=== PATIENT | male | born 1955 | race Caucasian/White ===

== ENCOUNTER → 2022-08-19 15:21 | Outpatient (BNVA) | payer MEDICARE, SELFPAY | PROVIDERS: PCP Physician Assistant Medical; Visit Provider Student in an Organized Health Care Education/Training Program | DX: M06.9 Rheumatoid arthritis, unspecified (principal); M14.671 Charcot's joint, right ankle and foot; J84.10 Pulmonary fibrosis, unspecified | CPT/HCPCS: 99202 ==

== ENCOUNTER 2023-03-16 15:15 | Outpatient (AMB) | payer MEDICARE, SELFPAY ==
[2023-03-16 15:19] VITALS: BP 116/66; PULSE 79; TEMP 37.1; O2SAT 94; BMI 30.3
--- NOTE | 2023-03-16 15:19 | A.OFFVIS_ITS ---
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 Patient states that he has been doing about the same overall. He gets intermittent flares of hand swelling. He takes prednisone 5 mg daily as a standing dose but occasionally increases the dose to 10 mg daily. Continues on Humira every other week. Initial history: This is a 66-year-old male with complex past medical history who presents for evaluation of RA. 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 Patient was diagnosed with gout in his 20s, he would have attacks of significant big toe pain and swelling. This was never crystal proven He received allopurinol for a short time in 2011. He was treated for Lyme on the basis of a positive screen in 2012 but Western blot testing was negative. He started having migratory polyarthritis in 2012 he was initially evaluated by Dr. Dickinson. He then used to follow-up with Dr. Calix, He was started on medications including hydroxychloroquine and leflunomide. Leflunomide was apparently discontinued due to neuropathy. He has been maintained on prednisone 5 mg daily for years now. He was evaluated by Dr. Landin in 2021 and started on Humira sometime in summer of 2021 with significant improvement of his overall joint pain swelling and stiffness. Also of note patient was recently found to have interstitial lung disease on CT chest and he will make an appointment with his manager acquisition for evaluation. Patient has a flare up of his rheumatoid arthritis in last month and he was started on prednisone 20 mg for 1 week then 10 mg for 1 week. He is currently on 10 mg and he will be back to 5 mg next week. He was diagnosed with Charcot it joint affecting his right foot and right foot reconstructive surgery was recommended however patient postpone the surgery as his has COPD and he has to maintain the household by himself, he cannot be unable to walk for four-months which is postop recovery time. History of chronic shoulder pains.? MRI 2009 showed a glenoid labral tear on the right PFSH Medical History Chronic sciatica COPD (chronic obstructive pulmonary disease) Disorder of rotator cuff Encounter for testing for latent tuberculosis infection Essential hypertension Fibrosis of lung Fractures, compound Gout Hyperlipidemia Multiple lung nodules Opioid dependence Rheumatoid arthritis Screening for viral disease Tobacco abuse Surgical History History of surgery on right wrist Family History Father Diabetes Mother Heart disease Social History Household Members: Spouse Alcohol intake: current Alcohol intake frequency: holidays/special occasions only Patient Tobacco Use Status: Current everyday Tobacco user Cigarette Packs Per Day: 1 Current occupational status: employed and retired 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 Review of Systems [facility] [place] Reports arthralgias, Reports joint swelling and Reports stiffness Physical Exam Vital Signs: Last Vital Signs Temp 98.8 F 03/16/23 15:19 Pulse 79 03/16/23 15:19 BP 116/66 03/16/23 15:19 Pulse Ox 94 03/16/23 15:19 Oxygen Delivery Method Room Air 03/16/23 15:19 BMI result Body Mass Index 30.3 Const General: cooperative, healthy appearing, comfortable and no acute distress Nutritional Appearance: overweight Orientation/consciousness: patient oriented x3 Limitations: no limitations HEENT Head: Yes normocephalic and Yes atraumatic Resp Effort & Inspection: normal respiratory effort and able to speak in complete sentences Neuro General: patient oriented x3 Extrem Other: Bilateral 2nd 3rd and 4th MCP swelling without significant tenderness. Bilateral positive MCP squeeze test Right wrist swelling without tenderness Normal nailfold capillaroscopy Significant right foot deformity (Charcot's foot) Results Reviewed Results Reviewed: Labs 03/02? CCP>250 RF 124? SLE EVELYN 1-80 homogeneous Lab 01/2022? CMP unremarkable? Sed rate 23 CRP normal MRI right foot 2021 1. Bone marrow edema involving multiple tarsal and metatarsal bones.? No acute fracture line is identified 2. Probably sequela from remote trauma at the level of the 2nd metatarsal base, possibly with un united fracture fragment.? 3. Small erosive changes in multiple bones, presumably better seen on the radiograph.?? 4. Multiloculated cystic structure between the 2nd and 3rd metatarsals could represent Grissom's neuroma or complicated ganglion cyst.?? 5. Probable small ganglion cysts on the dorsal aspect of the talonavicular joint Assessment & Plan Assessment & Plan (1) Rheumatoid arthritis: Comment: ++RF, +++CCP diagnosed around 2017 Hydroxychloroquine ineffective, leflunomide partially effective discontinued due to neuropathy Humira started summer 2021, effective Prednisone 5 mg all through Code(s): M06.9 - Rheumatoid arthritis, unspecified Plan: This is a 67-year-old male with seropositive RA (ILD) who presents for follow- up. Doing about the same overall with intermittent flares of synovitis. Patient has multiple swollen and tender joints upon evaluation today. Currently on prednisone 5 mg daily increased to 10 mg daily as needed for flares and Humira 40 mg every other week Discussed with patient. Advance Humira to 40 mg every other week. If not approved by insurance will switch to Enbrel once weekly. Patient does not remember the name of his specialty pharmacy. He will contact the office. Check labs today. Follow-up in 3 months (2) Charcot's joint of foot, non-diabetic: Code(s): M14.679 - Charcot's joint, unspecified ankle and foot Qualifiers: Laterality: right Qualified Code(s): M14.671 - Charcot's joint, right ankle and foot Plan: Evaluated by surgeon and surgical reconstruction was suggested but patient currently cannot afford the postoperative course as he has to take care of the household and his who has severe COPD. (3) Fibrosis of lung: Code(s): J84.10 - Pulmonary fibrosis, unspecified Plan: RA-Ild is a possibility given sero positivity, male sex and long history of smoking. Also recent low-dose CT scan showed stable lung nodules and stable extensive ILD. Will await evaluation by his manager acquisition Plan I spent 26 minutes reviewing patient's chart, evaluating patient, ordering diagnostic workup, counseling patient and documenting in the chart Orders: Orders Comprehensive Met. Panel Today M06.9 - Rheumatoid arthritis, unspecified C Reactive Protein Today M06.9 - Rheumatoid arthritis, unspecified Complete Blood Count Auto Diff Today M06.9 - Rheumatoid arthritis, unspecified Erythrocyte Sedimentation Rate Today M06.9 - Rheumatoid arthritis, unspecified Hepatitis A,B,C Profile Today Z11.59 - Encounter for screening for other viral diseases T Spot TB Today Z11.7 - Encounter for testing for latent tuberculosis infection Medications: Refilled prednisone 5 mg PO DAILY 30 tabs 2RF Coding Level of Care Code Est Pt Level 4 (56463) Diagnoses Rheumatoid arthritis M06.9 Charcot's joint of foot, non-diabetic M14.671 Laterality: right Fibrosis of lung J84.10
== END 2023-03-16 16:05 | disposition home or self-care (01) ==
PROVIDERS: PCP Physician Assistant Medical; Visit Provider Student in an Organized Health Care Education/Training Program
DX: M06.9 Rheumatoid arthritis, unspecified (principal); M14.671 Charcot's joint, right ankle and foot; J84.10 Pulmonary fibrosis, unspecified
CPT/HCPCS: 99214

== ENCOUNTER → 2023-03-16 15:15 | Outpatient (BNVA) | payer MEDICARE, SELFPAY | PROVIDERS: PCP Physician Assistant Medical; Visit Provider Student in an Organized Health Care Education/Training Program | DX: M06.9 Rheumatoid arthritis, unspecified (principal); M14.671 Charcot's joint, right ankle and foot; J84.10 Pulmonary fibrosis, unspecified | CPT/HCPCS: 99212 ==

== ENCOUNTER 2023-06-21 09:46 | Outpatient (AMB) | payer MEDICARE, SELFPAY ==
--- NOTE | 2023-06-21 09:55 | MHC.OFFVIS ---
Intake Vital Signs 06/21/23 09:56 Height 5 ft 10.5 in Weight 218 lb 4.122 oz BMI 30.9 BP 102/60 Blood Pressure Location Rt brachial Position Sitting Pulse 68 Pulse Source Pulse Oximeter Temp 97.8 F Temp Source Skin Pulse Oximetry (%) 91 L Intake Visit Reasons: RA Intake Note: Pt last seen 03/16/23, presents today for follow up and test results. 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 Last visit Humira was advanced to once weekly. States that he feels much better overall. Still continues to take prednisone 5 mg daily and rarely would increase it to 10 mg daily when he knows he will have a long day ahead of him. Otherwise he feels the same. Initial history: This is a 66-year-old male with complex past medical history who presents for evaluation of RA. 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 Patient was diagnosed with gout in his 20s, he would have attacks of significant big toe pain and swelling. This was never crystal proven He received allopurinol for a short time in 2011. He was treated for Lyme on the basis of a positive screen in 2012 but Western blot testing was negative. He started having migratory polyarthritis in 2012 he was initially evaluated by Dr. Dickinson. He then used to follow-up with Dr. Calix, He was started on medications including hydroxychloroquine and leflunomide. Leflunomide was apparently discontinued due to neuropathy. He has been maintained on prednisone 5 mg daily for years now. He was evaluated by Dr. Landin in 2021 and started on Humira sometime in summer of 2021 with significant improvement of his overall joint pain swelling and stiffness. Also of note patient was recently found to have interstitial lung disease on CT chest and he will make an appointment with his hydrodynamics professor for evaluation. Patient has a flare up of his rheumatoid arthritis in last month and he was started on prednisone 20 mg for 1 week then 10 mg for 1 week. He is currently on 10 mg and he will be back to 5 mg next week. He was diagnosed with Charcot it joint affecting his right foot and right foot reconstructive surgery was recommended however patient postpone the surgery as his has COPD and he has to maintain the household by himself, he cannot be unable to walk for four-months which is postop recovery time. History of chronic shoulder pains.? MRI 2009 showed a glenoid labral tear on the right [facility] Medical History (Updated 06/21/23 @ 10:38 by Noemy Lewsi MD) Fractures, compound Opioid dependence Disorder of rotator cuff Gout Chronic sciatica Tobacco abuse Multiple lung nodules Hyperlipidemia COPD (chronic obstructive pulmonary disease) Fibrosis of lung Rheumatoid arthritis Essential hypertension Surgical History History of surgery on right wrist Family History Father Diabetes Mother Heart disease Social History Household Members: Spouse Alcohol intake: current Alcohol intake frequency: holidays/special occasions only Patient Tobacco Use Status: Current everyday Tobacco user Cigarette Packs Per Day: 1 Current occupational status: retired Review of Systems [facility] Reports myalgias and Reports arthralgias Physical Exam Vital Signs: Last Vital Signs Temp 97.8 F 06/21/23 09:56 Pulse 68 06/21/23 09:56 BP 102/60 06/21/23 09:56 Pulse Ox 91 L 06/21/23 09:56 BMI result Body Mass Index 30.9 Const General: cooperative, healthy appearing, comfortable and no acute distress Nutritional Appearance: overweight Orientation/consciousness: patient oriented x3 Limitations: no limitations HEENT Head: Yes normocephalic and Yes atraumatic Resp Effort & Inspection: normal respiratory effort and able to speak in complete sentences Auscultation: crackles bilateral Neuro General: patient oriented x3 Extrem Other: No active synovitis today Normal range of motion of shoulder Normal nailfold capillaroscopy Significant right foot deformity (Charcot's foot) Results Reviewed Results Reviewed: Labs 03/02? CCP>250 RF 124? SLE EVELYN 1-80 homogeneous Lab 01/2022? CMP unremarkable? Sed rate 23 CRP normal MRI right foot 2021 1. Bone marrow edema involving multiple tarsal and metatarsal bones.? No acute fracture line is identified 2. Probably sequela from remote trauma at the level of the 2nd metatarsal base, possibly with un united fracture fragment.? 3. Small erosive changes in multiple bones, presumably better seen on the radiograph.?? 4. Multiloculated cystic structure between the 2nd and 3rd metatarsals could represent Grissom's neuroma or complicated ganglion cyst.?? 5. Probable small ganglion cysts on the dorsal aspect of the talonavicular joint Low-dose CT chest 09/2022 Findings: No lung nodules Other findings trachea and mainstem bronchi normal Lungs and pleura: Stable extensive chronic lung disease. No pneumothorax or pleural effusion. Mediastinum and lymph nodes: No large lymph nodes. Normal cardiac size. No pericardial effusion. Coronary artery calcification: Mild Chest wall and soft tissues: Normal Impression: No lung nodules Lung rads category 2 Assessment & Plan Assessment & Plan (1) Rheumatoid arthritis: Comment: ++RF, +++CCP diagnosed around 2017 Hydroxychloroquine ineffective, leflunomide partially effective discontinued due to neuropathy Humira started summer 2021, effective advanced to weekly 03/2023 effective Prednisone 5 mg all through Code(s): M06.9 - Rheumatoid arthritis, unspecified Qualifiers: Rheumatoid arthritis location: multiple sites Rheumatoid factor presence: with rheumatoid factor Qualified Code(s): M05.79 - Rheumatoid arthritis with rheumatoid factor of multiple sites without organ or systems involvement Plan: This is a 67-year-old male with seropositive RA who presents for follow-up. Doing better overall on Humira 40 mg weekly and 5 mg daily. There is no active synovitis today. Rarely increases prednisone to 10 mg. Continue the same. Will plan on reducing prednisone dose in subsequent visits Check labs today. Follow-up in 3 months (2) Charcot's joint of foot, non-diabetic: Code(s): M14.679 - Charcot's joint, unspecified ankle and foot Qualifiers: Laterality: right Qualified Code(s): M14.671 - Charcot's joint, right ankle and foot Plan: Evaluated by surgeon and surgical reconstruction was suggested but patient currently cannot afford the postoperative course as he has to take care of the household and his who has severe COPD. (3) Fibrosis of lung: Code(s): J84.10 - Pulmonary fibrosis, unspecified Plan: RA-Ild is a possibility given sero positivity, male sex and long history of smoking. Also recent low-dose CT scan showed stable lung nodules and stable extensive ILD. Will await evaluation by his hydrodynamics professor (4) Immunization counseling: Code(s): Z71.85 - Encounter for immunization safety counseling Plan: Patient is up-to-date on flu vaccine and COVID booster Plan I spent 26 minutes reviewing patient's chart, evaluating patient, ordering diagnostic workup, counseling patient and documenting in the chart Orders: Orders C Reactive Protein Today M06.9 - Rheumatoid arthritis, unspecified T Spot TB Today Z11.7 - Encounter for testing for latent tuberculosis infection Complete Blood Count Auto Diff Today M06.9 - Rheumatoid arthritis, unspecified Comprehensive Met. Panel Today M06.9 - Rheumatoid arthritis, unspecified Erythrocyte Sedimentation Rate Today M06.9 - Rheumatoid arthritis, unspecified Hepatitis A,B,C Profile Today Z11.59 - Encounter for screening for other viral diseases Coding Level of Care Code Est Pt Level 4 (81071) Diagnoses Rheumatoid arthritis involving multiple sites with positive rheumatoid factor M05.79 Rheumatoid arthritis location: multiple sites Rheumatoid factor presence: with rheumatoid factor Charcot's joint of right foot, non-diabetic M14.671 Laterality: right Fibrosis of lung J84.10 Immunization counseling Z71.85
[2023-06-21 09:56] VITALS: BP 102/60; PULSE 68; TEMP 36.6; O2SAT 91; BMI 30.9
== END 2023-06-21 10:32 | disposition home or self-care (01) ==
PROVIDERS: PCP Physician Assistant Medical; Visit Provider Student in an Organized Health Care Education/Training Program
DX: M05.79 Rheumatoid arthritis with rheumatoid factor of multiple sites without organ or systems involvement (principal); M14.671 Charcot's joint, right ankle and foot; J84.10 Pulmonary fibrosis, unspecified; Z71.85 Encounter for immunization safety counseling
CPT/HCPCS: 99214

== ENCOUNTER → 2023-06-21 09:46 | Outpatient (BNVA) | payer MEDICARE, SELFPAY | PROVIDERS: PCP Physician Assistant Medical; Visit Provider Student in an Organized Health Care Education/Training Program | DX: M05.79 Rheumatoid arthritis with rheumatoid factor of multiple sites without organ or systems involvement (principal); M14.671 Charcot's joint, right ankle and foot; J84.10 Pulmonary fibrosis, unspecified; Z71.85 Encounter for immunization safety counseling; Z11.59 Encounter for screening for other viral diseases; Z72.89 Other problems related to lifestyle | CPT/HCPCS: 36415; 80053; 82784; 84165; 84550; 85025; 85652; 86140; 86334; 86481; 86704; 86706; 86709; 86803; 87340; 99212 ==

== ENCOUNTER 2023-06-21 10:47 | Outpatient (REF) | payer MEDICARE, SELFPAY ==
[2023-06-21 13:28] LABS: MANUAL DIFF FLAG NO
[2023-06-21 13:39] LABS: Basophils Percent Auto 0.4 % (0-2); Eosinophils Absolute Auto 0.2 X10*3/uL (0.0-0.4); Eosinophils Percent Auto 2.7 % (0-4); Hematocrit 44.9 % (42.0-52.0); Hemoglobin 14.8 g/dl (14.0-18.0); Imm Gran Abs Auto 0.03 X10*3/uL (0.00-0.03); Imm Gran Pct Auto 0.4 % (0.0-0.4); Lymphocytes Absolute Auto 1.7 X10*3/uL (1.2-4.9); Lymphocytes Percent Auto 20.8 % (20-40); Mean Corpuscular Hemoglobin 31.4 pg (27.0-33.0); Mean Corpuscular Volume 95.3 fL (80.0-98.0); Mean Platelet Volume 12.2 fL (9.4-12.4); Monocytes Absolute Auto 0.7 X10*3/uL (0.1-1.2); Monocytes Percent Auto 8.5 % (2-11); Neutrophils Absolute Auto 5.5 x10*3/uL (2.0-8.3); Neutrophils Percent Auto 67.2 % (45-73); Platelet Count 245 X10*3/uL (160-400); Red Blood Count 4.71 X10*6/uL (4.60-5.80); Red Cell Distribution Width 12.7 % (11.0-16.0); White Blood Count 8.1 X10*3/uL (4.8-10.8)
[2023-06-21 14:08] LABS: Alanine Aminotransferase 13 U/L (0-40); Albumin Level 3.8 g/dL (3.5-5.0); Alkaline Phosphatase 91 U/L (39-117); Anion Gap 12 (12-20); Aspartate Amino Transferase 21 U/L (5-37); Bilirubin Total 0.4 mg/dL (0.0-1.0); Blood Urea Nitrogen 27 mg/dL (9-16); C Reactive Protein 1.04 mg/dL (< or = 0.50); Calcium 9.3 mg/dL (8.4-10.2); Carbon Dioxide 26 mmol/L (22-29); Chloride 106 mmol/L (96-108); Estimated Glomerular Filt Rate > 60; Glucose Random 100 mg/dL (60-115); Potassium 3.9 mmol/L (3.3-5.1); Sodium 140 mmol/L (135-145); Total Protein 7.5 g/dL (6.5-8.0); Uric Acid 6.1 mg/dL (3.4-7.0)
[2023-06-21 14:21] LABS: Erythrocyte Sedimentation Rate 62 MM/HR (0-15)
[2023-06-22 04:55] LABS: HBS Num1 56.03 mIU/mL (0-7.99); HBc Num1 0.11 S/CO (0.00-0.79); HBsAGNum1 0.36 S/CO (0.00-0.99); Hepatitis A Antibody IgM 0.63 Index (0-0.79); Hepatitis B Core Antibody Nonreactive (Nonreactive); Hepatitis B Surface Antigen Negative (Negative); ~HepC Num1 0.07 S/CO (0.00-0.79); ~Hepatitis A Antibody IgM Nonreactive (Nonreactive); ~Hepatitis B Surface Antibody REACTIVE (Nonreactive); ~Hepatitis C Antibody Nonreactive (Nonreactive)
[2023-06-22 21:54] LABS: Prot Elec - Albumin 3.9 g/dL (3.8-4.8); Prot Elec - Alpha1 0.4 g/dL (0.2-0.3); Prot Elec - Alpha2 0.9 g/dL (0.5-0.9); Prot Elec - Beta 1 0.4 g/dL (0.4-0.6); Prot Elec - Beta 2 0.4 g/dL (0.2-0.5); Prot Elec - Gamma 1.3 g/dL (0.8-1.7); Prot Elec - Total Protein 7.2 g/dL (6.1-8.1)
[2023-06-23 18:48] LABS: TS Negative Control Passed; TS Panel A 0; TS Panel B 0; TS Positive Control Passed; TSpotTB Negative (Negative)
[2023-06-27 11:09] LABS: IgA 317 mg/dL (70-320); IgG 1195 mg/dL (600-1540); IgM 322 mg/dL (50-300)
== END 2023-06-21 10:48 | disposition home or self-care (01) ==
LOC: HO.10HDL 10:47
PROVIDERS: Visit Provider Student in an Organized Health Care Education/Training Program
DX: Z13.89 Encounter for screening for other disorder (principal)
CPT/HCPCS: 36415; 80053; 82784; 84165; 84550; 85025; 85652; 86140; 86334; 86481; 86704; 86706; 86709; 86803; 87340

== ENCOUNTER 2023-10-05 11:36 | Outpatient (AMB) | payer MEDICARE, SELFPAY ==
--- NOTE | 2023-10-05 11:42 | A.OFFVIS_ITS ---
Intake Vital Signs 10/05/23 11:43 Height 5 ft 10.5 in Weight 213 lb 13.574 oz BMI 30.2 BP 120/72 Blood Pressure Location Rt brachial Position Sitting Pulse 72 Pulse Source Pulse Oximeter Temp 98.1 F Temp Source Skin Pulse Oximetry (%) 91 L Oxygen Delivery Method Room Air Intake Visit Reasons: RA Intake Note: Patient last seen 06/21/23 presents today for follow up and test results. Patient has not completed labs ordered. Pharmacy Assistant Required: No Accompanied by: Self / Same As Patient Allergies No Known Allergies Allergy (Verified 10/05/23 11:48) Medication List - Last Reconciled 10/05/23 by Noemy Lewis MD Humira(CF) Pen (adalimumab) 40 mg (0.4 mL) subcut QWEEK NS hydrochlorothiazide 25 mg PO DAILY multivitamin 1 tab PO DAILY oxycodone ER 20 mg PO DAILY oxycodone-acetaminophen 10-325 mg 1 tab PO .5 times a day prednisone Take 2 tabs daily alternating with 1 tab daily sildenafil 100 mg PO DAILY PRN HPI HPI Comments History of Present Illness Details 67-year-old male with seropositive RA re turns for follow-up. On Humira weekly. He states that he stops taking the prednisone for a few days, his thumbs start acting up and he takes the 5 mg daily for a few days with resolution of joint pain. He is doing about the same overall. Recently evaluated by inspector precision assembly and a CT chest was completed Initial history: This is a 66-year-old male with complex past medical history who presents for evaluation of RA. 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 Patient was diagnosed with gout in his 20s, he would have attacks of significant big toe pain and swelling. This was never crystal proven He received allopurinol for a short time in 2011. He was treated for Lyme on the basis of a positive screen in 2012 but Western blot testing was negative. He started having migratory polyarthritis in 2012 he was initially evaluated by Dr. Dickinson. He then used to follow-up with Dr. Calix, He was started on medications including hydroxychloroquine and leflunomide. Leflunomide was apparently discontinued due to neuropathy. He has been maintained on prednisone 5 mg daily for years now. He was evaluated by Dr. Landin in 2021 and started on Humira sometime in summer of 2021 with significant improvement of his overall joint pain swelling and stiffness. Also of note patient was recently found to have interstitial lung disease on CT chest and he will make an appointment with his inspector precision assembly for evaluation. Patient has a flare up of his rheumatoid arthritis in last month and he was started on prednisone 20 mg for 1 week then 10 mg for 1 week. He is currently on 10 mg and he will be back to 5 mg next week. He was diagnosed with Charcot it joint affecting his right foot and right foot reconstructive surgery was recommended however patient postpone the surgery as his has COPD and he has to maintain the household by himself, he cannot be unable to walk for four-months which is postop recovery time. History of chronic shoulder pains.? MRI 2009 showed a glenoid labral [facility] Medical History Fractures, compound Opioid dependence Disorder of rotator cuff Gout Chronic sciatica Tobacco abuse Multiple lung nodules Hyperlipidemia COPD (chronic obstructive pulmonary disease) Fibrosis of lung Rheumatoid arthritis Essential hypertension Surgical History History of surgery on right wrist Family History Father Diabetes Mother Heart disease Social History Household Members: Spouse Alcohol intake: current Alcohol intake frequency: holidays/special occasions only Patient Tobacco Use Status: Current everyday Tobacco user Cigarette Packs Per Day: 1 Current occupational status: retired Review of Systems [facility] [place] Reports myalgias and Reports arthralgias Physical Exam Vital Signs: Last Vital Signs Temp 98.1 F 10/05/23 11:43 Pulse 72 10/05/23 11:43 BP 120/72 10/05/23 11:43 Pulse Ox 91 L 10/05/23 11:43 Oxygen Delivery Method Room Air 10/05/23 11:43 BMI result Body Mass Index 30.2 Const General: cooperative, healthy appearing, comfortable and no acute distress Nutritional Appearance: overweight Orientation/consciousness: patient oriented x3 Limitations: no limitations HEENT Head: Yes normocephalic and Yes atraumatic Resp Effort & Inspection: normal respiratory effort and able to speak in complete sentences Auscultation: crackles bilateral Neuro General: patient oriented x3 Extrem Other: No active synovitis today Normal range of motion of shoulders Positive empty can test bilaterally Positive Speed's test on the left Normal nailfold capillaroscopy Significant right foot deformity (Charcot's foot) Results Reviewed Results Reviewed: Labs 03/02? CCP>250 RF 124? SLE EVELYN 1-80 homogeneous Lab 01/2022? CMP unremarkable? Sed rate 23 CRP normal MRI right foot 2021 1. Bone marrow edema involving multiple tarsal and metatarsal bones.? No acute fracture line is identified 2. Probably sequela from remote trauma at the level of the 2nd metatarsal base, possibly with un united fracture fragment.? 3. Small erosive changes in multiple bones, presumably better seen on the radiograph.?? 4. Multiloculated cystic structure between the 2nd and 3rd metatarsals could represent Grissom's neuroma or complicated ganglion cyst.?? 5. Probable small ganglion cysts on the dorsal aspect of the talonavicular joint Low-dose CT chest 09/2022 Findings: No lung nodules Other findings trachea and mainstem bronchi normal Lungs and pleura: Stable extensive chronic lung disease. No pneumothorax or pleural effusion. Mediastinum and lymph nodes: No large lymph nodes. Normal cardiac size. No pericardial effusion. Coronary artery calcification: Mild Chest wall and soft tissues: Normal Impression: No lung nodules Lung rads category 2 Assessment & Plan Assessment & Plan (1) Rheumatoid arthritis: Comment: ++RF, +++CCP diagnosed around 2017 Hydroxychloroquine ineffective, leflunomide partially effective discontinued due to neuropathy Humira started summer 2021, effective advanced to weekly 03/2023 effective Prednisone 5 mg all through Code(s): M06.9 - Rheumatoid arthritis, unspecified Qualifiers: Rheumatoid arthritis location: multiple sites Rheumatoid factor presence: with rheumatoid factor Qualified Code(s): M05.79 - Rheumatoid arthritis with rheumatoid factor of multiple sites without organ or systems involvement Plan: This is a 67-year-old male with seropositive RA who presents for follow-up. Doing well on Humira 40 mg weekly. Advised patient to reduce prednisone to 5 mg daily alternating with 2.5 mg daily Labs before next visit in 3 months (2) Charcot's joint of foot, non-diabetic: Code(s): M14.679 - Charcot's joint, unspecified ankle and foot Qualifiers: Laterality: right Qualified Code(s): M14.671 - Charcot's joint, right ankle and foot Plan: Evaluated by surgeon and surgical reconstruction was suggested but patient currently cannot afford the postoperative course as he has to take care of the household and his who has severe COPD. (3) Fibrosis of lung: Code(s): J84.10 - Pulmonary fibrosis, unspecified Plan: RA-Ild is a possibility given sero positivity, male sex and long history of smoking. Also recent low-dose CT scan showed stable lung nodules and stable extensive ILD. Will await evaluation by his inspector precision assembly. Patient does not know the his inspector precision assembly's name. Advised patient to call our office once he gets back home. Plan I spent 26 minutes reviewing patient's chart, evaluating patient, ordering diagnostic workup, counseling patient and documenting in the chart Orders: Orders Comprehensive Met. Panel 3 Months M06.9 - Rheumatoid arthritis, unspecified C Reactive Protein 3 Months M06.9 - Rheumatoid arthritis, unspecified Erythrocyte Sedimentation Rate 3 Months M06.9 - Rheumatoid arthritis, unspecified Complete Blood Count Auto Diff 3 Months M06.9 - Rheumatoid arthritis, unspecified Medications: New prednisone Take 2 tabs daily alternating with 1 tab daily 135 tabs 0RF Discontinued prednisone Discontinued Reason: Doctor's Order 5 mg PO DAILY 30 tabs 2RF Coding Level of Care Code Est Pt Level 4 (36995) Diagnoses Rheumatoid arthritis involving multiple sites with positive rheumatoid factor M05.79 Rheumatoid arthritis location: multiple sites Rheumatoid factor presence: with rheumatoid factor Charcot's joint of right foot, non-diabetic M14.671 Laterality: right Fibrosis of lung J84.10
[2023-10-05 11:43] VITALS: BP 120/72; PULSE 72; TEMP 36.7; O2SAT 91; BMI 30.2
== END 2023-10-05 12:05 | disposition home or self-care (01) ==
PROVIDERS: PCP Physician Assistant Medical; Visit Provider Student in an Organized Health Care Education/Training Program
DX: M05.79 Rheumatoid arthritis with rheumatoid factor of multiple sites without organ or systems involvement (principal); M14.671 Charcot's joint, right ankle and foot; J84.10 Pulmonary fibrosis, unspecified
CPT/HCPCS: 99214

== ENCOUNTER → 2023-10-05 11:36 | Outpatient (BNVA) | payer MEDICARE, SELFPAY | PROVIDERS: PCP Physician Assistant Medical; Visit Provider Student in an Organized Health Care Education/Training Program | DX: M05.79 Rheumatoid arthritis with rheumatoid factor of multiple sites without organ or systems involvement (principal); M14.671 Charcot's joint, right ankle and foot; J84.10 Pulmonary fibrosis, unspecified | CPT/HCPCS: 99212 ==

== ENCOUNTER 2024-01-03 11:27 | Outpatient (AMB) | payer MEDICARE, SELFPAY ==
--- NOTE | 2024-01-03 11:29 | A.OFFVIS_ITS ---
Vital Signs 01/03/24 11:32 Height 5 ft 10.5 in Weight 200 lb 9.93 oz BMI 28.4 BP 112/80 Pulse 83 Pulse Oximetry (%) 93 Intake Visit Reasons: RA Intake Note: Patient last seen 10/05/23 presents today for follow up and test results. Patient reports recent flare that started last week. Allergies No Known Allergies Allergy (Verified 01/03/24 11:36) Medication List - Last Reconciled 01/03/24 by Noemy Lewis MD hydrochlorothiazide 25 mg PO DAILY multivitamin 1 tab PO DAILY oxycodone ER 20 mg PO DAILY oxycodone-acetaminophen 10-325 mg 1 tab PO .5 times a day prednisone 2.5 mg PO DAILY sildenafil 100 mg PO DAILY PRN HPI Comments Details: 68-year-old male with seropositive RA returns for follow-up. On Humira weekly and prednisone 2.5 mg daily. States that he was having a flare-up over the last 2-3 weeks involving his hands, wrists, ankles. Associated with swelling, warmth and stiffness. He increased his prednisone to 7.5 mg daily for a few days which helped his ankles. Today he is doing reasonably well. He denies any history of infections recently. Initial history: This is a 66-year-old male with complex past medical history who presents for evaluation of RA. 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 Patient was diagnosed with gout in his 20s, he would have attacks of significant big toe pain and swelling. This was never crystal proven He received allopurinol for a short time in 2011. He was treated for Lyme on the basis of a positive screen in 2012 but Western blot testing was negative. He started having migratory polyarthritis in 2012 he was initially evaluated by Dr. Dickinson. He then used to follow-up with Dr. Calix, He was started on medications including hydroxychloroquine and leflunomide. Leflunomide was apparently discontinued due to neuropathy. He has been maintained on prednisone 5 mg daily for years now. He was evaluated by Dr. Ladnin in 2021 and started on Humira sometime in summer of 2021 with significant improvement of his overall joint pain swelling and stiffness. Also of note patient was recently found to have interstitial lung disease on CT chest and he will make an appointment with his card checker for evaluation. Patient has a flare up of his rheumatoid arthritis in last month and he was started on prednisone 20 mg for 1 week then 10 mg for 1 week. He is currently on 10 mg and he will be back to 5 mg next week. He was diagnosed with Charcot it joint affecting his right foot and right foot reconstructive surgery was recommended however patient postpone the surgery as his has COPD and he has to maintain the household by himself, he cannot be unable to walk for four-months which is postop recovery time. History of chronic shoulder pains.? MRI 2009 showed a glenoid labral tear on the right PFSH Medical History Fractures, compound Opioid dependence Disorder of rotator cuff Gout Chronic sciatica Tobacco abuse Multiple lung nodules Hyperlipidemia COPD (chronic obstructive pulmonary disease) Fibrosis of lung Rheumatoid arthritis Essential hypertension Surgical History History of surgery on right wrist Family History Father Diabetes Mother Heart disease Social History Household Members: Spouse Alcohol intake: current Alcohol intake frequency: holidays/special occasions only Patient Tobacco Use Status: Current everyday Tobacco user Cigarettes Per Day: 18 Current occupational status: retired Review of Systems [facility] [place] arthralgias, Reports joint swelling and Reports stiffness Physical Exam Vital Signs: Last Vital Signs Pulse 83 01/03/24 11:32 BP 112/80 01/03/24 11:32 Pulse Ox 93 01/03/24 11:32 BMI result Body Mass Index 28.4 Const General: cooperative, healthy appearing, comfortable and no acute distress Nutritional Appearance: overweight Orientation/consciousness: patient oriented x3 Limitations: no limitations HEENT Head: Yes normocephalic and Yes atraumatic Resp Effort & Inspection: normal respiratory effort and able to speak in complete sentences Auscultation: crackles bilateral Neuro General: patient oriented x3 Extrem Other: Right 2nd 3rd and 4th MCP tenderness 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 CCP>250 RF 124? SLE EVELYN 1-80 homogeneous Lab 01/2022? CMP unremarkable? Sed rate 23 CRP normal MRI right foot 2021 1. Bone marrow edema involving multiple tarsal and metatarsal bones.? No acute fracture line is identified 2. Probably sequela from remote trauma at the level of the 2nd metatarsal base, possibly with un united fracture fragment.? 3. Small erosive changes in multiple bones, presumably better seen on the radiograph.?? 4. Multiloculated cystic structure between the 2nd and 3rd metatarsals could represent Grissom's neuroma or complicated ganglion cyst.?? 5. Probable small ganglion cysts on the dorsal aspect of the talonavicular joint Low-dose CT chest 09/2022 Findings: No lung nodules Other findings trachea and mainstem bronchi normal Lungs and pleura: Stable extensive chronic lung disease. No pneumothorax or pleural effusion. Mediastinum and lymph nodes: No large lymph nodes. Normal cardiac size. No pericardial effusion. Coronary artery calcification: Mild Chest wall and soft tissues: Normal Impression: No lung nodules Lung rads category 2 Assessment & Plan Assessment & Plan (1) Rheumatoid arthritis: Comment: ++RF, +++CCP diagnosed around 2017 Hydroxychloroquine ineffective, leflunomide partially effective discontinued due to neuropathy Humira started summer 2021, effective advanced to weekly 03/2023 effective Prednisone all through Code(s): M06.9 - Rheumatoid arthritis, unspecified Category: Medical Qualifiers: Rheumatoid arthritis location: multiple sites Rheumatoid factor presence: with rheumatoid factor Qualified Code(s): M05.79 - Rheumatoid arthritis with rheumatoid factor of multiple sites without organ or systems involvement Plan: This is a 68-year-old male with seropositive RA who presents for follow-up. On Humira 40 mg weekly and prednisone 2.5 mg daily. Since last visit patient has been having multiple flare-ups requiring increasing his prednisone dosage. On exam he has multiple tender joints. Labs show significantly elevated inflammatory markers. Will need to change DMARDs. Discussed risks and benefits of Actemra. Patient agreed to proceed. Will start prior authorization for Actemra. DC Enbrel Continue with prednisone 2.5 mg daily Labs before next visit in 3 months (2) Charcot's joint of foot, non-diabetic: Code(s): M14.679 - Charcot's joint, unspecified ankle and foot Category: Medical Qualifiers: Laterality: right Qualified Code(s): M14.671 - Charcot's joint, right ankle and foot Plan: Evaluated by surgeon and surgical reconstruction was suggested but patient currently cannot afford the postoperative course as he has to take care of the household and his who has severe COPD. (3) Fibrosis of lung: Code(s): J84.10 - Pulmonary fibrosis, unspecified Category: Medical Plan: Smoking related versus RA ILD. RA-Ild is a possibility given sero positivity, male sex and long history of smoking. Recently evaluated by card checker Dr. Tipton. Plan I spent 26 minutes reviewing patient's chart, evaluating patient, ordering diagnostic workup, counseling patient and documenting in the chart Orders: Orders C Reactive Protein 3 Months M05.79 - Rheumatoid arthritis with rheumatoid factor of multiple sites without organ or systems involvement Erythrocyte Sedimentation Rate 3 Months M05.79 - Rheumatoid arthritis with rheumatoid factor of multiple sites without organ or systems involvement Complete Blood Count Auto Diff 3 Months M05. - Rheumatoid arthritis with rheumatoid factor of multiple sites without organ or systems involvement Comprehensive Met. Panel 3 Months M05.79 - Rheumatoid arthritis with rheumatoid factor of multiple sites without organ or systems involvement Medications: Changed From prednisone Take 2 tabs daily alternating with 1 tab daily 135 tabs 0RF To prednisone 2.5 mg PO DAILY Coding Level of Care Code Est Pt Level 4 (19309) Diagnoses Rheumatoid arthritis involving multiple sites with positive rheumatoid factor M05.79 Rheumatoid arthritis location: multiple sites Rheumatoid factor presence: with rheumatoid factor Charcot's joint of right foot, non-diabetic M14.671 Laterality: right Fibrosis of lung J84.10
[2024-01-03 11:32] VITALS: BP 112/80; PULSE 83; O2SAT 93; BMI 28.4
== END 2024-01-03 11:46 | disposition home or self-care (01) ==
PROVIDERS: PCP Physician Assistant Medical; Visit Provider Student in an Organized Health Care Education/Training Program
DX: M05.79 Rheumatoid arthritis with rheumatoid factor of multiple sites without organ or systems involvement (principal); M14.671 Charcot's joint, right ankle and foot; J84.10 Pulmonary fibrosis, unspecified
CPT/HCPCS: 99214

== ENCOUNTER → 2024-01-03 11:27 | Outpatient (BNVA) | payer MEDICARE, SELFPAY | PROVIDERS: PCP Physician Assistant Medical; Visit Provider Student in an Organized Health Care Education/Training Program | DX: M05.79 Rheumatoid arthritis with rheumatoid factor of multiple sites without organ or systems involvement (principal); M14.671 Charcot's joint, right ankle and foot; J84.10 Pulmonary fibrosis, unspecified; Z79.52 Long term (current) use of systemic steroids; Z79.620 Long term (current) use of immunosuppressive biologic | CPT/HCPCS: 99212 ==

== ENCOUNTER 2024-03-21 10:24 | Outpatient (AMB) | payer MEDICARE, SELFPAY ==
--- NOTE | 2024-03-21 10:37 | MHC.OFFVIS ---
Vital Signs 03/21/24 10:41 Height 5 ft 10.5 in Weight 197 lb 1.492 oz BMI 27.9 BP 115/62 Blood Pressure Location Lt brachial Position Sitting Pulse 70 Pulse Source Pulse Oximeter Pulse Oximetry (%) 93 Oxygen Delivery Method Room Air Intake Visit Reasons: RA Intake Note: Patient presents for RA. Allergies No Known Allergies Allergy (Verified 03/21/24 10:39) Medication List - Last Reconciled 03/21/24 by Noemy Lewis MD Actemra ACTPen (tocilizumab) 162 mg (0.9 mL) subcut Q2W NS hydrochlorothiazide 25 mg PO DAILY multivitamin 1 tab PO DAILY oxycodone ER 20 mg PO DAILY oxycodone-acetaminophen 10-325 mg 1 tab PO .5 times a day prednisone 2.5 mg PO DAILY sildenafil 100 mg PO DAILY PRN HPI Comments Details: 68-year-old male with seropositive RA returns for follow-up. Last visit we switched his weekly Humira to Actemra. And states that the Actemra working fairly okay, works relatively well for 10-11 days then he starts having more stiffness and joint pain. Overall Actemra was similar to Humira. Patient was started on Ofev by his automated teller manager, a few days later he had a severe generalized flare-up affecting numerous joints including his neck, his elbows, wrists, knees, ankles. Knees were swollen and warm. He could not move, could not get out of bed. He had to take plenty of prednisone from his 's prescription which did provide some relief. He stopped taking the Ofev. He did not have any GI symptoms with it. He starting to have some nodules on different joints including the extensor surface of his right elbow, his right little finger and right index. Initial history: This is a 66-year-old male with complex past medical history who presents for evaluation of RA. 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 Patient was diagnosed with gout in his 20s, he would have attacks of significant big toe pain and swelling. This was never crystal proven He received allopurinol for a short time in 2011. He was treated for Lyme on the basis of a positive screen in 2012 but Western blot testing was negative. He started having migratory polyarthritis in 2012 he was initially evaluated by Dr. Dickinson. He then used to follow-up with Dr. Calix, He was started on medications including hydroxychloroquine and leflunomide. Leflunomide was apparently discontinued due to neuropathy. He has been maintained on prednisone 5 mg daily for years now. He was evaluated by Dr. Landin in 2021 and started on Humira sometime in summer of 2021 with significant improvement of his overall joint pain swelling and stiffness. Also of note patient was recently found to have interstitial lung disease on CT chest and he will make an appointment with his automated teller manager for evaluation. Patient has a flare up of his rheumatoid arthritis in last month and he was started on prednisone 20 mg for 1 week then 10 mg for 1 week. He is currently on 10 mg and he will be back to 5 mg next week. He was diagnosed with Charcot it joint affecting his right foot and right foot reconstructive surgery was recommended however patient postpone the surgery as his has COPD and he has to maintain the household by himself, he cannot be unable to walk for four-months which is postop recovery time. History of chronic shoulder pains.? MRI 2009 showed a glenoid labral tear on the right PFSH Medical History Fractures, compound Opioid dependence Disorder of rotator cuff Gout Chronic sciatica Tobacco abuse Multiple lung nodules Hyperlipidemia COPD (chronic obstructive pulmonary disease) Fibrosis of lung Rheumatoid arthritis Essential hypertension Surgical History History of surgery on right wrist Family History Father Diabetes Mother Heart disease Social History Household Members: Spouse Alcohol intake: current Alcohol intake frequency: holidays/special occasions only Patient Tobacco Use Status: Current everyday Tobacco user Cigarettes Per Day: 18 Current occupational status: retired Review of Systems [facility] Reports arthralgias, Reports joint swelling and Reports stiffness Physical Exam Vital Signs: Last Vital Signs Pulse 70 03/21/24 10:41 BP 115/62 03/21/24 10:41 Pulse Ox 93 03/21/24 10:41 Oxygen Delivery Method Room Air 03/21/24 10:41 BMI result Body Mass Index 27.9 Const General: cooperative, healthy appearing, comfortable and no acute distress Nutritional Appearance: overweight Orientation/consciousness: patient oriented x3 Limitations: no limitations HEENT Head: Yes normocephalic and Yes atraumatic Resp Effort & Inspection: normal respiratory effort and able to speak in complete sentences Auscultation: crackles bilateral and wheezes Skin General skin exam: no rashes or lesions noted Neuro General: patient oriented x3 Extrem Other: Bilateral wrist pain with full flexion and extension Mildly tender MCPs bilaterally 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 CCP>250 RF 124? SLE/ EVELYN 1-80 homogeneous Lab 01/2022? CMP unremarkable? Sed rate 23 CRP normal MRI right foot 2021 1. Bone marrow edema involving multiple tarsal and metatarsal bones.? No acute fracture line is identified 2. Probably sequela from remote trauma at the level of the 2nd metatarsal base, possibly with un united fracture fragment.? 3. Small erosive changes in multiple bones, presumably better seen on the radiograph.?? 4. Multiloculated cystic structure between the 2nd and 3rd metatarsals could represent Grissom's neuroma or complicated ganglion cyst.?? 5. Probable small ganglion cysts on the dorsal aspect of the talonavicular joint Low-dose CT chest 09/2022 Findings: No lung nodules Other findings trachea and mainstem bronchi normal Lungs and pleura: Stable extensive chronic lung disease. No pneumothorax or pleural effusion. Mediastinum and lymph nodes: No large lymph nodes. Normal cardiac size. No pericardial effusion. Coronary artery calcification: Mild Chest wall and soft tissues: Normal Impression: No lung nodules Lung rads category 2 Assessment & Plan Assessment & Plan (1) Rheumatoid arthritis: Comment: ++RF, +++CCP diagnosed around 2017 Hydroxychloroquine ineffective, leflunomide partially effective discontinued due to neuropathy Humira started summer 2021, effective advanced to weekly 03/2023 DC 12/2023 due to losing effectiveness Actemra 12/2023 Prednisone all through Code(s): M06.9 - Rheumatoid arthritis, unspecified Category: Medical Qualifiers: Rheumatoid arthritis location: multiple sites Rheumatoid factor presence: with rheumatoid factor Qualified Code(s): M05.79 - Rheumatoid arthritis with rheumatoid factor of multiple sites without organ or systems involvement Plan: This is a 68-year-old male with seropositive RA who presents for follow-up. On Actemra 162 mg every other week. Per patient Actemra was overall about as effective as Humira, injection works reasonably well for 10-12 days then he starts having joint pain and stiffness. He started having a severe flare-up affecting numerous joints a week after he started Ofev which may be a reaction to Ofev or a significant flare-up of his rheumatoid arthritis on exam today he has multiple new rheumatoid nodules. Patient contact in his automated teller manager and Ofev was discontinued. I think patient should continue with Actemra for 3 more months and we will re-evaluate. If there is no improvement in his RA with ongoing flare-ups, worsening of rheumatoid nodules, we will have to make a change. Prednisone as needed for flare-ups Rituximab or Orencia can be considered to treat his seropositive RA and his interstitial lung disease. Labs today and before next visit in 3 months (2) Charcot's joint of foot, non-diabetic: Code(s): M14.679 - Charcot's joint, unspecified ankle and foot Category: Medical Qualifiers: Laterality: right Qualified Code(s): M14.671 - Charcot's joint, right ankle and foot Plan: Evaluated by surgeon and surgical reconstruction was suggested but patient currently cannot afford the postoperative course as he has to take care of the household and his who has severe COPD. (3) Fibrosis of lung: Code(s): J84.10 - Pulmonary fibrosis, unspecified Category: Medical Plan: Smoking related versus RA ILD. RA-Ild is a possibility given sero positivity, male sex and long history of smoking. Follows up with Dr. Tipton. As mentioned above Ofev was discontinued Plan I spent 26 minutes reviewing patient's chart, evaluating patient, ordering diagnostic workup, counseling patient and documenting in the chart Orders: Orders C Reactive Protein 3 Months M05.79 - Rheumatoid arthritis with rheumatoid factor of multiple sites without organ or systems involvement Complete Blood Count Auto Diff 3 Months M05.79 - Rheumatoid arthritis with rheumatoid factor of multiple sites without organ or systems involvement Comprehensive Met. Panel 3 Months M05.79 - Rheumatoid arthritis with rheumatoid factor of multiple sites without organ or systems involvement Erythrocyte Sedimentation Rate 3 Months M05.79 - Rheumatoid arthritis with rheumatoid factor of multiple sites without organ or systems involvement Complete Blood Count Auto Diff Today M05.79 - Rheumatoid arthritis with rheumatoid factor of multiple sites without organ or systems involvement Comprehensive Met. Panel Today M05.79 - Rheumatoid arthritis with rheumatoid factor of multiple sites without organ or systems involvement C Reactive Protein Today M05.79 - Rheumatoid arthritis with rheumatoid factor of multiple sites without organ or systems involvement Erythrocyte Sedimentation Rate Today M05.79 - Rheumatoid arthritis with rheumatoid factor of multiple sites without organ or systems involvement Medications: New prednisone Take 1 tab daily for 1 week then 1/2 tab daily for 1 week Keep additional tablets to use as needed for flare-ups 30 tabs 1RF Coding Level of Care Code Est Pt Level 4 (35151) Diagnoses Rheumatoid arthritis involving multiple sites with positive rheumatoid factor M05.79 Rheumatoid arthritis location: multiple sites Rheumatoid factor presence: with rheumatoid factor Charcot's joint of right foot, non-diabetic M14.671 Laterality: right Fibrosis of lung J84.10
[2024-03-21 10:41] VITALS: BP 115/62; PULSE 70; O2SAT 93; BMI 27.9
== END 2024-03-21 11:17 | disposition home or self-care (01) ==
PROVIDERS: PCP Physician Assistant Medical; Visit Provider Student in an Organized Health Care Education/Training Program
DX: M05.79 Rheumatoid arthritis with rheumatoid factor of multiple sites without organ or systems involvement (principal); M14.671 Charcot's joint, right ankle and foot; J84.10 Pulmonary fibrosis, unspecified
CPT/HCPCS: 99214

== ENCOUNTER → 2024-03-21 10:24 | Outpatient (BNVA) | payer MEDICARE, SELFPAY | PROVIDERS: PCP Physician Assistant Medical; Visit Provider Student in an Organized Health Care Education/Training Program | DX: M05.79 Rheumatoid arthritis with rheumatoid factor of multiple sites without organ or systems involvement (principal); M14.671 Charcot's joint, right ankle and foot; J84.10 Pulmonary fibrosis, unspecified | CPT/HCPCS: 36415; 80053; 85025; 85652; 86140; 99212 ==

== ENCOUNTER 2024-03-21 11:25 | Outpatient (REF) | payer MEDICARE, SELFPAY ==
[2024-03-21 13:09] LABS: MANUAL DIFF FLAG NO
[2024-03-21 13:25] LABS: Basophils Percent Auto 0.3 % (0-2); Eosinophils Absolute Auto 0.2 X10*3/uL (0.0-0.4); Eosinophils Percent Auto 1.5 % (0-4); Hematocrit 45.6 % (42.0-52.0); Hemoglobin 15.1 g/dl (14.0-18.0); Imm Gran Abs Auto 0.06 X10*3/uL (0.00-0.03); Imm Gran Pct Auto 0.6 % (0.0-0.4); Lymphocytes Absolute Auto 0.9 X10*3/uL (1.2-4.9); Lymphocytes Percent Auto 8.8 % (20-40); Mean Corpuscular HGB Conc 33.1 g/dl (31.0-36.0); Mean Corpuscular Hemoglobin 30.6 pg (27.0-33.0); Mean Corpuscular Volume 92.3 fL (80.0-98.0); Mean Platelet Volume 11.8 fL (9.4-12.4); Monocytes Absolute Auto 0.6 X10*3/uL (0.1-1.2); Monocytes Percent Auto 5.2 % (2-11); Neutrophils Absolute Auto 8.9 x10*3/uL (2.0-8.3); Neutrophils Percent Auto 83.6 % (45-73); Platelet Count 287 X10*3/uL (160-400); Red Blood Count 4.94 X10*6/uL (4.60-5.80); Red Cell Distribution Width 13.2 % (11.0-16.0); White Blood Count 10.6 X10*3/uL (4.8-10.8)
[2024-03-21 13:40] LABS: Alanine Aminotransferase 16 U/L (0-40); Albumin Level 4.1 g/dL (3.5-5.0); Alkaline Phosphatase 92 U/L (39-117); Anion Gap 12 (12-20); Aspartate Amino Transferase 23 U/L (5-37); Bilirubin Total 0.4 mg/dL (0.0-1.0); Blood Urea Nitrogen 23 mg/dL (9-16); C Reactive Protein 2.31 mg/dL (< or = 0.50); Calcium 10.1 mg/dL (8.4-10.2); Carbon Dioxide 27 mmol/L (22-29); Chloride 104 mmol/L (96-108); Estimated Glomerular Filt Rate > 60; Glucose Random 109 mg/dL (60-115); Potassium 4.1 mmol/L (3.3-5.1); Sodium 139 mmol/L (135-145); Total Protein 8.3 g/dL (6.5-8.0)
[2024-03-21 14:19] LABS: Erythrocyte Sedimentation Rate 54 MM/HR (0-15)
== END 2024-03-21 11:26 | disposition home or self-care (01) ==
LOC: HO.10HDL 11:25
PROVIDERS: Visit Provider Student in an Organized Health Care Education/Training Program
DX: Z13.89 Encounter for screening for other disorder (principal)
CPT/HCPCS: 36415; 80053; 85025; 85652; 86140

== ENCOUNTER 2024-06-19 08:06 | Outpatient (AMB) | payer MEDICARE, SELFPAY ==
--- NOTE | 2024-06-19 08:21 | A.OFFVIS_ITS ---
Vital Signs 06/19/24 08:25 Height 5 ft 10.5 in Weight 198 lb 10.184 oz BMI 28.1 BP 112/70 Blood Pressure Location Lt brachial Position Sitting Pulse 79 Pulse Source Pulse Oximeter Pulse Oximetry (%) 98 Oxygen Delivery Method Room Air Intake Visit Reasons: RA/LM Intake Note: Patient presents for RA. Allergies No Known Allergies Allergy (Verified 06/19/24 08:24) Medication List - Last Reconciled 06/19/24 by Noemy Lewis MD Actemra ACTPen (tocilizumab) 162 mg (0.9 mL) subcut Q2W NS hydrochlorothiazide 25 mg PO DAILY multivitamin 1 tab PO DAILY oxycodone ER 20 mg PO DAILY oxycodone-acetaminophen 10-325 mg 1 tab PO .5 times a day prednisone 10 mg PO DAILY PRN sildenafil 100 mg PO DAILY PRN HPI Comments Details: 68-year-old male with seropositive RA returns for follow-up. He remains on Actemra injection every other week and prednisone 10 mg daily. He states that he needs prednisone 20 mg daily about 2 days a week. He does not feel that the Actemra is nearly as effective as Humira was. Not doing well. Continues to have generalized joint pain, stiffness. He recently had a bronchoscopy. States that nothing remarkable was found Initial history: This is a 66-year-old male with complex past medical history who presents for evaluation of RA. 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 Patient was diagnosed with gout in his 20s, he would have attacks of significant big toe pain and swelling. This was never crystal proven He received allopurinol for a short time in 2011. He was treated for Lyme on the basis of a positive screen in 2012 but Western blot testing was negative. He started having migratory polyarthritis in 2012 he was initially evaluated by Dr. Dickinson. He then used to follow-up with Dr. Calix, He was started on medications including hydroxychloroquine and leflunomide. Leflunomide was apparently discontinued due to neuropathy. He has been maintained on prednisone 5 mg daily for years now. He was evaluated by Dr. Landin in 2021 and started on Humira sometime in summer of 2021 with significant improvement of his overall joint pain swelling and stiffness. Also of note patient was recently found to have interstitial lung disease on CT chest and he will make an appointment with his forex trader for evaluation. Patient has a flare up of his rheumatoid arthritis in last month and he was started on prednisone 20 mg for 1 week then 10 mg for 1 week. He is currently on 10 mg and he will be back to 5 mg next week. He was diagnosed with Charcot it joint affecting his right foot and right foot reconstructive surgery was recommended however patient postpone the surgery as his has COPD and he has to maintain the household by himself, he cannot be unable to walk for four-months which is postop recovery time. History of chronic shoulder pains.? MRI 2009 showed a glenoid labral tear on the right [facility] Medical History Fractures, compound Opioid dependence Disorder of rotator cuff Gout Chronic sciatica Tobacco abuse Multiple lung nodules Hyperlipidemia COPD (chronic obstructive pulmonary disease) Fibrosis of lung Rheumatoid arthritis Essential hypertension Surgical History History of surgery on right wrist Family History Father Diabetes Mother Heart disease Social History Household Members: Spouse Alcohol intake: current Alcohol intake frequency: holidays/special occasions only Patient Tobacco Use Status: Current everyday Tobacco user Cigarettes Per Day: 18 Current occupational status: retired Review of Systems [facility] [place] Reports arthralgias, Reports joint swelling and Reports stiffness Physical Exam Vital Signs: Last Vital Signs Pulse 79 06/19/24 08:25 BP 112/70 06/19/24 08:25 Pulse Ox 98 06/19/24 08:25 Oxygen Delivery Method Room Air 06/19/24 08:25 BMI result Body Mass Index 28.1 Const General: cooperative, healthy appearing, comfortable and no acute distress Nutritional Appearance: overweight Orientation/consciousness: patient oriented x3 Limitations: no limitations HEENT Head: Yes normocephalic and Yes atraumatic Resp Effort & Inspection: normal respiratory effort and able to speak in complete sentences Auscultation: crackles bilateral and wheezes Skin General skin exam: no rashes or lesions noted Neuro General: patient oriented x3 Extrem Other: Bilateral wrist pain with full flexion and extension Mildly tender MCPs bilaterally 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 Normal range of motion of shoulders Normal nailfold capillaroscopy Significant right foot deformity (Charcot's foot) Assessment & Plan Assessment & Plan (1) Rheumatoid arthritis: Comment: ++RF, +++CCP diagnosed around 2017 Hydroxychloroquine ineffective, leflunomide partially effective discontinued due to neuropathy Humira started summer 2021, effective advanced to weekly 03/2023 DC 12/2023 due to losing effectiveness Actemra 12/2023 Prednisone all through Code(s): M06.9 - Rheumatoid arthritis, unspecified Category: Medical Qualifiers: Rheumatoid arthritis location: multiple sites Rheumatoid factor presence: with rheumatoid factor Qualified Code(s): M05.79 - Rheumatoid arthritis with rheumatoid factor of multiple sites without organ or systems involvement Plan: This is a 68-year-old male with seropositive RA who presents for follow-up. On Actemra 162 mg every other week And prednisone 10 mg daily, increases it to 20 mg daily about 2 days a week. Not doing well with multiple tender joints. Ongoing joint pains and intermittent flare-ups. Actemra has not been effective for him. We will need to change DMARDs. Discussed alternatives. Discussed risks and benefits of rituximab as well as Orencia subcu injections and infusions. Patient opted for Orencia subcu injections. DC Actemra. We will start prior authorization for Orencia. Patient can stay on prednisone 10 mg daily as needed for flare-ups Labs before next visit in 3 months (2) Charcot's joint of foot, non-diabetic: Code(s): M14.679 - Charcot's joint, unspecified ankle and foot Category: Medical Qualifiers: Laterality: right Qualified Code(s): M14.671 - Charcot's joint, right ankle and foot Plan: Evaluated by surgeon and surgical reconstruction was suggested but patient currently cannot afford the postoperative course as he has to take care of the household and his who has severe COPD. (3) Fibrosis of lung: Code(s): J84.10 - Pulmonary fibrosis, unspecified Category: Medical Plan: Smoking related versus RA ILD. RA-Ild is a possibility given sero positivity, male sex and long history of smoking. Follows up with Dr. Tipton. OFEV was tried, patient could not tolerate it. He had a reaction to it (4) High risk medication use: Code(s): Z79.899 - Other jail (current) drug therapy Category: Medical Plan: Side effects of Orencia were discussed with the patient in detail including increased risk of infection, demyelinating disease, reactivation of latent TB, possible increased risk of solid and skin tumors. Patient fully aware. Advised patient to seek medical care [facility] if patient has an infection and advised patient to stop the medication until the infection is resolved. Plan I spent 26 minutes reviewing patient's chart, evaluating patient, ordering diagnostic workup, counseling patient and documenting in the chart Orders: Orders T Spot TB 3 Months Z11.7 - Encounter for testing for latent tuberculosis infection Complete Blood Count Auto Diff 3 Months M05.79 - Rheumatoid arthritis with rheumatoid factor of multiple sites without organ or systems involvement Comprehensive Met. Panel 3 Months M05.79 - Rheumatoid arthritis with rheumatoid factor of multiple sites without organ or systems involvement C Reactive Protein 3 Months M05.79 - Rheumatoid arthritis with rheumatoid factor of multiple sites without organ or systems involvement Erythrocyte Sedimentation Rate 3 Months M05.79 - Rheumatoid arthritis with rheumatoid factor of multiple sites without organ or systems involvement Hepatitis A,B,C Profile 3 Months Z11.59 - Encounter for screening for other viral diseases Medications: Changed From prednisone Take 1 tab daily for 1 week then 1/2 tab daily for 1 week Keep additional tablets to use as needed for flare-ups 30 tabs 1RF To prednisone 10 mg PO DAILY PRN 30 tabs 2RF joint pain Coding Level of Care Code Est Pt Level 4 (02264) Complex EM visit Add On G2211 Diagnoses Rheumatoid arthritis involving multiple sites with positive rheumatoid factor M05.79 Rheumatoid arthritis location: multiple sites Rheumatoid factor presence: with rheumatoid factor Charcot's joint of right foot, non-diabetic M14.671 Laterality: right Fibrosis of lung J84.10 High risk medication use Z79.899
[2024-06-19 08:25] VITALS: BP 112/70; PULSE 79; O2SAT 98; BMI 28.1
== END 2024-06-19 08:53 | disposition home or self-care (01) ==
LOC: HO.RHE 08:07
PROVIDERS: PCP Physician Assistant Medical; Visit Provider Student in an Organized Health Care Education/Training Program
DX: M05.79 Rheumatoid arthritis with rheumatoid factor of multiple sites without organ or systems involvement (principal); M14.671 Charcot's joint, right ankle and foot; J84.10 Pulmonary fibrosis, unspecified; Z79.899 Other long term (current) drug therapy
CPT/HCPCS: 99214; G2211

== ENCOUNTER → 2024-06-19 08:06 | Outpatient (BNVA) | payer MEDICARE, SELFPAY | PROVIDERS: PCP Physician Assistant Medical; Visit Provider Student in an Organized Health Care Education/Training Program | DX: M05.79 Rheumatoid arthritis with rheumatoid factor of multiple sites without organ or systems involvement (principal); M14.671 Charcot's joint, right ankle and foot; J84.10 Pulmonary fibrosis, unspecified; Z79.899 Other long term (current) drug therapy | CPT/HCPCS: 99212 ==

== ENCOUNTER 2024-07-22 09:13 | Outpatient (AMB) | payer MEDICARE, SELFPAY ==
[2024-07-22 09:17] VITALS: BP 112/74; PULSE 75; O2SAT 94; BMI 29.5
--- NOTE | 2024-07-22 09:17 | A.OFFVIS_ITS ---
Vital Signs 07/22/24 09:17 Height 5 ft 10.5 in Weight 208 lb 5.389 oz BMI 29.5 BP 112/74 Blood Pressure Location Lt brachial Position Sitting Pulse 75 Pulse Source Pulse Oximeter Pulse Oximetry (%) 94 Oxygen Delivery Method Room Air Intake Visit Reasons: RA/lm Intake Note: Patient last seen by doctor Noemy Lewis on 06/19/24. Presents today for RA follow up and test results. Allergies No Known Allergies Allergy (Verified 07/22/24 09:18) HPI Comments Details: 68-year-old male with seropositive RA returns for follow-up. Enbrel was approved and he used 2 doses so far. He feels much better. He feels that they new medicine is doing its job. Significantly improved joint pain swelling and stiffness. Now uses prednisone 10 mg only as needed. He has been more active. Recently has been having multiple episodes of waking up at night with abrupt severe right foot stiffness and cramping, he has to stand up to loosen it up. Initial history: This is a 66-year-old male with complex past medical history who presents for evaluation of RA. 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 Patient was diagnosed with gout in his 20s, he would have attacks of significant big toe pain and swelling. This was never crystal proven He received allopurinol for a short time in 2011. He was treated for Lyme on the basis of a positive screen in 2012 but Western blot testing was negative. He started having migratory polyarthritis in 2012 he was initially evaluated by Dr. Dickinson. He then used to follow-up with Dr. Calix, He was started on medications including hydroxychloroquine and leflunomide. Leflunomide was apparently discontinued due to neuropathy. He has been maintained on prednisone 5 mg daily for years now. He was evaluated by Dr. Landin in 2021 and started on Humira sometime in summer of 2021 with significant improvement of his overall joint pain swelling and stiffness. Also of note patient was recently found to have interstitial lung disease on CT chest and he will make an appointment with his upstairs maid for evaluation. Patient has a flare up of his rheumatoid arthritis in last month and he was started on prednisone 20 mg for 1 week then 10 mg for 1 week. He is currently on 10 mg and he will be back to 5 mg next week. He was diagnosed with Charcot it joint affecting his right foot and right foot reconstructive surgery was recommended however patient postpone the surgery as his has COPD and he has to maintain the household by himself, he cannot be unable to walk for four-months which is postop recovery time. History of chronic shoulder pains.? MRI 2009 showed a glenoid labral tear on the right [facility] Medical History Fractures, compound Opioid dependence Disorder of rotator cuff Gout Chronic sciatica Tobacco abuse Multiple lung nodules Hyperlipidemia COPD (chronic obstructive pulmonary disease) Fibrosis of lung Rheumatoid arthritis Essential hypertension Surgical History History of surgery on right wrist Family History Father Diabetes Mother Heart disease Social History Household Members: Spouse Alcohol intake: current Alcohol intake frequency: holidays/special occasions only Patient Tobacco Use Status: Current everyday Tobacco user Cigarettes Per Day: 18 Current occupational status: retired Review of Systems [facility] Denies arthralgias, Reports muscle cramps and Denies stiffness Physical Exam Vital Signs: Last Vital Signs Pulse 75 07/22/24 09:17 BP 112/74 07/22/24 09:17 Pulse Ox 94 07/22/24 09:17 Oxygen Delivery Method Room Air 07/22/24 09:17 BMI result Body Mass Index 29.5 Const General: cooperative, healthy appearing, comfortable and no acute distress Nutritional Appearance: overweight Orientation/consciousness: patient oriented x3 Limitations: no limitations HEENT Head: Yes normocephalic and Yes atraumatic Resp Effort & Inspection: normal respiratory effort and able to speak in complete sentences Auscultation: crackles bilateral and wheezes Skin General skin exam: no rashes or lesions noted Neuro General: patient oriented x3 Extrem Other: No active synovitis today 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 Normal range of motion of shoulders Normal nailfold capillaroscopy Significant right foot deformity (Charcot's foot) Assessment & Plan Assessment & Plan (1) Rheumatoid arthritis: Comment: ++RF, +++CCP diagnosed around 2017 Hydroxychloroquine ineffective, leflunomide partially effective discontinued due to neuropathy Humira started summer 2021, effective advanced to weekly 03/2023 DC 12/2023 due to losing effectiveness Actemra 12/2023 DC 06/2024 ineffective Enbrel started 06/2024 effective Prednisone all through Code(s): M06.9 - Rheumatoid arthritis, unspecified Category: Medical Qualifiers: Rheumatoid arthritis location: multiple sites Rheumatoid factor presence: with rheumatoid factor Qualified Code(s): M05.79 - Rheumatoid arthritis with rheumatoid factor of multiple sites without organ or systems involvement Plan: This is a 68-year-old male with seropositive RA who presents for follow-up. Just started Enbrel 50 mg subcutaneously weekly 2 weeks ago. Feels much improved overall. There is no active synovitis on exam today. Continue with Enbrel 50 mg subcutaneously weekly Advised patient to cut down on prednisone use, only use half a tablet of 10 mg as needed for flare-ups Labs before next visit in 4 months (2) Charcot's joint of foot, non-diabetic: Code(s): M14.679 - Charcot's joint, unspecified ankle and foot Category: Medical Qualifiers: Laterality: right Qualified Code(s): M14.671 - Charcot's joint, right ankle and foot Plan: Evaluated by surgeon and surgical reconstruction was suggested but patient currently cannot afford the postoperative course as he has to take care of the household and his who has severe COPD. (3) Fibrosis of lung: Code(s): J84.10 - Pulmonary fibrosis, unspecified Category: Medical Plan: Smoking related versus RA ILD. RA-Ild is a possibility given sero positivity, male sex and long history of smoking. Follows up with Dr. Tipton. OFEV was tried, patient could not tolerate it. He had a reaction to it (4) High risk medication use: Code(s): Z79.899 - Other [place] [facility] (current[facility] drug therapy Category: Medical Plan: Side effects of Enbrel were discussed with the patient in detail including increased risk of infection, demyelinating disease, reactivation of latent TB, possible increased risk of solid and skin tumors. Patient fully aware. Advised patient to seek medical care RAFAEL if patient has an infection and advised patient to stop the medication until the infection is resolved. (5) Muscle spasm of right leg: Code(s): M62.838 - Other muscle spasm Category: Medical Plan: Possible muscle cramp in the context of increased activity recently. Perhaps some electrolyte imbalance. I will check electrolytes including magnesium, start Flexeril trial Plan I spent 26 minutes reviewing patient's chart, evaluating patient, ordering diagnostic workup, counseling patient and documenting in the chart Orders: Orders Comprehensive Met. Panel 3 Months M05.79 - Rheumatoid arthritis with rheumatoid factor of multiple sites without organ or systems involvement, Z79.899 - Other [place] [facility] (current[facility] drug therapy Erythrocyte Sedimentation Rate Today M05.79 - Rheumatoid arthritis with rheumatoid factor of multiple sites without organ or systems involvement T Spot TB Today Z11.7 - Encounter for testing for latent tuberculosis infection Hepatitis A,B,C Profile Today Z11.59 - Encounter for screening for other viral diseases Complete Blood Count Auto Diff 3 Months M05.79 - Rheumatoid arthritis with rheumatoid factor of multiple sites without organ or systems involvement, Z79.899 - Other [place] [facility] (current[facility] drug therapy C Reactive Protein 3 Months M05.79 - Rheumatoid arthritis with rheumatoid fa ctor of multiple sites without organ or systems involvement, Z79.899 - Other [place] [facility] (current) drug therapy Erythrocyte Sedimentation Rate 3 Months M05.79 - Rheumatoid arthritis with rheumatoid factor of multiple sites without organ or systems involvement, Z79.899 - Other [place] [facility] (current) drug therapy Complete Blood Count Auto Diff Today M05.79 - Rheumatoid arthritis with rheumatoid factor of multiple sites without organ or systems involvement Comprehensive Met. Panel Today M05.79 - Rheumatoid arthritis with rheumatoid factor of multiple sites without organ or systems involvement C Reactive Protein Today M05.79 - Rheumatoid arthritis with rheumatoid factor of multiple sites without organ or systems involvement Magnesium Today M05.79 - Rheumatoid arthritis with rheumatoid factor of multiple sites without organ or systems involvement Medications: New cyclobenzaprine Can cause dizziness/lightheadedness/grogginess. Do not drive or operate heavy machinery if feeling as such 5 - 10 mg (1 - 2 x 5 mg) PO BEDTIME PRN 30 tabs 0RF muscle spasm Coding Level of Care Code Est Pt Level 4 (18497) Complex EM visit Add On G2211 Diagnoses Rheumatoid arthritis involving multiple sites with positive rheumatoid factor M05.79 Rheumatoid arthritis location: multiple sites Rheumatoid factor presence: with rheumatoid factor Charcot's joint of right foot, non-diabetic M14.671 Laterality: right Fibrosis of lung J84.10 High risk medication use Z79.899 Muscle spasm of right leg M62.838
--- OUTSIDE RECORDS SUMMARY | 2024-07-24 13:49 | XMS_ITS | Continuity of Care Document ---
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 It does not include entries that were removed or entered in error. Problem Status Onset Date Problem Type Date of Resolution Comments Source Ulnar collateral ligament sprain Active 5 Condition Mar 14, 2011 Entered By: CONSUELO CHANEL Comment: Bilateral, shipboard injury [facility] Colonic polyp Active Condition December Entered By: VIRAJ LOPEZ Comment: 5 year f/u done 2014 due 2019 [facility] Gout Active Condition [facility] Hand pain Active Condition [facility] Multiple nodules of lung Active Condition [facility] Smoker Active Condition [facility] Diagnosis: ICD-10-CM Z46.0 Encounter for fit/adjst of spectacles and contact lenses Active Diagnosis [facility] Diagnosis: ICD-10-CM H25.13 Age-related nuclear cataract, bilateral Active Diagnosis [facility] Diagnosis: ICD-10-CM 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 Medication Details Route Status Patient Instructions Prescription Expires Prescription Number Last Dispense Date Ordering Provider Order Date Order Qty Source ADALIMUMAB (HUMIRA 40MG PEN) PA-F INJ,SOLN INJECT SUBCUTAN EOUSLY ONCE A WEEK SUBCUT ANEOUS ACTIVE Mate[facility] MUSE 2022 [facility] HYDROCHLORO THIAZIDE TAB TAKE BY MOUTH ORAL ACTIVE Mateus MUSE 2022 [facility] [place] [facility] MULTIVITAMI N (WITHOUT MINERALS) CAP/TAB TAKE BY MOUTH ORAL ACTIVE Mateus MUSE 2022 [facility] [place] [facility] OXYCODONE 5MG/APAP 325MG TAB TAKE BY MOUTH ORAL ACTIVE Mateus MUSE 2022 [facility] [place] [facility] PREDNISONE 5MG TAB TAKE ONE TABLET BY MOUTH ONCE DAILY ORAL ACTIVE MICHAMateus RAWLS 2022 [facility] [place] [facility] Immunizations Combined list of available immunizations from the Department of Defense and Veterans Affairs facilities. 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 2) Encounters from the Department of Defense facilities going back up to 280 months. Location Location Details Encounter Type Encounter Number Reason For Visit Attending Provider ADM Date DC Date Status Disposition Source [facility] EYE EXAM&TX ESTAB PT 1/>VST [id number] Diagnos is: ICD-10- CM L71.1 Rhinoph yma<br/ > MICHA,MI JORGE 05[place]16 [facility] [place] [facility] [place] [facility] FIT SPECTACLES MULTIFOCAL [id number] Diagnos is: ICD-10- CM Z46.0 Encount er for fit/adj st of spectac les and contact lenses< br/> DAVID HOYT 05/18 [place] [facility] [place] [facility] Outpatient Encounter [id number] 05/18 [facility] [place] [place] [id number] 1. Diagnos is: ICD-10- CM H25.13 Age-rel ated nuclear catarac t, bilater al
BEBA MUSE JORGE 05/28 [facility] FIT SPECTACLES MULTIFOCAL [id number] Diagnos is: ICD-10- CM Z46.0 Encount er for fit/adj st of spectac les and contact lenses< br/> [facility] 05[facility]28 [facility] [place] [facility] Social History Combined list of available smoking, tobacco, and other social history from Department of Defense and Veterans Affairs facilities. 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
--- OUTSIDE RECORDS SUMMARY | 2024-07-24 13:50 | XMS_ITS ---
Author Name [facility] Address [address] [place] [address] Care Team Providers Care Sawdust Drier Name Role Phone VIRAJ LOPEZ Primary Care Provider Unav ailable Insurance Providers: All historical and current Section Date Range: From patient's date of to the date document was created. This section includes the names of all active insurance providers for the patient. Insurance Provider Type of Coverage Plan Name Start of Policy Coverage End of Policy Coverage Group Number Member ID Insurance Provider's Telephone Number Policy Grace's Name Patient's Relationship to Policy Grace [place] SUPPLEMEN CATHY COH RETIR EMENT Feb 10, 2021 [id number] [place] PATIENT BCBS OF [facility] PREFERRED PROVIDER ORGANIZMANISH ION (PPO) [facility] January 07, 2011 [id number] [phone] [place] PATIENT [facility] GAMALIEL HART [facility] Feb 11, 2019 [id number] [phone] [place] PATIENT MEDICARE (WNR) MEDICARE (M) PART A Nov 12, 2020 PART A [id number] [place] PATIENT MEDICARE (WNR) MEDICARE (M) PART B Nov 12, 2020 PART B [id number] [place] PATIENT Selected Encounter This section includes the information on record at [place] for the Encounter. Date/Time Encounter Type Encounter Description Reason Provider Source May 28, 2024 02:14 PM FIT SPECTACLES MULTIFOCAL OPTOMETRY ICD-10-CM Z46.0 Encounter for fit/adjst of spectacles and contact lenses [facility] Encounter Template Text not used by [place] Assessments - Encounter Diagnoses This section includes the primary and secondary diagnoses documented for the Encounter. Date/Time Primary/Secondary Diagnosis Diagnosis Name Provider Source May 28, 2024 02:14 PM PRIMARY Encounter for fit/adjst of spectacles and contact lenses JORDANA SOW [facility] Encounter Notes: All associated encounter notes This section contains the clinical notes associated to the Encounter. Date/Time Encounter Note(s) Provider Source May 28, 2024 02:14 PM OPTOMETRY NOTE: LOCAL TITLE: OPTOMETRY NOTE STANDARD TITLE: OPTOMETRY NOTE DATE OF NOTE: MAY 28, 2024@14:14 ENTRY DATE: MAY 28, 2024@14:14:14 AUTHOR: SERA NEGRETE EXP COSIGNER: URGENCY: STATUS: COMPLETED OPTOMETRY NOTE Has ADDENDA The quote provided below is for informational purposes only. Please verify prior to the creation of a purchase order. BETTE BULL [id number] RX INFORMATION OD +2.75 -1.50 X85 Add:+2.25 Pzm:0.00 Dir: Prz2:0.00 Dir2: OS +2.25 -1.50 X80 Add:+2.25 Pzm:0.00 Dir: Prz2:0.00 Dir2: FITTING INFORMATION FPD: NPD: [place]:R:29 L:30 SEG HT:R:29 L:29 Tint:None Shade:None VA Billable Items FRAME: TYCOON BLACK 56-20-150 Right Lens: POLY [facility] PROGRESSIVE PH[employer]CHROM[employer] [place] 1.586 POLY Left Lens: POLY [facility] PROGRESSIVE PHOTOCHROMIC [place] 1.586 POLY KLEAR ANTI-REFLECTIVE COATING CLIN items [employer] - AR Coating 0004 - Progressive - Glass Plastic Poly 0005 - Transition /ana maría/ SERA NEGRETE INSIDE PHONE SALES Signed: 05/28/2024 14:14 Receipt Acknowledged By: 05/28/2024 14:29 /ana maría/ Jordana Sow LPN Licensed Practical Nurse 05/28/2024 ADDENDUM STATUS: 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 OPT HT entered consult(s) as requested for provider signature. /ana maría/ Jordana Sow LPN Licensed Practical Nurse Signed: 05/28/2024 14:31 [facility]
== END 2024-07-22 10:01 | disposition home or self-care (01) ==
PROVIDERS: PCP Physician Assistant Medical; Visit Provider Student in an Organized Health Care Education/Training Program
DX: M05.79 Rheumatoid arthritis with rheumatoid factor of multiple sites without organ or systems involvement (principal); M14.671 Charcot's joint, right ankle and foot; J84.10 Pulmonary fibrosis, unspecified; Z79.899 Other long term (current) drug therapy; M62.838 Other muscle spasm
CPT/HCPCS: 99214; G2211

== ENCOUNTER → 2024-07-22 09:13 | Outpatient (BNVA) | payer MEDICARE, SELFPAY | PROVIDERS: PCP Physician Assistant Medical; Visit Provider Student in an Organized Health Care Education/Training Program | DX: M05.79 Rheumatoid arthritis with rheumatoid factor of multiple sites without organ or systems involvement (principal); M14.671 Charcot's joint, right ankle and foot; M62.838 Other muscle spasm; J84.10 Pulmonary fibrosis, unspecified; Z79.899 Other long term (current) drug therapy | CPT/HCPCS: 99212 ==

== ENCOUNTER 2024-09-25 10:50 | Outpatient (AMB) | payer MEDICARE, SELFPAY ==
--- NOTE | 2024-09-25 10:54 | MHC.OFFVIS ---
Vital Signs 09/25/24 10:57 Height 5 ft 10.5 in Weight 216 lb 14.958 oz BMI 30.7 BP 115/72 Blood Pressure Location Lt brachial Position Sitting Pulse 87 Pulse Source Pulse Oximeter Pulse Oximetry (%) 82 L Oxygen Delivery Method Room Air Intake Visit Reasons: RA Intake Note: Patient presents for RA. Allergies No Known Allergies Allergy (Verified 09/25/24 10:56) Medication List - Last Reconciled 09/25/24 by Jayne Bills MD cyclobenzaprine 5 - 10 mg (1 - 2 x 5 mg) PO BEDTIME PRN etanercept (Enbrel SureClick) 50 mg subcut QWEEK hydrochlorothiazide 25 mg PO DAILY multivitamin 1 tab PO DAILY oxycodone ER 20 mg PO DAILY oxycodone-acetaminophen 10-325 mg 1 tab PO .5 times a day prednisone 5 mg (1/2 x 10 mg) PO DAILY PRN sildenafil 100 mg PO DAILY PRN HPI Comments Details: Patient is a 68-year-old gentleman hypertension, neuropathy complicated by Charcot's joint of the foot and seropositive rheumatoid arthritis here today for follow up Interval History: Patient last seen 07/22/[address] Lewis. At that time he had just started Enbrel 50 mg weekly and he felt much improved overall and there was no active synovitis on exam He was told to decrease his prednisone to 5 mg as needed for flare-ups Today, Patient reports feeling overall well at home with advanced COPD not doing well she is currently on oxygen 24 hours a day. He is her primary drier take off tender Unable to get Charcot joint of the foot revised due to prolonged postop period Still taking prednisone 10 mg daily Rheumatologic History: Seropositive RA ++RF, +++CCP diagnosed around 2017 Hydroxychloroquine ineffective, leflunomide partially effective discontinued due to neuropathy Humira started summer 2021, effective advanced to weekly 03/2023 DC 12/2023 due to losing effectiveness Actemra 12/2023 DC 06/2024 ineffective Enbrel started 06/2024 effective Prednisone all through Current Rheumatology Medication(s): Enbrel 50mg SC weekly Prednisone 5mg daily (taking 10mg) Flexeril 5-10 mg nightly prn FOR[facility], [facility] Medical History (Updated 09/25/24 @ 11:25 by Jayne Bills MD) shelter systemic steroid user Fractures, compound Opioid dependence Disorder of rotator cuff Gout Chronic sciatica Tobacco abuse Multiple lung nodules Hyperlipidemia COPD (chronic obstructive pulmonary disease) Fibrosis of lung Rheumatoid arthritis Essential hypertension Surgical History History of surgery on right wrist Family History Father Diabetes Mother Heart disease Social History Household Members: Spouse Alcohol intake: current Alcohol intake frequency: holidays/special occasions only Patient Tobacco Use Status: Current everyday Tobacco user Cigarettes Per Day: 18 Current occupational status: retired Review of Systems Const Details: Review of Systems Constitutional: Denies fever, chills, weight loss ENT: Denies vision changes, eye pain or eye redness, dental caries, dry mouth GI: Denies nausea, vomiting, diarrhea, abdominal pain, change in BM Pulm: Denies SOB, SANTANA, hemoptysis, wheezing Cards: Denies chest pain, palpitations Skin: Denies Raynaud's, rash, nail changes, photosensitivity, HISTORICAL INTERPRETER: Denies headaches, weakness, paresthesias, recurrent falls MSK: as per HPI All other systems reviewed and are unremarkable except noted above Physical Exam Vital Signs: Last Vital Signs Pulse 87 09/25/24 10:57 BP 115/72 09/25/24 10:57 Pulse Ox 82 L 09/25/24 10:57 Oxygen Delivery Method Room Air 09/25/24 10:57 BMI result Body Mass Index 30.7 Vital signs reviewed Physical Examination CONSTITUITIONAL Patient alert and cooperative. Well appearing and in no apparent painful distress HEENT Conjunctiva and sclera clear. ?Pupils equal round and reactive to light. ?No lymphadenopathy. ? CHEST/RESPIRATORY SYSTEM Normal respiratory effort and able to speak in complete sentences. ?Clear to auscultation bilaterally. ?No crackles, rales, rhonchi, wheezes heard. CARDIAC SYSTEM Regular rate and rhythm. ?S1 and S2 heard no murmurs. ?Radial pulses intact bilaterally MSK Hands: ?Good manager of selection and assessment strength bilaterally. No deformities noted. ?No synovitis noted to the MCPs, PIPs or DIPs. ?No tenderness to palpation of these joints. Scattered Heberden's nodes noted Wrists: ?Full range of motion at the wrists without pain. ?No tenderness to palpation or synovitis noted to the wrists. Elbows: Full range of motion without pain. No tenderness, weakness, swelling, increased warmth or erythema. Rheumatoid nodule noted to right extensor surface of forearm Shoulders: Full range of motion without pain. No tenderness, weakness, swelling, increased warmth or erythema. Hips: Full range of motion without pain. Hip bursa: No tenderness to palpation Knees: ?Full range of motion. ?No tenderness, swelling, increased warmth or erythema.?No effusion or crepitations Ankles: Full range of motion. ?No tenderness, swelling, increased warmth or erythema.? Feet: ?Negative squeeze test. ?No tenderness to palpation or swelling of the MTPs. Tender points:?No tenderness to palpation of the bilateral trapezius, supraspinatus, greater trochanters, anterior costochondral junctions, bilateral gluteal areas, bilateral suboccipital muscle insertions SKIN Skin intact without rashes. Results Reviewed Results Reviewed: Laboratory Tests 06/21/23 03/21/24 10:54 11:28 WBC 10.6 RBC 4.94 Hgb 15.1 Hct 45.6 Plt Count 287 ESR 54 H Sodium 139 Potassium 4.1 Chloride 104 Carbon Dioxide 27 BUN 23 H Creatinine 1.13 C-Reactive Protein 2.31 H Hepatitis A IgM Ab Nonreactive Hep Bs Antigen Negative Hep Bs Antibody REACTIVE Hep B Core Total Ab Nonreactive Hepatitis C Ab (EIA) Nonreactive TB Test (T-Spot) Com Negative Assessment & Plan Assessment & Plan (1) Rheumatoid arthritis: Comment: ++RF, +++CCP diagnosed around 2017 Hydroxychloroquine ineffective, leflunomide partially effective discontinued due to neuropathy Humira started summer 2021, effective advanced to weekly 03/2023 DC 12/2023 due to losing effectiveness Actemra 12/2023 DC 06/2024 ineffective Enbrel started 06/2024 effective Prednisone all through Code(s): M06.9 - Rheumatoid arthritis, unspecified Category: Medical Qualifiers: Rheumatoid arthritis location: multiple sites Rheumatoid factor presence: with rheumatoid factor Qualified Code(s): M05.79 - Rheumatoid arthritis with rheumatoid factor of multiple sites without organ or systems involvement Plan: #Seropositive RA Patient is a 68-year-old male with seropositive rheumatoid arthritis here today for follow-up. Patient is doing well on Enbrel with no prolonged morning stiffness or swelling. Exam today was unremarkable with no evidence of synovitis. Plan - Enbrel SC 50mg weekly SC - Decrease prednisone to 5mg daily - Flexeril for muscle cramps prn - Labs today: CBC, CMP, ESR, CRP, hepatitis panel, T spot - RTC 4 months - Labs before visit: CBC, CMP, ESR, CRP (2) High risk medication use: Code(s): Z79.899 - Other terminal makeup operator (current) drug therapy Category: Medical Plan: #Long-term Use of TNF Inhibitors: Enbrel Discussed with the patient the benefits and risks of TNF inhibitors for the management of the rheumatic condition Benefits include reduce pain, maintenance of remission and reduction of flares as well as ?progression of the disease Risks include injection sites/infusion reactions, serious infections (such as bacterial infections, opportunistic infections), malignancy, delaminating syndromes, autoimmune phenomena, CHF exacerbations, palmar plantar psoriasis and cytopenias Recommended rotating injection sites, and holding medication during and for up to 1 week after resolution of a febrile illness or open skin wound (3) shelter systemic steroid user: Code(s): Z79.52 - termite treater helper (current) use of systemic steroids Category: Medical Plan: #Long-term Use of Steroids Discussed with patient the risks and benefits of steroid for managing the rheumatic condition Benefits include: - Reduced pain, improved mobility, increased participation in activities, and decreased progression of disease Risks include: - GI upset, potential ultrasound worsening or formation (especially in patients > 65 years old), elevated blood pressure/worsening hypertension, elevated blood sugar/worsening diabetes control, worsening of bone density, elevated lipids/worsening triglycerides, cataract formation, weight gain Recommended using proton pump inhibitors (PPIs) for the duration of steroid use to reduce the risk of gastric ulcers and vitamin-D daily to reduce the risk of osteoporosis Labs checked: ?A1c, T spot, hepatitis-B and C serologies Pneumocystis jiroveci prophylaxis: ?Patient with risk factors including steroids greater than 50 mg for more than 30 days, age greater than 60 years, and lung involvement from underlying rheumatic disease requires prophylaxis and will be given so Plan I spent 20 minutes reviewing the record and labs, taking a history, examining the patient, discussing the treatment plan and documenting in the medical record Orders: Orders Complete Blood Count Auto Diff 4 Months M05.79 - Rheumatoid arthritis with rheumatoid factor of multiple sites without organ or systems involvement, Z79.52 - termite treater helper (current) use of systemic steroids, Z79.899 - Other longterm (current) drug therapy C Reactive Protein 4 Months M05.79 - Rheumatoid arthritis with rheumatoid factor of multiple sites without organ or systems involvement, Z79.52 - termite treater helper (current) use of systemic steroids, Z79.899 - Other longterm (current) drug therapy Erythrocyte Sedimentation Rate 4 Months M05.79 - Rheumatoid arthritis with rheumatoid factor of multiple sites without organ or systems involvement, Z79.52 - termite treater helper (current) use of systemic steroids, Z79.899 - Other longterm (current) drug therapy Complete Blood Count Auto Diff Today M05.79 - Rheumatoid arthritis with rheumatoid factor of multiple sites without organ or systems involvement, Z79.52 - termite treater helper (current) use of systemic steroids, Z79.899 - Other terminal makeup operator (current) drug therapy Erythrocyte Sedimentation Rate Today M05.79 - Rheumatoid arthritis with rheumatoid factor of multiple sites without organ or systems involvement, Z79.52 - termite treater helper (current) use of systemic steroids, Z79.899 - Other longterm (current) drug therapy Comprehensive Met. Panel 4 Months M05.79 - Rheumatoid arthritis with rheumatoid factor of multiple sites without organ or systems involvement, Z79.52 - shelter (current) use of systemic steroids, Z79.899 - Other longterm (current) drug therapy Comprehensive Met. Panel Today M05.79 - Rheumatoid arthritis with rheumatoid factor of multiple sites without organ or systems involvement, Z79.52 - shelter (current) use of systemic steroids, Z79.899 - Other longterm (current) drug therapy C Reactive Protein Today M05.79 - Rheumatoid arthritis with rheumatoid factor of multiple sites without organ or systems involvement, Z79.52 - termite treater helper (current) use of systemic steroids, Z79.899 - Other longterm (current) drug therapy Hepatitis A,B,C Profile Today M05.79 - Rheumatoid arthritis with rheumatoid factor of multiple sites without organ or systems involvement, Z79.52 - termite treater helper (current) use of systemic steroids, Z79.899 - Other longterm (current) drug therapy T Spot TB Today M05.79 - Rheumatoid arthritis with rheumatoid factor of multiple sites without organ or systems involvement, Z79.52 - shelter (current) use of systemic steroids, Z79.899 - Other terminal makeup operator (current) drug therapy Medications: Changed From prednisone 10 mg PO DAILY PRN 30 tabs 2RF joint pain M05.79 - Rheumatoid arthritis with rheumatoid factor of multiple sites without organ or systems involvement, Z79.52 - shelter (current) use of systemic steroids, Z79.899 - Other longterm (current) drug therapy To prednisone 5 mg (1/2 x 10 mg) PO DAILY PRN 30 tabs 2RF joint pain M05.79 - Rheumatoid arthritis with rheumatoid factor of multiple sites without organ or systems involvement, Z79.52 - shelter (current) use of systemic steroids, Z79.899 - Other terminal makeup operator (current) drug therapy Refilled cyclobenzaprine Can cause dizziness/lightheadedness/grogginess. Do not drive or operate heavy machinery if feeling as such 5 - 10 mg (1 - 2 x 5 mg) PO BEDTIME PRN 90 tabs 1RF muscle spasm Coding Level of Care Code Est Pt Level 3 (37068) Complex EM visit Add On G2211 Diagnoses Rheumatoid arthritis involving multiple sites with positive rheumatoid factor M05.79 Rheumatoid arthritis location: multiple sites Rheumatoid factor presence: with rheumatoid factor High risk medication use Z79.899 shelter systemic steroid user Z79.52
[2024-09-25 10:57] VITALS: BP 115/72; PULSE 87; O2SAT 82; BMI 30.7
--- OUTSIDE RECORDS SUMMARY | 2024-09-25 12:38 | XMS_ITS | Data Portability ---
Author Organization [facility], , [facility] Address [address] [place] [address] Care Team Providers Care Silver Miner Name Role Phone DENNISE ESPARZA Primary Care Provider AYLIN CALIX Applications Developer [facility] Applications Developer CORINNE KRISHNAMURTHY Optical Effects Line Up Person Unavailable Assessment No assessment recorded. Plan of Treatment Reminders Order Date Submit Date Provider Last Modified By Organization Details Last Modified Time Details Appointments Follow Up, 2024 01:30P M Dennise Esparza PA-C Not available Not available Not available Lab drug screen, urine - Oxycodone Last dose 10/30/23 4 amOxycodo ne/Rommel Last dose 10/30/23 11:30 am 2023 024 [facility], [address] [place] [address], [id number], 10/31/2023 10:15:27 drug screen, urine - Date and Time of Last Dose:Oxyc ontin20, oxy/acet 10/325 last taken 618 am for both 2023 024 [facility], [address] [place] [address], [id number], 01/31/2024 13:19:57 magnesium , blood 2023 024 [facility], [address] [place] [address], [id number], 06/06/2024 12:12:19 BMP, serum or plasma 2023 024 [facility], [address] [place], [address], 06/06/2024 12:12:17 vitamin B12, serum 2023 024 [facility], [address] [place] [address], [id number], 06/06/2024 14:17:06 drug screen, urine - Date and Time of Last Dose:Oxy/ acet 10325: 08/28/24 10amOxyco ntin 20: 08/28/24 10:30 PM 2024 025 [facility], [address] [place] [address], [id number], 08/29/2024 10:29:50 Referral None recorded. Procedures None recorded. Surgeries None recorded. Imaging None recorded. Medication Orders None recorded. Patient TargetsNo targets recorded. Patient Instructions Encounter Date Encounter Id Patient Instructions Last Modified By Organization Details Last Modified Time 10/30/2023 [id number] [employer] To Do List Specific Analgesia Plan: {{Continue present regimen* Adjust dose of present analgesic Switch analgesics Add/A djust concomitant therapy Disconti nue/taper off opioid therapy}} Specific Goals for next visit {{increase exercise* start stress management impro ve sleeping start Yoga start TaiChi see therapist}}The patient is currently {{at* not at}} their goal of safe, stable use of narcotic pain medication to improve their functioning in life. Since the last visit there has been {{activity of concern no activity of concern*}}:{{# o veruse of meds request for an early refill abuse of staff noncomplia nce with UDS or pill count requests abnorma l UDS}} Patient today is {{at high risk at moderate risk at low risk*}} for {{abuse of meds* misuse of meds}}. Monitoring will include {{pill counts repeat UDS* closer follow-up with shorter scripts}}. Patients current goals of {{better sleep more activity* return to work return to school improved ADL's improved self care improved function in roles}} were discussed with patient, unlikelihood of 100% reduction in pain made clear. Patient has read narcotics contract and understands the properties of narcotic medication. [email or web address] Not available 10/30/2023 12:14:18 01/30/2024 [id number] [facility] To Do List Specific Analgesia Plan: {{Continue present regimen* Adjust dose of present analgesic Switch analgesics Add/A djust concomitant therapy Disconti nue/taper off opioid therapy}} Specific Goals for next visit {{increase exercise* start stress management impro ve sleeping start Yoga start TaiChi see therapist}}The patient is currently {{at* not at}} their goal of safe, stable use of narcotic pain medication to improve their functioning in life. Since the last visit there has been {{activity of concern no activity of concern*}}:{{# o veruse of meds request for an early refill abuse of staff noncomplia nce with UDS or pill count requests abnorma l UDS}} Patient today is {{at high risk at moderate risk at low risk*}} for {{abuse of meds* misuse of meds}}. Monitoring will include {{pill counts repeat UDS* closer follow-up with shorter scripts}}. Patients current goals of {{better sleep more activity* return to work return to school improved ADL's improved self care improved function in roles}} were discussed with patient, unlikelihood of 100% reduction in pain made clear. Patient has read narcotics contract and understands the properties of narcotic medication. [email or web address] Not available 01/29/2024 15:43:48 05/28/2024 [id number] [facility] To Do List Specific Analgesia Plan: {{Continue present regimen* Adjust dose of present analgesic Switch analgesics Add/A djust concomitant therapy Disconti nue/taper off opioid therapy}} Specific Goals for next visit {{increase exercise* start stress management impro ve sleeping start Yoga start TaiChi see therapist}}The patient is currently {{at* not at}} their goal of safe, stable use of narcotic pain medication to improve their functioning in life. Since the last visit there has been {{activity of concern no activity of concern*}}:{{# o veruse of meds request for an early refill abuse of staff noncomplia nce with UDS or pill count requests abnorma l UDS}} Patient today is {{at high risk at moderate risk at low risk*}} for {{abuse of meds* misuse of meds}}. Monitoring will include {{pill counts repeat UDS* closer follow-up with shorter scripts}}. Patients current goals of {{better sleep more activity* return to work return to school improved ADL's improved self care improved function in roles}} were discussed with patient, unlikelihood of 100% reduction in pain made clear. Patient has read narcotics contract and understands the properties of narcotic medication. [email or web address] Not available 05/28/2024 15:20:09 08/28/2024 [id number] [facility] To Do List Specific Analgesia Plan: {{Continue present regimen* Adjust dose of present analgesic Switch analgesics Add/A djust concomitant therapy Disconti nue/taper off opioid therapy}} Specific Goals for next visit {{increase exercise* start stress management impro ve sleeping start Yoga start TaiChi see therapist}}The patient is currently {{at* not at}} their goal of safe, stable use of narcotic pain medication to improve their functioning in life. Since the last visit there has been {{activity of concern no activity of concern*}}:{{# o veruse of meds request for an early refill abuse of staff noncomplia nce with UDS or pill count requests abnorma l UDS}} Patient today is {{at high risk at moderate risk at low risk*}} for {{abuse of meds* misuse of meds}}. Monitoring will include {{pill counts repeat UDS* closer follow-up with shorter scripts}}. Patients current goals of {{better sleep more activity* return to work return to school improved ADL's improved self care improved function in roles}} were discussed with patient, unlikelihood of 100% reduction in pain made clear. Patient has read narcotics contract and understands the properties of narcotic medication. [email or web address] Not available 08/28/2024 11:17:30 Reason for Referral None Reported. Results Created Date Observation Date Name Description Value Unit Range Abnormal Flag Note LastModifiedBy Organization Detail LastModifiedTime 10/18/19 24 10/18/2023 CBC WBC 8.60 K/??L 4.23-9 .07 Not Available [address], [place], [address], 10/18/2023 15:18:23 10/18/19 24 10/18/2023 CBC RBC 4.93 M/??L 4.63-6 .08 Not Available [address], [address], 10/18/2023 15:18:23 10/18/19 24 10/18/2023 CBC HGB 14.9 g/dL 13.7-1 7.5 Not Available [address], [address], 10/18/2023 15:18:23 10/18/19 24 10/18/2023 CBC HCT 46.1 % 40.1-5 1.0 Not Available [address], [address], 10/18/2023 15:18:23 10/18/19 24 10/18/2023 CBC MCV 93.5 fL 79.0-9 2.2 high Not Available [address], [address], 10/18/2023 15:18:23 10/18/19 24 10/18/2023 CBC MCH 30.2 pg 25.7-3 2.2 Not Available [address], [address], 10/18/2023 15:18:23 10/18/19 24 10/18/2023 CBC MCHC 32.3 g/dL 32.3-3 6.5 Not Available [address], [address], 10/18/2023 15:18:23 10/18/19 24 10/18/2023 CBC plt 254 K/??L 163-33 7 Not Available [address], [address], 10/18/2023 15:18:23 10/18/19 24 10/18/2023 CBC MPV 11.8 fL 9.4-12 .4 Not Available [address], [address], 10/18/2023 15:18:23 10/18/19 24 10/18/2023 CBC neut% 75.4 % 34.0-6 7.9 high Not Available [address], [address], 10/18/2023 15:18:23 10/18/19 24 10/18/2023 CBC neut# 6.48 1.78-5 .38 high Not Available [address], [address], 10/18/2023 15:18:23 10/18/19 24 10/18/2023 CBC lymph % 16.3 % 21.8-5 3.1 low Not Available [address], [address], 10/18/2023 15:18:23 10/18/19 24 10/18/2023 CBC lymph # 1.40 K/??L 1.32-3 .57 Not Available [address], [address], 10/18/2023 15:18:23 10/18/19 24 10/18/2023 CBC mono% 5.6 % 5.3-12 .2 Not Available [address], [address], 10/18/2023 15:18:23 10/18/19 24 10/18/2023 CBC mono# 0.48 0.30-0 .82 Not Available [address], [address], 10/18/2023 15:18:23 10/18/19 24 10/18/2023 CBC eo% 2.1 % 0.8-7. 0 Not Available [address], [address], 10/18/2023 15:18:23 10/18/19 24 10/18/2023 CBC eo# 0.18 0.04-0 .54 Not Available [address], [address], 10/18/2023 15:18:23 10/18/19 24 10/18/2023 CBC baso% 0.3 % 0.2-1. 2 Not Available [address], [address], 10/18/2023 15:18:23 10/18/19 24 10/18/2023 CBC baso# 0.03 0.00-0 .08 Not Available [address], [address], 10/18/2023 15:18:23 10/18/19 24 10/18/2023 CBC RDW-CV 13.1 % 11.6-1 4.4 Not Available [address], [address], 10/18/2023 15:18:23 10/18/19 24 10/18/2023 CBC Ig% 0.300 % 0.000- 1.500 Ig % >0.5 Indic ates possi ble Left Shift Not Available [address], [address], 10/18/2023 15:18:23 10/18/19 24 10/18/2023 CBC Ig# 0.030 0.000- 0.093 Not Available [address], [address], 10/18/2023 15:18:23 10/18/19 24 10/18/2023 CBC NRBC% 0.0 % 0.0-0. 2 Not Available [address], [address], 10/18/2023 15:18:23 10/18/19 24 10/18/2023 CBC NRBC# 0.000 0.000- 0.012 Not Available [address], [address], 10/18/2023 15:18:23 10/18/19 24 10/18/2023 COMP. METAB OLIC PANEL glucose 102 mg/dL 70-100 high Not Available [address], [address], 10/18/2023 16:04:03 10/18/19 24 10/18/2023 COMP. METAB OLIC PANEL BUN 25 mg/dL 7-18 high Not Available [address], [address], 10/18/2023 16:04:03 10/18/19 24 10/18/2023 COMP. METAB OLIC PANEL creatinine 1.1 mg/dL 0.8-1. 3 Not Available [address], [address], 10/18/2023 16:04:03 10/18/19 24 10/18/2023 COMP. METAB OLIC PANEL B/C 22.7 ratio Not Available [address], [address], 10/18/2023 16:04:03 10/18/19 24 10/18/2023 COMP. METAB OLIC PANEL GFR >=60ML /MIN mL/mi n normal >=60m L/min - Annmarie l or midly reduc ed <60mL /min- Decre ased kidne y funct ion <15mL /min - Kidne y failu re [facility] calcu lates estim ated Glome rular Filtr ation Rate (eGFR ) using the Chron ic Kidne y Disea se Epide miolo gy Colla borat ion (CKD- EPI) Equat ion (Tamara r et. al 2020) as recom rosalina d by the Natio nal Kidne y Found ation . eGFR is based on age, serum creat inine , and sex. CKD-E PI does not calcu late eGFR by race, does not apply to child shabana (age <18 years ), and shoul d not be used in pregn domingo. Not Available [address], [address], 10/18/2023 16:04:03 10/18/19 24 10/18/2023 COMP. METAB OLIC PANEL sodium 142 mmol/ L 136-14 5 Not Available [address], [address], 10/18/2023 16:04:03 10/18/19 24 10/18/2023 COMP. METAB OLIC PANEL potassium 4.2 mmol/ L 3.5-5. 1 Not Available [address], [address], 10/18/2023 16:04:03 10/18/19 24 10/18/2023 COMP. METAB OLIC PANEL chloride 103 mmol/ L 96-107 Not Available [address], [address], 10/18/2023 16:04:03 10/18/19 24 10/18/2023 COMP. METAB OLIC PANEL anion gap 10.2 5.0-15 .0 Not Available [address], [address], 10/18/2023 16:04:03 10/18/19 24 10/18/2023 COMP. METAB OLIC PANEL CO2 29 mmol/ L 21-32 Not Available [address], [address], 10/18/2023 16:04:03 10/18/19 24 10/18/2023 COMP. METAB OLIC PANEL calcium 9.4 mg/dL 8.5-10 .3 Not Available [address], [address], 10/18/2023 16:04:03 10/18/19 24 10/18/2023 COMP. METAB OLIC PANEL total protein 7.5 g/dL 6.4-8. 2 Not Available [address], [address], 10/18/2023 16:04:03 10/18/19 24 10/18/2023 COMP. METAB OLIC PANEL albumin 3.7 g/dL 3.4-5. 0 Not Available [address], [address], 10/18/2023 16:04:03 10/18/19 24 10/18/2023 COMP. METAB OLIC PANEL globulin 3.8 g/dL Not Available [address], [address], 10/18/2023 16:04:03 10/18/19 24 10/18/2023 COMP. METAB OLIC PANEL A/G 1.0 ratio 0.8-2. 0 Not Available [address], [address], 10/18/2023 16:04:03 10/18/19 24 10/18/2023 COMP. METAB OLIC PANEL total bilirubin 0.40 mg/dL 0.00-1 .00 Not Available [address], [address], 10/18/2023 16:04:03 10/18/19 24 10/18/2023 COMP. METAB OLIC PANEL AST 27 U/L 0-37 Not Available [address], [address], 10/18/2023 16:04:03 10/18/19 24 10/18/2023 COMP. METAB OLIC PANEL ALT 32 U/L 6-63 Not Available [address], [address], 10/18/2023 16:04:03 10/18/19 24 10/18/2023 COMP. METAB OLIC PANEL alk. phos. 94 U/L 50-136 Not Available [address], [address], 10/18/2023 16:04:03 10/18/19 24 10/18/2023 URIC ACID uric acid 5.9 mg/dL 3.5-7. 2 Not Available [address], [address], 10/18/2023 16:04:05 10/18/19 24 10/18/2023 C-LAVINIA CTIVE PROTE IN (RCRP ) C-reactive protein (rcrp) 15.4 mg/dL 0.5-9. 0 high Not Available [address], [address], 10/18/2023 16:04:06 10/18/19 24 10/18/2023 ESR sed rate 68.0 0.0-20 .0 high Not Available [address], [address], 10/18/2023 16:17:42 10/18/19 24 10/20/2023 PROTE IN, TOTAL AND PROTE IN ELECT ROPHO RESIS protein, total 7.6 g/dL 6.1-8. 1 normal Not Available [employer] [facility] [address], [address], 10/20/2023 12:12:30 10/18/19 24 10/20/2023 PROTE IN, TOTAL AND PROTE IN ELECT ROPHO RESIS albumin 4.0 g/dL 3.8-4. 8 normal Not Available [facility] [address], [address], 10/20/2023 12:12:30 10/18/19 24 10/20/2023 PROTE IN, TOTAL AND PROTE IN ELECT ROPHO RESIS alpha 1 globulin 0.4 g/dL 0.2-0. 3 high Not Available [facility] [address], [address], 10/20/2023 12:12:30 10/18/19 24 10/20/2023 PROTE IN, TOTAL AND PROTE IN ELECT ROPHO RESIS alpha 2 globulin 0.9 g/dL 0.5-0. 9 normal Not Available [facility] [address] [place], [address], 10/20/2023 12:12:30 10/18/19 24 10/20/2023 PROTE IN, TOTAL AND PROTE IN ELECT ROPHO RESIS beta 1 globulin 0.4 g/dL 0.4-0. 6 normal Not Available [facility] [place] [facility] [address], [place], [address], 10/20/2023 12:12:30 10/18/19 24 10/20/2023 PROTE IN, TOTAL AND PROTE IN ELECT ROPHO RESIS beta 2 globulin 0.5 g/dL 0.2-0. 5 normal Not Available [facility] [place] [facility] [address], [place], [address], 10/20/2023 12:12:30 10/18/19 24 10/20/2023 PROTE IN, TOTAL AND PROTE IN ELECT ROPHO RESIS gamma globulin 1.4 g/dL 0.8-1. 7 normal Not Available [facility] [place] [facility] [address], [place], [address], 10/20/2023 12:12:30 10/18/19 24 10/20/2023 PROTE IN, TOTAL AND PROTE IN ELECT ROPHO RESIS interpretati on Alpha -1 globu latha incre ase noted . Not Available [facility] [place] [facility] [address], [place], [address], 10/20/2023 12:12:30 10/30/19 24 10/31/2023 DRUG SCREE N-8, URINE , WITH CONFI RMATI ON GC/MS amphetamine NEG. negati ve Not Available [address], [place], [address], 10/31/2023 10:15:27 10/30/19 24 10/31/2023 DRUG SCREE N-8, URINE , WITH CONFI RMATI ON GC/MS barbiturates NEG. negati ve Not Available [address], [address], 10/31/2023 10:15:27 10/30/19 24 10/31/2023 DRUG SCREE N-8, URINE , WITH CONFI RMATI ON GC/MS benzodiazepi ne NEG. negati ve Not Available [address], [address], 10/31/2023 10:15:27 10/30/19 24 10/31/2023 DRUG SCREE N-8, URINE , WITH CONFI RMATI ON GC/MS cocaine NEG. negati ve Not Available [address], [address], 10/31/2023 10:15:27 10/30/19 24 10/31/2023 DRUG SCREE N-8, URINE , WITH CONFI RMATI ON GC/MS opiates POS. negati ve Not Available [address], [address], 10/31/2023 10:15:27 10/30/19 24 10/31/2023 DRUG SCREE N-8, URINE , WITH CONFI RMATI ON GC/MS methadone NEG. negati ve Not Available [address], [address], 10/31/2023 10:15:27 10/30/19 24 10/31/2023 DRUG SCREE N-8, URINE , WITH CONFI RMATI ON GC/MS fentanyl NEG. negati ve Syva EMIT II Limit s of Detec tion (cutt -off value s) [place] Expan d: Amphe tamin es: 1000 ng/ml Opiat es: 300 ng/ml Michelle tuate s: 200 ng/ml Oxyco done 100 ng/ml Benzo diaze pines : 200 ng/ml Metha done 300 ng/ml Cocai ne: 300 ng/ml Fenta nyl 1 ng/ml Not Available [address], [address], 10/31/2023 10:15:27 10/30/19 24 10/31/2023 DRUG SCREE N-8, URINE , WITH CONFI RMATI ON GC/MS oxycodone POS. negati ve GCOP= Urine sampl e sent to [facility] for confi rmati on of opiat es by GC/MS . Not Available [address], [place], [address], 10/31/2023 10:15:27 10/30/19 24 11/03/2023 DRUG TOX MONIT ORING OPIAT ES EXPAN DED QN, U codeine NEGATI VE NG/mL <50 See Note 1 Not Available [facility] [address], [address], 11/03/2023 16:03:01 10/30/19 24 11/03/2023 DRUG TOX MONIT ORING OPIAT ES EXPAN DED QN, U hydrocodone NEGATI VE NG/mL <50 See Note 1 Not Available [facility] [place] [facility] [address], [place], [address], 11/03/2023 16:03:01 10/30/19 24 11/03/2023 DRUG TOX MONIT ORING OPIAT ES EXPAN DED QN, U hydromorphon e 103 NG/mL <50 high See Note 1 Not Available [facility] [address], [place], [address], 11/03/2023 16:03:01 10/30/19 24 11/03/2023 DRUG TOX MONIT ORING OPIAT ES EXPAN DED QN, U morphine NEGATI VE NG/mL <50 See Note 1 Not Available [facility] [address], [place], [address], 11/03/2023 16:03:01 10/30/19 24 11/03/2023 DRUG TOX MONIT ORING OPIAT ES EXPAN DED QN, U norhydrocodo ne 103 NG/mL <50 high See Note 1 Not Available [facility] [place] [facility] [address], [place], [address], 11/03/2023 16:03:01 10/30/19 24 11/03/2023 DRUG TOX MONIT ORING OPIAT ES EXPAN DED QN, U noroxycodone >30390 NG/mL <50 high See Note 1 Not Available [facility] [place] [facility] [address], [place], [address], 11/03/2023 16:03:01 10/30/19 24 11/03/2023 DRUG TOX MONIT ORING OPIAT ES EXPAN DED QN, U oxycodone 5145 NG/mL <50 high See Note 1 Not Available [facility] [place] [facility] [address], [place], [address], 11/03/2023 16:03:01 10/30/19 24 11/03/2023 DRUG TOX MONIT ORING OPIAT ES EXPAN DED QN, U oxymorphone 8049 NG/mL <50 high See Note 1 Not Available [facility] [place] [facility] [address], [place], [address], 11/03/2023 16:03:01 10/30/19 24 11/03/2023 DRUG TOX MONIT ORING OPIAT ES EXPAN DED QN, U Unknown Analyte See Note 2 Note 1 This test was devphilipp oped and its stan tical perfo rmanc e renetta cteri stics have been deter mined by [facility]. It has not been clear ed or appro jesus manuel by the FDA. This assay has been valid ated pursu ant to the CLIA regul ation s and is used for clini oralia purpo ses. Note 2 This drug testi ng is for medic al treat ment only. Stan sis was perfo rmed as non-f orens ic testi ng and these resul ts shoul d be used only by healt hcare provi ders to rende r diagn osis or treat ment, or to monit or progr ess of medic al condi tions . For lew spear with inter preti ng these drug resul ts, pleas e conta ct a [facility] Toxic ology Speci alist : [phone] X [phone] ( [phone] ), M-F, 8am-6 pm EST. Not Available [facility] [place] [facility] [address], [place], [address], 11/03/2023 16:03:01 12/27/19 24 12/27/2023 CBC WBC 8.21 K/??L 4.23-9 .07 Not Available [address], [address], 12/27/2023 16:40:40 12/27/19 24 12/27/2023 CBC RBC 4.58 M/??L 4.63-6 .08 low Not Available [address], [address], 12/27/2023 16:40:40 12/27/19 24 12/27/2023 CBC HGB 14.1 g/dL 13.7-1 7.5 Not Available [address], [address], 12/27/2023 16:40:40 12/27/19 24 12/27/2023 CBC HCT 42.5 % 40.1-5 1.0 Not Available [address], [address], 12/27/2023 16:40:40 12/27/19 24 12/27/2023 CBC MCV 92.8 fL 79.0-9 2.2 high Not Available [address], [address], 12/27/2023 16:40:40 12/27/19 24 12/27/2023 CBC MCH 30.8 pg 25.7-3 2.2 Not Available [address], [address], 12/27/2023 16:40:40 12/27/19 24 12/27/2023 CBC MCHC 33.2 g/dL 32.3-3 6.5 Not Available [address], [address], 12/27/2023 16:40:40 12/27/19 24 12/27/2023 CBC plt 276 K/??L 163-33 7 Not Available [address], [address], 12/27/2023 16:40:40 12/27/19 24 12/27/2023 CBC MPV 11.3 fL 9.4-12 .4 Not Available [address], [address], 12/27/2023 16:40:40 12/27/19 24 12/27/2023 CBC neut% 68.8 % 34.0-6 7.9 high Not Available [address], [address], 12/27/2023 16:40:40 12/27/19 24 12/27/2023 CBC neut# 5.64 1.78-5 .38 high Not Available [address], [address], 12/27/2023 16:40:40 12/27/19 24 12/27/2023 CBC lymph % 20.2 % 21.8-5 3.1 low Not Available [address], [address], 12/27/2023 16:40:40 12/27/19 24 12/27/2023 CBC lymph # 1.66 K/??L 1.32-3 .57 Not Available [address], [address], 12/27/2023 16:40:40 12/27/19 24 12/27/2023 CBC mono% 7.6 % 5.3-12 .2 Not Available [address], [address], 12/27/2023 16:40:40 12/27/19 24 12/27/2023 CBC mono# 0.62 0.30-0 .82 Not Available [address], [address], 12/27/2023 16:40:40 12/27/19 24 12/27/2023 CBC eo% 3.0 % 0.8-7. 0 Not Available [address], [address], 12/27/2023 16:40:40 12/27/19 24 12/27/2023 CBC eo# 0.25 0.04-0 .54 Not Available [address], [address], 12/27/2023 16:40:40 12/27/19 24 12/27/2023 CBC baso% 0.2 % 0.2-1. 2 Not Available [address], [address], 12/27/2023 16:40:40 12/27/19 24 12/27/2023 CBC baso# 0.02 0.00-0 .08 Not Available [address], [address], 12/27/2023 16:40:40 12/27/19 24 12/27/2023 CBC RDW-CV 13.3 % 11.6-1 4.4 Not Available [address], [address], 12/27/2023 16:40:40 12/27/19 24 12/27/2023 CBC Ig% 0.200 % 0.000- 1.500 Ig % >0.5 Indic ates possi ble Left Shift Not Available [address], [address], 12/27/2023 16:40:40 12/27/19 24 12/27/2023 CBC Ig# 0.020 0.000- 0.093 Not Available [address], [address], 12/27/2023 16:40:40 12/27/19 24 12/27/2023 CBC NRBC% 0.0 % 0.0-0. 2 Not Available [address], [address], 12/27/2023 16:40:40 12/27/19 24 12/27/2023 CBC NRBC# 0.000 0.000- 0.012 Not Available [address], [address], 12/27/2023 16:40:40 12/27/19 24 12/28/2023 ESR sed rate 76.0 0.0-20 .0 high Not Available [address], [address], 12/28/2023 12:33:55 12/27/19 24 12/28/2023 COMP. METAB OLIC PANEL glucose 93 mg/dL 70-100 Not Available [address], [address], 12/28/2023 14:04:19 12/27/19 24 12/28/2023 COMP. METAB OLIC PANEL BUN 28 mg/dL 7-18 high Not Available [address], [address], 12/28/2023 14:04:19 12/27/19 24 12/28/2023 COMP. METAB OLIC PANEL creatinine 1.0 mg/dL 0.8-1. 3 Not Available [address], [address], 12/28/2023 14:04:19 12/27/19 24 12/28/2023 COMP. METAB OLIC PANEL B/C 28.0 ratio Not Available [address], [address], 12/28/2023 14:04:19 12/27/19 24 12/28/2023 COMP. METAB OLIC PANEL GFR >=60ML /MIN mL/mi n normal >=60m L/min - Annmarie l or midly reduc ed <60mL /min- Decre ased kidne y funct ion <15mL /min - Kidne y failu re [facility] calcu lates estim ated Glome rular Filtr ation Rate (eGFR ) using the Chron ic Kidne y Disea se Epide miolo gy Colla borat ion (CKD- EPI) Equat ion (Tamara r et. al 2020) as recom rosalina d by the Natio nal Kidne y Found ation . eGFR is based on age, serum creat inine , and sex. CKD-E PI does not calcu late eGFR by race, does not apply to child shabana (age <18 years ), and shoul d not be used in pregn domingo. Not Available [address], [address], 12/28/2023 14:04:19 12/27/19 24 12/28/2023 COMP. METAB OLIC PANEL sodium 141 mmol/ L 136-14 5 Not Available [address], [address], 12/28/2023 14:04:19 12/27/19 24 12/28/2023 COMP. METAB OLIC PANEL potassium 4.1 mmol/ L 3.5-5. 1 Not Available [address], [address], 12/28/2023 14:04:19 12/27/19 24 12/28/2023 COMP. METAB OLIC PANEL chloride 103 mmol/ L 96-107 Not Available [address], [address], 12/28/2023 14:04:19 12/27/19 24 12/28/2023 COMP. METAB OLIC PANEL anion gap 10.4 5.0-15 .0 Not Available [address] [address], [address], 12/28/2023 14:04:19 12/27/19 24 12/28/2023 COMP. METAB OLIC PANEL CO2 28 mmol/ L 21-32 Not Available [address], [address], 12/28/2023 14:04:19 12/27/19 24 12/28/2023 COMP. METAB OLIC PANEL calcium 8.8 mg/dL 8.5-10 .3 Not Available [address], [address], 12/28/2023 14:04:19 12/27/19 24 12/28/2023 COMP. METAB OLIC PANEL total protein 7.1 g/dL 6.4-8. 2 Not Available [address], [address], 12/28/2023 14:04:19 12/27/19 24 12/28/2023 COMP. METAB OLIC PANEL albumin 3.3 g/dL 3.4-5. 0 low Not Available [address], [address], 12/28/2023 14:04:19 12/27/19 24 12/28/2023 COMP. METAB OLIC PANEL globulin 3.8 g/dL Not Available [address], [address], 12/28/2023 14:04:19 12/27/19 24 12/28/2023 COMP. METAB OLIC PANEL A/G 0.9 ratio 0.8-2. 0 Not Available [address], [address], 12/28/2023 14:04:19 12/27/19 24 12/28/2023 COMP. METAB OLIC PANEL total bilirubin 0.40 mg/dL 0.00-1 .00 Not Available [address], [address], 12/28/2023 14:04:19 12/27/19 24 12/28/2023 COMP. METAB OLIC PANEL AST 22 U/L 0-37 Not Available [address], [address], 12/28/2023 14:04:19 12/27/19 24 12/28/2023 COMP. METAB OLIC PANEL ALT 18 U/L 6-63 Not Available [address], [address], 12/28/2023 14:04:19 12/27/19 24 12/28/2023 COMP. METAB OLIC PANEL alk. phos. 103 U/L 50-136 Not Available [address], [address], 12/28/2023 14:04:19 12/27/19 24 12/28/2023 C-LAVINIA CTIVE PROTE IN (RCRP ) C-reactive protein (rcrp) 67.2 mg/dL 0.5-9. 0 high Not Available [address], [address], 12/28/2023 14:04:20 01/30/20 24 01/31/2024 DRUG SCREE N-8, URINE , WITH CONFI RMATI ON GC/MS amphetamine NEG. negati ve Not Available [address], [address], 01/31/2024 13:19:57 01/30/20 24 01/31/2024 DRUG SCREE N-8, URINE , WITH CONFI RMATI ON GC/MS barbiturates NEG. negati ve Not Available [address], [address], 01/31/2024 13:19:57 01/30/20 24 01/31/2024 DRUG SCREE N-8, URINE , WITH CONFI RMATI ON GC/MS benzodiazepi ne NEG. negati ve Not Available [address], [address], 01/31/2024 13:19:57 01/30/20 24 01/31/2024 DRUG SCREE N-8, URINE , WITH CONFI RMATI ON GC/MS cocaine NEG. negati ve Not Available [address], [address], 01/31/2024 13:19:57 01/30/20 24 01/31/2024 DRUG SCREE N-8, URINE , WITH CONFI RMATI ON GC/MS opiates POS. negati ve GCMS= Sampl e sent to [facility] for confi rmati on by GC/MS . Not Available [address], [address], 01/31/2024 13:19:57 01/30/20 24 01/31/2024 DRUG SCREE N-8, URINE , WITH CONFI RMATI ON GC/MS methadone NEG. negati ve Not Available [address], [address], 01/31/2024 13:19:57 01/30/20 24 01/31/2024 DRUG SCREE N-8, URINE , WITH CONFI RMATI ON GC/MS fentanyl NEG. negati ve Syva EMIT II Limit s of Detec tion (cutt -off value s) Radha Expan d: Amphe tamin es: 1000 ng/ml Opiat es: 300 ng/ml Michelle tuate s: 200 ng/ml Oxyco done 100 ng/ml Benzo diaze pines : 200 ng/ml Metha done 300 ng/ml Cocai ne: 300 ng/ml Fenta nyl 1 ng/ml Not Available [address], [address], 01/31/2024 13:19:57 01/30/20 24 01/31/2024 DRUG SCREE N-8, URINE , WITH CONFI RMATI ON GC/MS oxycodone POS. negati ve GCMS= Sampl e sent to [facility] for confi rmati on by GC/MS . Not Available [address], [place], [address], 01/31/2024 13:19:57 01/30/20 24 02/02/2024 DRUG TOX MONIT ORING OPIAT ES EXPAN DED QN, U codeine NEGATI VE NG/mL <50 See Note 1 Not Available [facility] [place] [facility] [address], [place], [address], 02/02/2024 09:34:16 01/30/20 24 02/02/2024 DRUG TOX MONIT ORING OPIAT ES EXPAN DED QN, U hydrocodone NEGATI VE NG/mL <50 See Note 1 Not Available [facility] [place] [facility] [address], [place], [address], 02/02/2024 09:34:16 01/30/20 24 02/02/2024 DRUG TOX MONIT ORING OPIAT ES EXPAN DED QN, U hydromorphon e NEGATI VE NG/mL <50 See Note 1 Not Available [facility] [place] [facility] [address], [place], [address], 02/02/2024 09:34:16 01/30/20 24 02/02/2024 DRUG TOX MONIT ORING OPIAT ES EXPAN DED QN, U morphine NEGATI VE NG/mL <50 See Note 1 Not Available [facility] [place] [facility] [address], [place], [address], 02/02/2024 09:34:16 01/30/20 24 02/02/2024 DRUG TOX MONIT ORING OPIAT ES EXPAN DED QN, U norhydrocodo ne NEGATI VE NG/mL <50 See Note 1 Not Available [facility] [place] [facility] [address], [place], [address], 02/02/2024 09:34:16 01/30/20 24 02/02/2024 DRUG TOX MONIT ORING OPIAT ES EXPAN DED QN, U noroxycodone >33512 NG/mL <50 high See Note 1 Not Available [facility] [place] [facility] [address], [place], [address], 02/02/2024 09:34:16 01/30/20 24 02/02/2024 DRUG TOX MONIT ORING OPIAT ES EXPAN DED QN, U oxycodone 5380 NG/mL <50 high See Note 1 Not Available [facility] [place] [facility] [address], [place], [address], 02/02/2024 09:34:16 01/30/20 24 02/02/2024 DRUG TOX MONIT ORING OPIAT ES EXPAN DED QN, U oxymorphone 2992 NG/mL <50 high See Note 1 Not Available [facility] [place] [facility] [address], [place], [address], 02/02/2024 09:34:16 01/30/20 24 02/02/2024 DRUG TOX MONIT ORING OPIAT ES EXPAN DED QN, U Unknown Analyte See Note 2 Note 1 This test was carol spencer and its stan tical perfo rmanc e renetta cteri stics have been deter mined by [facility]. It has not been clear ed or appro jesus manuel by the FDA. This assay has been valid ated pursu ant to the CLIA regul ation s and is used for clini oralia purpo ses. Note 2 This drug testi ng is for medic al treat ment only. Stan sis was perfo rmed as non-f orens ic testi ng and these resul ts shoul d be used only by healt hcare provi ders to rende r diagn osis or treat ment, or to monit or progr ess of medic al condi tions . For lew tance with inter preti ng these drug resul ts, pleas e conta ct a [facility] Toxic ology Speci alist : [phone] X [phone] ([phone] ), M-F, 8am-6 pm EST. Not Available [facility] [place] [facility] [address] [place] [address] John B, [place], [address], 02/02/2024 09:34:16 02/26/20 24 02/27/2024 HEPAT IC FUNCT ION PANEL total protein 7.3 g/dL 6.4-8. 2 Not Available [address], [address], 02/27/2024 15:08:57 02/26/20 24 02/27/2024 HEPAT IC FUNCT ION PANEL albumin 3.7 g/dL 3.4-5. 0 Not Available [address], [address], 02/27/2024 15:08:57 02/26/20 24 02/27/2024 HEPAT IC FUNCT ION PANEL globulin 3.6 g/dL Not Available [address], [address], 02/27/2024 15:08:57 02/26/20 24 02/27/2024 HEPAT IC FUNCT ION PANEL A/G 1.0 ratio 0.8-2. 0 Not Available [address], [address], 02/27/2024 15:08:57 02/26/20 24 02/27/2024 HEPAT IC FUNCT ION PANEL total bilirubin 0.30 mg/dL 0.00-1 .00 Not Available [address], [address], 02/27/2024 15:08:57 02/26/20 24 02/27/2024 HEPAT IC FUNCT ION PANEL direct bilirubin 0.10 mg/dL 0.00-0 .30 Not Available [address], [address], 02/27/2024 15:08:57 02/26/20 24 02/27/2024 HEPAT IC FUNCT ION PANEL AST 23 U/L 0-37 Not Available [address], [address], 02/27/2024 15:08:57 02/26/20 24 02/27/2024 HEPAT IC FUNCT ION PANEL ALT 22 U/L 6-63 Not Available [address], [address], 02/27/2024 15:08:57 02/26/20 24 02/27/2024 HEPAT IC FUNCT ION PANEL alk. phos. 97 U/L 50-136 Not Available [address], [address], 02/27/2024 15:08:57 02/26/20 24 02/27/2024 LIPID PANEL cholesterol 240 mg/dL <200 mg/dl Salome able 200-2 39 mg/dl Borde rline High >240 mg/dl High Not Available [address], [address], 02/27/2024 16:30:20 02/26/20 24 02/27/2024 LIPID PANEL triglyceride s 191 mg/dL <150 mg/dL Annmarie l 150-1 99 mg/dL Borde rline High 200-4 99 mg/dL High >500 mg/dL Very High Not Available [address], [address], 02/27/2024 16:30:20 02/26/20 24 02/27/2024 LIPID PANEL direct HDL 39 mg/dL <40 mg/dl - Major Risk for CHD >60 mg/dl - Negat flex Risk for CHD Not Available [address], [address], 02/27/2024 16:30:20 02/26/20 24 02/27/2024 DIREC T LDL direct LDL 151 mg/dL RISK CATEG ORY LDL GOAL _ CHD or CHD Risk Equiv alent s <100 mg/dl (10-y ear risk >20%) 2+ Risk Facto rs <130 mg/dl (10-y ear risk <= 20%) 0-1 Risk Facto r??? <160 mg/dl ??? Almos t all peopl e with 0-1 risk facto r have a 10 year risk <10%, thus 10 year risk asses ment in peopl e with 0-1 risk facto r is not benito rodriguez. Not Available [address], [address], 02/27/2024 16:30:21 06/05/2006/06/2024 BASIC METAB OLIC PANEL glucose 105 mg/dL 70-100 high Not Available [address], [address], 06/06/2024 12:12:17 06/05/2006/06/2024 BASIC METAB OLIC PANEL BUN 24 mg/dL 7-18 high Not Available [address], [address], 06/06/2024 12:12:17 06/05/2006/06/2024 BASIC METAB OLIC PANEL creatinine 1.3 mg/dL 0.8-1. 3 Not Available [address], [address], 06/06/2024 12:12:17 06/05/2006/06/2024 BASIC METAB OLIC PANEL B/C 18.5 ratio Not Available [address], [address], 06/06/2024 12:12:17 06/05/2006/06/2024 BASIC METAB OLIC PANEL GFR 59.8 mL/mi n abnormal >=60m L/min - Annmarie l or midly reduc ed <60mL /min- Decre ased kidne y funct ion <15mL /min - Kidne y failu re [facility] calcu lates estim ated Glome rular Filtr ation Rate (eGFR ) using the Chron ic Kidne y Disea se Epide miolo gy Colla borat ion (CKD- EPI) Equat ion (Tamara r et. al 2020) as recom rosalina d by the Natio nal Kidne y Found ation . eGFR is based on age, serum creat inine , and sex. CKD-E PI does not calcu late eGFR by race, does not apply to child shabana (age <18 years ), and shoul d not be used in pregn domingo. Not Available [address], [address], 06/06/2024 12:12:17 06/05/2006/06/2024 BASIC METAB OLIC PANEL sodium 137 mmol/ L 136-14 5 Not Available [address], [address], 06/06/2024 12:12:17 06/05/2006/06/2024 BASIC METAB OLIC PANEL potassium 3.8 mmol/ L 3.5-5. 1 Not Available [address], [address], 06/06/2024 12:12:17 06/05/2006/06/2024 BASIC METAB OLIC PANEL chloride 98 mmol/ L 96-107 Not Available [address], [address], 06/06/2024 12:12:17 06/05/2006/06/2024 BASIC METAB OLIC PANEL anion gap 11.2 5.0-15 .0 Not Available [address], [address], 06/06/2024 12:12:17 06/05/2006/06/2024 BASIC METAB OLIC PANEL CO2 28 mmol/ L 21-32 Not Available [address], [address], 06/06/2024 12:12:17 06/05/2006/06/2024 BASIC METAB OLIC PANEL calcium 9.4 mg/dL 8.5-10 .3 Not Available [address], [address], 06/06/2024 12:12:17 06/05/2006/06/2024 MAGNE SIUM magnesium 2.1 mg/dL 1.8-2. 4 Not Available [address], [address], 06/06/2024 12:12:19 06/05/2006/06/2024 URIC ACID uric acid 5.7 mg/dL 3.5-7. 2 Not Available [address], [address], 06/06/2024 12:27:10 06/05/2006/06/2024 HEPAT IC FUNCT ION PANEL total protein 7.8 g/dL 6.4-8. 2 Not Available [address], [address], 06/06/2024 14:10:54 06/05/2006/06/2024 HEPAT IC FUNCT ION PANEL albumin 3.3 g/dL 3.4-5. 0 low Not Available [address], [address], 06/06/2024 14:10:54 06/05/2006/06/2024 HEPAT IC FUNCT ION PANEL globulin 4.5 g/dL Not Available [address], [address], 06/06/2024 14:10:54 06/05/2006/06/2024 HEPAT IC FUNCT ION PANEL A/G 0.7 ratio 0.8-2. 0 low Not Available [address], [address], 06/06/2024 14:10:54 06/05/2006/06/2024 HEPAT IC FUNCT ION PANEL total bilirubin 0.30 mg/dL 0.00-1 .00 Not Available [address], [address], 06/06/2024 14:10:54 06/05/2006/06/2024 HEPAT IC FUNCT ION PANEL direct bilirubin 0.10 mg/dL 0.00-0 .30 Not Available [address], [address], 06/06/2024 14:10:54 06/05/2006/06/2024 HEPAT IC FUNCT ION PANEL AST 21 U/L 0-37 Not Available [address], [address], 06/06/2024 14:10:54 06/05/2006/06/2024 HEPAT IC FUNCT ION PANEL ALT 19 U/L 6-63 Not Available [address], [address], 06/06/2024 14:10:54 06/05/2006/06/2024 HEPAT IC FUNCT ION PANEL alk. phos. 91 U/L 50-136 Not Available [address], [address], 06/06/2024 14:10:54 06/05/2006/06/2024 VITAM IN B12 vitamin B12 1125 pg/mL 230-10 50 high Not Available [address], [address], 06/06/2024 14:17:06 08/28/1908/29/2024 DRUG SCREE N-8, URINE , WITH CONFI RMATI ON GC/MS amphetamine NEG. negati ve Not Available [address], [address], 08/29/2024 10:29:50 08/28/1908/29/2024 DRUG SCREE N-8, URINE , WITH CONFI RMATI ON GC/MS barbiturates NEG. negati ve Not Available [address], [address], 08/29/2024 10:29:50 08/28/19 25 08/29/2024 DRUG SCREE N-8, URINE , WITH CONFI RMATI ON GC/MS benzodiazepi ne NEG. negati ve Not Available [address], [address], 08/29/2024 10:29:50 08/28/19 25 08/29/2024 DRUG SCREE N-8, URINE , WITH CONFI RMATI ON GC/MS cocaine NEG. negati ve Not Available [address], [address], 08/29/2024 10:29:50 08/28/19 25 08/29/2024 DRUG SCREE N-8, URINE , WITH CONFI RMATI ON GC/MS opiates POS. negati ve GCMS= Sampl e [facility] to [facility] for confi rmati on by GC/MS . Not Available [address], [address], 08/29/2024 10:29:50 08/28/19 25 08/29/2024 DRUG SCREE N-8, URINE , WITH CONFI RMATI ON GC/MS methadone NEG. negati ve Not Available [address], [address], 08/29/2024 10:29:50 08/28/19 25 08/29/2024 DRUG SCREE N-8, URINE , WITH CONFI RMATI ON GC/MS fentanyl NEG. negati ve Syva EMIT II Limit s of Detec tion (cutt -off value s) [place] Expan d: Amphe tamin es: 1000 ng/ml Opiat es: 300 ng/ml Michelle tuate s: 200 ng/ml Oxyco done 100 ng/ml Benzo diaze pines : 200 ng/ml Metha done 300 ng/ml Cocai ne: 300 ng/ml Fenta nyl 1 ng/ml Not Available [address], [address], 08/29/2024 10:29:50 08/28/19 25 08/29/2024 DRUG SCREE N-8, URINE , WITH CONFI RMATI ON GC/MS oxycodone POS. negati ve GCMS= Sampl e sent to [facility] for confi rmati on by GC/MS . Not Available [address], [place], [address], 08/29/2024 10:29:50 08/28/19 25 09/01/2024 DRUG TOX MONIT ORING OPIAT ES EXPAN DED QN, U codeine NEGATI VE NG/mL <50 See Note 1 Not Available [facility] [address], [place], [address], 09/01/2024 12:03:24 08/28/19 25 09/01/2024 DRUG TOX MONIT ORING OPIAT ES EXPAN DED QN, U hydrocodone NEGATI VE NG/mL <50 See Note 1 Not Available [facility] [place] [facility] [address], [place], [address], 09/01/2024 12:03:24 08/28/19 25 09/01/2024 DRUG TOX MONIT ORING OPIAT ES EXPAN DED QN, U hydromorphon e NEGATI VE NG/mL <50 See Note 1 Not Available [facility] [address], [place], [address], 09/01/2024 12:03:24 08/28/19 25 09/01/2024 DRUG TOX MONIT ORING OPIAT ES EXPAN DED QN, U morphine NEGATI VE NG/mL <50 See Note 1 Not Available [facility] [address], [place], [address], 09/01/2024 12:03:24 08/28/19 25 09/01/2024 DRUG TOX MONIT ORING OPIAT ES EXPAN DED QN, U norhydrocodo ne NEGATI VE NG/mL <50 See Note 1 Not Available [facility] [place] [facility] [address], [place], [address], 09/01/2024 12:03:24 08/28/19 25 09/01/2024 DRUG TOX MONIT ORING OPIAT ES EXPAN DED QN, U noroxycodone 9276 NG/mL <50 high See Note 1 Not Available [facility] [place] [facility] [address], [place], [address], 09/01/2024 12:03:24 08/28/19 25 09/01/2024 DRUG TOX MONIT ORING OPIAT ES EXPAN DED QN, U oxycodone 3745 NG/mL <50 high See Note 1 Not Available [facility] [place] [facility] [address], [place], [address], 09/01/2024 12:03:24 08/28/19 25 09/01/2024 DRUG TOX MONIT ORING OPIAT ES EXPAN DED QN, U oxymorphone 4534 NG/mL <50 high See Note 1 Not Available [facility] [place] [facility] [address], [place], [address], 09/01/2024 12:03:24 08/28/19 25 09/01/2024 DRUG TOX MONIT ORING OPIAT ES EXPAN DED QN, U Unknown Analyte See Note 2 Note 1 This test was devphilipp oped and its stan tical perfo rmanc e renetta cteri stics have been deter mined by [facility]. It has not been clear ed or appro jesus manuel by the FDA. This assay has been valid ated pursu ant to the CLIA regul ation s and is used for clini oralia purpo ses. Note 2 This drug testi ng is for medic al treat ment only. Stan sis was perfo rmed as non-f orens ic testi ng and these resul ts shoul d be used only by healt hcare provi ders to rende r diagn osis or treat ment, or to monit or progr ess of medic al condi tions . For lew spear with inter preti ng these drug resul ts, pleas e conta ct a [facility] Toxic ology Speci alist : [phone] X [phone] ( [phone] ), M-F, 8am-6 pm EST. Not Available [facility] [place] [facility] [address] John B, [place], [address], 09/01/2024 12:03:24 10/06/19 24 10/06/2023 LDCT, chest , for lung cance r scree valente No observ ation record ed. [facility] [address] [place], [address], 10/09/2023 11:49:59 10/16/19 24 10/06/2023 CT, chest No observ ation record ed. [address], [address], 10/17/2023 14:36:56 12/25/19 24 12/25/2023 pulmo nary funct ion test* No observ ation record ed. [address] [place], [address], 12/25/2023 15:52:26 02/09/20 24 02/09/2024 CT, chest , w/o contr ast No observ ation record ed. [address], [address], 02/11/2024 17:29:21 Result Notes None recorded. Problems Name Problem SNOMED Code Status Onset Date Resolution Date Notes Provider Name and Address Organization Details Recorded Time Gout 24844410 Active ASHLEY Cody [address] [place] [address] [place], [address], [facility] 14:49:37 Multiple joint pain 14351093 Completed 07/03/2013 ASHLEY Cody [address] [place], [place] [address], [address], [facility] 6 14:49:37 Tobacco user 581483727 Active ASHLEY Cody [address] [place], [place] [address], [address], [facility] 6 17:57:22 Verruca plantari s 50967006 Completed 10/30/2017 Dennise Esparza PA-C [address] [place], [place] [address], [address], [facility] 8 14:08:57 Malaise and fatigue 302253434 Completed 07/03/2013 ASHLEY Cody [address] [place], [place] [address], [address], [facility] 6 14:49:37 Dizzines s 027502388 Completed 07/03/2013 ASHLEY Cody [address] [place], [place] [address], [address], [facility] 6 14:49:37 Chronic pain 49470664 Completed 04/30/2018 Dennise Esparza PA-C [address] [place], [place] [address], [address], [facility] 8 13:30:51 Disorder of rotator cuff 426320563 Active ASHLEY Cody [address] [place], [place] [address], [address], [facility] 6 17:57:22 Neck pain 47312248 Completed 10/30/2017 Dennise Esparza PA-C [address] [place], [place] [address], [address], [facility] 8 14:08:54 Fracture of lower leg 196459743 Active ASHLEY Cody [address] [place] [address] [place], [address], [facility] 6 17:57:22 Pain in right lower limb 947292773 Active ASHLEY Cody [address] [place] [address] [place], [address], [facility] 6 14:49:37 Impotenc e of organic origin Active Jose Gunderson [address] [place], [address], [facility] 6 14:49:37 Elevated blood-pr essure reading without diagnosi s of hyperten dereck 625260247 Completed 04/27/2017 Chen Alex [address] [place], [address], [facility] 7 14:23:38 Chronic sciatica 511347036 Active 2015 Jose Gunderson [address] [place], [address], [facility] 6 14:56:22 Lung mass 965048443 Completed 201604/30/2018 1.2cm mass right upper anterior lobe. followed by [facility] . 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 44609853 Active 2017 Dennise Esparza PA-C [address] [place], [place] [address], [address], [facility] 8 13:33:56 Multiple nodules of lung 361371333 Active 2017 followed by [facility] Dennise Esparza PA-C [address] [place] [address] [place], [address], [facility] 8 13:30:05 Obesity 019291883 Active 2017 Dennise Esparza PA-C [address] [place] [address] [place], [address], [facility] 8 13:32:52 Hyperlip idemia 76309091 Active 2017 Dennise Esparza PA-C [address] [place] [address] [place], [address], [facility] 2 10:09:51 Hand pain 21424960 Completed 201708/17/2020 Recommen d seeing rheumato logy Dennise Esparza PA-C [address] [place] [address] [place], [address], [facility] 1 11:31:24 Primary erectile dysfunct ion 726773947 Active 2018 Dennise Esparza PA-C [address] [place], [place] [address], [address], [facility] 9 11:02:32 Chronic obstruct flex pulmonar y disease 73461806 Active 2018 Dennise Esparza PA-C [address] [place], [place] [address], 1, [facility] 9 11:19:39 Fibrosis of lung 70535081 Active 2018 undergoi ng eval for UIP Dennise Esparza PA-C [address] [place] [address] [place] Nair [place], 1, [facility] 9 11:22:34 Undiffer entiated inflamma tory polyarth ritis 142799836 Completed 201902/12/2020 Dennise Esparza PA-C [address] [place], [place] [address], 1, [facility] 0 15:44:03 Osteoart hritis of joint of left shoulder region 24142336561 9108 Active 2019 Dennise Esparza PA-C [address] [place], [place] [address], [address], [facility] 0 15:41:09 Rheumato id arthriti s 39092535 Active 2019 Dennise Esparza PA-C [address] [place] [address] [place], [address], [facility] 0 15:43:55 Essentia l hyperten dereck 49870112 Active 2020 Dennise Esparza PA-C [address] [place] [address] [place], [address], [facility] 1 11:32:04 Subclini oralia hyperthy roidism 276986138 Completed 202010/25/2021 Dennise Esparza PA-C [address] [place] [address] [place], [address], [facility] 2 10:10:05 Charcot' s joint of foot 065140986 Active 2022 Non-diab etic Dennise Esparza PA-C [address] [place] [address] [place], [address], [facility] 3 07:48:39 Osteopen ia 962533999 Active 2023 Dennise Esparza PA-C [address] [place] [address] [place], [address], [facility] 4 15:10:56 Cataract 249615961 Active 2023 Dennise Esparza PA-C [address] [place] [address] [place], [address], [facility] 4 15:28:24 Problem Notes None recorded. Procedures Surgical History Date Name Laterality Status Provider Name and Address Organization Details Recorded Time 08/28/19 25 Smoking cessation counseling completed Amber Shay Jenny [facility] 08/28/2024 11:29:00 05/28/20 24 Smoking cessation counseling completed THEO Yu [facility] 05/28/2024 15:22:14 05/07/20 24 Smoking cessation counseling completed Lisa Joseph [facility] 05/07/2024 11:40:02 08/28/19 [id number]: Therapeutic Exercise cancelled Mayra Goldsmith, PT [address] [place], [phone], [facility] 08/28/2019 09:23:22 08/28/19 20 [id number]: Manual Therapy cancelled Mayra Goldsmith, PT [address] [place], [phone], [facility] 08/28/2019 09:23:22 08/23/19 20 [id number]: Therapeutic Exercise completed Mayra Goldsmith, PT [address] [place], [phone], [facility] 08/23/2019 14:31:29 08/23/19 20 [id number]: Manual Therapy completed Mayra Goldsmith, PT [address] [place], [phone], [facility] 08/23/2019 14:31:52 08/23/19 20 Treatment and Advice completed Mayra Goldsmith, PT [address] [place], [phone], [facility] 08/23/2019 17:19:16 08/21/19 20 [id number]: Therapeutic Exercise cancelled Mayra Goldsmith, PT [address] [place], [phone], [facility] 08/21/2019 11:45:58 08/21/19 20 [id number]: Manual Therapy cancelled Mayra Goldsmith, PT [address] [place], [address], [facility] 08/21/2019 11:46:00 08/21/19 20 Treatment and Advice cancelled Mayra Goldsmith, PT [address] [place], [phone], [facility] 08/21/2019 11:45:32 08/19/19 20 Smoking cessation counseling completed Dennise Esparza PA-C [address] [place] [address], [phone], [facility] 08/19/2019 16:40:33 08/16/19 20 Physical Activity Counselling completed Mayra Goldsmith, PT [address] [place] [address], [phone], [facility] 08/16/2019 08:31:35 08/16/19 20 11351: PT Eval Low Complexity completed Mayra Goldsmith, PT [address] [place], [phone], [facility] 08/16/2019 16:55:10 08/16/19 20 Treatment and Advice completed Mayra Goldsmith, PT [address] [place], [address], [facility] 08/16/2019 16:56:56 07/15/20 19 Smoking cessation counseling completed Aylin Calix MD [address] [place] [address], [phone], [facility] 07/15/2019 12:13:51 06/03/20 19 Smoking cessation counseling completed Aylin Calix MD [address] [place] [address], [phone], [facility] 06/06/2019 07:52:42 05/24/20 19 Smoking cessation counseling completed Dennise Esparza PA-C [address] [place], [phone], [facility] 05/27/2019 08:45:58 02/12/20 19 Smoking cessation counseling completed Stephenie Sharif [facility] 02/11/2019 14:11:12 02/12/20 19 Carbon Monoxide Testing completed Stephenie Sharif [facility] 02/11/2019 14:11:12 11/10/19 19 Smoking cessation counseling completed Stephenie Sharif [facility] 11/09/2018 13:53:24 08/29/19 19 Smoking cessation counseling completed Pamela Vidal MA [facility] 08/29/2018 08:07:41 08/13/20 18 Smoking cessation counseling completed Stephenie Sharif [facility] 08/13/2018 13:36:51 08/13/20 18 Carbon Monoxide Testing completed Stephenie Sharif [facility] 08/13/2018 13:36:51 05/21/20 18 Smoking cessation counseling completed Tiffanie Torres NP [address] [place], [address], [facility] 05/21/2018 18:21:03 05/21/20 18 Carbon Monoxide Testing completed Tiffanie Torres NP [address] [place], [phone], [facility] 05/21/2018 18:21:03 04/30/20 18 Smoking cessation counseling completed Stephenie Sharif [facility] 04/30/2018 13:23:27 01/30/20 18 Smoking cessation counseling completed Tory Lockhart [facility] 01/29/2018 13:15:45 01/30/20 18 Carbon Monoxide Testing completed Tory Lockhart [facility] 01/29/2018 13:15:46 10/31/19 18 Smoking cessation counseling completed Beverly Cervantes [facility] 10/30/2017 13:56:50 08/01/20 17 Smoking cessation counseling completed Amber Graf RN [facility] 08/01/2017 14:18:03 04/27/20 17 Smoking cessation counseling completed Lisa Joseph [facility] 04/27/2017 13:51:54 01/26/20 17 Smoking cessation counseling completed [facility] 01/25/2017 13:55:26 01/26/20 17 Carbon Monoxide Testing completed [facility] 01/25/2017 13:55:26 10/27/19 17 Smoking cessation counseling completed [facility] 10/26/2016 14:17:07 10/27/19 17 Carbon Monoxide Testing completed [facility] 10/26/2016 14:24:27 07/27/20 16 Smoking cessation counseling completed Lisa Joseph [facility] 07/27/2016 13:34:26 04/27/20 16 Smoking cessation counseling completed [facility] 04/27/2016 14:20:27 01/27/20 16 Smoking cessation counseling completed [facility] 01/27/2016 14:25:26 10/21/19 16 Smoking cessation counseling completed Ashley Elder [facility] 10/21/2015 14:39:36 10/21/19 16 Carbon Monoxide Testing completed Ashley Elder MA [facility] 10/21/2015 14:47:03 07/22/20 15 Smoking cessation counseling completed Ashley Elder MA [facility] 07/22/2015 11:56:00 04/15/20 15 Smoking cessation counseling completed Ashley Elder [facility] 04/15/2015 10:27:57 01/30/20 15 Smoking cessation counseling completed Ashley Elder, [facility] 01/29/2015 11:32:56 10/30/19 15 Smoking cessation counseling completed Isha Krause, [facility] 10/29/2014 11:26:26 09/17/19 15 Smoking cessation counseling completed Jose Gunderson, [facility], [address], [facility] 09/17/2014 12:42:07 11/09/19 12 Smoking cessation counseling completed Antionette Patel [facility] 11/09/2011 15:30:52 10/04/19 12 Smoking cessation counseling completed Tasneem Beckett ACADEMIC PHYSICIAN [facility] 10/04/2011 08:15:13 08/09/20 11 Smoking cessation counseling completed Antionette Patel [facility] 08/09/2011 10:01:23 Imaging Results Imaging Date Name Status LastModified by Organiz ation Details LastModified Time 10/06/2023 LDCT, chest, for lung cancer screening completed [facility] [address] [place] [address], [address], 10/09/2023 11:49:59 10/06/2023 CT, chest completed [address], [address], 10/17/2023 14:36:56 12/25/2023 pulmonary function test* completed [email or web address], [address], 12/25/2023 15:52:26 02/09/2024 CT, chest, w/o contrast completed [address], [address], 02/11/2024 17:29:21 Procedure Notes None recorded. Medical Equipment None Reported. Allergies Allergen ID Allergen Name Allergen Category Reaction Reaction Severity Criticality Documentation Date Start Date Code Code System Note Provider Name and Address Organization Details Recorded Time 290785 atorvasta tin medicatio n myalgias (muscle pain) Not available low 05/03/2023 25440 RxNorm Dennise Esparza PA-C [address] [facility], [place], [address] , [facility] 3 11:43:17 Medications Name Sig Start Date Stop Date Status Note LastModified by Organization Details LastModified Time viagra 100 mg tabs active Not Available Not Available Not Available oxycodone hcl 5 mg tabs active Not Available Not Available Not Available bupropion hcl sr 150 mg tb12 active Not Available Not Available Not Available ibuprofen 400 mg tabs active Not Available Not Available Not Available indometha manan 50 mg caps active Not Available Not Available Not Available amoxicill in 500 mg capsule TAKE ONE CAPSULE BY MOUTH THREE TIMES A DAY UNTIL GONE 08/28 completed Not Available Not Available Not Available Nicotrol NS 10 mg/mL nasal spray 1-2 doses per hour or 8-40 doses per day use 15 minutes prior to usual time patient smokes (1dose is 2 sprays in each nostril) 01/29 completed Not Available Not Available Not Available bupropion HCl SR 150 mg tablet,12 hr sustained -release TAKE ONE TABLET BY MOUTH TWICE A DAY active Not Available Not Available No t Available fluticaso ne 250 mcg-salme terol 50 mcg/dose blistr powdr for inhalatio n INHALE ONE PUFF BY MOUTH TWICE A DAY active Not Available Not Available No t Available prednison e 10 mg tablet TAKE 1 TABLET BY MOUTH DAILY NEEDED FOR JOINT PAIN. active Not Available Not Available No t Available atorvasta tin 10 mg tablet TAKE ONE TABLET BY MOUTH EVERY DAY 05/03 completed Not Available Not Available Not Available cephalexi n 250 mg capsule active Not Available Not Available Not Available lisinopri l 20 mg tablet TAKE ONE TABLET BY MOUTH EVERY DAY 10/25 completed Pt taking 40 mg/d Not Available Not Available Not Available prednison e 5 mg tablet TAKE 1 TABLET BY MOUTH DAILY. 01/29 completed Not Available Not Available Not Available Generlac 10 gram/15 mL oral solution active Not Available Not Available Not Available leflunomi de 20 mg tablet TAKE ONE TABLET BY MOUTH EVERY OTHER DAY FOR 1 WEEK THEN 1 TABLET DAILY 10/25 completed Not Available Not Available Not Available Nicotrol 10 mg inhalatio n cartridge INHALE 1 CARTRIDG E EVERY 1 OR 2 HOURS. 6 TO 16 PER DAY BEST IF CONTINUE S PUFFING FOR 20 MINUTES. USE 15 MINUTES PRIOR TO WHEN YOU WOULD USUA 05/07 completed Not Available Not Available Not Available sildenafi l 100 mg tablet TAKE ONE TABLET BY MOUTH EVERY DAY DIRECTED active Not Available Not Available No t Available oxycodone -acetamin ophen 10 mg-325 mg tablet TAKE 1 TABLET BY MOUTH 5 TIMES DAILY active Not Available Not Available No t Available nicotine (polacril ex) 4 mg gum Chew 1 piece of gum every 2 hours by oral route for 30 days. 01/29 completed Not Available Not Available Not Available prednison e 1 mg tablet TAKE 4 TABLETS BY MOUTH EVERY DAY FOR 1 MONTH, THEN TAKE 3 TABLETS EVERY DAY. 11/01 completed 09/17/21 5mg/d Not Available Not Available Not Available prednison e 2.5 mg tablet TAKE 2 TABLETS BY MOUTH DAILY ALTERNAT ING WITH 1 TABLET BY MOUTH DAILY. 01/29 completed Not Available Not Available Not Available cephalexi n 500 mg capsule active Not Available Not Available Not Available lisinopri l 10 mg tablet TAKE ONE TABLET BY MOUTH EVERY DAY active Not Available Not Available No t Available ibuprofen 400 mg tablet TAKE ONE TABLET BY MOUTH FOUR TIMES A DAY 04/30 completed Not taking Not Available Not Available Not Available indometha manan 50 mg capsule TAKE ONE CAPSULE( S) THREE TIMES A DAY BY MOUTH until symptoms resolve 06/03 completed Not Available Not Available Not Available nicotine 21 mg/24 hr daily transderm al patch APPLY 1 PATCH TO THE SKIN EVERY DAY 2021 active Not Available Not Available Not Avai lable hydrochlo rothiazid e 12.5 mg capsule TAKE ONE CAPSULE BY MOUTH EVERY MORNING 12/04 completed Not taking, states caused SOB, relieved when stopped Not Available Not Available Not Available ibuprofen 200 mg tablet TAKE ONE TABLET BY MOUTH EVERY 6 HOURS 10/25 completed Not Available Not Available Not Available allopurin ol 300 mg tablet TAKE ONE TABLET BY MOUTH ONE TIME DAILY-NO SUBSTITU TION BRAND NAME MEDICALL Y NECESSAR Y 2012 active Not Available Not Available Not Avai lable hydrochlo rothiazid e 25 mg tablet TAKE ONE TABLET BY MOUTH EVERY DAY active Not Available Not Available No t Available hydroxych loroquine 200 mg tablet TAKE ONE TABLET BY MOUTH TWICE A DAY 11/15 completed on hold 11/01/21t ng not taking because of humira Not Available Not Available Not Available ibuprofen 600 mg tablet TAKE ONE TABLET BY MOUTH THREE TIMES A DAY NEEDED WITH FOOD active Not Available Not Available No t Available albuterol sulfate HFA 90 mcg/actua tion aerosol inhaler INHALE TWO PUFFS BY MOUTH EVERY 6 HOURS NEEDED FOR WHEEZING active Not Available Not Available No t Available lisinopri l 40 mg tablet Take 1 tablet every day by oral route for 90 days. 11/01 completed no longer taking 11/01/21t ng Not Available Not Available Not Available doxycycli ne hyclate 100 mg tablet Take 1 tablet twice a day by oral route for 21 days. 07/25 completed Not Available Not Available Not Available oxycodone 5 mg tablet TAKE 7 TABLETS BY MOUTH DAILY NEEDED, IN DIVIDED DOSES 07/27 completed Not Available Not Available Not Available nicotine (polacril ex) 4 mg buccal lozenge DISSOLVE 1 LOZENGE IN MOUTH EVERY 2 HOURS NEEDED 08/01 completed Not Available Not Available Not Available cyclobenz aprine 5 mg tablet TAKE 1 TO 2 TABLETS BY MOUTH AT BEDTIME NEEDED FOR MUSCLE SPASM. CAN CAUSE DIZZINES S/LIGHTH EADEDNES S/DROWSI NESS. DO NOT OPERATE HEAVY MAC active Not Available Not Available No t Available Crestor 10 mg tablet active Not Available Not Available Not Available Motrin 10/25 completed Not Available Not Available Not Available Multivita mins active Not Available Not Available Not Available varenicli ne tartrate 0.5 mg tablet TAKE 1 TABLET BY MOUTH DAILY FOR 3 DAYS THEN 1 TABLET BY MOUTH TWICE DAILY FOR 4 DAYS THEN 2 TABLETS BY MOUTH TWICE DAILY 01/28 completed Chantix, Pt not taking at this time 01/28/22 as Not Available Not Available Not Available varenicli ne tartrate 0.5 mg (11)-1 mg (42) tablets in a dose pack TAKE PER DOSE PACKAGE LABELING . 01/29 completed pt can not take, makes ill 01/30/24 Not Available Not Available Not Available Chantix 1 mg tablet Take 1 tablet twice a day by oral route. 01/04 /2021 completed Not currentl y taking Not Available Not Available Not Available Enbrel SureClick 50 mg/mL (1 mL) subcutane ous pen injector active Not Available Not Available Not Available Suprep Bowel Prep Kit 17.5 gram-3.13 gram-1.6 gram oral solution active Not Available Not Available Not Available Actemra 162 mg/0.9 mL subcutane ous syringe 08/28 completed under care of rheumato logy Not Available Not Available Not Available Flucelvax 7699-9396 (PF) 45 mcg (15 mcg x 3)/0.5 mL IM syringe active Not Available Not Available Not Available Ofev 150 mg capsule 05/28 completed Not Available Not Available Not Available nintedani b 05/28 completed Per 02/23/24 pulmonol ogy OV [id number] g BIDStart with once daily for x 2 weeks, then increase to BID for GI toleranc e Not Available Not Available Not Available OxyContin 20 mg tablet,cr ush resistant ,extended release TAKE ONE TABLET BY MOUTH EVERY DAY active Not Available Not Available No t Available Narcan 4 mg/actuat ion nasal spray Take by nasal route for suspecte d opioid overdose . [place] 1 mL in each nostril. Repeat after 3 minutes if no or minimal response 2022 active Not Available Not Available Not Avai lable Afluria 2813-2587 (PF) 45 mcg(15 mcg x 3)/0.5 mL intramusc ular syringe 07/27 completed Not Available Not Available Not Available Humira(CF ) Pen 40 mg/0.4 mL subcutane ous kit INJECT 40MG UNDER THE SKIN ONCE A WEEK 01/29 completed no longer taking 01/30/24 Not Available Not Available Not Available Actemra ACTPen 162 mg/0.9 mL subcutane ous pen injector active Not Available Not Available Not Available Flucelvax Quad (PF) 60 mcg (15 mcg x 4)/0.5 mL IM syringe VACCINAT ION ADMINIST ERED BY PHARMACI ST 06/01 completed Not Available Not Available Not Available Vitals Date Recorded Body height Body mass index (BMI) Body weight Heart rate Systolic blood pressure Diastolic blood pressure Provider Name and Address Organization Details Last Updated DateTime 4 177.17 cm 29.9 kg/m2 58556.6 2 g 68 /min 118 mm[Hg] 80 mm[Hg] Joanne Witt [facility] 4 13:41:42 Date Recorded Body height Body mass index (BMI) Body weight Heart rate Systolic blood pressure Diastolic blood pressure Provider Name and Address Organization Details Last Updated DateTime 4 177.17 cm 28.7 kg/m2 09236.0 9 g 72 /min 110 mm[Hg] 74 mm[Hg] Amber shay [facility] 4 14:58:54 Date Recorded Body height Body mass index (BMI) Body weight Heart rate Systolic blood pressure Diastolic blood pressure Provider Name and Address Organization Details Last Updated DateTime 4 177.17 cm 29.6 kg/m2 29089.4 4 g 72 /min 128 mm[Hg] 82 mm[Hg] Lisa Joseph [facility] 4 11:45:22 Date Recorded Body height Body mass index (BMI) Body weight Heart rate Systolic blood pressure Diastolic blood pressure Provider Name and Address Organization Details Last Updated DateTime 4 177.17 cm 29.6 kg/m2 87611.4 4 g 84 /min 116 mm[Hg] 60 mm[Hg] Amber shay [facility] 4 15:24:31 Date Recorded Body height Body mass index (BMI) Body weight Heart rate Systolic blood pressure Diastolic blood pressure Provider Name and Address Organization Details Last Updated DateTime 5 177.17 cm 31.2 kg/m2 74523.3 5 g 100 /min 96 mm[Hg] 62 mm[Hg] Amber shay [facility] 5 11:28:48 Date Recorded Systolic blood pressure Diastolic blood pressure Provider Name and Address Organization Details Last Updated DateTime 07/22/2024 112 mm[Hg] 74 mm[Hg] Skyla Dick LPN [facility] 07/22/2024 15:47:07 Social History Question Answer Notes LastModified by Organizat ion Details LastModified Time Tobacco Smoking Status Current Every Day Smoker CARLA Lewis, [facility] 08/09/2011 10:00:33 What Is Your Level Of Alcohol Consumption? Occasional 5 Per Month [email or web address] Information not available 06/03/2019 Do You Wear A Helmet When Biking? Yes [email or web address] Information not available 09/17/2014 What Is Your Level Of Caffeine Consumption? Moderate 2 Cups Of Coffee Per Day [email or web address] Information not available 09/17/2014 How Much Tobacco Do You Chew? None [email or web address] Information not available 09/17/2014 What Type Of Diet Are You Following? REGULAR [email or web address] Information not available 09/17/2014 Which Illicit Or Recreational Drugs Have You Used? None Information not available 07/22/2015 Do You Or Have You Ever Used E-cigarettes Or Vape? Never Used Electronic Cigarettes Information not available 11/08/2019 Education 11 [email or web address] Information n ot available 09/17/2014 What Is Your Occupation? [employer] Retired [email or web address] Information not available 09/17/2014 Are There Any Guns Present In Your Home? Yes [email or web address] Information not available 09/17/2014 Live Alone Or With Others? With Others [email or web address] Information not available 09/17/2014 CSRP - Narcotics Yes OXYCODONE/AC E 10-325 MG OXYCODONE ER 20 MG DX- M54.31 Sciatica Information not available 10/01/2014 CSRP Contract Signed And Discussed Yes 04/26/2022 ( Jonathan ESPARZA ) [email or web address] Information not available 10/06/2011 Patient Has Health Care Proxy Signed And In Chart Yes Information not available 03/01/2021 MOLST Form Signed And In Chart 10/25/2021 Information not available 10/27/2021 CCM Consent Discussion 02/25/2021 Information not available 03/01/2021 Marital Status [email or web address] Informati on not available 09/17/2014 Mosquito Repellent Used Routinely Yes [email or web address] Information not available 09/17/2014 What Was The Date Of Your Most Recent Tobacco Screening? 05/28/2024 [email or web address] Information not available 05/28/2024 How Many Children Do You Have? 2 [email or web address] Information not available 09/17/2014 What Is Your Current Pack Years? [email or web address] ars Information not available 10/21/2015 Seat Belts Used Routinely Yes [email or web address] Information not available 09/17/2014 Are You Sexually Active? Yes [email or web address] Information not available 01/29/2015 Smoke Alarm In Home Yes [email or web address] Information not available 09/17/2014 Do You Have Smoke And Carbon Monoxide Detectors In Your Home? Yes [email or web address] Information not available 01/31/2023 At What Age Did You Start Smoking Tobacco? 12 [email or web address] Information not available 09/17/2014 Do You Or Have You Ever Used Smokeless Tobacco? Never Used Smokeless Tobacco [email or web address] Information not available 11/08/2019 How Much Tobacco Do You Smoke? 1 PPD 3/4 Of A Pack A Day 12/18/20 Ds [email or web address] Information not available 12/18/2020 What Types Of Sporting Activities Do You Participate In? Elizalde Information not available 07/22/2015 General Stress Level Medium Information not available 07/22/2015 Do You Use Sunscreen Routinely? Yes [email or web address] Information not available 09/17/2014 How Many Years Have You Smoked Tobacco? 50 Information not available 11/08/2019 Do You Or Have You Ever Used Any Other Forms Of Tobacco Or Nicotine? No [email or web address] Information not available 01/28/2022 Sex: Unknown Functional Status None recorded. Mental Status None recorded. Family History Relationship Description Onset Age of this Age Resolved Age Notes LastModified by Organization Details LastModified Time Father Diabetes mellitus 72 previo usly record ed as Diabet es [email or web address] Not available 07/22/2015 12:10:47 Mother Heart valve disorder [email or web address] Not available 2014 12:10:47 Medical History Condition Response MUSCULOSKELETAL Y Colon Polyps Y Lyme Disease Y Chronic Neck Pain Y Interstitial Lung Disease Y Rheumatoid Arthritis Y Hypertension Y COPD Y Chronic Back Pain Y Immunizations Vaccine Type Date Status Note Provider Nam e and Address Organization Details Recorded Time influenza, seasonal, intradermal, preservative free 2 completed Not Available [facility] 08/31/2019 02:18:54 Tdap 5 completed Not Available [facility] 08/31/2019 02:19:23 Influenza, split virus, quadrivalent, PF 5 completed Not Available [facility] 08/31/2019 02:28:18 zoster live 6 completed Not Available [facility] 08/31/2019 02:20:37 Influenza, split virus, quadrivalent, PF 7 completed Not Available [facility] 08/31/2019 02:34:16 Influenza, split virus, quadrivalent, PF 8 completed Not Available [facility] 08/31/2019 02:22:58 influenza, unspecified formulation 6 completed Lisa Joseph CMA [facility] 07/27/2016 13:40:50 Influenza, split virus, quadrivalent, PF 9 completed Not Available [facility] 08/31/2019 02:24:32 pneumococcal polysaccharide PPV23 1 [facility] 14:14:01 Influenza, split virus, quadrivalent, preservative 0 completed Stephenie Sharif MA [facility] 05/18/2020 16:52:44 Pneumococcal conjugate PCV 13 2 completed Tawny Edmonds LPN [facility] 09/17/2021 10:09:29 Influenza, high-dose, quadrivalent, PF 2 completed Dennise Esparza PA-C [address] [place] [address], [phone], [facility] 04/27/2022 10:20:13 COVID-19, mRNA, LNP-S, PF, 100 mcg/0.5mL dose or 50 mcg/0.25mL dose 1 completed Stephenie Sharif MA [facility] 10/29/2020 09:05:03 COVID-19, mRNA, LNP-S, PF, 100 mcg/0.5mL dose or 50 mcg/0.25mL dose 1 [facility] 10/29/2020 09:05:13 COVID-19, mRNA, LNP-S, bivalent, PF, 50 mcg/0.5 mL or 25mcg/0.25 mL dose 2 completed Skyla Dick LPN [facility] 05/26/2022 14:47:57 Influenza, high-dose, quadrivalent, PF 3 completed Dennise Esparza PA-C [address] [place] [address], [phone], [facility] 05/03/2023 11:41:58 COVID-19, mRNA, LNP-S, PF, 30 mcg/0.3 mL dose 1 [facility] 05/18/2021 16:14:49 Influenza, split virus, quadrivalent, preservative 1 completed RASHARD Huff, [facility] 05/18/2021 16:15:18 zoster recombinant 1 completed [facility] 07/20/2022 16:03:55 influenza, unspecified formulation 1 completed [facility] 08/28/2024 11:19:20 Td(adult) unspecified formulation 4 completed [facility] 08/28/[facility]24 11:19:20 Past Encounters Encounter ID Performer Location Encounter Start Date Encounter Closed Date Diagnosis/Indication Diagnosis SNOMED-CT Code Diagnosis ICD10 Code Diagnosis Note [id number] DIANE GONCALVES, OFFICE [address] [place] [phone] 08/09/2011 09:42:13 08/09/2011 11:11:11 [id number] IVANNA [facility], OFFICE [address] [place] [phone] 09/08/2011 07:51:17 09/08/2011 08:42:52 [id number] IVANNA [facility], OFFICE [address] [place] [phone] 10/04/2011 07:52:35 10/04/2011 08:43:23 [id number] IVANNA Jayne, OFFICE [address] [place] [id number] 11/09/2011 15:13:40 11/09/2011 17:34:42 [id number] RASHARD Sellers, [facility], OFFICE [address] [place] [address] 07/04/2012 11:42:04 07/04/2012 12:11:21 [id number] Isha Krause CMA , [facility], OFFICE [address] [place] [phone] 07/18/2012 11:23:29 07/18/2012 12:13:11 [id number] ASHLEY Cody , [facility], OFFICE [address] [place] [phone] 09/17/2014 11:41:10 09/17/2014 15:07:39 Disorder of rotator cuff [id number] call [facility]: [address] [place] [address], to make an appointmen t. Neck pain [id number] Recom [facility] chiropract ic or physical therapy Fracture of lower leg [id number] Pain in ri ght lower limb [id number] Chronic pain [id number] Impotence of organic origin [id number] Tobacco user [id number] A fter discussion of the risks of smoking to health, including risk or cardiovasc ular disease and multiple cancers, the patient is ready to commit to quitting. We discussed physical and psychologi oralia attributes of tobacco addiction and startegies to address both including setting a quit date, informing others of quit attempt, and positive and negative reinforcem ent strategies . We discussed mechanism and mode of action of pharmacolg ic therapies to aide in smoking ceasation. We addressed possible behavioral side effects of medication s including depression , suicidalit y, psychosis (Chantix); local skin reaction, vivid dreams (nicotine patch); tremulousn ess and withrawl phenomenon (buproprio n). I recommende d discontinu aton of medication s and immediate notificati on if intolerabl e side effects occur. May use medication s for up to 6 months as needed. Follow up as needed for support. [id number] Sara Duong , [facility], OFFICE [address] [place] [address] 10/01/2014 11:27:46 10/01/2014 12:57:08 Screening for malignant neoplasm of colon 261278650 Discussed the importance of screening for colon cancer. With chronic medical conditions , we will send a referral to GI. last one in 2009 Chronic pain [id number] We ill enroll you in [facility] - script given today, with pickup calendar Tobacco user [id number] A fter discussion of the risks of smoking to health, including risk or cardiovasc ular disease and multiple cancers, the patient is ready to commit to quitting. We discussed physical and psychologi oralia attributes of tobacco addiction and startegies to address both including setting a quit date, informing others of quit attempt, and positive and negative reinforcem ent strategies . We discussed mechanism and mode of action of pharmacolg ic therapies to aide in smoking ceasation. We addressed possible behavioral side effects of medication s including depression , suicidalit y, psychosis (Chantix); local skin reaction, vivid dreams (nicotine patch); tremulousn ess and withrawl phenomenon (buproprio n). I recommende d discontinu aton of medication s and immediate notificati on if intolerabl e side effects occur. May use medication s for up to 6 months as needed. Follow up as needed for support. script rewritten to pharmacy, pt says last one was not filled Disorder o f rotator cuff [id number] call [facility]: [address] [place] [address], to make an appointmen t. Appointmen t October 16 Neck pain [id number] Recom royla ng chiropract ic or physical therapy Improving. continue with exercises Elevated blood-pressure reading without diagnosis of hypertension 253838203 Follow up 1 month for recheck Administra tion of diphtheria, pertussis, and tetanus vaccine [id number] Sara Duong , [facility], OFFICE [address] [place] [address] 10/29/2014 11:05:12 10/29/2014 12:02:08 Tobacco user 822157062 reducing cigarettes . using the patch. Disorder o f rotator cuff 690713565 shoulder pain is well improved by the injections . start physical therapy. Pain in ri ght lower limb 853501611 still pain in leg. pain medication manages this. [id number] Lolly See Ms, PT Physical Therapy, [address] [address] 11/19/2014 09:51:59 11/19/2014 11:38:11 Shoulder pain 86651036 [id number] Ashley Elder MA , [facility], OFFICE [address] [place] [address] 01/29/2015 11:13:43 01/30/2015 14:08:22 Chronic pain 18916473 we will increase your dose of oxycodone to 5mg 1 tab 7 times a day (3 in am 2 in pm and 2 at night). DO not take more than 2400 mg of ibuprofen per day Tobacco user 704512092 a grees to nicotine replacemen t at next appointmen t. Shoulder pain 84684709 f ollow up season if we need to complete crossbow waiver. Pain in ri ght lower limb 216230179 still pain in leg. pain medication manages this. [id number] [facility], OFFICE [address] [place] [address] 6 04/15/2015 09:55:42 04/15/2015 11:12:37 Chronic pain 38708125 your dose of oxycodone to 5mg 1 tab 7 times a day (3 in am 2 in pm and 2 at night). DO not take more than 2400 mg of ibuprofen per day Tobacco user 071439824 a grees to nicotine replacemen t at next appointmen t. Lifestyle 528577340 Influenza vaccine needed [id number] 106 Polyarthropathy 45786763 given the multiple joint pain and fatigue we will do these tests. discussed the meaning of the tests - these may not be conclusive but can help guide next steps [id number] ASHLEY Cody , [facility], OFFICE [address] [place] [address] 07/22/2015 11:39:45 07/22/2015 12:37:51 Adult health examination 339770235 Z00.00 see Risk Assessment and Lifestyle Change Counseling section above Counseling 402599960 Z71 .9 Chronic pain 16045978 R5 2 oxycodone - continue current dose. Tobacco user 937294412 Z 72.0 agrees to nicotine replacemen t at next appointmen t. Multiple joint pain 3567 8005 M25.50 Polyarthropathy 89038038 M13.0 Stable [id number] Skyla Menon LPN , [facility], OFFICE [address] [place] [address] 09/01/2015 14:30:55 09/01/2015 14:54:59 Tuberculosis screening 771179937 Z11.1 [id number] ASHLEY Cody , [facility], OFFICE [address] [place] [address] 10/21/2015 14:30:06 10/21/2015 15:09:41 Chronic pain 82344586 R52 oxycodone - continue current dose. Tobacco user 584948322 Z 72.0 agrees to nicotine replacemen t at next appointmen t. After discussion of the risks of smoking to health, including risk or cardiovasc ular disease and multiple cancers, the patient is ready to commit to quitting. We discussed physical and psychologi oralia attributes of tobacco addiction and startegies to address both including setting a quit date, informing others of quit attempt, and positive and negative reinforcem ent strategies . We discussed mechanism and mode of action of pharmacolg ic therapies to aide in smoking ceasation. We addressed possible behavioral side effects of medication s including depression , suicidalit y, psychosis (Chantix); local skin reaction, vivid dreams (nicotine patch); tremulousn ess and withrawl phenomenon (buproprio n). I recommende d discontinu aton of medication s and immediate notificati on if intolerabl e side effects occur. May use medication s for up to 6 months as needed. Follow up as needed for support. Start with 1 buprion talbet in the morning for 1 week then 1 in the AM and 1 in the PM for 3 months. Elevated blood-pressure reading without diagnosis of hypertension 955639634 R03.0 Follow up 1 month for recheck Fracture of lower leg 41 0063938 S82.54XD occasional Disorder o f rotator cuff 732699585 M75.80 shoulder pain continues, but is manageable Neck pain 82363311 M54.2 Recommendi ng chiropract ic or physical therapy Improving. continue with exercises Long-term drug therapy 412491965 Z79.899 Backache 077539006 M54.9 morning stiffness and pain. recommendi ng stretching , and adjusting timing of oxycodone to have some at night time to help relax muscles. [id number] ASHLEY Cody , [facility], OFFICE [address] [place] [address] 10/28/2015 10:50:05 10/28/2015 12:01:00 Long-term drug therapy 974258692 Z79.899 We will call for 2 random urines in the next 2 months. you will be expected to come in within 24 hours. Let us know if you are planning to be out of town for more than one day. this part is your responsibi lity. the tests must be appropriat e (only what you are prescirbed ) if one has other controlled substances in it, we will discontinu e prescribin g narcotics, completelh . Review with family exactly what they are taking. do not take anyone elses medication . We will follow up at your 11/17 [facility] t. Elevated blood-pressure reading without diagnosis of hypertension 676350772 R03.0 Follow up 1 month for recheck still above goal Backache 811335217 M54.9 morning stiffness and pain. recommendi ng stretching , and adjusting timing of oxycodone to have some at night time to help relax muscles. will address after 2 month trial period [id number] ASHLEY Cody , [facility], OFFICE [address] [place] [address] 01/27/2016 14:21:14 01/27/2016 15:10:25 Chronic pain 56868945 R52 Doing well on current doseconsid er using 1 indomethac in at night instead of ibuprofen ot help reduce morning stiffness. Cigarette smoker 4697298 7 F17.210 Discussed restarting the patch, in addition to the wellbutrin . Currently at 1PPD Pain in ri ght lower limb 456378154 M79.604 follow up if it worsen Active or passive immunization 178696635 Z23 [id number] Zaheer GONCALVES, [facility], OFFICE [address] [place] [address] 04/27/2016 14:18:04 04/27/2016 14:49:24 Benign essential hypertension 0628816 I10 Blood pressure at goal Cigarette smoker 7393614 7 F17.210 Discussed restarting the patch, in addition to the wellbutrin . Currently at 1PPD Tobacco user 193146008 Z 72.0 Chronic pain 96843965 R5 2 will switch to oxycodone/ APAP 10/325 4 times a day. starting at May.Let me know how it goes a few weeks after. Follow up 3 months. Chronic sciatica 1333809 01 M54.31 Long-term drug therapy 170360831 Z79.320 [id number] ASHLEY Cody , [facility], OFFICE [address] [place] [address] 07/27/2016 13:23:56 07/27/2016 14:15:52 Adult health examination 479775052 Z00.00 see Risk Assessment and Lifestyle Change Counseling section above Counseling 085551114 Z71 .9 Cigarette smoker 2468294 7 F17.210 Discussed restarting the patch, in addition to the wellbutrin . Currently at 1PPD declined to start nicotine replacemen t at this time. Tobacco user 007483588 Z 72.0 Elevated blood-pressure reading without diagnosis of hypertension 251643469 R03.0 at goal Disorder o f rotator cuff 777134813 M75.80 shoulder pain continues, but is manageable . some elbow pain, may be related to new activities Fracture of lower leg 41 8560440 S82.54XD occasional severe pain Neck pain 77132749 M54.2 Recommendi ng chiropract ic or physical therapy Improving. continue with exercises Chronic sciatica 9997371 01 M54.31 Screening for malignant neoplasm of lung 780304862 Z12.2 [id number] ASHLEY Cody , [facility], OFFICE [address] [place] [address] 10/26/2016 14:13:14 10/26/2016 15:13:55 Chronic pain 07740864 R52 will switch to oxycodone/ APAP 10/325 4 times a day. starting at May.Let me know how it goes a few weeks after. Follow up 3 months. Opioid dependence 614654 00 F11.20 pt declines patch Cigarette smoker 9532136 7 F17.210 Discussed restarting the patch, in addition to the wellbutrin . Currently at 1PPD declined to start nicotine replacemen t at this time. Tobacco user 321177393 Z 72.0 Long-term drug therapy 618835489 Z79.899 Disorder o f rotator cuff 898317266 M75.80 shoulder pain continues, but is manageable . some elbow pain, may be related to new activities Follow up with orthopedic s. Chronic sciatica 7489158 01 M54.31 Lung mass 535248883 R91. 8 discussed follow up with repeat CT in 3 months, then continue follow up with [facility]. [id number] ASHLEY Cody FP, [facility], OFFICE [address] [place] [address] 01/25/2017 13:52:26 01/25/2017 14:34:20 Chronic pain 50468993 R52 Opioid dependence 403868 00 F11.20 Cigarette smoker 5219274 7 F1.210 Discussed restarting the patch, in addition to the wellbutrin . Currently at 1/2 PPD Tobacco user 870703254 Z 72.0 Long-term drug therapy 960191287 Z79.899 Chronic sciatica 7265321 01 M54.31 Starting at the next fill,we will write for perc 10/325 1 every six hours, plus up to 1 additional day, max 10 per month for exacerbati ons Disorder o f rotator cuff 562804659 M75.80 shoulder pain continues, but is worsening. some elbow pain, may be related to new activities Follow up with orthopedic s. Lung mass 107837260 R91. [address], has 1 year follow up scheduled [id number] NARENDRA Morgan FP, [facility], OFFICE [address] [place] [address] 04/27/2017 13:42:12 04/27/2017 14:17:01 Chronic pain 22564388 R52 -continue current dose of percocet-f ollow up in 3 month Cigarette smoker 7479185 7 F17.210 -encourage d to quit-christina nues to decrease the number, he is using the patches Tobacco user 624856342 Z 72.0 Active or passive immunization 676148968 Z23 updated [id number] NARENDRA Morgan FP, [facility], OFFICE [address] [place] [address] 08/01/2017 14:13:53 08/01/2017 15:22:54 Adult health examination 427423870 Z00.00 see Risk Assessment and Lifestyle Change Counseling section above Counseling 731531657 Z71 .9 Healthy lifestyle changes may help you feel better. Get at least 30 minutes of exercise on most days of the week. Walking is a good choice. Eat a healthy diet. Include fruits, vegetables , lean proteins, and whole grains in your diet each day. Keep a regular sleep schedule. Try for 8 hours of sleep a night. Find ways to manage stress, such as relaxation exercises, 4-7-8 breathing exercise. Avoid alcohol and illegal drugs; Avoid caffeine if having trouble w/ sleeping. Chronic pain 90949547 R5 2 -start oxycontin XR twice per day-hope is to use percocet 1-2 times per day-call patient tomorrow after pharmacy excels[facility] picker may or may not need a PA-will again call on Monday to see how the pain is being controlled . Opioid dependence 403649 00 F11.20 -start oxycontin XR twice per day -hope is to use percocet 1-2 times per day -call patient tomorrow after pharmacy [facility]els[facility] picker may or may not need a PA -will again call on Monday to see how the pain is being controlled . Cigarette smoker 1195265 7 F17.210 patchstart ing to decrease to quit Tobacco user 887726588 Z 72.0 Chronic sciatica 4993533 01 M54.31 -start oxycontin XR twice per day -hope is to use percocet 1-2 times per day -call patient tomorrow after pharmacy excels[facility] picker may or may not need a PA -will again call on Monday to see how the pain is being controlled . 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.9 - viagra working well Long-term drug therapy 960446089 Z79.655 [id number] Dennise Esparza PA-C , [facility], OFFICE [address] [place] [address] 01/29/2018 13:12:15 01/29/2018 13:50:06 Cigarette smoker 32246522 F17.210 - not ready to quit Tobacco user 060262295 Z 72.0 Degenerati ve joint disease of shoulder region 24729508 M19.019 - will see ortho again to discuss another injection- will increase at next prescripti on to percocet three times per day- recommend taking the second oxycontin later at bedtime with ibuprofen to allow better sleep- follow up 3 months Chronic sciatica 8226772 01 M54.31 - worsening pain, will address shoulder first [id number] Stephenie Sharif MA , [facility], OFFICE [address] [place] [address] 04/30/2018 13:12:03 04/30/2018 15:47:55 Cigarette smoker 59747441 F17.210 - not ready to quit Tobacco user 007759412 Z 72.0 - plans to restart patches Chronic pain 11252216 R5 2 - due to low back, shoulders- stable with current medication dosing Active or passive immunization 336407382 Z23 Degenerati ve joint disease of shoulder region 83284590 M19.019 - stable with current medication s- follow up 3 months- working through workmans comp Hand pain 18448831 M79.6 41 - more consistent with osteoarthr itis than hout- will check xray and uric acid level- can continue with indomethac in for now, do not take other NSAIDs such as ibuprofen or aleve- if gout, would consider a preventive medication Obesity 741823316 E66.9 - recommend regular exercise and weight loss Long-term drug therapy 779196617 Z79.104 [id number] Tiffanie Torres NP FP, [facility], OFFICE [address] [place] [address] 05/21/2018 17:21:15 05/22/2018 09:20:24 Cigarette smoker 87087648 F17.210 Tobacco user 947940219 Z 72.0 Hand pain 35689166 M79.6 43 -recommend seeing rheumatolo gy-recent kidney function normal -continue w/ indomethac inand call if not improving. [id number] Dennise Esparza PA-C , [facility], OFFICE [address] [place] [address] 08/13/2018 13:00:21 08/13/2018 14:20:29 Chronic pain 58582620 R52 - due to low back, shoulders- stable with current medication dosing Cigarette smoker 5497039 7 F17.210 - not ready to quit but using patches at times Tobacco user 095710979 Z 72.0 Degenerati ve joint disease of shoulder region 93445361 M19.019 - stable with current medication s- follow up 3 months- will make appt for sports medicine to consider injections as they were helpful a few years ago Depression screening 171 403564 Z13.31 - depression screening tool administer ed, entered into emr, scored and discussed, time greater than 7.5 minutes- negative screening [id number] Justice Ríos MD Sports Medicine, [facility] [address] [place] [address] 08/29/2018 08:03:58 08/29/2018 08:33:14 Cigarette smoker 93005929 F17.210 I did discuss smoking cessation with Harrison today in the office. He currently is smoking 1 pack per day which she has been doing for approximat karolina 55 years. He has intermitte ntly been using the nicotine patch and trying to cut down on smoking but overall was not overly interested in reducing his nicotine use. We did discuss the adverse effects of smoking and is cardiovasc ular and musculoske letal system. I encouraged him to continue working on smoking cessation. Greater than 3 minutes was spent performing tobacco cessation counseling today in the office. I've advised follow-up with patients PCP to continue to work on smoking cessation. Tobacco user 194453477 Z 72.0 Shoulder pain 87798870 M 25.511 M25.512 Harrison is a 62-year-ol d male with bilateral shoulder pain of somewhat uncertain etiology. He is relatively asymptomat ic today in the office with normal range of motion and strength and limited reproducti on of symptoms with provocativ e testing. We discussed the possibilit y of rotator cuff tendinosis and impingemen t versus potential developing glenohumer al osteoarthr itis as potential causes of his symptoms. At this point I have asked that he obtain x-rays of both shoulder after the office visit today to further evaluate for degenerati ve changes contributi ng to his discomfort . I will also work to obtain his MRI report from [facility] and he will work to obtain images on disc of his MRI as well. We did discuss a possible corticoste roid injection that I feel we will defer this until we have results of his imaging available. He will plan a follow-up with me in 4 weeks for reevaluati on. [id number] DORINDA Hercules, [facility], OFFICE [address] [place] [address] 11/09/2018 13:50:56 11/09/2018 15:32:32 Chronic pain 74785797 R52 - due to low back, shoulders- stable with 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 Cigarette smoker 0818542 7 F17.210 - not ready to quit but using patches at times; wants to try chantix Tobacco user 360021844 Z 72.0 Long-term drug therapy 347183998 Z79.899 Multiple joint pain 3567 8005 M25.50 - will do further evaluation , please come in on a day when you are having pain- continue current medication s [id number] Dennise Esparza PA-C , [facility], OFFICE [address] [place] [address] 02/11/2019 14:06:32 02/11/2019 16:23:46 Adult health examination 089157065 Z00.00 Counseling 010464929 Z71 .9 Depression screening 171 574097 Z13.89 - depression screening tool administer ed, entered into emr, scored and discussed, time greater than 7.5 minutes- negative screening Mixed hyperlipidemia 267 062418 E78.2 - Cholestero l is not at goal- Continue to work on diet and exercise as discussed- will discuss starting a statin at next visit Cigarette smoker 0771353 7 F17.210 - using chantix and cutting back Tobacco user 987119416 Z 72.0 Chronic pain 71411185 R5 2 - due to low back, shoulders- 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 with 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 [employer] Opioid dependence 693251 00 F11.20 - stable with prescripti on medication s Hand pain 54341942 M79.6 41 - has appt with rheum for hand pain and positive dsDNA, RF Multiple n odules of lung 693279991 R91.8 - following with [facility] program Obesity 397939956 E66.9 - recommend regular exercise and weight loss [id number] Dennise Esparza PA-C , [facility], OFFICE [address] [place] [address] 05/24/2019 15:10:35 05/24/2019 15:53:05 Long-term drug therapy 712327687 Z79.899 Cigarette smoker 1526869 7 F17.210 - chantix not helpful, now using patch Tobacco user 815578633 Z 72.0 After discussion of the risks of smoking to health, including risk or cardiovasc ular disease and multiple cancers, the patient is ready to commit to quitting. We discussed physical and psychologi oralia attributes of tobacco addiction and strategies to address both including setting a quit date, informing others of quit attempt, and positive and negative reinforcem ent strategies . We discussed mechanism and mode of action of pharmacolo gic therapies to aide in smoking cessation. We addressed possible behavioral side effects of medication s including depression , suicidalit y, psychosis (Chantix); local skin reaction, vivid dreams (nicotine patch); tremulousn ess and withdrawal phenomenon (bupropion ). I recommende d discontinu ation of medication s and immediate notificati on if intolerabl e side effects occur. May use medication s for up to 6 months as needed. Follow up as needed for support. Active or passive immunization 917783898 Z23 Fibrosis of lung 8578268 1 J84.10 - schedule appt with pulm please, contact informatio n given- needs eval for UIP Multiple joint pain 1075 8005 M25.50 - has appt with rheum in two weeks, will complete prednisone course Degenerati ve joint disease of shoulder region 80869304 M19.019 - stable with current medication s- follow up 3 months- will make appt for sports medicine to consider injections as they were helpful a few years ago [id number] Aylin Calix MD Rheumatol senia, [facility] [address] [facility] [place] [address] 06/03/2019 14:16:50 06/10/2019 06:24:52 Tobacco user 631188869 Z72.0 Discussed with patient advisabili ty of smoking cessation. He has significan t changes on Chest CT from smoking. Specifical ly emphasized that, in addition to other ills, smoking promotes inflammati on and that arthritis patients who smoke have less of a response to the anti-rheum atic drugs than non smokers. Offered encouragem ent to stop smoking. Cigarette smoker 0182792 7 F17.210 Undifferen tiated inflammatory arthritis 762969561 M13.80 Patient is on prednisone and there are only modest findings at present, but by hx, years of migratory inflammato ry arthritis and more recently consistent polyarticu lar sxs with swelling, AM stiffness. Labs reviewed.U terri acid 3.8 (not on urate lowering drug).EVELYN 1:80 homog. ds-DNA 6. RF 36.7. CCP 3. OCTAVIA screen, C3, C4 normal.Abn ormal Chest CT with interstiti al fibrosis as discussed above. At this point, I would label this undifferen tiated inflammato ry polyarthri tis. He does not fit criteria for a diagnosis of lupus, but with weak + ds-DNA and possible inflammato ry interstiti al lung disease, need to keep this in mind and plan to repeat serology in a month. Will continue the prednisone at 5 mg/d to control inflammato ry arthritis. Will add Plaquenil 200 bid.Discus sed the use of hydroxychl oroquine (Plaquenil ). Specifical ly discussed potential [employer] COORDINATOR and GI side effects, sun sensitivit y and hyperpigme ntation, and discussed specifical ly potential for retinal toxicity and the need for regular eye exams. Re-eval in 6 weeks. Adding LEF might be a good option. Chronic ob structive pulmonary disease [id number] J44.[address] has demonstrat ed significan t changes from smoking. Interstiti al lung disease 852648650 J84.[address] showed progressiv e pulmonary fibrosis.T his could be from smoking, but may be related to his inflammato ry arthritis, + EVELYN, + RF. He has been referred to see pulmonary, but has not yet made appointmen t.I encouraged him to do so. [id number] Aylin Calix MD Rheumatol senia, [facility] [address] [facility] [place] [address] 07/15/2019 10:29:00 07/16/2019 06:16:34 Cigarette smoker [id number] F17.210 Tobacco user 306382397 Z 72.0 Discussed with patient advisabili ty of smoking cessation. He has significan t changes on Chest CT from smoking. Specifical ly emphasized that, in addition to other ills, smoking promotes inflammati on and that arthritis patients who smoke have less of a response to the anti-rheum atic drugs than non smokers. Offered encouragem ent to stop smoking. Inflammato ry polyarthropathy 055323300 M06.4 By hx, years of migratory inflammato ry arthritis and more recently consistent polyarticu lar sxs with swelling, AM stiffness. Uric acid 3.8 (not on urate lowering drug).EVELYN 1:80 homog. ds-DNA 6. RF 36.7. CCP 3. OCTAVIA screen, C3, C4 normal.Abn ormal Chest CT with interstiti al fibrosis as discussed above. At this point, I would label this undifferen tiated inflammato ry polyarthri tis. He does not fit criteria for a diagnosis of lupus, but with weak + ds-DNA and possible inflammato ry interstiti al lung disease, need to keep this in mind and plan to repeat serology in a month. Plaquenil added 06/07/19 and has seemed quite effective, although there are still joint effusions at 2 or 3 PIP joints and persisting inflammato ry sxs. Will continue the prednisone at 5 mg/d to control sx, but may try to taper next visit. . Will continue Plaquenil 200 bid. Reassess in 2 mo, and if persisting synovitis, then will likely add LEF. Interstiti al lung disease 393022698 J84.[address] showed progressiv e pulmonary fibrosis.T his could be from smoking, but may be related to his inflammato ry arthritis, + EVELYN, + RF. He has been referred to see pulmonary, but still does not have appointmen t.Referral was sent in Mar, but I will fax this again. Pt should call office again. [id number] Noemy Rooney , [facility], OFF[address] [place] [address] 07/30/2019 11:38:00 07/30/2019 12:27:43 Neck pain 87351799 M54.2 Slightly worse on L. Likely sprain/str ain. Would monitor. Shoulder pain 51039218 M 25.519 L shoulder. Likely strain/spr ain/ecchym oses, would monitor. Rib pain 512437950 R07.8 1 No point tenderness , diffuse; would get x-ray if pain not improving but would hold off for now. Pain of left wrist 93058 67047 29327 M25.532 Very mild. Likely strain/spr ain/ecchym oses, would monitor. Ankle pain 329680427 M25 .579 Mild. Likely strain/spr ain/ecchym oses, would monitor. [id number] Mayra Goldsmith, PT Physical Therapy, [address] [address] 08/16/2019 13:11:49 08/19/2019 09:17:54 Neck pain 14508996 M54.2 Pain of le ft shoulder joint [id number] M25.314 [id number] Dennise Esparza PA-C , [facility], OFFICE [address] [place] [address] 08/19/2019 15:25:33 08/20/2019 14:23:34 Opioid dependence 40069308 F11.20 - stable with prescripti on medication s Cigarette smoker 4278001 7 F17.210 pt interested in quitting smoking, discussed and given smoking cessation Tobacco user 282552355 Z 72.0 After discussion of the risks of smoking to health, including risk or cardiovasc ular disease and multiple cancers, the patient is ready to commit to quitting. We discussed physical and psychologi oralia attributes of tobacco addiction and strategies to address both including setting a quit date, informing others of quit attempt, and positive and negative reinforcem ent strategies . We discussed mechanism and mode of action of pharmacolo gic therapies to aide in smoking cessation. We addressed possible behavioral side effects of medication s including depression , suicidalit y, psychosis (Chantix); local skin reaction, vivid dreams (nicotine patch); tremulousn ess and withdrawal phenomenon (bupropion ). I recommende d discontinu ation of medication s and immediate notificati on if intolerabl e side effects occur. May use medication s for up to 6 months as needed. Follow up as needed for support. Primary er ectile dysfunction 198477694 N52.9 - stable with current medication s Multiple joint pain 3567 8005 M25.50 - plan below Essential hypertension 59984261 I10 Start Hydrochlor othiazide 12.5 mg once every morning. - It is recommende d that you exercise for 30 minutes, 5 days per week to keep your heart healthy. Regular exercise and a low salt diet can help to lower your blood pressure. Drink 7 to 8 glasses of water per day. Avoid things that raise your blood pressure such as smoking, alcohol and caffeine.- Please monitor blood pressure at home using your cuff. Call office if greater than 140 for the top number or over 90 for the bottom number Degenerati ve joint disease of shoulder region 08861976 M19.019 - stable with current medication s- follow up 3 months Fibrosis of lung 0276167 1 J84.10 - Schedule with pulmonolog y Inflammato ry polyarthropathy 453839015 M06.4 - improving with plaquenil and prednisone , continue to follow with rheumatolo gy [id number] Mayra Goldsmith, PT Physical Therapy, [address] [address] 08/23/2019 13:24:33 08/26/2019 07:11:11 Neck pain 84006810 M54.2 Pain of le ft shoulder joint [id number] 8310050 M25.231 [id number] Mayra Goldsmith, PT Physical Therapy, [address] [address] 08/30/2019 13:29:58 08/30/2019 14:44:22 Neck pain 45224580 M54.2 Pain of le ft shoulder joint 4573921494 4576705 M25.292 [id number] Mayra Goldsmith, PT Physical Therapy, [address] [address] 09/13/2019 13:43:21 09/13/2019 14:24:06 Neck pain 28165184 M54.2 Pain of le ft shoulder joint 5046132442 8162852 M25.568 [id number] Mayra Goldsmith, PT Physical Therapy, [facility] [address] [facility] [place] [address] 09/20/2019 14:53:24 09/23/2019 10:21:17 Neck pain 13319933 M54.2 Pain of le ft shoulder joint 8319723195 [id number] M25.745 [id number] Aylin Calix MD Rheumatol ogy, [facility] [address] [facility] [place] [address] 10/04/2019 13:33:46 10/07/2019 11:55:59 Undifferentiated inflammatory polyarthritis 679969557 M13.0 By hx, years of migratory inflammato ry arthritis and more recently consistent polyarticu lar sxs with swelling, AM stiffness. EVELYN 1:80 homog.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 to lower your blood pressure. Drink 7 to 8 glasses of water per day. Avoid things that raise your blood pressure such as smoking, alcohol and caffeine. - Please monitor blood pressure at home using your cuff. Call office if greater than 140 for the top number or over 90 for the bottom number Mixed hyperlipidemia 267 289181 E78.2 Cholestero l is improved Continue to work on diet and exercise as discussed Chronic pain 90820266 R5 2 - due to low back, shoulders, RA- will switch ER to IR and see if pain control improves- [employer] Long-term current use of opiate analgesic drug 2507162917 16408 Z79.891 Cigarette smoker 5819365 7 F17.210 - wants to quit, will try chantix again but not ready yet Tobacco user 039917815 Z 72.0 Chronic ob structive pulmonary disease 63307530 J44.9 - stable and following with pulm Rheumatoid arthritis 698 42191 M06.9 - starting LEF with rheum, staying on prednisone for now and plaquenil- pain is not well controlled Depression screening 171 571070 Z13.89 - depression screening tool administer ed, entered into emr, scored and discussed, time greater than 7.5 minutes- negative screening Obesity 792328561 E66.9 - recommend regular exercise and weight loss Pain in right foot 41640 46375 57723 M79.671 - follow up with ortho for MRI [id number] Dennise Esparza PA-C , [facility], [address] [place] [address] 05/24/2021 14:32:30 05/24/2021 15:11:00 Chronic pain 91135792 R52 - due to low back, shoulders, RA- will switch ER to IR and see if pain control improves- retired [employer] Long-term current use of opiate analgesic drug 0681770473 56518 Z79.891 Cigarette smoker 4694894 7 F17.210 - wants to quit, will try chantix again but not ready yet Tobacco user 346147577 Z 72.0 Long-term drug therapy 315497008 Z79.899 Grissom's n euroma of right foot 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 Regular exercise and a low salt diet can help to lower your blood pressure. Drink 7 to 8 glasses of water per day. Avoid things that raise your blood pressure such as smoking, alcohol and caffeine. - Please monitor blood pressure at home using your cuff. Call office if greater than 140 for the top number or over 90 for the bottom number Thoracic back pain 58956 8004 M54.6 - unclear origin but higher than CVA, and improving- will monitor for now and call if not continuing to improve Rheumatoid arthritis 698 17588 M06.9 - starting LEF with rheum, staying on prednisone for now and plaquenil- pain is not well controlled but does seem improved [id number] Aylin Calix MD Rheumatol senia, [facility] [address] [facility] [address] 08/20/2021 09:03:18 08/22/2021 07:00:49 Rheumatoid arthritis 19528593 M06.9 Sero-posit flex, CCP positive RA. CCP highly elevated. Rheumatoid factor 124. Recent ESR 28. CRP normal. . On LEF, plaquenil there has been significan t ameliorati on of joint sxs but he remains on prednisone 5 mg/d. Plan: continue LEF and plaquenil. As before, I suggested repeat x ray hands . If any sign progressio n, low threshold for adding Biologic. I want to evaluate him in person in 3-4 weeks. Has f/u scheduled with Dr Landin in November. Long-term current use of systemic steroid 7364909864 60087 Z79.52 Low dose prednisone past year+.[facility] k Vit D. Pain in right foot 05515 26664 00473 M79.671 Puzzling, ongoing pain R foot, plantar aspect first metatarsal .Pain severe. 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 The rest of his joints are doing well on current meds. Has seen Dr Holt. 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 I wonder if this could be avascular necrosis. Will try to discuss with Dr Holt. Long-term drug therapy 120234046 Z79.899 On LEF. Recent labs normal. Repeat 3 mo. On Plaquenil: Will need repeat eye exam, but wait until after Covid spike. Interstiti al lung disease 670420003 J84.[address] showed progressiv e pulmonary fibrosis. Has seen Dr Tipton. 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 Treating now with Leflunomid e (prefer to avoid MTX if possible). Sxs are stable, but he has not been back to see Dr Tipton. Discussed smoking cessation again. [id number] Aylin Calix MD Rheumatol [place], [facility] [address] [facility] [address] 09/17/2021 09:00:38 09/20/2021 06:11:12 Rheumatoid arthritis 48393132 M06.9 Sero-posit flex, CCP positive RA. CCP highly elevated. Rheumatoid factor 124. Recent ESR 28. CRP normal. . On LEF, plaquenil there has been significan t ameliorati on of joint sxs but he remains on prednisone 5 mg/d and some inflammato ry sxs persist. Also, now c/o some numbness both feet. Could well be from LEF. Discussed alternativ es. Stop LEF. Discussed options. Appropriat e for initiation of biologic. Discussed Humira. Specifical ly discussed risks of infection, potentiall y serious, low but definite risk of lymphoma. Need to check TB status. Needs Prevnar 13.Start Humira after prior authorizat ion. Needs to return for instructio n in injection. Continue Plaquenil and prednisone 5/d for now. Has f/u scheduled with Dr Landin in November. Call sooner if problems. Tobacco user 225014310 Z 72.0 Discussed with patient, again, advisabili ty of smoking cessation. He has significan t changes on Chest CT from smoking. Specifical ly emphasized that, in addition to other ills, smoking promotes inflammati on and that arthritis patients who smoke have less of a response to the anti-rheum atic drugs than non smokers. Offered encouragem ent to stop smoking. Active or passive immunization 676644167 Z23 starting Humira Paresthesi a of upper limb 70418036 R20.2 Nighttime pain and numbness both hands R > L.Discusse d. May be CTS. Try loose splinting at night.LEF might also be contributi ng to a neuropathy . Stopping LEF. Interstiti al lung disease 917027931 J84.[address] showed progressiv e pulmonary fibrosis. Has seen Dr Tipton in past. 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 (Prefer to avoid MTX if possible). Now starting Humira. Sxs are stable, but he has not been back to see Dr Tipton. Discussed smoking cessation again. Secondary peripheral neuropathy 180333 G63 Numbness, dysesthesi a both feet.Suspe ct may be side effect of Leflunomid e.Will check B12 next labs. Pain in right foot 97820 69916 40747 M79.671 Puzzling, ongoing pain R footPain severe. 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 The rest of his joints are doing well on current meds.Discu ssed with Dr Holt (see HPI) I strongly encouraged him to obtain and use the AFO prescibed by Dr Holt [id number] Dennise Esparza PA-C , [facility], [address] [place] [address] 10/25/2021 10:01:26 10/25/2021 10:42:27 Chronic pain 18684773 R52 - due to low back, shoulders, RA - [employer]- continue taking ibuprofen, oxycodone, percocet, humira, prednisone Long-term current use of opiate analgesic drug 5645755410 82527 Z79.891 - followed by [facility] Tobacco user 408391797 Z 72.0 - 1 pack/day, had been avoiding chantix due to internet informatio n about recall and cancer risk- willing to try chantix after counseling , has prescripti on at home Adult heal th examination 864827685 Z00.00 Counseling 361474020 Z71 .9 Cardiovasc ular risk reduction was discussed including benefits and risks of aspirin, exercise goals, healthy eating and healthy weight . Discussion greater than 7.5 minutes. Depression screening 171 743428 Z13.31 - depression screening tool administer ed, entered into emr, scored and discussed, time greater than 7.5 minutes- negative screening Screening for alcohol abuse 036225369 Z13.39 - alcohol screening tool administer ed, entered into emr, scored and discussed, time greater than 7.5 minutes- negative screening Advance di rective discussed with patient 905234276 Z71.89 - MOLST form discussed, filled, and signed- patient's is HCP Essential hypertension 61482240 I10 - BP not at goal of <130/80- continue home monitoring - start HCTZ to 25 mg, continue taking lisinopril 40mg- prednisone taper, currently at 3mg, will monitor- It is recommende d that you exercise for 30 minutes, 5 days per week to keep your heart healthy. Regular exercise and a low salt diet can help to lower your blood pressure. Drink 7 to 8 glasses of water per day. Avoid things that raise your blood pressure such as smoking, alcohol and caffeine. - Please monitor blood pressure at home using your cuff. Call office if greater than 140 for the top number or over 90 for the bottom number Opioid dependence 107051 00 F11.20 - taking more oxycodone and percocet than prescribed - discussed high risk of overdose, urged to take only as directed Rheumatoid arthritis 698 58960 M06.9 - sees rheumatolo gy, started humira and reports helping with hand pain- patient taking more than prescribed dose of opioid pain medication - discussed high risk of overdose, urged to take only as directed- will not increase opioid medication per patient request Chronic ob structive pulmonary disease 57593067 J44.9 - stable and following with pulm, encouraged smoking cessation Obesity 611763723 E66.9 - recommend regular exercise and weight loss Pain in ri ght lower limb 039875209 M79.604 - Surgery recommende d for Grissom's Neuroma per Dr. Holt- patient requests second opinion, referral placed Impacted c erumen in right ear 9405160684 065674 H61.21 - 90% obstructed on physical exam, patient denies any issues hearing, can use debrox over the counter [id number] Jessa Landin MD [place] [facility] [place] [facility] [address] [place] [address] 11/15/2021 11:48:07 11/15/2021 12:40:50 Rheumatoid arthritis 72936742 M06.9 Sero-posit flex erosive rheumatoid arthritis. CCP highly elevated. Rheumatoid factor 124. Humira started 2 months ago and patient improving. Continue Humira. Off leflunomid e and plaquenil and prednisone .Numbness resolved in hands and improved in feet after stopping leflunomid e.Patient got flu vaccine, PCV-13, first dose of Shingrix and COVID series.Pat ient to get second dose of Shingrix and 4th dose of COVID vaccine. Check labs now and before next visit. RTC in 4 months. Tobacco user 235704495 Z 72.0 Counselled on smoking cessation and effect of smoking on rheumatoid arthritis, its prognosis, the effect of therapy and the complicati ons of therapy.Marisa wu verbalizes understadi ng and he states that he will work on it. Paresthesi a of upper limb 53839228 R20.2 Resolved after stopping leflunomid e. Interstiti al lung disease 695092023 J84.[address] showed progressiv e pulmonary fibrosis. Has seen Dr Tipton in past. 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 CT chest 08/02:Exte nsive interstiti al opacities bilaterall y and scattered zones of peripheral ground-gla ss opacity appear overall stable. No acute airspace infiltrate ,pleural effusion, or mucous plugging are identified . Grossly stable emphysemaa nd scattered zones of mild pleural thickening . Small chronic calcificat ionalong the margin the right major fissure and small chronic granuloma in theright lower lobe.There are stable superior mediastina l lymph nodes. No pathologic ally enlargedno lavell are noted to have developed in the interim. Secondary peripheral neuropathy 310192 G63 Numbness, dysesthesi a both feet.Impro jesus manuel with stopping leflunomid e but not completely gone. Pain in right foot 29538 31280 09760 M79.671 Puzzling, ongoing pain R footPain severe. 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 Holt and is going to see Dr. Cruz for a second opinion. [id number] Alin Kent MD , [facility], [address] [place] [address] 11/01/2021 13:52:23 11/09/2021 08:58:24 Backache 318571734 M54.9 Tobacco user 025210775 Z 72.0 thinking about chantix Smoker 10561720 F17.210 thinking about the chantix [id number] Dennise Esparza PA-C , [facility], [address] [place] [address] 01/28/2022 13:05:43 01/28/2022 13:57:58 Chronic obstructive pulmonary disease 78848618 J44.9 - stable with current medication s- discussed importance of quitting smoking, and current abnormal O2 sat Essential hypertension 15366954 I10 - BP at goal of <130/80- continue home monitoring and current medication s- It is recommende d that you exercise for 30 minutes, 5 days per week to keep your heart healthy. Regular exercise and a low salt diet can help to lower your blood pressure. Drink 7 to 8 glasses of water per day. Avoid things that raise your blood pressure such as smoking, alcohol and caffeine. - Please monitor blood pressure at home using your cuff. Call office if greater than 140 for the top number or over 90 for the bottom number Mixed hyperlipidemia [phone] 681571 E78.2 Cholestero l is at goal under 130Continu e to work on diet and exercise as discussed Chronic pain 35354620 R5 2 - due to low back, shoulders, RA - retired [employer]- continue taking ibuprofen, oxycodone, percocet, humira, prednisone Long-term current use of opiate analgesic drug 5901612918 35159 Z79.891 - followed by [facility] Tobacco user 007449667 Z 72.0 - 1 pack/day, has chantix at home and not ready to take it Long-term current use of drug therapy 099925008 Z79.899 Acute ladan l impairment 880874300 N28.9 - on recent labs, will re-check in two weeks- had been taking a lot of NSAIDs due to RA, has cut back now that Humira is working- increase water intake [id number] Jessa Landin MD [place] [facility] [place] [address] [address] 03/17/2022 10:23:37 03/17/2022 13:09:02 Rheumatoid arthritis 38506383 M06.9 Sero-posit flex erosive rheumatoid arthritis. CCP highly elevated. Rheumatoid factor 124. Humira is helping.Co ntinue Humira. Off leflunomid e and plaquenil and prednisone .Numbness resolved in hands and improved in feet after stopping leflunomid e.Patient got PCV-13, first dose of Shingrix and COVID series.Pat ient to get second dose of Shingrix.P atient to get flu shot in the fall.Check labs before next visit. RTC in 6 months. Tobacco user 425987235 Z 72.0 Counselled on smoking cessation and effect of smoking on rheumatoid arthritis, its prognosis, the effect of therapy and the complicati ons of therapy. Paresthesi a of upper limb 71468217 R20.2 Resolved after stopping leflunomid e. Interstiti al lung disease 048408566 J84.[address] showed progressiv e pulmonary fibrosis. Has seen Dr Tipton in past. 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 He also needs pulmonary clearance before his surgery. CT chest 08/02:Exte nsive interstiti al opacities bilaterall y and scattered zones of peripheral ground-gla ss opacity appear overall stable. No acute airspace infiltrate ,pleural effusion, or mucous plugging are identified . Grossly stable emphysemaa nd scattered zones of mild pleural thickening . Small chronic calcificat ionalong the margin the right major fissure and small chronic granuloma in theright lower lobe.There are stable superior mediastina l lymph nodes. No pathologic ally enlargedno lavell are noted to have developed in the interim. Secondary peripheral neuropathy 855022 G63 Numbness, dysesthesi a both feet.Impro jesus manuel with stopping leflunomid e but not completely gone. Pain in right foot 34682 35053 98985 M79.671 Ongoing pain R footPain severe. He saw Dr. Cruz and the plan is to have surgery in the new year.He is to wear a boot now but he did not get it yet.Patien t to hold Humira 2 weeks before surgery.Ne eds pulmonary clearance before surgery. Acute kidney injury 1466 9001 N17.9 Resolved.P atient counselled ot be careful with NSAIDs and try to avoid taking them. 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 Regular exercise and a low salt diet can help to lower your blood pressure. Drink 7 to 8 glasses of water per day. Avoid things that raise your blood pressure such as smoking, alcohol and caffeine. Mixed hyperlipidemia 267 104550 E78.2 Cholestero l is at goal under 130Continu e to work on diet and exercise as discussed Tobacco user 435339827 Z 72.0 - 1 pack/day, has chantix at home and not ready to take it Active or passive immunization 679196176 Z23 Shingles: reminded at pharmacy should he decide to have Opioid dependence 557229 00 F11.20 - stable with current dosing [id number] Skyla Dick LPN , [facility], OFFICE [address] [place] [address] 05/26/2022 14:45:13 06/23/2022 11:03:36 Active immunization 63652119 Z23 [id number] Dennise Esparza PA-C , [facility], OFFICE [address] [place] [address] 07/20/2022 13:50:25 07/22/2022 09:55:45 Tobacco user 906313028 Z72.0 - 1 pack/day, has chantix at home and not ready to take it Dysuria 15363324 R30.0 - UA reassuring and symptoms have resolved- pt scheduled for labs today, will check PSA- return to office if symptoms return [id number] Dennise Esparza PA-C , [facility], OFFICE [address] [place] [phone] 07/27/2022 13:19:37 07/28/2022 14:52:43 Chronic pain 35947062 R52 - due to low back, shoulders, RA - 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 Regular exercise and a low salt diet can help to lower your blood pressure. Drink 7 to 8 glasses of water per day. Avoid things that raise your blood pressure such as smoking, alcohol and caffeine. [id number] MARISA Johnson , [facility], [address] [place] [address] 08/02/2022 11:37:56 08/02/2022 12:13:45 Active or passive immunization 409849237 Z23 singles - got first dose, second in Aug 2022 Strain of muscle of anterior chest wall 338399944 S29.011A L axillary anterior chest wall strain, discussed supportive care- rest, ice/heat, tylenolWil l continue salonpas as wellWork note done todayPt to contact the office if no improvemen t or any worsening symptoms develop Rheumatoid arthritis 698 70355 M06.9 On chronic Prednisone for RA, cannot take Ibuprofen due to this Chronic pain 93952311 G8 9.29 Due to RA, shoulders, low back painChroni c narcotics use, on [facility] with PCP Essential hypertension 45706096 I10 BP at goal today, continue HCTZ [id number] Dennise Esparza PA-C FP, [facility], [address] [place] [address] 11/09/2022 10:29:51 11/10/2022 11:42:12 Chronic pain 21311393 R52 - due to low back, shoulders, RA - 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 Cigarette use is the leading cause of preventabl e disease, disability , and in the [place]. We talked about tools and medication s available to help you in smoking cessation. We discussed utilizing our smoking cessation financial coach and online resources. Your personal goal: to quit but is not ready, will trial nicotrol Essential hypertension 62031694 I10 - BP at goal of <130/80- continue home monitoring and current medication s- It is recommende d that you exercise for 30 minutes, 5 days per week to keep your heart healthy. Regular exercise and a low salt diet can help to lower your blood pressure. Drink 7 to 8 glasses of water per day. Avoid things that raise your blood pressure such as smoking, alcohol and caffeine. Mixed hyperlipidemia 267 315886 E78.2 Cholestero l is not at goal, discussed high ASCVD and will start a statin once daily- repeat lipids in 3 monthsCont inue to work on diet and exercise as discussed Active or passive immunization 824077181 Z23 Shingles: had first, awaiting 6m damion for 2nd Rheumatoid arthritis 698 04556 M06.9 - sees rheumatolo gy, started humira and reports helping with hand pain but cannot taper off prednisone - he will discuss increasing humira to weekly at his appt next month with rheum- continue prednisone 5mg - pt aware he is immunocomp romised Chronic ob structive pulmonary disease 77674284 J44.9 - stable with current medication s- discussed importance of quitting smoking, and current abnormal O2 sat- please schedule follow up with pulm Opioid dependence 734106 00 F11.20 - stable with current dosing Fibrosis of lung 5890525 1 J84.9 - ILD from smoking or RA, following with rheumatolo gy and pulmonolog y and planning to quit smoking - most recent CT is stable- schedule follow up with pulm [id number] Dennise Esparza PA-C FP, [facility], OFF[address] [facility] [place] [address] 01/31/2023 10:37:42 02/01/2023 08:58:55 Long-term current use of opiate analgesic drug 6260170979 15576 Z79.891 - followed by [facility] Chronic sciatica 4123037 01 M54.31 - worsening pain, will address shoulder first Tobacco user 054227621 Z 72.0 We discussed your smoking today for more than 3 minutes. Cigarette use is the leading cause of preventabl e disease, disability , and in the [place]. We talked about tools and medication s available to help you in smoking cessation. We discussed utilizing our smoking cessation financial coach and online resources. Your personal goal: to use up what he has and then use nicotrol Long-term current use of drug therapy 152489268 Z79.899 Rheumatoid arthritis 698 19458 M06.9 - sees rheumatkate owens, started humira and reports helping with hand pain but cannot taper off prednisone - he will discuss increasing humira to weekly at his appt next month with rheum- continue prednisone 5mg - pt aware he is immunocomp romised [id number] Dennise Esparza PA-C , [facility], [address] [place] [address] 05/03/2023 10:14:31 05/03/2023 10:34:23 Chronic pain 45053618 R52 - due to low back, shoulders, RA - 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 Cigarette use is the leading cause of preventabl e disease, disability , and in the [place]. We talked about tools and medication s available to help you in smoking cessation. We discussed utilizing our smoking cessation financial coach and online resources. 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 Cigarette use is the leading cause of preventabl e disease, disability , and in the [place]. We talked about tools and medication s available to help you in smoking cessation. We discussed utilizing our smoking cessation financial coach and online resources. 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 Cigarette/ pod use is the leading cause of preventabl e disease, disability , and in the [place]. We talked about tools and medication s available to help you in smoking/va ping cessation. We discussed utilizing our smoking cessation financial coach and online resources. Your personal goal: to cut back, not ready to quit. Continue to use nicotine patches Essential hypertension 10423241 I10 - BP at goal of <130/80- continue home monitoring and current medication s- It is recommende d that you exercise for 30 minutes, 5 days per week to keep your heart healthy. Regular exercise and a low salt diet can help to lower your blood pressure. Drink 7 to 8 glasses of water per day. Avoid things that raise your blood pressure such as smoking, alcohol and caffeine. 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 Inhaling aerosolize d nicotine is widely believed to be safer than combustibl e tobacco, but still exposes people to numerous harmful substances , heavy metals like lead, and cancer-cau sing agents. Nicotine is harmful to developing brains and can disrupt the formation of brain circuits that control attention, learning, and susceptibi lity to addiction. We talked about tools and medication s available to help you in smoking/va ping cessation. We discussed utilizing our smoking cessation financial coach and online resources. Your personal goal: starting patches, cannot tolerate chantix Active or passive immunization 548265329 Z23 Shingles: had first, reminded to check in with pharm for 2nd dose Long-term current use of drug therapy 687892925 Z79.899 Rheumatoid arthritis 698 53584 M06.9 - sees rheumatolo gy, on actemra and has stopped prednisone [id number] MARISA Johnson , [facility], [address] [place] [address] 05/07/2024 11:34:49 05/07/2024 14:38:12 Nicotine dependence 44735394 F17.200 We discussed your smoking/va ping today for more than 3 minutes.Sm oking tobacco is the leading cause of preventabl e disease, disability , and in the [place]. Inhaling aerosolize d nicotine is widely believed to be safer than combustibl e tobacco, but still exposes people to numerous harmful substances , heavy metals like lead, and cancer-cau sing agents. Nicotine is harmful to developing brains and can disrupt the formation of brain circuits that control attention, learning, and susceptibi lity to addiction. We talked about tools and medication s available to help you in smoking/va ping cessation. Your personal goal: Continue to work on cutting back/quitt ing, let us know if you need any refills for the nicotine patch Active or passive immunization 505429018 Z23 Patient states that is up to date with FLU vaccine Cramp in lower limb 4499 24167 R25.2 Intermitte nt R lower leg cramping at nighttime which has been worsening over the past monthWill check labworkDis cussed regular stretching may helpWill f/u with PCP, will contact the office for any worsening symptoms sooner Essential hypertension 04497122 I10 BP at goal today, continue HCTZ [id number] Dennise Esparza PA-C , [facility], [address] [place] [address] 05/28/2024 15:14:19 05/29/2024 12:59:23 Chronic pain 44220298 R52 - 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 Inhaling aerosolize d nicotine is widely believed to be safer than combustibl e tobacco, but still exposes people to numerous harmful substances , heavy metals like lead, and cancer-cau sing agents. Nicotine is harmful to developing brains and can disrupt the formation of brain circuits that control attention, learning, and susceptibi lity to addiction. We talked about tools and medication s available to help you in smoking/va ping cessation. We discussed utilizing our smoking cessation financial coach and online resources. 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 - ILD from smoking or RA, following with rheumatolo gy and pulmonolog y - most recent CT is stable- not ready to quit smoking- side effects to Ofev Opioid dependence 153728 00 F11.20 - stable with current dosing Rheumatoid arthritis 698 16455 M06.9 - sees rheumatolo gy, on actemra and daily prednisone , symptoms not well controlled and has a follow up soon [id number] Dennise Esparza PA-C , [facility], [address] [place] [address] 08/28/2024 11:20:36 08/28/2024 11:39:02 Chronic pain 34192815 R52 - 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 Inhaling aerosolize d nicotine is widely believed to be safer than combustibl e tobacco, but still exposes people to numerous harmful substances , heavy metals like lead, and cancer-cau sing agents. Nicotine is harmful to developing brains and can disrupt the formation of brain circuits that control attention, learning, and susceptibi lity to addiction. We talked about tools and medication s available to help you in smoking/va ping cessation. We discussed utilizing our smoking cessation financial coach and online resources. Your personal goal: has been cutting back and smoking 1/2 cig, goal of quitting Rheumatoid arthritis 698 99060 M06.9 Improved symptoms with Actemra. Noted muscle spasms and cramping, which have improved with muscle relaxant. Continues on Prednisone 5mg daily with noted improvemen t in symptoms.- Continue Actemra as prescribed .-Continue muscle relaxant as needed for muscle spasms.-Co ntinue Prednisone 5mg daily. Health Concerns Section Related Observation LastModified by Organization Detai ls LastModified Time None Recorded Concern Status LastModified by Organization Details LastModified Time None Recorded Advance Directives Directive None Recorded Payers Encounter Date Sequence Insurance Name Policy Number Policy Grace Covered Member ID Grace Member ID Guarantor Name 10/30/2023 2 [place] [id number] Harrison Arriaga Petta [id number] Harrison Petta 10/30/2023 1 [place] Harrison Arriaga Petta [id number] Harrison Petta 01/30/2024 2 [place] [id number] Harrison G Petta [id number] Harrison Petta 01/30/2024 1 [place] Harrison Arriaga Petta [id number] Harrison Petta 05/07/2024 2 [place] [id number] Harrison G Petta [id number] Harrison Petta 05/07/2024 1 [place] Harrison G Petta [id number] Harrison Petta 05/28/2024 2 [place] [id number] Harrison G Petta [id number] Harrison Petta 05/28/2024 1 [place] Harrison Arriaga Petta [id number] Harrison Petta 08/28/2024 2 [place] [id number] Harrison G Petta [id number] Harrison Petta 08/28/2024 1 [place] Harrison Arriaga Petta [id number] Harrison Petta Notes Date Note Type Note Provider Name and Address Organization Details Recorded Time 4 text/html Controlled SubstanceReported bypatient.CSRP Contractcontract signed Pain Management Evaluationyes [facility] assessedyes Urine Drug ScreenappropriateVMG HypertensionReported bypatient.Context:No ischemic heart disease; No kidney disease; No history of CVA; No congestive heart failure; No history of transient ischemic attacks; No peripheral vascular disease; No history of diabetes Control:BP Goal less than (130/80); Treated with diet and exercise; Treated with medications; Patient understands medications are to lower blood pressure Compliance:Compliant with medications; Compliant with follow-up visits;Noncompliant with diet;Noncompliant with exercise Barriers to CareNo identified barriers to care Aggravating factors:counseled to increase activity; counseled to lose weight; counseled to stop smoking Associated Symptoms:No chest pain; No shortness of breath; No fatigue; No palpitations; No decline in exercise capacity Ability to Manage Self CarePatient feels confident in ability to self manage conditiona/vmg-smoking [id number] bypatient.ImportanceOn a scale of 1-10 with 1 being not important and 10 being very important the patient rates importance of stopping smoking as 10 ConfidenceOn a scale of 1-10 with 1 being not confident and 10 being very confident the patient rates confidence on stopping smoking as 5 Readiness to quit smoking/vapingOn a scale of 1-10 with 1 being not ready and 10 being very ready the patient rates readiness to stop smoking as 5 Physiological Dependence/Health RiskCurrently smoking 20 cigarettes per day Medication AssessmentHas used Patch in the past; Has used lozenges in the past; Has used Chantix in the pastNotes:Has nicotine patches and is using them. Does have a cough. No increased sputum or shortness of breath. Improving. Started chantix and caused vomiting.aVMG-Chronic Pain 2Reported bypatient.Duration:Chroni c pain began >5years ago; Pain is worsening; Pain is intermittent with periods of improvement and flaresof worsening pain Context:Pain was the result of accident or trauma; Pain is due to degenerative joint disease; Patient has chronic low back pain Barriers to CareNo identified barriers to care Ability to Manage Self CarePatient confidence in ability to manage their condition 6 with 10 being very confident and 1 being not confident jonelle Aggravating factors:activity; physical labor; repetitive motion jonelle Alleviating factors:rest Pain impacts on functionality:Pain interferes with physical activity Location of PainLeg pain Quality of Paindull ache; sharp ache Patients goals for pain relief include:improved activity level Patient currently controls pain with :Narcotic medications Side Effects from MedicationNo side effects from medication Providers Involved in Patient CarePatient has previously seen physiatry,ortho,physical therapy in managing pain; Patient has not had conflicts with other medical providers about the use of pain medications; Patient has never had trouble controlling their use of any drug prescribed to them .; Patient has signed and understands narcotic contract ComorbiditiesPatient has never a problem with alcohol; Patient has never a problem with drugs. Ability to Manage Self CarePatient feels confident in ability to self manage conditionNotes:Pain stable.Oxycodone 20mg ER BIDPercocet 10 mg 5 times per [id number] MME [facility]. 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 hands and in his feet- has follow up in two weeks Pulmonary fibrosis/COPD:- following with Dr Tipton, diagnosed ILD which had progressed but most recent CT is stable- had Chest CT was lung RADS 4a and has appt with Dr Tipton this week to discuss biopsy- may be related to smoking or RA- rarely using inhalers- better with increasing exercise Dennise Esparza PA-C [address] [place] [address], [phone], [facility] 10/30/2023 14:10:57 4 text/html Controlled SubstanceReported bypatient.CSRP Contractcontract signed Pain Management Evaluationyes [facility] assessedyes Urine Drug ScreenappropriateVMG HypertensionReported bypatient.Context:No ischemic heart disease; No kidney disease; No history of CVA; No congestive heart failure; No history of transient ischemic attacks; No peripheral vascular disease; No history of diabetes Control:BP Goal less than (130/80); Treated with diet and exercise; Treated with medications; Patient understands medications are to lower blood pressure Compliance:Compliant with medications; Compliant with follow-up visits;Noncompliant with diet;Noncompliant with exercise Barriers to CareNo identified barriers to care Aggravating factors:counseled to increase activity; counseled to lose weight; counseled to stop smoking Associated Symptoms:No chest pain; No shortness of breath; No fatigue; No palpitations; No decline in exercise capacity Ability to Manage Self CarePatient feels confident in ability to self manage conditiona/vmg-smoking [id number] bypatient.ImportanceOn a scale of 1-10 with 1 being not important and 10 being very important the patient rates importance of stopping smoking / vaping as 10 ConfidenceOn a scale of 1-10 with 1 being not confident and 10 being very confident the patient rates confidence on stopping smoking / vaping as 5 Readiness to quit smoking/vapingOn a scale of 1-10 with 1 being not ready and 10 being very ready the patient rates readiness to stop smoking /vaping as 5 Physiological Dependence/Health RiskCurrently smoking 20 cigarettes per day Medication AssessmentHas used Patch in the past; Has used lozenges in the past; Has used Chantix in the pastNotes:Has nicotine patches and is using them. 1/2 pack per day smoker. Does have a cough. No increased sputum or shortness of breath. Improving. Started chantix and caused vomiting.aVMG-Chronic Pain 2Reported bypatient.Duration:Chroni c pain began >5years ago; Pain is worsening; Pain is intermittent with periods of improvement and flaresof worsening pain Context:Pain was the result of accident or trauma; Pain is due to degenerative joint disease; Patient has chronic low back pain Barriers to CareNo identified barriers to care Ability to Manage Self CarePatient confidence in ability to manage their condition 6 with 10 being very confident and 1 being not confident jonelle Aggravating factors:activity; physical labor; repetitive motion jonelle Alleviating factors:rest Pain impacts on functionality:Pain interferes with physical activity Location of PainLeg pain Quality of Paindull ache; sharp ache Patients goals for pain relief include:improved activity level Patient currently controls pain with :Narcotic medications Side Effects from MedicationNo side effects from medication Providers Involved in Patient CarePatient has previously seen physiatry,ortho,physical therapy in managing pain; Patient has not had conflicts with other medical providers about the use of pain medications; Patient has never had trouble controlling their use of any drug prescribed to them .; Patient has signed and understands narcotic contract ComorbiditiesPatient has never a problem with alcohol; Patient has never a problem with drugs. Ability to Manage Self CarePatient feels confident in ability to self manage conditionNotes:Pain stable.Oxycodone 20mg ER BIDPercocet 10 mg 5 times per [id number] MME 01/30/24- Patient presents today for CSRP follow up. 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 Pulmonary fibrosis/COPD:- following with Dr Tipton, diagnosed ILD which had progressed- had Chest CT was lung RADS 4a and had negative bronchoscopy- may be related to smoking or RA- rarely using inhalers- better with increasing exercise Dennise Esparza PA-C [address] [place], [phone], [facility] 01/31/2024 09:44:34 4 text/html yo presents for leg crampingPt c/o intense julio horse pain in leg x 1 month, happens at night during sleep, only happens in the right legCold floor helps and goes away eventuallyPt was taken off of Humira by rheumatology recently and put on something differentHas had cramping in the hands beforePt is on a water pill so he has been trying to drink more waterPt walks the dog 2-3 times per dayHas nicotine patches at homeNo redness/swelling of the calf MARISA Johnson [address] [place], [phone], [facility] 05/07/2024 13:34:27 4 text/html Patient presents today for CSRP follow up. 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 Pulmonary fibrosis/COPD:- following with Dr Tipton, diagnosed ILD which had progressed- side effects to Ofev, worsened RA symptoms- had Chest CT was lung RADS 4a and had negative bronchoscopy- may be related to smoking or RA- rarely using inhalers- better with increasing exercise Dennise Esparza PA-C [address] [place] [address], [phone], [facility] 05/28/2024 15:46:19 4 text/html Controlled SubstanceReported bypatient.[facility] Contractcontract signed Pain Management Evaluationyes MassPAT assessedyes Urine Drug ScreenappropriateVMG HypertensionReported bypatient.Context:No ischemic heart disease; No kidney disease; No history of CVA; No congestive heart failure; No history of transient ischemic attacks; No peripheral vascular disease; No history of diabetes Control:BP Goal less than (130/80); Treated with diet and exercise; Treated with medications; Patient understands medications are to lower blood pressure Compliance:Compliant with medications; Compliant with follow-up visits;Noncompliant with diet;Noncompliant with exercise Barriers to CareNo identified barriers to care Aggravating factors:counseled to increase activity; counseled to lose weight; counseled to stop smoking Associated Symptoms:No chest pain; No shortness of breath; No fatigue; No palpitations; No decline in exercise capacity Ability to Manage Self CarePatient feels confident in ability to self manage conditionNotes:No side effects to the medicationsa/vmg-smoking [id number] bypatient.ImportanceOn a scale of 1-10 with 1 being not important and 10 being very important the patient rates importance of stopping smoking / vaping as 10 ConfidenceOn a scale of 1-10 with 1 being not confident and 10 being very confident the patient rates confidence on stopping smoking / vaping as 5 Readiness to quit smoking/vapingOn a scale of 1-10 with 1 being not ready and 10 being very ready the patient rates readiness to stop smoking /vaping as 5 Physiological Dependence/Health RiskCurrently smoking 20 cigarettes per day Medication AssessmentHas used Patch in the past; Has used lozenges in the past; Has used Chantix in the pastNotes:Has nicotine patches and is using them. 1/2 pack per day smoker. Does have a cough. No increased sputum or shortness of breath. Improving. Started chantix and caused vomiting.aVMG-Chronic Pain 2Reported bypatient.Duration:Chroni c pain began >5years ago; Pain is worsening; Pain is intermittent with periods of improvement and flaresof worsening pain Context:Pain was the result of accident or trauma; Pain is due to degenerative joint disease; Patient has chronic low back pain Barriers to CareNo identified barriers to care Ability to Manage Self CarePatient confidence in ability to manage their condition 6 with 10 being very confident and 1 being not confident jonelle Aggravating factors:activity; physical labor; repetitive motion jonelle Alleviating factors:rest Pain impacts on functionality:Pain interferes with physical activity Location of PainLeg pain Quality of Paindull ache; sharp ache Patients goals for pain relief include:improved activity level Patient currently controls pain with :Narcotic medications Side Effects from MedicationNo side effects from medication Providers Involved in Patient CarePatient has previously seen physiatry,ortho,physical therapy in managing pain; Patient has not had conflicts with other medical providers about the use of pain medications; Patient has never had trouble controlling their use of any drug prescribed to them .; Patient has signed and understands narcotic contract ComorbiditiesPatient has never a problem with alcohol; Patient has never a problem with drugs. Ability to Manage Self CarePatient feels confident in ability to self manage conditionNotes:Pain stable.Oxycodone 20mg ER BIDPercocet 10 mg 5 times per [id number] MME Dennise Esparza PA-C [address] [place] [address], [phone], [facility] 05/28/2024 15:46:19 5 text/html Controlled SubstanceReported bypatient.CSRP Contractcontract signed Pain Management Evaluationyes [employer]PAT assessedyes Urine Drug ScreenappropriateVMG HypertensionReported bypatient.Context:No ischemic heart disease; No kidney disease; No history of CVA; No congestive heart failure; No history of transient ischemic attacks; No peripheral vascular disease; No history of diabetes Control:BP Goal less than (130/80); Treated with diet and exercise; Treated with medications; Patient understands medications are to lower blood pressure Compliance:Compliant with medications; Compliant with follow-up visits;Noncompliant with diet;Noncompliant with exercise Barriers to CareNo identified barriers to care Aggravating factors:counseled to increase activity; counseled to lose weight; counseled to stop smoking Associated Symptoms:No chest pain; No shortness of breath; No fatigue; No palpitations; No decline in exercise capacity Ability to Manage Self CarePatient feels confident in ability to self manage conditionNotes:No side effects to the medicationsa/vmg-smoking [id number] bypatient.ImportanceOn a scale of 1-10 with 1 being not important and 10 being very important the patient rates importance of stopping smoking / vaping as 10 ConfidenceOn a scale of 1-10 with 1 being not confident and 10 being very confident the patient rates confidence on stopping smoking / vaping as 5 Readiness to quit smoking/vapingOn a scale of 1-10 with 1 being not ready and 10 being very ready the patient rates readiness to stop smoking /vaping as 5 Physiological Dependence/Health RiskCurrently smoking 20 cigarettes per day Medication AssessmentHas used Patch in the past; Has used lozenges in the past; Has used Chantix in the pastNotes:Has nicotine patches and is using them. 1/2 pack per day smoker. Trying to smoke 1/2 cig instead of full. Does have a cough. No increased sputum or shortness of breath. Improving. Started chantix and caused vomiting.aVMG-Chronic Pain 2Reported bypatient.Duration:Chroni c pain began >5years ago; Pain is worsening; Pain is intermittent with periods of improvement and flaresof worsening pain Context:Pain was the result of accident or trauma; Pain is due to degenerative joint disease; Patient has chronic low back pain Barriers to CareNo identified barriers to care Ability to Manage Self CarePatient confidence in ability to manage their condition 6 with 10 being very confident and 1 being not confident jonelle Aggravating factors:activity; physical labor; repetitive motion jonelle Alleviating factors:rest Pain impacts on functionality:Pain interferes with physical activity Location of PainLeg pain Quality of Paindull ache; sharp ache Patients goals for pain relief include:improved activity level Patient currently controls pain with :Narcotic medications Side Effects from MedicationNo side effects from medication Providers Involved in Patient CarePatient has previously seen physiatry,ortho,physical therapy in managing pain; Patient has not had conflicts with other medical providers about the use of pain medications; Patient has never had trouble controlling their use of any drug prescribed to them .; Patient has signed and understands narcotic contract ComorbiditiesPatient has never a problem with alcohol; Patient has never a problem with drugs. Ability to Manage Self CarePatient feels confident in ability to self manage conditionNotes:Pain stable.Oxycodone 20mg ER BIDPercocet 10 mg 5 times per [id number] MME Patient presents today for CSRP follow up. The patient, with a history of arthritis, presents for a routine follow-up. He reports significant improvement with the new medication, Actemra, compared to previous treatments. 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 The patient also continues to take 5mg of prednisone daily, despite the commercial housekeeper's concerns, as he noticed a recurrence of symptoms when he tried to stop the medication.The patient also mentions a reduction in smoking, using cigarettes he does not like as a strategy to decrease consumption. He acknowledges the health risks associated with smoking, particularly as he observes his 's health deteriorating due to a respiratory condition. Despite the challenges, he is committed to reducing and eventually quitting smoking.The patient also mentions his active lifestyle, including regular trips to the [place], which he acknowledges can be physically demanding, especially in cold weather. Despite the physical challenges, he remains committed to maintaining an active lifestyle. 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
--- OUTSIDE RECORDS SUMMARY | 2024-09-25 12:38 | XMS_ITS | Clinical Summary ---
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 Role Phone Unavailable Primary Care Provider Unavailabl e Social History Tobacco Use Types Packs/Day Years Used Date Smoking Tobacco: Never Assessed Sex and Gender Information Value Date Recorded Sex Assigned at Not on file Gender Identity Not on file Sexual Orientation Not on file Plan of Treatment Health Maintenance Due Date Last Done Comments Hepatitis C Virus Screening 1955 DTaP/Tdap/Td Vaccines (1 - Tdap) 11/21/1974 Colonoscopy 11/21/2000 Pneumococcal Vaccines 50+ (1 of 1 - PCV) 11/21/2005 Zoster (Shingles) Vaccine (1 of 2) 11/21/2005 Influenza Vaccine 03/14/2024 COVID-19 Vaccine ( - 2023-2 5 season) 2024 RSV Vaccine 60 years and old er and Patients (1 - 1-dose 75+ series) 11/21/2030 Hepatitis B Vaccines Aged Out No long er eligible based on patient's age to complete this topic Harrison Mckeon Personal/Family Self 1955 [address] [place] [address]
--- OUTSIDE RECORDS SUMMARY | 2024-09-25 12:38 | XMS_ITS | Continuity of Care Document ---
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 Plan of Treatment Reminders Order Date Submit Date Provider Last Modified By Organization Details Last Modified Time Details Appointments Follow Up, 2024 01:30P M Pratik Esparza PA-C Not available Not available Not available Lab drug screen, urine - Date and Time of Last Dose:Oxy /acet 10/325: 08/28/24 10amOxyc ontin 20: 08/28/24 10:[address] [facility], [address] [place], [address], 08/29/2024 10:29:50 Referral None recorded . Procedures None recorded . Surgeries None recorded . Imaging None recorded . Medication Orders None recorded . Patient TargetsNo targets recorded. Patient Instructions Encounter Date Encounter Id Patient Instructions Last Modified By Organization Details Last Modified Time 08/28/2024 [id number] My Health To Do List Specific Analgesia [...] 08/28/2024 11:17:30 Reason for Referral None Reported. Problems Name Problem SNOMED Code Status Onset Date Resolution Date Notes Provider Name and Address Organization Details Recorded Time Gout 98142616 Active ASHLEY Cody [address] [place], [place] [address], [address], [facility] 6 14:49:37 Multiple joint pain 52751264 Completed 07/03/2013 ASHLEY Cody [address] [place], [place] [address], [address], [facility] 6 14:49:37 Tobacco user 343629380 Active ASHLEY Cody [address] [place], [place] [address], [address], [facility] 6 17:57:22 Verruca plantari s 77567638 Completed 10/30/2017 Pratik Esparza PA-C [address] [place], [place] [address], [address], [facility] 8 14:08:57 Malaise and fatigue 527117163 Completed 07/03/2013 ASHLEY Cody [address] [place], [place] [address], [address], [facility] 6 14:49:37 Dizzines s 332615758 Completed 07/03/2013 ASHLEY Cody [address] [place] [address] [place], [address], [facility] 6 14:49:37 Chronic pain 56125965 Completed 04/30/2018 Pratik Esparza PA-C [address] [place] [address] [place], [address], [facility] 8 13:30:51 Disorder of rotator cuff 040368947 Active ANN MARIE Cody[address] [place], [address], [facility] 6 17:57:22 Neck pain 18363051 Completed 10/30/2017 Pratik Esparza PA-C [address] [place] [address] [place], [address], [facility] 8 14:08:54 Fracture of lower leg 503949371 Active ANN MARIE CodyPTodd[address] [place], [address], [facility] 6 17:57:22 Pain in right lower limb 406448976 Active ANN MARIE CodyPTodd[address] [place], [address], [facility] 6 14:49:37 Impotenc e of organic origin Active Jose Gunderson [address] [place], [address], [facility] 6 14:49:37 Elevated blood-pr essure reading without diagnosi s of hyperten dereck 284363597 Completed 04/27/2017 Chen Alex [address] [place], [address], [facility] 7 14:23:38 Chronic sciatica 105867117 Active 2015 ANN MARIE Cody[address] [place], [address], [facility] 6 14:56:22 Lung mass 402056788 Completed 201604/30/2018 1.2cm mass right upper anterior lobe. followed by [facility] . Pratik Esparza PA-C [address] [place] [address] [place], [address], [facility] 8 13:29:54 Degenera tive joint disease of shoulder region 40412399 Active 2017 Pratik Esparza PA-C [address] [place] [address] [place], [address], [facility] 8 13:33:56 Multiple nodules of lung 094151662 Active 2017 followed by [facility] Pratik Esparza PA-C [address] [place] [address] [place], [address], [facility] 8 13:30:05 Obesity 881238080 Active 2017 Pratik Esparza PA-C [address] [place] [address] [place], [address], [facility] 8 13:32:52 Hyperlip idemia 37334315 Active 2017 Pratik Esparza PA-C [address] [place] [address] [place], [address], [facility] 2 10:09:51 Hand pain 90499674 Completed 201708/17/2020 Recommen d seeing rheumato logy Pratik Esparza PA-C [address] [place] [address] [place], [address], [facility] 1 11:31:24 Primary erectile dysfunct ion 176990304 Active 2018 Pratik Esparza PA-C [address] [place] [address] [place], [address], [facility] 9 11:02:32 Chronic obstruct flex pulmonar y disease 90062239 Active 2018 Pratik Esaprza PA-C [address] [place], [place] [address], [address], [facility] 9 11:19:39 Fibrosis of lung 20339062 Active 2018 undergoi ng eval for UIP DORINDA [place], 1, [facility] 9 11:22:34 Undiffer entiated inflamma tory polyarth ritis 564317997 Completed 201902/12/2020 DORINDA [place], 1, [facility] 0 15:44:03 Osteoart hritis of joint of left shoulder region 13304776640 9108 Active 2019 Pratik Esparza PA-C [address] [place] [address] [place], 1, [facility] 0 15:41:09 Rheumato id arthriti s 64349632 Active 2019 Pratik Esparza PA-C [address] [place] [address] [place], 1, [facility] 0 15:43:55 Essentia l hyperten dereck 12754871 Active 2020 DORINDA [place], 1, [facility] 1 11:32:04 Subclini oralia hyperthy roidism 247058659 Completed 202010/25/2021 DORINDA [place], 1, [facility] 2 10:10:05 Charcot' s joint of foot 214941156 Active 2022 Non-diab etic D[place]INDA [place], 1, [facility] 3 07:48:39 Osteopen ia 668934158 Active [address] [place] 1, [facility] 4 15:10:56 Cataract 305304529 Active 2023 Pratik Esparza PA-C [address] [place], [place] [address], [address], [facility] 4 15:28:24 Problem Notes None recorded. Procedures Surgical History Date Name Laterality Status Provider Name and Address Organization Details Recorded Time 08/28/19 Smoking cessation counseling completed Amber Shay Jenny [facility] 08/28/2024 11:29:00 05/28/20 Smoking cessation counseling completed Amber Shay Jenny [facility] 05/28/2024 15:22:14 05/07/20 Smoking cessation counseling completed Lisa Joseph [facility] 05/07/2024 11:40:02 08/28/19 17132: Therapeutic Exercise cancelled Mayra Goldsmith, PT [address] [place], [address], [facility] 08/28/2019 09:23:22 08/28/19 19642: Manual Therapy cancelled Mayra Goldsmith, PT [address] [place] [address], [address], [facility] 08/28/2019 09:23:22 08/23/19 11127: Therapeutic Exercise completed Mayra Goldsmith, PT [address] [place], [address], [facility] 08/23/2019 14:31:29 08/23/19 90676: Manual Therapy completed Mayra Goldsmith, PT [address] [place], [address], [facility] 08/23/2019 14:31:52 08/23/19 Treatment and Advice completed Mayra Goldsmith, PT [address] [place], [address], [facility] 08/23/2019 17:19:16 08/21/19 07567: Therapeutic Exercise cancelled Mayra Goldsmith, PT [address] [place] [address], [address], [facility] 08/21/2019 11:45:58 08/21/19 20 62901: Manual Therapy cancelled Mayra Goldsmtih, PT [address] [place], [address], [facility] 08/21/2019 11:46:00 08/21/19 20 Treatment and Advice cancelled Mayra Goldsmith, PT [address] [place], [address], [facility] 08/21/2019 11:45:32 08/19/19 20 Smoking cessation counseling completed Pratik Esparza PA-C [address] [place] [address], [address], [facility] 08/19/2019 16:40:33 08/16/19 20 Physical Activity Counselling completed Mayra Goldsmith, PT [address] [place], [address], [facility] 08/16/2019 08:31:35 08/16/19 20 05379: PT Eval Low Complexity completed Mayra Goldsmith, PT [address] [place], [address], [facility] 08/16/2019 16:55:10 08/16/19 20 Treatment and Advice completed Mayra Goldsmith, PT [address] [place], [address], [facility] 08/16/2019 16:56:56 07/15/20 19 Smoking cessation counseling completed Gregorio Calix MD [address] [place] [address], [address], [facility] 07/15/2019 12:13:51 06/03/20 19 Smoking cessation counseling completed Gregorio Calix MD [address] [place] [address], [address], [facility] 06/06/2019 07:52:42 05/24/20 19 Smoking cessation counseling completed Pratik Esparza PA-C [address] [place] [address], [address], [facility] 05/27/2019 08:45:58 02/12/20 19 Smoking cessation counseling completed Stephenie Sharif [facility] 02/11/2019 14:11:12 02/12/20 19 Carbon Monoxide Testing completed Stephenie Sharif [facility] 02/11/2019 14:11:12 11/10/19 19 Smoking cessation counseling completed Stephenie Sharif [facility] 11/09/2018 13:53:24 08/29/19 19 Smoking cessation counseling completed Pamela Vidal [facility] 08/29/2018 08:07:41 08/13/20 18 Smoking cessation counseling completed Stephenie Sharif [facility] 08/13/2018 13:36:51 08/13/20 18 Carbon Monoxide Testing completed Stephenie Sharif [facility] 08/13/2018 13:36:51 05/21/20 18 Smoking cessation counseling completed Tiffanie Torres NP [address] [place] [address], [address], [facility] 05/21/2018 18:21:03 05/21/20 18 Carbon Monoxide Testing completed Tiffanie Torres NP [address] [place] [address], [address], [facility] 05/21/2018 18:21:03 04/30/20 18 Smoking cessation counseling completed Stephenie Sharif [facility] 04/30/2018 13:23:27 01/30/20 18 Smoking cessation counseling completed Tory Lockhart [facility] 01/29/2018 13:15:45 01/30/20 18 Carbon Monoxide Testing completed Tory Lockhart [facility] 01/29/2018 13:15:46 10/31/19 18 Smoking cessation counseling completed Beverly Cervantes [facility] 10/30/2017 13:56:50 08/01/20 17 Smoking cessation counseling completed Amber Graf RN [facility] 08/01/2017 14:18:03 04/27/20 17 Smoking cessation counseling completed Lisa Joseph [facility] 04/27/2017 13:51:54 01/26/20 17 Smoking cessation counseling completed Zaheer Herr [facility] 01/25/2017 13:55:26 01/26/20 17 [facility] 13:55:26 10/27/19 17 Smoking cessation counseling completed [facility] 10/26/2016 14:17:07 10/27/19 17 Carbon Monoxide Testing completed [facility] 10/26/2016 14:24:27 07/27/20 16 Smoking cessation counseling completed Lisa Joseph [facility] 07/27/2016 13:34:26 04/27/20 16 Smoking cessation counseling completed [place] 04/27/2016 14:20:27 01/27/20 16 Smoking cessation counseling completed [place] 01/27/2016 14:25:26 10/21/19 16 Smoking cessation counseling completed Ashley Elder [facility] 10/21/2015 14:39:36 10/21/19 16 Carbon Monoxide Testing completed Ashley Elder [facility] 10/21/2015 14:47:03 07/22/20 15 Smoking cessation counseling completed Ashley Elder [facility] 07/22/2015 11:56:00 04/15/20 15 Smoking cessation counseling completed Ashley Elder [facility] 04/15/2015 10:27:57 01/30/20 15 Smoking cessation counseling completed Ashley Elder [facility] 01/29/2015 11:32:56 10/30/19 15 Smoking cessation counseling completed Isha Krause [facility] 10/29/2014 11:26:26 09/17/19 15 Smoking cessation counseling completed Jose Gunderson [address], [address], [facility] 09/17/2014 12:42:07 11/09/19 12 Smoking cessation counseling completed Antionette Patel [facility] 11/09/2011 15:30:52 10/04/19 12 Smoking cessation counseling completed Tasneem Beckett LPN [facility] 10/04/2011 08:15:13 08/09/20 11 Smoking cessation counseling completed Antionette Patel [facility] 08/09/2011 10:01:23 Imaging Results None recorded. Procedure Notes None recorded. Medical Equipment None Reported. Allergies Allergen ID Allergen Name Allergen Category Reaction Reaction Severity Criticality Documentation Date Start Date Code Code System Note Provider Name and Address Organization Details Recorded Time 491167 atorvasta tin medicatio n myalgias (muscle pain) Not available low 05/03/2023 51958 RxNorm Pratik Esparza PA-C [address] [place] [address], [place], [address] , [facility] 3 11:43:17 Medications Name Sig Start Date [...] tablet twice a day by oral route. 08/17 completed Not currentl y taking Not Available [...] Not Available Not Available Not Available Flucelvax 4892-1635 (PF) 45 mcg (15 mcg x 3)/0.5 mL IM syringe active Not Available Not Available Not Available Ofev 150 mg capsule 05/28 completed Not Available Not Available Not Available nintedani b 05/28 completed Per 02/23/24 pulmonol ogy OV [id number] g BIDStart with once daily for x 2 weeks, then increase to BID for GI toleranc e Not Available Not Available Not Available OxyContin 20 mg tablet,cr ush resistant ,extended release TAKE ONE TABLET BY MOUTH EVERY DAY active Not Available Not Available No t Available Narcan 4 mg/actuat ion nasal spray Take by nasal route for suspecte d opioid overdose . [place] 1 mL in each nostril. Repeat after 3 minutes if no or minimal response 2022 active Not Available Not Available Not Avai lable Afluria 9533-1831 (PF) 45 mcg(15 mcg x 3)/0.5 mL [...] IM syringe VACCINAT ION ADMINIST ERED BY DAMASO MULLER 06/01 completed Not Available Not Available Not Available Vitals Date Recorded Body height Body mass index (BMI) Body weight Heart rate Systolic blood pressure Diastolic blood pressure Provider Name and Address Organization Details Last Updated DateTime 5 177.17 cm 31.2 kg/m2 96804.3 5 g 100 /min 96 mm[Hg] 62 mm[Hg] Amber shay, THEO [facility] 5 11:28:48 Social History Question Answer Notes LastModified by Organizat ion Details LastModified Time Tobacco Smoking Status Current Every Day Smoker Antionette Patel, CARLA null, [facility] 08/09/2011 10:00:33 What Is Your Level Of Alcohol Consumption? Occasional 5 Per Month [email or web address] Information not available 06/03/2019 Do You Wear A Helmet When Biking? Yes [email or web address] Information not available 09/17/2014 What Is Your Level Of Caffeine Consumption? Moderate 2 Cups Of Coffee Per Day Information not available 09/17/2014 How Much Tobacco Do You Chew? None Information not available 09/17/2014 What Type Of Diet Are You Following? REGULAR [email or web address] Information not available 09/17/2014 Which Illicit Or Recreational Drugs Have You Used? None Information not available 07/22/2015 Do You Or Have You Ever Used E-cigarettes Or Vape? 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 Yes [email or web address] Information not available 09/17/2014 Live Alone Or With Others? With Others [email or web address] Information not available 09/17/2014 CSRP - Narcotics Yes OXYCODONE/AC E 10-325 MG OXYCODONE ER 20 MG DX- M54.31 Sciatica Information not available 10/01/2014 CSRP Contract Signed And Discussed Yes 04/26/2022 ( Jonathan strong Information not available 10/06/2011 Patient Has Health Care Proxy Signed And In Chart Yes Information not available 03/01/2021 MOLST Form Signed And In Chart 10/25/2021 Information not available 10/27/2021 CCM Consent Discussion 02/25/2021 Information not available 03/01/2021 Marital Status Informati on not available 09/17/2014 Mosquito Repellent Used Routinely Yes [email or web address] Information not available 09/17/2014 What Was The Date Of Your Most Recent Tobacco Screening? 05/28/2024 [email or web address] Information not available 05/28/2024 How Many Children Do You Have? 2 [email or web address] Information not available 09/17/2014 What Is Your Current Pack Years? [email or web address] ars Information not available 10/21/2015 Seat Belts Used Routinely Yes [email or web address] Information not available 09/17/2014 Are You Sexually Active? Yes [email or web address] Information not available 01/29/2015 Smoke Alarm In Home Yes [email or web address] Information not available 09/17/2014 Do You Have Smoke And Carbon Monoxide Detectors In Your Home? Yes [email or web address] Information not available 01/31/2023 At What Age Did You Start Smoking Tobacco? 12 [email or web address] Information not available 09/17/2014 Do You Or Have You Ever Used Smokeless Tobacco? Never Used Smokeless Tobacco Information not available 11/08/2019 How Much Tobacco Do You Smoke? 1 PPD 3/4 Of A Pack A Day 12/18/20 Ds [email or web address] Information not available 12/18/2020 What Types Of Sporting Activities Do You Participate In? Elizalde Information not available 07/22/2015 General Stress Level Medium Information not available 07/22/2015 Do You Use Sunscreen Routinely? Yes [email or web address] Information not available 09/17/2014 How Many Years Have You Smoked Tobacco? 50 [email or web address] Information not available 11/08/2019 Do You Or [...] intradermal, preservative free 2 completed Not Available [facility] 08/31/2019 02:18:54 Tdap 5 completed Not Available [facility] 08/31/2019 02:19:23 Influenza, split virus, quadrivalent, PF 5 completed Not Available [facility] 08/31/2019 02:28:18 zoster live 6 completed Not Available [facility] 08/31/2019 02:20:37 Influenza, split virus, quadrivalent, PF 7 completed Not Available [facility] 08/31/2019 02:34:16 Influenza, split virus, quadrivalent, PF 8 completed Not Available [facility] 08/31/2019 02:22:58 influenza, unspecified formulation 6 completed Lisa Joseph CMA null, [facility] 07/27/2016 13:40:50 Influenza, split virus, quadrivalent, PF 9 completed Not Available [facility] 08/31/2019 02:24:32 pneumococcal polysaccharide PPV23 1 completed Stephenie Sharif MA [facility], [facility] 12/04/2020 14:14:01 Influenza, split virus, quadrivalent, preservative 0 completed Stephenie Sharif MA null, [facility] 05/18/2020 16:52:44 Pneumococcal conjugate PCV 13 2 completed Tawny Edmonds LPN [facility] 09/17/2021 10:09:29 Influenza, high-dose, quadrivalent, PF 2 completed Pratik Esparza PA-C [address] [place] [address], [address], [facility] 04/27/2022 10:20:13 COVID-19, mRNA, LNP-S, PF, 100 mcg/0.5mL dose or 50 mcg/0.25mL dose 1 completed [facility] 10/29/[facility] 09:05:03 COVID-19, mRNA, LNP-S, PF, 100 mcg/0.5mL dose or 50 mcg/0.25mL dose 1 completed [facility] 10/29/2020 09:05:13 COVID-19, mRNA, LNP-S, bivalent, PF, 50 mcg/0.5 mL or 25mcg/0.25 mL dose 2 completed Skyla Dick LPN [facility] 05/26/2022 14:47:57 Influenza, high-dose, quadrivalent, PF 3 completed Pratik Esparza PA-C [address] [place] [address], [address], [facility] 05/03/2023 11:41:58 COVID-19, mRNA, LNP-S, PF, 30 mcg/0.3 mL dose 1 completed [facility] 05/18/2021 16:14:49 Influenza, split virus, quadrivalent, preservative 1 completed Stephenie Sharif RASHARD [facility], [facility] 05/18/2021 16:15:18 zoster recombinant 1 completed [facility] 07/20/2022 16:03:55 influenza, unspecified formulation 1 completed [facility] 08/28/2024 11:19:20 Td(adult) unspecified formulation 4 completed [facility] 08/28/2024 11:19:20 Past Encounters Encounter ID Performer Location Encounter Start Date Encounter Closed Date Diagnosis/Indication Diagnosis SNOMED-CT Code Diagnosis ICD10 Code Diagnosis Note [id number] Pratik Esparza PA-C , [facility], OFFICE [address] [place] [address] 08/28/2024 11:20:36 08/28/2024 11:39:02 Chronic pain 60152132 R52 - due to low back, shoulders, 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 We discussed utilizing our smoking cessation swim coach and online resources. Your personal goal: has been cutting back and smoking 1/2 cig, goal of quitting Rheumatoid arthritis 698 01989 M06.9 Improved symptoms with Actemra. Noted muscle [...] by Organization Details LastModified Time None Recorded Payers Encounter Date Sequence Insurance Name Policy Number Policy Grace Covered Member ID Grace Member ID Guarantor Name 08/28/2024 2 [place] [id number] Harrison Mckeon [id number] Harrison Mckeon 08/28/2024 1 [place] [employer] Harrison Mckeon [id number] Harrison Mckeon Notes Date Note Type Note Provider Name and Address Organization Details Recorded Time 5 text/html Controlled SubstanceReported bypatient.CSRP Contractcontract signed [...] manage conditionNotes:No side effects to the medicationsa/vmg-smoking cyfjwzptw4Wgpocigg bypatient.ImportanceOn a scale of 1-10 with 1 [...] ER BIDPercocet 10 mg 5 times per gnb178 MME Patient presents today for CSRP follow up. The patient, with a history of arthritis, presents for a routine follow-up. He reports significant improvement with the new medication, Actemra, compared to previous treatments. However, he has been experiencing nocturnal muscle spasms, particularly in the toes, ankle, and fingers, which have been managed with a muscle relaxer prescribed by his dog boarder. 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
--- OUTSIDE RECORDS SUMMARY | 2024-09-25 12:38 | XMS_ITS | Continuity of Care Document ---
Author Name [facility] Organization [facility] Care Team Providers Care Airline Manager Name Role Phone [facility] Unavailable Unavailable Problems Combined list of problems [...] WEEK SUBCUT ANEOUS ACTIVE Mateus MUSE 2022 [facility] HYDROCHLORO THIAZIDE TAB TAKE BY MOUTH ORAL ACTIVE Mateus MUSE 2022 [facility] [place] [facility] MULTIVITAMI N (WITHOUT MINERALS) CAP/TAB TAKE BY MOUTH ORAL ACTIVE Mateus MUSE 2022 [facility] [place] [facility] OXYCODONE 5MG/APAP 325MG TAB TAKE BY MOUTH ORAL ACTIVE Mateus MUSE 2022 [facility] [place] [facility] PREDNISONE 5MG TAB TAKE ONE TABLET BY MOUTH ONCE DAILY ORAL ACTIVE MICHAMateus RAWLS 2022 [facility] [place] [facility] Immunizations Combined list of available immunizations from the Department of Defense and Veterans Affairs facilities. Immunization Series Date Given Administered By Site Reaction Lot Number CVX Code Drug Utility Person Status Comments Source INFLUENZA VACCINE, QUADRIVALENT, ADJUVANTED 2020 205 complet ed [facility] [place] [facility] TD(ADULT) UNSPECIFIED FORMULATION 2014 139 complet ed [facility] [place] [facility] TDAP 2014 [facility] [place] [facility] Encounters Combined list of: 1) Encounters from Department of Veterans Affairs facilities going backup to the last 18 months, not all VA inpatient encounters are included; 2) Encounters from the Department of Defense facilities going backup to 280 months. Location Location Details Encounter Type Encounter Number Reason For Visit Attending Provider ADM Date DC Date Status Disposition Source [facility] [place] [facility] EYE EXAM&TX ESTAB PT 1/>VST [id number] Diagnos is: ICD-10- CM L71.1 Rhinoph yma BEBA MUSE 05/16 [facility] [place] [facility] [place] [facility] FIT SPECTACLES MULTIFOCAL [id number] Diagnos is: ICD-10- CM Z46.0 Encount er for fit/adj st of spectac les and contact lenses DAVID HOYT 05/18 [facility] [place] [facility] [place] [facility] Outpatient Encounter [id number] 05/18 [facility] [place] 1 [id number] 1. Diagnos is: ICD-10- CM H25.13 Age-rel ated nuclear catarac t, bilater al BEBA MUSE JORGE 05/28 [facility] FIT SPECTACLES MULTIFOCAL [id number] Diagnos is: ICD-10- CM Z46.0 Encount er for fit/adj st of spectac les and contact lenses BEBA MUSE 05/28 [facility] Social History Combined list of available smoking, tobacco, and other social history from Department of Defense and Veterans Affairs facilities. Social History Type Response Date Comment Sourc e Tobacco smoking status NVIS VA-TOBACCO USE [facility] CONSULTANT NO 04/2019 [place] History of tobacco use VA-TOBACCO USE MED NO 12/20/2018 [place]
--- OUTSIDE RECORDS SUMMARY | 2024-09-25 12:38 | XMS_ITS | Encounter Summary ---
Author Organization [facility] Address [address] [place] [address] Care Team Providers Care Motor Vehicle Assembler Name Role Phone Unavailable Primary Care Provider Unavailabl e Encounter Details Date Type Department Care Team (Late st Contact Info) Description 09/02/2022 Scanned Document [facility] at [address] [address] Provider, Generic Social History Tobacco Use Types Packs/Day Years Used Date Smoking Tobacco: Never Assessed Sex and Gender Information Value Date Recorded Sex Assigned at Not on file Gender Identity Not on file Sexual Orientation Not on file documented as of this encounter Plan of Treatment Not on file documented as of this encounter Procedures Procedure Name Priority Date/Time Associated Diagnosis Comments BOOKING SHEETS-SCAN 09/02/2022 documented in this encounter Results * BOOKING SHEETS-SCAN (09/02/2022) Narrative 09/02/2022 Ordered by an unspecified provider. Generic Provider HX AMB PROCEDURES documented in this encounter Visit Diagnoses Not on filedocumented in this encounter
--- OUTSIDE RECORDS SUMMARY | 2024-09-25 12:38 | XMS_ITS | Encounter Summary ---
Author Name [facility] Address [address] [place] [address] Care Team Providers Care Tool Specialist Name Role Phone VIRAJ LOPEZ Primary Care [...] CATHY COH RETIR EMENT Feb 10, 2021 [id number] [place] PATIENT BCBS OF [facility] PREFERRED PROVIDER ORGANIZAT ION (PPO) [facility] January 07, 2011 [id number] [place] PATIENT [facility] GAMALIEL HART [facility] Feb 11, 2019 [id number] [phone] [place] PATIENT MEDICARE (WNR) MEDICARE (M) PART A Nov 12, 2020 PART A [id number] [place] PATIENT MEDICARE (WNR) MEDICARE (M) PART B Nov 12, 2020 PART B [id number] [place] B[place] N PATIENT Selected Encounter This section includes the information on record at [place] for the Encounter. Date/Time Encounter Type Encounter Description Reason Provider Source May 28, 2024 01:30 PM COMPRE OPH EXAM EST PT 1/> OPTOMETRY ICD-10-CM H25.13 Age-related nuclear cataract, bilateral FAITH UMSE E Encounter Template Text not used by VA Assessments - Encounter Diagnoses This section includes the primary and secondary diagnoses documented for the Encounter. Date/Time Primary/Secondary Diagnosis Diagnosis Name Provider Source Jun 10, 2024 12:43 PM PRIMARY Age-related nuclear cataract, bilateral FAITH [facility]USE [facility] [place] [facility] Jun 10, 2024 12:43 PM SECONDARY Drusen (degenerative) of macula, bilateral FAITH [facility]USE [facility] [place] [facility] Jun 10, 2024 12:43 PM SECONDARY Posterior subcapsular polar age-related cataract, bilateral FAITH MUSE [facility] [place] [facility] Encounter Notes: All associated encounter notes This section contains the clinical notes associated to the Encounter. Date/Time Encounter Note(s) Provider Source May 28, 2024 02:08 PM OPTOMETRY NOTE: LOCAL TITLE: OPTOMETRY NOTE STANDARD TITLE: OPTOMETRY NOTE DATE OF NOTE: MAY 28, 2024@14:08 ENTRY DATE: MAY 28, 2024@14:08:56 AUTHOR: SHY MUSE EXP COSIGNER: URGENCY: STATUS: COMPLETED Active problems - Computerized Problem List is the source for the followin. Hand pain 2. Gout 3. Smoker 4. Multiple nodules of lung 5. Colonic polyp 6. Ulnar collateral ligament sprain Active Outpatient Medications (including Supplies): Active Non-VA Medications Status 1) Non-VA ADALIMUMAB (HUMIRA 40MG PEN) INJ,SOLN ACTIVE SUBCUTANEOUSLY 2) Non-VA HYDROCHLOROTHIAZIDE TAB BY MOUTH ACTIVE 3) Non-VA MULTIVITAMIN (WITHOUT MINERALS) CAP/TAB BY ACTIVE MOUTH 4) Non-VA OXYCODONE 5MG/APAP 325MG TAB BY MOUTH ACTIVE 5) Non-VA PREDNISONE 5MG TAB 5MG BY MOUTH ONCE DAILY ACTIVE Allergies: Patient has answered NKA All medications including those prescribed by outside VA's, community providers, and all OTC meds were reviewed and reconciled with patient to the best of their abilities. This 68 year old MALE is seen today for comprehensive eye examination. Medical, eye, personal, and social history are all reviewed and is contributory to today's visit for bilateral cataracts. He has previously reported a family history of glaucoma for his mother. His last eye examination was here on May 18, 2023. He presents today complaining of decreased distance and near vision. Chief Complaint: Decreased distance and near vision Vision: With 20/25 right eye 20/25 left eye Without Correction Pupils, EOMS, confrontation davis are all done and shows round reactive pupils without afferent pupillary defect with full extraocular motility and full confrontation davis to finger counting each eye Current Wear: OD: +2.50 -1.75 axis 085 OS: +2.50 -1.75 axis 080 +2.25 add Refraction: OD: +2.75 -1.50 axis 085 20/20 OS: +2.25 -1.50 axis 080 20/20 +2.25 add 20/20 Tonometry: 11 OD 11 OS Time: 1:39 PM dilated with tropicamide 1% each eye after dilation warning given and verbal consent obtained PreTreatment IOP: OD OS Pachymetry: Florid rosacea facies with rhinophyma Anterior segment: Lids: Dermatochalasis, ptosis with lower lid bags and 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 Conj: Mild chronic injection each eye Cornea: Clear centrally without staining or pigment each eye AC: 3+ and quiet each eye Iris: Normal each eye Lens: 1+ nuclear sclerosis with posterior subcapsular changes each eye Vit: Clear each eye Fundus exam: Dilated: xxx Non dilated: C/D: Smaller disc size 0.15 right eye 0.25 left eye with distinct disc margins and good color Macula: Rare hard drusen no evidence of subretinal fluid, subretinal blood, exudate or thickening either eye A/V: 1/2 each eye Vessels: Normal each eye Periphery: No holes, tears, detachments each eye Impression: Facial and ocular rosacea currently asymptomatic with regard to dry eye symptoms. Nuclear sclerotic and posterior subcapsular cataracts each eye with surprisingly good vision. He understands new glasses will resolve some of his visual symptoms but issues with regard to glare and halo will remain. He understands he may very well require cataract surgery in the near future. Fine scant macular drusen each eye without evidence of subretinal fluid, subretinal blood, exudate or thickening. Degree of drusen does not warrant initiation with ocular supplements at present. Plan: Patient education as noted above reviewed exam findings now. Ordering new glasses today. He may require cataract surgery in the near future. Return in 12 months or sooner if need be. Education: Discussed presence of cataracts and how this relates to his visual symptoms. Understands problems with regard to glare and halo will not resolve with new glasses and he likely will require cataract surgery in the near future. Return to Clinic 12 months or sooner if need be. Ophthalmic medication conciliation: He is currently not taking or prescribed any ocular medications. Suicide Screen: C-SSRS Screening [place]-Suicide Severity Rating Scale (C-SSRS Screener) 1. Over the past month, have you wished you were or wished you could go to sleep and not wake up? No 2. Over the past month, have you had any actual thoughts of killing yourself? No 3. Over the past month, have you been thinking about how you might do this? Response not required due to responses to other questions. 4. Over the past month, have you had these thoughts and had some intention of acting on them? Response not required due to responses to other questions. 5. Over the past month, have you started to work out or worked out the details of how to kill yourself? Response not required due to responses to other questions. 6. If yes, at any time in the past month did you intend to carry out this plan? Response not required due to responses to other questions. 7. In your lifetime, have you ever done anything, started to do anything, or prepared to do anything to end your life (for example, collected pills, obtained a gun, gave away valuables, went to the roof but didn't jump)? No 8. If YES, was this within the past 3 months? Response not required due to responses to other questions. Medication Reconciliation: Outpatient: Has the patient been taking medications as documented in the EMLR? YES: The patient has been taking medications as documented in the EMLR. Essential Medication List for Review used to complete this medication reconciliation. INCLUDED IN THIS LIST: Alphabetical list of active outpatient prescriptions dispensed from this VA (local) and dispensed from another VA or DoD facility (remote) as well as inpatient orders (local, pending and active), local clinic medications, locally documented non-VA medications, and local prescriptions that have or been discontinued in the past 90 days. - All changes in medications, including all non-VA/Herbal/OTC medications were entered into CPRS. - If there were any medications the patient should no longer take, they were discontinued. - The patient/caregiver was instructed to update this list, discard old lists, and take this list to the next appointment, whether with a VA or non-VA provider. JLV Link Data on this list may not be complete. Please check JLV. Allergies/ADRs (Tool #5) FACILITY ALLERGY/ADR -------- No Remote Allergy/ADR Data available for this patient [place] [facility] [place] [facility] No Known Allergies Med Recon NoGlossary (Tool #1) INCLUDED IN THIS LIST: Alphabetical list of active outpatient prescriptions dispensed from this VA (local) and dispensed from another VA or DoD facility (remote) as well as inpatient orders (local pending and active), local clinic medications, locally documented non-VA medications, and local prescriptions that have or been discontinued in the past 90 days. Non-VA Meds Last Documented On: May 16, 2023 NOTE The display of VA prescriptions dispensed from another VA or DoD facility (remote) is limited to active outpatient prescription entries matched to National Drug File at the originating site and may not include some items such as investigational drugs, compounds, etc. NOT INCLUDED IN THIS LIST: Medications self-entered by the patient into personal health records (i.e. [employer]) are NOT included in this list. Non-VA medications documented outside this [place], remote inpatient orders (regardless of status) and remote clinic medications are NOT included in this list. The patient and provider must always discuss medications the patient is taking, regardless of where the medication was dispensed or obtained. Non-VA ADALIMUMAB (HUMIRA 40MG PEN) INJ,SOLN INJECT SUBCUTANEOUSLY ONCE A WEEK Non-VA medication not recommended by VA provider. Indication: UNKNOWN Non-VA HYDROCHLOROTHIAZIDE TAB TAKE BY MOUTH Indication: FOR HIGH BLOOD PRESSURE Non-VA MULTIVITAMIN (WITHOUT MINERALS) CAP/TAB TAKE BY MOUTH Non-VA medication not recommended by VA provider. Indication: FOR VITAMIN SUPPLEMENTATION Non-VA OXYCODONE 5MG/APAP 325MG TAB TAKE BY MOUTH Non-VA medication not recommended by VA provider. Indication: FOR PAIN Non-VA PREDNISONE 5MG TAB TAKE ONE TABLET BY MOUTH ONCE DAILY Indication: UNKNOWN SUPPLIES Declines printed copy of medication list now. /ana maría/ Shy Muse OD CHIEF OF OPTOMETRY Signed: 05/29/2024 12:05 SHY MUSE [facility]
== END 2024-09-25 11:30 | disposition home or self-care (01) ==
PROVIDERS: PCP Physician Assistant Medical; Visit Provider Student in an Organized Health Care Education/Training Program
DX: M05.79 Rheumatoid arthritis with rheumatoid factor of multiple sites without organ or systems involvement (principal); Z79.899 Other long term (current) drug therapy; Z79.52 Long term (current) use of systemic steroids
CPT/HCPCS: 99213; G2211

== ENCOUNTER → 2024-09-25 10:50 | Outpatient (BNVA) | payer MEDICARE, SELFPAY | PROVIDERS: PCP Physician Assistant Medical; Visit Provider Student in an Organized Health Care Education/Training Program | DX: M05.79 Rheumatoid arthritis with rheumatoid factor of multiple sites without organ or systems involvement (principal); Z79.899 Other long term (current) drug therapy; Z79.52 Long term (current) use of systemic steroids | CPT/HCPCS: 99212 ==

== ENCOUNTER 2024-10-30 09:16 | Outpatient (AMB) | payer MEDICARE, SELFPAY ==
--- NOTE | 2024-10-30 09:17 | A.OFFVIS_ITS ---
Vital Signs 10/30/24 09:20 Height 5 ft 10.5 in Weight 211 lb 6.773 oz BMI 29.9 BP 120/80 Blood Pressure Location Lt brachial Position Sitting Pulse 79 Pulse Source Pulse Oximeter Pulse Oximetry (%) 98 Oxygen Delivery Method Room Air Intake Visit Reasons: Ra Intake Note: Patient presents for RA. Allergies No Known Allergies Allergy (Verified 10/30/24 09:20) Medication List - Last Reconciled 10/30/24 by Jayne Bills MD cyclobenzaprine 5 - 10 mg (1 - 2 x 5 mg) PO BEDTIME PRN etanercept (Enbrel SureClick) 50 mg subcut QWEEK hydrochlorothiazide 25 mg PO DAILY multivitamin 1 tab PO DAILY oxycodone ER 20 mg PO DAILY oxycodone-acetaminophen 10-325 mg 1 tab PO .5 times a day prednisone 5 mg (1/2 x 10 mg) PO DAILY PRN sildenafil 100 mg PO DAILY PRN HPI Comments Details: Patient is a 68-year-old male with hypertension, nondiabetic Charcot joint of the foot, and seropositive rheumatoid arthritis here today for follow up Interval History: Patient last seen 09/25/2024 with me. At that time patient was taking Enbrel 50 mg weekly, prednisone 10 mg daily and Flexeril 5-10 mg nightly p.r.n.. In the visit prior he was supposed to reduce his prednisone from 10 mg to 5 mg but continued to take the 10 mg because he is unable to get his Charcot joint revised due to the prolonged postop period and he is currently taking care of his who is at home with advanced COPD. At that visit he was doing well without any prolonged morning stiffness or swelling and there was no evidence of synovitis and so it was discussed to reduce his prednisone to 5 mg daily and patient agreed Today, Patient reports he is doing well overall Moved down to the 5mg prednisone daily but does note that on days when he does more activity his joints would hurt and he would increase to 10mg for that night and the pain would improve the next day Currently complaining of wrist pain Rheumatologic History: Seropositive rheumatoid arthritis ++RF, +++CCP diagnosed around 2017 Hydroxychloroquine ineffective, leflunomide partially effective discontinued due to neuropathy Humira started summer 2021, effective advanced to weekly 03/2023 DC 12/2023 due to losing effectiveness Actemra 12/2023 DC 06/2024 ineffective Enbrel started 06/2024 effective Prednisone all through Current Rheumatology Medication(s): Enbrel 50 mg sc weekly Prednisolone 5 mg daily Flexeril 5-10 mg nightly p.r.n. 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 Fractures, compound Opioid dependence Disorder of rotator cuff Gout Chronic sciatica Tobacco abuse Multiple lung nodules Hyperlipidemia COPD (chronic obstructive pulmonary disease) Fibrosis of lung Rheumatoid arthritis Essential hypertension Surgical History History of surgery on right wrist Family History Father Diabetes Mother Heart disease Social History Household Members: Spouse Alcohol intake: current Alcohol intake frequency: holidays/special occasions only Patient Tobacco Use Status: Current everyday Tobacco user Cigarettes Per Day: 18 Current occupational status: retired Review of Systems Const Details: Review of Systems Constitutional: Denies fever, chills, weight loss ENT: Denies vision changes, eye pain or eye redness, dental caries, dry mouth GI: Denies nausea, vomiting, diarrhea, abdominal pain, change in BM Pulm: Denies SOB, SANTANA, hemoptysis, wheezing Cards: Denies chest pain, palpitations Skin: Denies Raynaud's, rash, nail changes, photosensitivity, PUBLIC AFFAIRS OFFICER: Denies headaches, weakness, paresthesias, recurrent falls MSK: as per HPI All other systems reviewed and are unremarkable except noted above Physical Exam Vital Signs: Last Vital Signs Pulse 79 10/30/24 09:20 BP 120/80 10/30/24 09:20 Pulse Ox 98 10/30/24 09:20 Oxygen Delivery Method Room Air 10/30/24 09:20 BMI result Body Mass Index 29.9 Vital signs reviewed Physical Examination CONSTITUITIONAL Patient alert and cooperative. Well appearing and in no apparent painful distress HEENT Conjunctiva and sclera clear. ?Pupils equal round and reactive to light. ?No lymphadenopathy. ? CHEST/RESPIRATORY SYSTEM Normal respiratory effort and able to speak in complete sentences. ?Clear to auscultation bilaterally. ?No crackles, rales, rhonchi, wheezes heard. CARDIAC SYSTEM Regular rate and rhythm. ?S1 and S2 heard no murmurs. ?Radial pulses intact bilaterally MSK Hands: ?Good microfilm technician strength bilaterally. No deformities noted. ?No synovitis noted to the MCPs, PIPs or DIPs. ?No tenderness to palpation of these joints. Scattered Heberden's nodes noted. Clubbing noted to the index and middle fingers bilaterally Wrists: ?Full range of motion at the wrists without pain. ?No tenderness to palp ation or synovitis noted to the wrists. Elbows: Full range of motion without pain. No tenderness, weakness, swelling, increased warmth or erythema. Rheumatoid nodule noted to right extensor surface of forearm Shoulders: Full range of motion without pain. No tenderness, weakness, swelling, increased warmth or erythema. Hips: Full range of motion without pain. Hip bursa: No tenderness to palpation Knees: ?Full range of motion. ?No tenderness, swelling, increased warmth or erythema.?No effusion or crepitations Ankles: Full range of motion. ?No tenderness, swelling, increased warmth or erythema.? Feet: ?Negative squeeze test. ?No tenderness to palpation or swelling of the MTPs. Tender points:?No tenderness to palpation of the bilateral trapezius, supraspinatus, greater trochanters, anterior costochondral junctions, bilateral gluteal areas, bilateral suboccipital muscle insertions SKIN Skin intact without rashes. Results Reviewed Results Reviewed: VMG Results seen on phone 10/08/2024 WBC 10.64 Hb 15.8 Hct 47.3 Plt 252 Tp 7.6 Alb 3.6 AST 18 ALT 29 Alk Phos 86 BUN 27 Cr 1.4 GFR 57 Na 137 K 4.4 CO2 26 Ca 9.3 Assessment & Plan Assessment & Plan (1) Rheumatoid arthritis: Comment: ++RF, +++CCP diagnosed around 2017 Hydroxychloroquine ineffective, leflunomide partially effective discontinued due to neuropathy Humira started summer 2021, effective advanced to weekly 03/2023 DC 12/2023 due to losing effectiveness Actemra 12/2023 DC 06/2024 ineffective Enbrel started 06/2024 effective Prednisone all through Code(s): M06.9 - Rheumatoid arthritis, unspecified Category: Medical Qualifiers: Rheumatoid arthritis location: multiple sites Rheumatoid factor presence: with rheumatoid factor Qualified Code(s): M05.79 - Rheumatoid arthritis with rheumatoid factor of multiple sites without organ or systems involvement Plan: #Seropositive RA Patient is a 68-year-old male with seropositive rheumatoid arthritis here today for follow up. Patient is currently in a remission of his disease. Was able to taper his steroids from 10 mg daily to 5 mg daily and doing well with that. No evidence of synovitis on examination. I did discuss with him that his kidney function is slowly trending down. I advised him to follow up with his PCP for this. I will see see his PCP on this note as well. Plan - Enbrel 50mg weekly SC - Prednisone 5mg daily - Flexeril 5-10mg nightly prn - RTC 4 months - Labs before visit printed for patient: CBC, CMP, ESR, CRP, hepatitis panel, T spot (2) nursing home systemic steroid user: Code(s): Z79.52 - ad terminal makeup operator (current) use of systemic steroids Category: Medical Plan: #Long-term Use of Steroids Discussed with patient the risks and benefits of steroid for managing the rheumatic condition Benefits include: - Reduced pain, improved mobility, increased participation in activities, and decreased progression of disease Risks include: - GI upset, potential ultrasound worsening or formation (especially in patients > 65 years old), elevated blood pressure/worsening hypertension, elevated blood sugar/worsening diabetes control, worsening of bone density, elevated lipids/worsening triglycerides, cataract formation, weight gain Recommended using proton pump inhibitors (PPIs) for the duration of steroid use to reduce the risk of gastric ulcers and vitamin-D daily to reduce the risk of osteoporosis Labs checked: ?A1c, T spot, hepatitis-B and C serologies Pneumocystis jiroveci prophylaxis: ?Patient with risk factors including steroids greater than 50 mg for more than 30 days, age greater than 60 years, and lung involvement from underlying rheumatic disease requires prophylaxis and will be given so (3) Encounter for monitoring of etanercept therapy: Code(s): Z51.81 - Encounter for therapeutic drug level monitoring; Z79.620 - nursing home (current) use of immunosuppressive biologic Plan: #Long-term Use of TNF Inhibitors: Etanercept Discussed with the patient the benefits and risks of TNF inhibitors for the management of the rheumatic condition Benefits include reduce pain, maintenance of remission and reduction of flares as well as ?progression of the disease Risks include injection sites/infusion reactions, serious infections (such as bacterial infections, opportunistic infections), malignancy, delaminating syndromes, autoimmune phenomena, CHF exacerbations, palmar plantar psoriasis and cytopenias Recommended rotating injection sites, and holding medication during and for up to 1 week after resolution of a febrile illness or open skin wound Plan I spent 26 minutes reviewing the record and labs, taking a history, examining the patient, discussing the treatment plan, ordering diagnostic work up and documenting in the medical record Orders: Orders Complete Blood Count Auto Diff 4 Months M05.79 - Rheumatoid arthritis with rheumatoid factor of multiple sites without organ or systems involvement, Z51.81 - Encounter for therapeutic drug level monitoring, Z79.620 - ad terminal makeup operator (current) use of immunosuppressive biologic Comprehensive Met. Panel 4 Months M05.79 - Rheumatoid arthritis with rheumatoid factor of multiple sites without organ or systems involvement, Z51.81 - Encounter for therapeutic drug level monitoring, Z79.620 - ad terminal makeup operator (current) use of immunosuppressive biologic T Spot TB 4 Months M05. - Rheumatoid arthritis with rheumatoid factor of multiple sites without organ or systems involvement, Z51.81 - Encounter for therapeutic drug level monitoring, Z79.620 - nursing home (current) use of immunosuppressive biologic C Reactive Protein 4 Months M05.79 - Rheumatoid arthritis with rheumatoid factor of multiple sites without organ or systems involvement, Z51.81 - Encounter for therapeutic drug level monitoring, Z79.620 - ad terminal makeup operator (current) use of immunosuppressive biologic Erythrocyte Sedimentation Rate 4 Months M05.79 - Rheumatoid arthritis with rheumatoid factor of multiple sites without organ or systems involvement, Z51.81 - Encounter for therapeutic drug level monitoring, Z79.620 - ad terminal makeup operator (current) use of immunosuppressive biologic Hepatitis A,B,C Profile 4 Months . - Rheumatoid arthritis with rheumatoid factor of multiple sites without organ or systems involvement, Z51.81 - Encounter for therapeutic drug level monitoring, Z79.620 - ad terminal makeup operator (current) use of immunosuppressive biologic Medications: Changed From prednisone 5 mg (1/2 x 10 mg) PO DAILY PRN 30 tabs 2RF joint pain M05.79 - Rheumatoid arthritis with rheumatoid factor of multiple sites without organ or systems involvement, Z79.52 - nursing home (current) use of systemic steroids, Z79. 899 - Other ad terminal makeup operator (current) drug therapy To prednisone 5 mg PO DAILY PRN 90 tabs 1RF joint pain M05.79 - Rheumatoid arthritis with rheumatoid factor of multiple sites without organ or systems involvement, Z79.52 - ad terminal makeup operator (current) use of systemic steroids, Z79.899 - Other shelter (current) drug therapy Refilled cyclobenzaprine Can cause dizziness/lightheadedness/grogginess. Do not drive or operate heavy machinery if feeling as such 5 - 10 mg (1 - 2 x 5 mg) PO BEDTIME PRN 90 tabs 1RF muscle spasm etanercept (Enbrel SureClick) 50 mg subcut QWEEK 4 mL 3RF M05.79 - Rheumatoid arthritis with rheumatoid factor of multiple sites without organ or systems involvement Coding Level of Care Code Est Pt Level 3 (45680) Complex EM visit Add On G2211 Diagnoses Rheumatoid arthritis involving multiple sites with positive rheumatoid factor M05.79 Rheumatoid arthritis location: multiple sites Rheumatoid factor presence: with rheumatoid factor ad terminal makeup operator systemic steroid user Z79.52 Encounter for monitoring of etanercept therapy Z51.81; Z79.620
[2024-10-30 09:20] VITALS: BP 120/80; PULSE 79; O2SAT 98; BMI 29.9
--- OUTSIDE RECORDS SUMMARY | 2024-10-30 10:14 | XMS_ITS ---
Author Name [facility] Organization Unknown Care Team Organization Name Specialty Phone Email Start Date End [facility]
--- OUTSIDE RECORDS SUMMARY | 2024-10-30 10:14 | XMS_ITS | Continuity of Care Document ---
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 Name Role Phone [facility] Unavailable Unavailable Problems Combined list of problems [...] WEEK SUBCUT ANEOUS ACTIVE [facility] 2022 [facility] HYDROCHLORO THIAZIDE TAB TAKE BY MOUTH ORAL ACTIVE aMteus MUSE 2022 [place] [facility] [place] [facility] MULTIVITAMI N (WITHOUT MINERALS) CAP/TAB TAKE BY MOUTH ORAL ACTIVE Mateus MUSE 2022 [place] [facility] [place] [facility] OXYCODONE 5MG/APAP 325MG TAB TAKE BY MOUTH ORAL ACTIVE Mateus MUSE 2022 [place] [facility] [place] [facility] PREDNISONE 5MG TAB TAKE ONE TABLET BY MOUTH ONCE DAILY ORAL ACTIVE MICHAMateus RAWLS 2022 [place] [facility] [place] [facility] Immunizations Combined list of available immunizations from the Department of Defense and Veterans Affairs facilities. Immunization Series Date Given Administered By Site Reaction Lot Number CVX Code Drug Outsewer Status Comments Source INFLUENZA VACCINE, QUADRIVALENT, ADJUVANTED 2020 205 complet ed [place] [facility] [place] [facility] TD(ADULT) UNSPECIFIED FORMULATION 2014 139 complet ed [place] [facility] [place] [facility] TDAP 2014 [facility] Encounters Combined list of: 1) Encounters from Department of Veterans Affairs facilities going backup to the last 18 months, not all VA inpatient encounters are included; 2) Encounters from the Department of Defense facilities going backup to 280 months. Location Location Details Encounter Type Encounter Number Reason For Visit Attending Provider ADM Date DC Date Status Disposition Source [facility] EYE EXAM&TX ESTAB PT 1/>VST [id number] Diagnos is: ICD-10- CM L71.1 Rhinoph yma BEBA MUSE 05/16 [place] [facility] [place] [facility] FIT SPECTACLES MULTIFOCAL [id number] Diagnos is: ICD-10- CM Z46.0 Encount er for fit/adj st of spectac les and contact lenses DAVID HOYT 05/18 [place] [facility] [place] [facility] Outpatient Encounter [id number] 05/18 [facility] [place] 1 [id number]. Diagnos is: ICD-10- CM H25.13 Age-rel ated nuclear catarac t, bilater al BEBA MUSE JORGE 05/28 [facility] FIT SPECTACLES MULTIFOCAL [id number] Diagnos is: ICD-10- CM Z46.0 Encount er for fit/adj st of spectac les and contact lenses BEBA MUSE 05/28 [facility] Social History Combined list of available smoking, tobacco, and other social history from Department of Defense and Veterans Affairs facilities. 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
--- OUTSIDE RECORDS SUMMARY | 2024-10-30 10:14 | XMS_ITS | Encounter Summary ---
Author Organization [facility] Address [address] [place] [address] Care Team Providers Care English Instructor Name Role Phone Unavailable Primary Care Provider Unavailabl e Encounter Details Date Type Department Care Team (Late st Contact Info) Description 09/02/2022 Scanned Document Formerly [facility] [place] at [address] [id number] Provider, Generic Social History Tobacco [...]
--- OUTSIDE RECORDS SUMMARY | 2024-10-30 10:14 | XMS_ITS | Data Portability ---
Author Organization [facility], , [facility] Address [address] [place] [address] Care Team Providers Care Protein Purification Scientist Name Role Phone DENNISE ESPARZA Primary Care Provider [phone] AYLIN CALIX Operations Intern [facility] Operations Intern CORINNE KRISHNAMURTHY Rack Loader Unavailable Assessment No assessment recorded. Plan of Treatment Reminders Order Date Submit Date Provider Last Modified By Organization Details Last Modified Time Details Appointments Follow Up, 2024 01:30P M Dennise Esparza PA-C Not available Not available Not available Lab drug screen, urine - Date and Time of Last Dose:Oxy/ acet 10/325: 08/28/24 10amOxyco ntin 20: 08/28/24 10:[address] [facility], [address] [place] [address], [id number], 08/29/2024 10:29:50 magnesium , blood [address] [facility], [address] [place] [address], [address], 06/06/2024 12:12:19 BMP, serum or plasma [address] [facility], [address] [place] [address], [address], 06/06/2024 12:12:17 vitamin B12, serum [address] [facility], [address] [place] [address], [address], 06/06/2024 14:17:06 drug screen, urine - Date and Time of Last Dose:Oxyc ontin20, oxy/acet 10/325 last taken 01/29 am for both [address] [facility], [address] [place], [address], 01/31/2024 13:19:57 drug screen, urine - Oxycodone Last dose 10/30/23 4 amOxycodo ne/Rommel Last dose 10/30/23 11:[address] [facility], [address] [place], [address], 10/31/2023 10:15:27 Referral None recorded. Procedures None recorded. Surgeries None recorded. Imaging None recorded. Medication Orders None recorded. Patient TargetsNo targets recorded. Patient Instructions Encounter Date Encounter Id Patient Instructions Last Modified By Organization Details Last Modified Time 10/30/2023 [id number] [facility] To Do List Specific Analgesia Plan: {{Continue [...] medication. [email or web address] Not available 10/30/2023 12:14:18 01/30/2024 [id number] [facility] To Do List Specific Analgesia [...] medication. [email or web address] Not available 01/29/2024 15:43:48 05/28/2024 [id number] [facility] To Do List Specific Analgesia [...] medication. [email or web address] Not available 05/28/2024 15:20:09 08/28/2024 [id number] [facility] To Do List Specific Analgesia [...] WBC 8.60 K/??L 4.23-9 .07 Not Available [address], [place], [address], 10/18/2023 15:18:23 10/18/19 24 10/18/2023 CBC RBC 4.93 M/??L 4.63-6 .08 Not Available [address], [address], 10/18/2023 15:18:23 10/18/19 24 10/18/2023 CBC HGB 14.9 g/dL 13.7-1 7.5 Not Available [address], [address], 10/18/2023 15:18:23 10/18/19 24 10/18/2023 CBC HCT 46.1 % 40.1-5 1.0 Not Available [address], [address], 10/18/2023 15:18:23 10/18/19 24 10/18/2023 CBC MCV 93.5 fL 79.0-9 2.2 high Not Available [address], [address], 10/18/2023 15:18:23 10/18/19 24 10/18/2023 CBC MCH 30.2 pg 25.7-3 2.2 Not Available [address], [address], 10/18/2023 15:18:23 10/18/19 24 10/18/2023 CBC MCHC 32.3 g/dL 32.3-3 6.5 Not Available [address], [address], 10/18/2023 15:18:23 10/18/19 24 10/18/2023 CBC plt 254 K/??L 163-33 7 Not Available [address], [address], 10/18/2023 15:18:23 10/18/19 24 10/18/2023 CBC MPV 11.8 fL 9.4-12 .4 Not Available [address], [address], 10/18/2023 15:18:23 10/18/19 24 10/18/2023 CBC neut% 75.4 % 34.0-6 7.9 high Not Available [address], [address], 10/18/2023 15:18:23 10/18/19 24 10/18/2023 CBC neut# 6.48 1.78-5 .38 high Not Available [address], [address], 10/18/2023 15:18:23 10/18/19 24 10/18/2023 CBC lymph % 16.3 % 21.8-5 3.1 low Not Available [address], [address], 10/18/2023 15:18:23 10/18/19 24 10/18/2023 CBC lymph # 1.40 K/??L 1.32-3 .57 Not Available [address], [address], 10/18/2023 15:18:23 10/18/19 24 10/18/2023 CBC mono% 5.6 % 5.3-12 .2 Not Available [address], [address], 10/18/2023 15:18:23 10/18/19 24 10/18/2023 CBC mono# 0.48 0.30-0 .82 Not Available [address], [address], 10/18/2023 15:18:23 10/18/19 24 10/18/2023 CBC eo% 2.1 % 0.8-7. 0 Not Available [address], [address], 10/18/2023 15:18:23 10/18/19 24 10/18/2023 CBC eo# 0.18 0.04-0 .54 Not Available [address], [address], 10/18/2023 15:18:23 10/18/19 24 10/18/2023 CBC baso% 0.3 % 0.2-1. 2 Not Available [address], [address], 10/18/2023 15:18:23 10/18/19 24 10/18/2023 CBC baso# 0.03 0.00-0 .08 Not Available [address], [address], 10/18/2023 15:18:23 10/18/19 24 10/18/2023 CBC RDW-CV 13.1 % 11.6-1 4.4 Not Available [address], [address], 10/18/2023 15:18:23 10/18/19 24 10/18/2023 CBC Ig% 0.300 % 0.000- 1.500 Ig % >0.5 Indic ates possi ble Left Shift Not Available [address], [address], 10/18/2023 15:18:23 10/18/19 24 10/18/2023 CBC Ig# 0.030 0.000- 0.093 Not Available [address], [address], 10/18/2023 15:18:23 10/18/19 24 10/18/2023 CBC NRBC% 0.0 % 0.0-0. 2 Not Available [address], [address], 10/18/2023 15:18:23 10/18/19 24 10/18/2023 CBC NRBC# 0.000 0.000- 0.012 Not Available [address], [address], 10/18/2023 15:18:23 10/18/19 24 10/18/2023 COMP. METAB OLIC PANEL glucose 102 mg/dL 70-100 high Not Available [address], [address], 10/18/2023 16:04:03 10/18/19 24 10/18/2023 COMP. METAB OLIC PANEL BUN 25 mg/dL 7-18 high Not Available [address], [address], 10/18/2023 16:04:03 10/18/19 24 10/18/2023 COMP. METAB OLIC PANEL creatinine 1.1 mg/dL 0.8-1. 3 Not Available [address], [address], 10/18/2023 16:04:03 10/18/19 24 10/18/2023 COMP. METAB OLIC PANEL B/C 22.7 ratio Not Available [address], [address], 10/18/2023 16:04:03 10/18/19 24 10/18/2023 COMP. METAB [...] be used in pregn domingo. Not Available [address], [address], 10/18/2023 16:04:03 10/18/19 24 10/18/2023 COMP. METAB OLIC PANEL sodium 142 mmol/ L 136-14 5 Not Available [address], [address], 10/18/2023 16:04:03 10/18/19 24 10/18/2023 COMP. METAB OLIC PANEL potassium 4.2 mmol/ L 3.5-5. 1 Not Available [address], [address], 10/18/2023 16:04:03 10/18/19 24 10/18/2023 COMP. METAB OLIC PANEL chloride 103 mmol/ L 96-107 Not Available [address], [address], 10/18/2023 16:04:03 10/18/19 24 10/18/2023 COMP. METAB OLIC PANEL anion gap 10.2 5.0-15 .0 Not Available [address], [address], 10/18/2023 16:04:03 10/18/19 24 10/18/2023 COMP. METAB OLIC PANEL CO2 29 mmol/ L 21-32 Not Available [address], [address], 10/18/2023 16:04:03 10/18/19 24 10/18/2023 COMP. METAB OLIC PANEL calcium 9.4 mg/dL 8.5-10 .3 Not Available [address], [address], 10/18/2023 16:04:03 10/18/19 24 10/18/2023 COMP. METAB OLIC PANEL total protein 7.5 g/dL 6.4-8. 2 Not Available [address], [address], 10/18/2023 16:04:03 10/18/19 24 10/18/2023 COMP. METAB OLIC PANEL albumin 3.7 g/dL 3.4-5. 0 Not Available [address], [address], 10/18/2023 16:04:03 10/18/19 24 10/18/2023 COMP. METAB OLIC PANEL globulin 3.8 g/dL Not Available [address], [address], 10/18/2023 16:04:03 10/18/19 24 10/18/2023 COMP. METAB OLIC PANEL A/G 1.0 ratio 0.8-2. 0 Not Available [address], [address], 10/18/2023 16:04:03 10/18/19 24 10/18/2023 COMP. METAB OLIC PANEL total bilirubin 0.40 mg/dL 0.00-1 .00 Not Available [address], [address], 10/18/2023 16:04:03 10/18/19 24 10/18/2023 COMP. METAB OLIC PANEL AST 27 U/L 0-37 Not Available [address], [address], 10/18/2023 16:04:03 10/18/19 24 10/18/2023 COMP. METAB OLIC PANEL ALT 32 U/L 6-63 Not Available [address], [address], 10/18/2023 16:04:03 10/18/19 24 10/18/2023 COMP. METAB OLIC PANEL alk. phos. 94 U/L 50-136 Not Available [address], [address], 10/18/2023 16:04:03 10/18/19 24 10/18/2023 URIC ACID uric acid 5.9 mg/dL 3.5-7. 2 Not Available [address], [address], 10/18/2023 16:04:05 10/18/19 24 10/18/2023 C-LAVINIA CTIVE PROTE IN (RCRP ) C-reactive protein (rcrp) 15.4 mg/dL 0.5-9. 0 high Not Available [address], [address], 10/18/2023 16:04:06 10/18/19 24 10/18/2023 ESR sed rate 68.0 0.0-20 .0 high Not Available [address], [address], 10/18/2023 16:17:42 10/18/19 24 10/20/2023 PROTE IN, TOTAL AND PROTE IN ELECT ROPHO RESIS protein, total 7.6 g/dL 6.1-8. 1 normal Not Available [facility] [address], [address], 10/20/2023 12:12:30 10/18/19 24 10/20/2023 PROTE IN, TOTAL AND PROTE IN ELECT ROPHO RESIS albumin 4.0 g/dL 3.8-4. 8 normal Not Available [facility] [address], [address], 10/20/2023 12:12:30 10/18/19 24 10/20/2023 PROTE IN, TOTAL AND PROTE IN ELECT ROPHO RESIS alpha 1 globulin 0.4 g/dL 0.2-0. 3 high Not Available [facility] [address], [address], 10/20/2023 12:12:30 10/18/19 24 10/20/2023 PROTE IN, TOTAL AND PROTE IN ELECT ROPHO RESIS alpha 2 globulin 0.9 g/dL 0.5-0. 9 normal Not Available [facility] [address] [place], [address], 10/20/2023 12:12:30 10/18/19 24 10/20/2023 PROTE IN, TOTAL AND PROTE IN ELECT ROPHO RESIS beta 1 globulin 0.4 g/dL 0.4-0. 6 normal Not Available [facility] [place] [facility] [address], [place], [address], 10/20/2023 12:12:30 10/18/19 24 10/20/2023 PROTE IN, TOTAL AND PROTE IN ELECT ROPHO RESIS beta 2 globulin 0.5 g/dL 0.2-0. 5 normal Not Available [facility] [place] [facility] [address], [place], [address], 10/20/2023 12:12:30 10/18/19 24 10/20/2023 PROTE IN, TOTAL AND PROTE IN ELECT ROPHO RESIS gamma globulin 1.4 g/dL 0.8-1. 7 normal Not Available [facility] [place] [facility] [address], [place], [address], 10/20/2023 12:12:30 10/18/19 24 10/20/2023 PROTE IN, TOTAL AND PROTE IN ELECT ROPHO RESIS interpretati on Alpha -1 globu latha incre ase noted . Not Available [facility] [place] [facility] [address], [place], [address], 10/20/2023 12:12:30 10/30/19 24 10/31/2023 DRUG SCREE N-8, URINE , WITH CONFI RMATI ON GC/MS amphetamine NEG. negati ve Not Available [address], [place], [address], 10/31/2023 10:15:27 10/30/19 24 10/31/2023 DRUG SCREE N-8, URINE , WITH CONFI RMATI ON GC/MS barbiturates NEG. negati ve Not Available [address], [address], 10/31/2023 10:15:27 10/30/19 24 10/31/2023 DRUG SCREE N-8, URINE , WITH CONFI RMATI ON GC/MS benzodiazepi ne NEG. negati ve Not Available [address], [address], 10/31/2023 10:15:27 10/30/19 24 10/31/2023 DRUG SCREE N-8, URINE , WITH CONFI RMATI ON GC/MS cocaine NEG. negati ve Not Available [address], [address], 10/31/2023 10:15:27 10/30/19 24 10/31/2023 DRUG SCREE N-8, URINE , WITH CONFI RMATI ON GC/MS opiates POS. negati ve Not Available [address], [address], 10/31/2023 10:15:27 10/30/19 24 10/31/2023 DRUG SCREE N-8, URINE , WITH CONFI RMATI ON GC/MS methadone NEG. negati ve Not Available [address], [address], 10/31/2023 10:15:27 10/30/19 24 10/31/2023 DRUG SCREE [...] ng/ml Fenta nyl 1 ng/ml Not Available [address], [address], 10/31/2023 10:15:27 10/30/19 24 10/31/2023 DRUG SCREE N-8, URINE , WITH CONFI RMATI ON GC/MS oxycodone POS. negati ve GCOP= Urine sampl e sent to [facility] for confi rmati on of opiat es by GC/MS . Not Available [address], [place], [address], 10/31/2023 10:15:27 10/30/19 24 11/03/2023 DRUG TOX MONIT ORING OPIAT ES EXPAN DED QN, U codeine NEGATI VE NG/mL <50 See Note 1 Not Available [facility] [address], [address], 11/03/2023 16:03:01 10/30/19 24 11/03/2023 DRUG TOX MONIT ORING OPIAT ES EXPAN DED QN, U hydrocodone NEGATI VE NG/mL <50 See Note 1 Not Available [facility] [place] [facility] [address], [place], [address], 11/03/2023 16:03:01 10/30/19 24 11/03/2023 DRUG TOX MONIT ORING OPIAT ES EXPAN DED QN, U hydromorphon e 103 NG/mL <50 high See Note 1 Not Available [facility] [address], [place], [address], 11/03/2023 16:03:01 10/30/19 24 11/03/2023 DRUG TOX MONIT ORING OPIAT ES EXPAN DED QN, U morphine NEGATI VE NG/mL <50 See Note 1 Not Available [facility] [address], [place], [address], 11/03/2023 16:03:01 10/30/19 24 11/03/2023 DRUG TOX MONIT ORING OPIAT ES EXPAN DED QN, U norhydrocodo ne 103 NG/mL <50 high See Note 1 Not Available [facility] [place] [facility] [address], [place], [address], 11/03/2023 16:03:01 10/30/19 24 11/03/2023 DRUG TOX MONIT ORING OPIAT ES EXPAN DED QN, U noroxycodone >53104 NG/mL <50 high See Note 1 Not Available [facility] [place] [facility] [address], [place], [address], 11/03/2023 16:03:01 10/30/19 24 11/03/2023 DRUG TOX MONIT ORING OPIAT ES EXPAN DED QN, U oxycodone 5145 NG/mL <50 high See Note 1 Not Available [facility] [place] [facility] [address], [place], [address], 11/03/2023 16:03:01 10/30/19 24 11/03/2023 DRUG TOX MONIT ORING OPIAT ES EXPAN DED QN, U oxymorphone 8049 NG/mL <50 high See Note 1 Not Available [facility] [place] [facility] [address], [place], [address], 11/03/2023 16:03:01 10/30/19 24 11/03/2023 DRUG TOX [...] alist : [phone] X TOX ( [phone] ), M-F, 8am-6 pm EST. Not Available [facility] [place] [facility] [address], [place], [address], 11/03/2023 16:03:01 12/27/19 24 12/27/2023 CBC WBC 8.21 K/??L 4.23-9 .07 Not Available [address], [address], 12/27/2023 16:40:40 12/27/19 24 12/27/2023 CBC RBC 4.58 M/??L 4.63-6 .08 low Not Available [address], [address], 12/27/2023 16:40:40 12/27/19 24 12/27/2023 CBC HGB 14.1 g/dL 13.7-1 7.5 Not Available [address], [address], 12/27/2023 16:40:40 12/27/19 24 12/27/2023 CBC HCT 42.5 % 40.1-5 1.0 Not Available [address], [address], 12/27/2023 16:40:40 12/27/19 24 12/27/2023 CBC MCV 92.8 fL 79.0-9 2.2 high Not Available [address], [address], 12/27/2023 16:40:40 12/27/19 24 12/27/2023 CBC MCH 30.8 pg 25.7-3 2.2 Not Available [address], [address], 12/27/2023 16:40:40 12/27/19 24 12/27/2023 CBC MCHC 33.2 g/dL 32.3-3 6.5 Not Available [address], [address], 12/27/2023 16:40:40 12/27/19 24 12/27/2023 CBC plt 276 K/??L 163-33 7 Not Available [address], [address], 12/27/2023 16:40:40 12/27/19 24 12/27/2023 CBC MPV 11.3 fL 9.4-12 .4 Not Available [address], [address], 12/27/2023 16:40:40 12/27/19 24 12/27/2023 CBC neut% 68.8 % 34.0-6 7.9 high Not Available [address], [address], 12/27/2023 16:40:40 12/27/19 24 12/27/2023 CBC neut# 5.64 1.78-5 .38 high Not Available [address], [address], 12/27/2023 16:40:40 12/27/19 24 12/27/2023 CBC lymph % 20.2 % 21.8-5 3.1 low Not Available [address], [address], 12/27/2023 16:40:40 12/27/19 24 12/27/2023 CBC lymph # 1.66 K/??L 1.32-3 .57 Not Available [address], [address], 12/27/2023 16:40:40 12/27/19 24 12/27/2023 CBC mono% 7.6 % 5.3-12 .2 Not Available [address], [address], 12/27/2023 16:40:40 12/27/19 24 12/27/2023 CBC mono# 0.62 0.30-0 .82 Not Available [address], [address], 12/27/2023 16:40:40 12/27/19 24 12/27/2023 CBC eo% 3.0 % 0.8-7. 0 Not Available [address], [address], 12/27/2023 16:40:40 12/27/19 24 12/27/2023 CBC eo# 0.25 0.04-0 .54 Not Available [address], [address], 12/27/2023 16:40:40 12/27/19 24 12/27/2023 CBC baso% 0.2 % 0.2-1. 2 Not Available [address], [address], 12/27/2023 16:40:40 12/27/19 24 12/27/2023 CBC baso# 0.02 0.00-0 .08 Not Available [address], [address], 12/27/2023 16:40:40 12/27/19 24 12/27/2023 CBC RDW-CV 13.3 % 11.6-1 4.4 Not Available [address], [address], 12/27/2023 16:40:40 12/27/19 24 12/27/2023 CBC Ig% 0.200 % 0.000- 1.500 Ig % >0.5 Indic ates possi ble Left Shift Not Available [address], [address], 12/27/2023 16:40:40 12/27/19 24 12/27/2023 CBC Ig# 0.020 0.000- 0.093 Not Available [address], [address], 12/27/2023 16:40:40 12/27/19 24 12/27/2023 CBC NRBC% 0.0 % 0.0-0. 2 Not Available [address], [address], 12/27/2023 16:40:40 12/27/19 24 12/27/2023 CBC NRBC# 0.000 0.000- 0.012 Not Available [address], [address], 12/27/2023 16:40:40 12/27/19 24 12/28/2023 ESR sed rate 76.0 0.0-20 .0 high Not Available [address], [address], 12/28/2023 12:33:55 12/27/19 24 12/28/2023 COMP. METAB OLIC PANEL glucose 93 mg/dL 70-100 Not Available [address], [address], 12/28/2023 14:04:19 12/27/19 24 12/28/2023 COMP. METAB OLIC PANEL BUN 28 mg/dL 7-18 high Not Available [address], [address], 12/28/2023 14:04:19 12/27/19 24 12/28/2023 COMP. METAB OLIC PANEL creatinine 1.0 mg/dL 0.8-1. 3 Not Available [address], [address], 12/28/2023 14:04:19 12/27/19 24 12/28/2023 COMP. METAB OLIC PANEL B/C 28.0 ratio Not Available [address], [address], 12/28/2023 14:04:19 12/27/19 24 12/28/2023 COMP. METAB [...] be used in pregn domingo. Not Available [address], [address], 12/28/2023 14:04:19 12/27/19 24 12/28/2023 COMP. METAB OLIC PANEL sodium 141 mmol/ L 136-14 5 Not Available [address], [address], 12/28/2023 14:04:19 12/27/19 24 12/28/2023 COMP. METAB OLIC PANEL potassium 4.1 mmol/ L 3.5-5. 1 Not Available [address], [address], 12/28/2023 14:04:19 12/27/19 24 12/28/2023 COMP. METAB OLIC PANEL chloride 103 mmol/ L 96-107 Not Available [address], [address], 12/28/2023 14:04:19 12/27/19 24 12/28/2023 COMP. METAB OLIC PANEL anion gap 10.4 5.0-15 .0 Not Available [address], [address], 12/28/2023 14:04:19 12/27/19 24 12/28/2023 COMP. METAB OLIC PANEL CO2 28 mmol/ L 21-32 Not Available [address], [address], 12/28/2023 14:04:19 12/27/19 24 12/28/2023 COMP. METAB OLIC PANEL calcium 8.8 mg/dL 8.5-10 .3 Not Available [address], [address], 12/28/2023 14:04:19 12/27/19 24 12/28/2023 COMP. METAB OLIC PANEL total protein 7.1 g/dL 6.4-8. 2 Not Available [address], [address], 12/28/2023 14:04:19 12/27/19 24 12/28/2023 COMP. METAB OLIC PANEL albumin 3.3 g/dL 3.4-5. 0 low Not Available [address], [address], 12/28/2023 14:04:19 12/27/19 24 12/28/2023 COMP. METAB OLIC PANEL globulin 3.8 g/dL Not Available [address], [address], 12/28/2023 14:04:19 12/27/19 24 12/28/2023 COMP. METAB OLIC PANEL A/G 0.9 ratio 0.8-2. 0 Not Available [address], [address], 12/28/2023 14:04:19 12/27/19 24 12/28/2023 COMP. METAB OLIC PANEL total bilirubin 0.40 mg/dL 0.00-1 .00 Not Available [address], [address], 12/28/2023 14:04:19 12/27/19 24 12/28/2023 COMP. METAB OLIC PANEL AST 22 U/L 0-37 Not Available [address], [address], 12/28/2023 14:04:19 12/27/19 24 12/28/2023 COMP. METAB OLIC PANEL ALT 18 U/L 6-63 Not Available [address], [address], 12/28/2023 14:04:19 12/27/19 24 12/28/2023 COMP. METAB OLIC PANEL alk. phos. 103 U/L 50-136 Not Available [address], [address], 12/28/2023 14:04:19 12/27/19 24 12/28/2023 C-LAVINIA CTIVE PROTE IN (RCRP ) C-reactive protein (rcrp) 67.2 mg/dL 0.5-9. 0 high Not Available [address], [address], 12/28/2023 14:04:20 01/30/20 24 01/31/2024 DRUG SCREE N-8, URINE , WITH CONFI RMATI ON GC/MS amphetamine NEG. negati ve Not Available [address], [address], 01/31/2024 13:19:57 01/30/20 24 01/31/2024 DRUG SCREE N-8, URINE , WITH CONFI RMATI ON GC/MS barbiturates NEG. negati ve Not Available [address], [address], 01/31/2024 13:19:57 01/30/20 24 01/31/2024 DRUG SCREE N-8, URINE , WITH CONFI RMATI ON GC/MS benzodiazepi ne NEG. negati ve Not Available [address], [address], 01/31/2024 13:19:57 01/30/20 24 01/31/2024 DRUG SCREE N-8, URINE , WITH CONFI RMATI ON GC/MS cocaine NEG. negati ve Not Available [address], [address], 01/31/2024 13:19:57 01/30/20 24 01/31/2024 DRUG SCREE N-8, URINE , WITH CONFI RMATI ON GC/MS opiates POS. negati ve GCMS= Sampl e sent to [facility] for confi rmati on by GC/MS . Not Available [address], [address], 01/31/2024 13:19:57 01/30/20 24 01/31/2024 DRUG SCREE N-8, URINE , WITH CONFI RMATI ON GC/MS methadone NEG. negati ve Not Available [address], [address], 01/31/2024 13:19:57 01/30/20 24 01/31/2024 DRUG SCREE N-8, URINE , WITH CONFI RMATI ON GC/MS fentanyl NEG. negati ve Syva EMIT II Limit s of Detec tion (cutt -off value s) [place] Expan d: Amphe tamin es: 1000 ng/ml Opiat es: 300 ng/ml Michelle tuate s: 200 ng/ml Oxyco done 100 ng/ml Benzo diaze pines : 200 ng/ml Metha done 300 ng/ml Cocai ne: 300 ng/ml Fenta nyl 1 ng/ml Not Available [address], [address], 01/31/2024 13:19:57 01/30/20 24 01/31/2024 DRUG SCREE N-8, URINE , WITH CONFI RMATI ON GC/MS oxycodone POS. negati ve GCMS= Sampl e sent to [facility] for confi rmati on by GC/MS . Not Available [address], [place], [address], 01/31/2024 13:19:57 01/30/20 24 02/02/2024 DRUG TOX MONIT ORING OPIAT ES EXPAN DED QN, U codeine NEGATI VE NG/mL <50 See Note 1 Not Available [facility] [place] [facility] [address], [place], [address], 02/02/2024 09:34:16 01/30/20 24 02/02/2024 DRUG TOX MONIT ORING OPIAT ES EXPAN DED QN, U hydrocodone NEGATI VE NG/mL <50 See Note 1 Not Available [facility] [place] [facility] [address], [place], [address], 02/02/2024 09:34:16 01/30/20 24 02/02/2024 DRUG TOX MONIT ORING OPIAT ES EXPAN DED QN, U hydromorphon e NEGATI VE NG/mL <50 See Note 1 Not Available [facility] [place] [facility] [address], [place], [address], 02/02/2024 09:34:16 01/30/20 24 02/02/2024 DRUG TOX MONIT ORING OPIAT ES EXPAN DED QN, U morphine NEGATI VE NG/mL <50 See Note 1 Not Available [facility] [place] [facility] [address], [place], [address], 02/02/2024 09:34:16 01/30/20 24 02/02/2024 DRUG TOX MONIT ORING OPIAT ES EXPAN DED QN, U norhydrocodo ne NEGATI VE NG/mL <50 See Note 1 Not Available [facility] [place] [facility] [address], [place], [address], 02/02/2024 09:34:16 01/30/20 24 02/02/2024 DRUG TOX MONIT ORING OPIAT ES EXPAN DED QN, U noroxycodone >26172 NG/mL <50 high See Note 1 Not Available [facility] [place] [facility] [address], [place], [address], 02/02/2024 09:34:16 01/30/20 24 02/02/2024 DRUG TOX MONIT ORING OPIAT ES EXPAN DED QN, U oxycodone 5380 NG/mL <50 high See Note 1 Not Available [facility] [place] [facility] [address], [place], [address], 02/02/2024 09:34:16 01/30/20 24 02/02/2024 DRUG TOX MONIT ORING OPIAT ES EXPAN DED QN, U oxymorphone 2992 NG/mL <50 high See Note 1 Not Available [facility] [place] [facility] [address], [place], [address], 02/02/2024 09:34:16 01/30/20 24 02/02/2024 DRUG TOX MONIT ORING OPIAT ES EXPAN DED QN, U Unknown Analyte See Note 2 Note 1 This test was carol spencer and its stan tical perfo rmanc e renetta cteri stics have been deter mined by [facility]. It has not been clear [...] alist : [phone] ), M-F, 8am-6 pm EST. Not Available [facility] [place] [facility] [address] [place] [address] [address] [place], [place], [address], 02/02/2024 09:34:16 02/26/20 24 02/27/2024 HEPAT IC FUNCT ION PANEL total protein 7.3 g/dL 6.4-8. 2 Not Available [address], [address], 02/27/2024 15:08:57 02/26/20 24 02/27/2024 HEPAT IC FUNCT ION PANEL albumin 3.7 g/dL 3.4-5. 0 Not Available [address], [address], 02/27/2024 15:08:57 02/26/20 24 02/27/2024 HEPAT IC FUNCT ION PANEL globulin 3.6 g/dL Not Available [address], [address], 02/27/2024 15:08:57 02/26/20 24 02/27/2024 HEPAT IC FUNCT ION PANEL A/G 1.0 ratio 0.8-2. 0 Not Available [address], [address], 02/27/2024 15:08:57 02/26/20 24 02/27/2024 HEPAT IC FUNCT ION PANEL total bilirubin 0.30 mg/dL 0.00-1 .00 Not Available [address], [address], 02/27/2024 15:08:57 02/26/20 24 02/27/2024 HEPAT IC FUNCT ION PANEL direct bilirubin 0.10 mg/dL 0.00-0 .30 Not Available [address], [address], 02/27/2024 15:08:57 02/26/20 24 02/27/2024 HEPAT IC FUNCT ION PANEL AST 23 U/L 0-37 Not Available [address], [address], 02/27/2024 15:08:57 02/26/20 24 02/27/2024 HEPAT IC FUNCT ION PANEL ALT 22 U/L 6-63 Not Available [address], [address], 02/27/2024 15:08:57 02/26/20 24 02/27/2024 HEPAT IC FUNCT ION PANEL alk. phos. 97 U/L 50-136 Not Available [address], [address], 02/27/2024 15:08:57 02/26/20 24 02/27/2024 LIPID PANEL cholesterol 240 mg/dL <200 mg/dl Salome able 200-2 39 mg/dl Borde rline High >240 mg/dl High Not Available [address], [address], 02/27/2024 16:30:20 02/26/20 24 02/27/2024 LIPID PANEL triglyceride s 191 mg/dL <150 mg/dL Annmarie l 150-1 99 mg/dL Borde rline High 200-4 99 mg/dL High >500 mg/dL Very High Not Available [address], [address], 02/27/2024 16:30:20 02/26/20 24 02/27/2024 LIPID PANEL direct HDL 39 mg/dL <40 mg/dl - Major Risk for CHD >60 mg/dl - Negat flex Risk for CHD Not Available [address], [address], 02/27/2024 16:30:20 02/26/20 24 02/27/2024 DIREC T [...] r is not benito rodriguez. Not Available [address], [address], 02/27/2024 16:30:21 06/05/2006/06/2024 BASIC METAB OLIC PANEL glucose 105 mg/dL 70-100 high Not Available [address], [address], 06/06/2024 12:12:17 06/05/2006/06/2024 BASIC METAB OLIC PANEL BUN 24 mg/dL 7-18 high Not Available [address], [address], 06/06/2024 12:12:17 06/05/2006/06/2024 BASIC METAB OLIC PANEL creatinine 1.3 mg/dL 0.8-1. 3 Not Available [address], [address], 06/06/2024 12:12:17 06/05/2006/06/2024 BASIC METAB OLIC PANEL B/C 18.5 ratio Not Available [address], [address], 06/06/2024 12:12:17 06/05/2006/06/2024 BASIC METAB OLIC PANEL [...] be used in pregn domingo. Not Available [address], [address], 06/06/2024 12:12:17 06/05/2006/06/2024 BASIC METAB OLIC PANEL sodium 137 mmol/ L 136-14 5 Not Available [address], [address], 06/06/2024 12:12:17 06/05/2006/06/2024 BASIC METAB OLIC PANEL potassium 3.8 mmol/ L 3.5-5. 1 Not Available [address], [address], 06/06/2024 12:12:17 06/05/2006/06/2024 BASIC METAB OLIC PANEL chloride 98 mmol/ L 96-107 Not Available [address], [address], 06/06/2024 12:12:17 06/05/2006/06/2024 BASIC METAB OLIC PANEL anion gap 11.2 5.0-15 .0 Not Available [address], [address], 06/06/2024 12:12:17 06/05/2006/06/2024 BASIC METAB OLIC PANEL CO2 28 mmol/ L 21-32 Not Available [address], [address], 06/06/2024 12:12:17 06/05/2006/06/2024 BASIC METAB OLIC PANEL calcium 9.4 mg/dL 8.5-10 .3 Not Available [address], [address], 06/06/2024 12:12:17 06/05/2006/06/2024 MAGNE SIUM magnesium 2.1 mg/dL 1.8-2. 4 Not Available [address], [address], 06/06/2024 12:12:19 06/05/2006/06/2024 URIC ACID uric acid 5.7 mg/dL 3.5-7. 2 Not Available [address], [address], 06/06/2024 12:27:10 06/05/2006/06/2024 HEPAT IC FUNCT ION PANEL total protein 7.8 g/dL 6.4-8. 2 Not Available [address], [address], 06/06/2024 14:10:54 06/05/2006/06/2024 HEPAT IC FUNCT ION PANEL albumin 3.3 g/dL 3.4-5. 0 low Not Available [address], [address], 06/06/2024 14:10:54 06/05/2006/06/2024 HEPAT IC FUNCT ION PANEL globulin 4.5 g/dL Not Available [address], [address], 06/06/2024 14:10:54 06/05/2006/06/2024 HEPAT IC FUNCT ION PANEL A/G 0.7 ratio 0.8-2. 0 low Not Available [address], [address], 06/06/2024 14:10:54 06/05/2006/06/2024 HEPAT IC FUNCT ION PANEL total bilirubin 0.30 mg/dL 0.00-1 .00 Not Available [address], [address], 06/06/2024 14:10:54 06/05/2006/06/2024 HEPAT IC FUNCT ION PANEL direct bilirubin 0.10 mg/dL 0.00-0 .30 Not Available [address], [address], 06/06/2024 14:10:54 06/05/2006/06/2024 HEPAT IC FUNCT ION PANEL AST 21 U/L 0-37 Not Available [address], [address], 06/06/2024 14:10:54 06/05/2006/06/2024 HEPAT IC FUNCT ION PANEL ALT 19 U/L 6-63 Not Available [address], [address], 06/06/2024 14:10:54 06/05/2006/06/2024 HEPAT IC FUNCT ION PANEL alk. phos. 91 U/L 50-136 Not Available [address], [address], 06/06/2024 14:10:54 06/05/2006/06/2024 VITAM IN B12 vitamin B12 1125 pg/mL 230-10 50 high Not Available [address], [address], 06/06/2024 14:17:06 08/28/1908/29/2024 DRUG SCREE N-8, URINE , WITH CONFI RMATI ON GC/MS amphetamine NEG. negati ve Not Available [address], [address], 08/29/2024 10:29:50 08/28/1908/29/2024 DRUG SCREE N-8, URINE , WITH CONFI RMATI ON GC/MS barbiturates NEG. negati ve Not Available [address], [address], 08/29/2024 10:29:50 08/28/19 25 08/29/2024 DRUG SCREE N-8, URINE , WITH CONFI RMATI ON GC/MS benzodiazepi ne NEG. negati ve Not Available [address], [address], 08/29/2024 10:29:50 08/28/19 25 08/29/2024 DRUG SCREE N-8, URINE , WITH CONFI RMATI ON GC/MS cocaine NEG. negati ve Not Available [address], [address], 08/29/2024 10:29:50 08/28/19 25 08/29/2024 DRUG SCREE N-8, URINE , WITH CONFI RMATI ON GC/MS opiates POS. negati ve GCMS= Sampl e sent to [facility] for confi rmati on by GC/MS . Not Available [address], [address], 08/29/2024 10:29:50 08/28/19 25 08/29/2024 DRUG SCREE N-8, URINE , WITH CONFI RMATI ON GC/MS methadone NEG. negati ve Not Available [address], [address], 08/29/2024 10:29:50 08/28/19 25 08/29/2024 DRUG SCREE [...] ng/ml Fenta nyl 1 ng/ml Not Available [address], [address], 08/29/2024 10:29:50 08/28/19 25 08/29/2024 DRUG SCREE N-8, URINE , WITH CONFI RMATI ON GC/MS oxycodone POS. negati ve GCMS= Sampl e sent to [facility] for confi rmati on by GC/MS . Not Available [address], [place], [address], 08/29/2024 10:29:50 08/28/19 25 09/01/2024 DRUG TOX MONIT ORING OPIAT ES EXPAN DED QN, U codeine NEGATI VE NG/mL <50 See Note 1 Not Available [facility] [address], [place], [address], 09/01/2024 12:03:24 08/28/19 25 09/01/2024 DRUG TOX MONIT ORING OPIAT ES EXPAN DED QN, U hydrocodone NEGATI VE NG/mL <50 See Note 1 Not Available [facility] [place] [facility] [address], [place], [address], 09/01/2024 12:03:24 08/28/19 25 09/01/2024 DRUG TOX MONIT ORING OPIAT ES EXPAN DED QN, U hydromorphon e NEGATI VE NG/mL <50 See Note 1 Not Available [facility] [address], [place], [address], 09/01/2024 12:03:24 08/28/19 25 09/01/2024 DRUG TOX MONIT ORING OPIAT ES EXPAN DED QN, U morphine NEGATI VE NG/mL <50 See Note 1 Not Available [facility] [address], [place], [address], 09/01/2024 12:03:24 08/28/19 25 09/01/2024 DRUG TOX MONIT ORING OPIAT ES EXPAN DED QN, U norhydrocodo ne NEGATI VE NG/mL <50 See Note 1 Not Available [facility] [place] [facility] [address], [place], [address], 09/01/2024 12:03:24 08/28/19 25 09/01/2024 DRUG TOX MONIT ORING OPIAT ES EXPAN DED QN, U noroxycodone 9276 NG/mL <50 high See Note 1 Not Available [facility] [place] [facility] [address], [place], [address], 09/01/2024 12:03:24 08/28/19 25 09/01/2024 DRUG TOX MONIT ORING OPIAT ES EXPAN DED QN, U oxycodone 3745 NG/mL <50 high See Note 1 Not Available [facility] [place] [facility] [address], [place], [address], 09/01/2024 12:03:24 08/28/19 25 09/01/2024 DRUG TOX MONIT ORING OPIAT ES EXPAN DED QN, U oxymorphone 4534 NG/mL <50 high See Note 1 Not Available [facility] [place] [facility] [address], [place], [address], 09/01/2024 12:03:24 08/28/19 25 09/01/2024 DRUG TOX [...] alist : [phone] X TOX ( [phone] ), M-F, 8am-6 pm EST. Not Available [facility] [place] [facility] 200 [facility] [address], [place], [address], 09/01/2024 12:03:24 10/08/19 25 10/08/2024 CBC WBC 10.64 K/??L 4.23-9 .07 high Not Available [address], [address], 10/08/2024 15:31:03 10/08/19 25 10/08/2024 CBC RBC 4.97 M/??L 4.63-6 .08 Not Available [address], [address], 10/08/2024 15:31:03 10/08/1910/08/2024 CBC HGB 15.8 g/dL 13.7-1 7.5 Not Available [address], [address], 10/08/2024 15:31:03 10/08/1910/08/2024 CBC HCT 47.3 % 40.1-5 1.0 Not Available [address], [address], 10/08/2024 15:31:03 10/08/1910/08/2024 CBC MCV 95.2 fL 79.0-9 2.2 high Not Available [address], [address], 10/08/2024 15:31:03 10/08/19 25 10/08/2024 CBC MCH 31.8 pg 25.7-3 2.2 Not Available [address], [address], 10/08/2024 15:31:03 10/08/1910/08/2024 CBC MCHC 33.4 g/dL 32.3-3 6.5 Not Available [address], [address], 10/08/2024 15:31:03 10/08/1910/08/2024 CBC plt 252 K/??L 163-33 7 Not Available [address], [address], 10/08/2024 15:31:03 10/08/1910/08/2024 CBC MPV 11.8 fL 9.4-12 .4 Not Available [address], [address], 10/08/2024 15:31:03 10/08/1910/08/2024 CBC neut% 85.2 % 34.0-6 7.9 high Not Available [address], [address], 10/08/2024 15:31:03 10/08/1910/08/2024 CBC neut# 9.07 1.78-5 .38 high Not Available [address], [address], 10/08/2024 15:31:03 10/08/1910/08/2024 CBC lymph % 9.3 % 21.8-5 3.1 low Not Available [address], [address], 10/08/2024 15:31:03 10/08/1910/08/2024 CBC lymph # 0.99 K/??L 1.32-3 .57 low Not Available [address], [address], 10/08/2024 15:31:03 02/25/20 25 10/08/2024 CBC mono% 3.9 % 5.3-12 .2 low Not Available [address], [address], 10/08/2024 15:31:03 10/08/1910/08/2024 CBC mono# 0.41 0.30-0 .82 Not Available [address], [address], 10/08/2024 15:31:03 10/08/1910/08/2024 CBC eo% 0.8 % 0.8-7. 0 Not Available [address], [address], 10/08/2024 15:31:03 10/08/1910/08/2024 CBC eo# 0.09 0.04-0 .54 Not Available [address], [address], 10/08/2024 15:31:03 10/08/1910/08/2024 CBC baso% 0.3 % 0.2-1. 2 Not Available [address], [address], 10/08/2024 15:31:03 10/08/1910/08/2024 CBC baso# 0.03 0.00-0 .08 Not Available [address], [address], 10/08/2024 15:31:03 10/08/1910/08/2024 CBC RDW-CV 12.7 % 11.6-1 4.4 Not Available [address], [address], 10/08/2024 15:31:03 10/08/1910/08/2024 CBC Ig% 0.500 % 0.000- 1.500 Ig % >0.5 Indic ates possi ble Left Shift Not Available [address], [address], 10/08/2024 15:31:03 10/08/19 25 10/08/2024 CBC Ig# 0.050 0.000- 0.093 Not Available [address], [address], 10/08/2024 15:31:03 10/08/19 25 10/08/2024 CBC NRBC% 0.0 % 0.0-0. 2 Not Available [address], [address], 10/08/2024 15:31:03 10/08/19 25 10/08/2024 CBC NRBC# 0.000 0.000- 0.012 Not Available [address], [address], 10/08/2024 15:31:03 10/08/1910/10/2024 HEPAT IC FUNCT ION PANEL total protein 7.6 g/dL 6.4-8. 2 LIPS= Speci men Sligh tly Lipem ic. Chem Resul ts may be effec traci. Not Available [address], [address], 10/10/2024 09:21:20 10/08/1910/10/2024 HEPAT IC FUNCT ION PANEL albumin 3.6 g/dL 3.4-5. 0 Not Available [address], [address], 10/10/2024 09:21:20 10/08/19 25 10/10/2024 HEPAT IC FUNCT ION PANEL globulin 4.0 g/dL Not Available [address], [address], 10/10/2024 09:21:20 10/08/19 25 10/10/2024 HEPAT IC FUNCT ION PANEL A/G 0.9 ratio 0.8-2. 0 Not Available [address], [address], 10/10/2024 09:21:20 10/08/19 25 10/10/2024 HEPAT IC FUNCT ION PANEL total bilirubin 0.40 mg/dL 0.00-1 .00 Not Available [address], [address], 10/10/2024 09:21:20 10/08/19 25 10/10/2024 HEPAT IC FUNCT ION PANEL direct bilirubin 0.10 mg/dL 0.00-0 .30 Not Available [address], [address], 10/10/2024 09:21:20 10/08/19 25 10/10/2024 HEPAT IC FUNCT ION PANEL AST 18 U/L 0-37 Not Available [address], [address], 10/10/2024 09:21:20 10/08/1910/10/2024 HEPAT IC FUNCT ION PANEL ALT 29 U/L 6-63 Not Available [address], [address], 10/10/2024 09:21:20 10/08/1910/10/2024 HEPAT IC FUNCT ION PANEL alk. phos. 86 U/L 50-136 Not Available [address], [address], 10/10/2024 09:21:20 10/08/1910/10/2024 BASIC METAB OLIC PANEL glucose 113 mg/dL 70-100 high Not Available [address], [address], 10/10/2024 09:42:21 10/08/19 25 10/10/2024 BASIC METAB OLIC PANEL BUN 27 mg/dL 7-18 high Not Available [address], [address], 10/10/2024 09:42:21 10/08/19 25 10/10/2024 BASIC METAB OLIC PANEL creatinine 1.4 mg/dL 0.8-1. 3 high Not Available [address], [address], 10/10/2024 09:42:21 10/08/1910/10/2024 BASIC METAB OLIC PANEL B/C 19.3 ratio Not Available [address], [address], 10/10/2024 09:42:21 10/08/1910/10/2024 BASIC METAB OLIC PANEL GFR 54.7 mL/mi n abnormal >=60m L/min - Annmarie l or midly reduc ed <60mL /min- Decre ased kidne y funct ion <15mL /min - Kidne y failu re [facility] calcu lates estim ated Glome rular Filtr ation Rate (eGFR ) using the Chron ic Kidne y Disea se Epide miolo gy Colla borat ion (CKD- EPI) Equat ion (Tamara dutton et. al 2020) as recom rosalina d by the Natio nal Kidne y Found ation . eGFR is based on age, serum creat inine , and sex. CKD-E PI does not calcu late eGFR by race, does not apply to child shabana (age <18 years ), and shoul d not be used in pregn domingo. Not Available [address], [address], 10/10/2024 09:42:21 10/08/1910/10/2024 BASIC METAB OLIC PANEL sodium 137 mmol/ L 136-14 5 Not Available [address], [address], 10/10/2024 09:42:21 10/08/1910/10/2024 BASIC METAB OLIC PANEL potassium 4.4 mmol/ L 3.5-5. 1 Not Available [address], [address], 10/10/2024 09:42:21 10/08/1910/10/2024 BASIC METAB OLIC PANEL chloride 101 mmol/ L 96-107 Not Available [address], [address], 10/10/2024 09:42:21 10/08/1910/10/2024 BASIC METAB OLIC PANEL anion gap 10.0 5.0-15 .0 Not Available [address], [address], 10/10/2024 09:42:21 10/08/1910/10/2024 BASIC METAB OLIC PANEL CO2 26 mmol/ L 21-32 Not Available [address], [address], 10/10/2024 09:42:21 10/08/1910/10/2024 BASIC METAB OLIC PANEL calcium 9.3 mg/dL 8.5-10 .3 Not Available [address], [address], 10/10/2024 09:42:21 10/08/1910/10/2024 LIPID PANEL cholesterol 219 mg/dL LIPS= Speci men Sligh tly Lipem ic. Chem Resul ts may be effec traci. <200 mg/dl Salome able 200-2 39 mg/dl Borde rline High >240 mg/dl High Not Available [address], [address], 10/10/2024 09:42:22 10/08/1910/10/2024 LIPID PANEL triglyceride s 167 mg/dL <150 mg/dL Annmarie l 150-1 99 mg/dL Borde rline High 200-4 99 mg/dL High >500 mg/dL Very High Not Available [address], [address], 10/10/2024 09:42:22 10/08/1910/10/2024 LIPID PANEL direct HDL 49 mg/dL <40 mg/dl - Major Risk for CHD >60 mg/dl - Negat flex Risk for CHD Not Available [address], [address], 10/10/2024 09:42:22 10/08/19 25 10/10/2024 DIREC T LDL direct LDL 138 mg/dL RISK CATEG ORY LDL GOAL _ [...] r is not benito rodriguez. Not Available [facility] [address] [place], [address], 10/10/2024 09:42:22 10/06/19 24 10/06/2023 LDCT, chest , for lung cance r scree valente No observ ation record ed. [facility] [address] [place], [address], 10/09/2023 11:49:59 10/16/19 24 10/06/2023 CT, chest No observ ation record ed. [facility] [address] [place], [address], 10/17/2023 14:36:56 12/25/19 24 12/25/2023 pulmo nary funct ion test* No observ ation record ed. [address] [facility], [place], [address], 12/25/2023 15:52:26 02/09/20 24 02/09/2024 CT, chest , w/o contr ast No observ ation record ed. [facility] [address] [place], [address], 02/11/2024 17:29:21 Result Notes None recorded. Problems Name Problem SNOMED Code Status Onset Date Resolution Date Notes Provider Name and Address Organization Details Recorded Time Gout 18962419 Active ASHLEY Cody [address] [place] [address] [place], [address], [facility] 6 14:49:37 Multiple joint pain 66072476 Completed 07/03/2013 ANN MARIE CodyPCIRILO [address] [place] [address] [place], [address], [facility] 6 14:49:37 Tobacco user 236766527 Active [facility] [address] [place], [place] [address], [address], [facility] 6 17:57:22 Verruca plantari s 28663391 Completed 10/30/2017 Dennise Esparza PA-C [address] [place], [place] [address], [address], [facility] 8 14:08:57 Malaise and fatigue 001199231 Completed 07/03/2013 ANN MARIE CodyPCIRILO [address] [place], [place] [address], [address], [facility] 6 14:49:37 Dizzines s 170187617 Completed 07/03/2013 ANN MARIE CodyPCIRILO [address] [place], [place] [address], [address], [facility] 6 14:49:37 Chronic pain 74443694 Completed 04/30/2018 Dennise Esparza PA-C [address] [place], [place] [address], [address], [facility] 8 13:30:51 Disorder of rotator cuff 235565442 Active ANN MARIE CodyPCIRILO [address] [place] [address] [place], [address], [facility] 6 17:57:22 Neck pain 20796919 Completed 10/30/2017 Dennise Esparza PA-C [address] [place], [place] [address], [address], [facility] 8 14:08:54 Fracture of lower leg 304275740 Active Jose Gunderson [address] [place], [address], [facility] 6 17:57:22 Pain in right lower limb 835604403 Active Jose Gunderson [address] [place], 1, [facility] 6 14:49:37 Impotenc e of organic origin Active Jose Gunderson [address] [place], 1, [facility] 6 14:49:37 Elevated blood-pr essure reading without diagnosi s of hyperten dereck 166525563 Completed 04/27/2017 Chen Alex [address] [place], [address], [facility] 7 14:23:38 Chronic sciatica 142713958 Active 2015 Jose Gunderson [address] [place], [address], [facility] 6 14:56:22 Lung mass 953365675 Completed 201604/30/2018 1.2cm mass right upper anterior lobe. followed by [facility] . 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 32881741 Active 2017 Dennise Esparza PA-C [address] [place], [place] [address], [address], [facility] 8 13:33:56 Multiple nodules of lung 391356501 Active 2017 followed by [facility] Dennise Esparza PA-C [address] [place], [place] [address], [address], [facility] 8 13:30:05 Obesity 404209790 Active 2017 Dennise Esparza PA-C [address] [place], [place] [address], [address], [facility] 8 13:32:52 Hyperlip idemia 89104300 Active 2017 Dennise Esparza PA-C [address] [place], [place] [address], [address], [facility] 2 10:09:51 Hand pain 72760081 Completed 201708/17/2020 Recommen d seeing rheumato logy Dennise Esparza PA-C [address] [place], [place] [address], [address], [facility] 1 11:31:24 Primary erectile dysfunct ion 937569570 Active 2018 Dennise Esparza PA-C [address] [place], [place] [address], [address], [facility] 9 11:02:32 Chronic obstruct flex pulmonar y disease 95152845 Active 2018 Dennise Esparza PA-C [address] [place], [place] [address], [address], [facility] 9 11:19:39 Fibrosis of lung 76668236 Active 2018 undergoi ng eval for UIP Dennise Esparza PA-C [address] [place], [place] [address], [address], [facility] 9 11:22:34 Undiffer entiated inflamma tory polyarth ritis 391440943 Completed 201902/12/2020 Dennise Esparza PA-C [address] [place], [place] [address], [address], [facility] 0 15:44:03 Osteoart hritis of joint of left shoulder region 58790923551 9108 Active 2019 Dennise Esparza PA-C [address] [place], [place] [address], [address], [facility] 0 15:41:09 Rheumato id arthjaneth s 75784523 Active 2019 Dennise Esparza PA-C [address] [place] [address], [place], [address], [facility] 0 15:43:55 Essentia l hyperten dereck 34109393 Active 2020 Dennise Esparza PA-C [address] [place], [place] [address], [address], [facility] 1 11:32:04 Subclini oralia hyperthy roidism 829303843 Completed 202010/25/2021 Dennise Esparza PA-C [address] [place], [place] [address], [address], [facility] 2 10:10:05 Charcot' s joint of foot 882851829 Active 2022 Non-diab etic Dennise Esparza PA-C [address] [place], [place] [address], [address], [facility] 3 07:48:39 Osteopen ia 593254044 Active 2023 Dennise Esparza PA-C [address] [place], [place] [address], [address], [facility] 4 15:10:56 Cataract 550659302 Active 2023 Dennise Esparza PA-C [address] [place], [place] [address], [address], [facility] 4 15:28:24 Problem Notes None recorded. Procedures Surgical History Date Name Laterality Status Provider Name and Address Organization Details Recorded Time 08/28/19 25 Smoking cessation counseling completed THEO Yu [facility] 08/28/2024 11:29:00 05/28/20 24 Smoking cessation counseling completed THEO Yu [facility] 05/28/2024 15:22:14 05/07/20 24 Smoking cessation counseling completed Lisa Joseph CMA [facility] 05/07/2024 11:40:02 08/28/19 20 [address]: Therapeutic Exercise cancelled Mayra Goldsmith, PT [address] [place], [address], [facility] 08/28/2019 09:23:22 08/28/19 20 [address]48: Manual Therapy cancelled Mayra Goldsmith, PT [address] [place], [address], [facility] 08/28/2019 09:23:22 08/23/19 20 [address]392: Therapeutic Exercise completed Mayra Goldsmith, PT [address] [place], [address], [facility] 08/23/2019 14:31:29 08/23/19 20 21221: Manual Therapy completed Mayra Goldsmith, PT [address] [place], [address], [facility] 08/23/2019 14:31:52 08/23/19 20 Treatment and Advice completed Mayra Goldsmith, PT [address] [place], [address], [facility] 08/23/2019 17:19:16 08/21/19 20 16152: Therapeutic Exercise cancelled Mayra Goldsmith, PT [address] [place], [address], [facility] 08/21/2019 11:45:58 08/21/19 20 61252: Manual Therapy cancelled Mayra Goldsmith, PT [address] [place], [address], [facility] 08/21/2019 11:46:00 08/21/19 20 Treatment and Advice cancelled Mayra Goldsmith, PT [address] [place], [address], [facility] 08/21/2019 11:45:32 08/19/19 20 Smoking cessation counseling completed Dennise Esparza PA-C [address] [place] [address], [phone], [facility] 08/19/2019 16:40:33 08/16/19 20 Physical Activity Counselling completed Mayra Goldsmith, PT [address] [place], [phone], [facility] 08/16/2019 08:31:35 08/16/19 20 [id number]: PT Eval Low Complexity completed Mayra Goldsmith, PT [address] [place] [address], [id number], [facility] 08/16/2019 16:55:10 08/16/19 20 Treatment and Advice completed Mayra Goldsmith, PT [address] [place], [id number], [facility] 08/16/2019 16:56:56 07/15/20 19 Smoking cessation counseling completed Aylin Calix MD [address] [place] [address], [phone], [facility] 07/15/2019 12:13:51 06/03/20 19 Smoking cessation counseling completed Aylin Calix MD [address] [place] [address], [phone], [facility] 06/06/2019 07:52:42 05/24/20 19 Smoking cessation counseling completed Dennise Esparza PA-C [address] [place] [address], [phone], [facility] 05/27/2019 08:45:58 02/12/20 19 Smoking cessation counseling completed Stephenie Sharif [facility] 02/11/2019 14:11:12 02/12/20 19 Carbon Monoxide Testing completed Stephenie Sharif [facility] 02/11/2019 14:11:12 11/10/19 19 Smoking cessation counseling completed Stephenie Sharif [facility] 11/09/2018 13:53:24 08/29/19 19 Smoking cessation counseling completed Pamela Vidal [facility] 08/29/2018 08:07:41 08/13/20 18 Smoking cessation counseling completed Stephenie Sharif [facility] 08/13/2018 13:36:51 08/13/20 18 Carbon Monoxide Testing completed Stephenie Sharif [facility] 08/13/2018 13:36:51 05/21/20 18 Smoking cessation counseling completed Tiffanie Torres NP [address] [place], [address], [facility] 05/21/2018 18:21:03 05/21/20 18 Carbon Monoxide Testing completed Tiffanie Torres NP [address] [place] [address], [address], [facility] 05/21/2018 18:21:03 04/30/20 18 Smoking cessation counseling completed Stephenie Sharif [facility] 04/30/2018 13:23:27 01/30/20 18 Smoking cessation counseling completed Tory Lockhart [facility] 01/29/2018 13:15:45 01/30/20 18 Carbon Monoxide Testing completed Tory Lockhart [facility] 01/29/2018 13:15:46 10/31/19 18 Smoking cessation counseling completed Beverly Cervantes [facility] 10/30/2017 13:56:50 08/01/20 17 Smoking cessation counseling completed Amber Graf RN [facility] 08/01/2017 14:18:03 04/27/20 17 Smoking cessation counseling completed Lisa Joseph [facility] 04/27/2017 13:51:54 01/26/20 17 Smoking cessation counseling completed [facility] 01/25/2017 13:55:26 01/26/20 17 Carbon Monoxide Testing completed [facility] 01/25/2017 13:55:26 10/27/19 17 Smoking cessation counseling completed [facility] 10/26/2016 14:17:07 10/27/19 17 Carbon Monoxide Testing completed [facility] 10/26/2016 14:24:27 07/27/20 16 Smoking cessation counseling completed Lisa Joseph [facility] 07/27/2016 13:34:26 04/27/20 16 Smoking cessation counseling completed [facility] 04/27/2016 14:20:27 01/27/20 16 Smoking cessation counseling completed [facility] 01/27/2016 14:25:26 10/21/19 16 Smoking cessation counseling completed Ashley Elder [facility] 10/21/2015 14:39:36 10/21/19 16 Carbon Monoxide Testing completed Ashley Elder [facility] 10/21/2015 14:47:03 07/22/20 15 Smoking cessation counseling completed Ashley Elder [facility] 07/22/2015 11:56:00 04/15/20 15 Smoking cessation counseling completed Ashley Elder [facility] 04/15/2015 10:27:57 01/30/20 15 Smoking cessation counseling completed Ashley Elder [facility] 01/29/2015 11:32:56 10/30/19 15 Smoking cessation counseling completed Isha Krause [facility] 10/29/2014 11:26:26 09/17/19 15 Smoking cessation counseling completed Jose Gunderson, [facility], [address], [facility] 09/17/2014 12:42:07 11/09/19 12 Smoking cessation counseling completed Antionette Patel [facility] 11/09/2011 15:30:52 10/04/19 12 Smoking cessation counseling completed Tasneem Beckett LPN [facility] 10/04/2011 08:15:13 08/09/20 11 Smoking cessation counseling completed Antionette Patel [facility] 08/09/2011 10:01:23 Imaging Results Imaging Date Name Status LastModified by Organ [facility] Details LastModified Time 10/06/2023 LDCT, chest, for lung cancer screening completed [facility] [address] [place], [address], 10/09/2023 11:49:59 10/06/2023 CT, chest completed [facility] [address] [place], [address], 10/17/2023 14:36:56 12/25/2023 pulmonary function test* completed [email or web address] [place] [address] [address] [place], [address], 12/25/2023 15:52:26 02/09/2024 CT, chest, w/o contrast completed [facility] [address], [place], [address], 02/11/2024 17:29:21 Procedure Notes None recorded. Medical Equipment None Reported. Allergies Allergen ID Allergen Name Allergen Category Reaction Reaction Severity Criticality Documentation Date Start Date Code Code System Note Provider Name and Address Organization Details Recorded Time 100926 atorvasta tin medicatio n myalgias (muscle pain) Not available low 05/03/2023 03090 RxNorm Dennise Esparza PA-C [address] [place] [address], [phone], [facility] 3 11:43:17 Medications Name Sig Start Date Stop Date Status Note LastModified by Organization Details LastModified Time oxycodone hcl 5 mg tabs active Not Available Not Available Not Available bupropion hcl sr 150 mg tb12 active Not Available Not Available Not Available viagra 100 mg tabs active Not Available [...] Available prednison e 10 mg tablet TAKE 1/2 TABLET 5MG) BY MOUTH DAILY FOR JOINT PAIN active Not Available Not Available No t [...] -acetamin ophen 10 mg-325 mg tablet TAKE ONE TABLET BY MOUTH 5 TIMES A DAY active Not Available Not Available [...] Not Available Not Available Not Available Flucelvax 0297-1059 (PF) 45 mcg (15 mcg x 3)/0.5 mL IM syringe active Not Available Not Available Not Available Ofev 150 mg capsule 05/28 completed Not Available Not Available Not Available nintedani b 05/28 completed Per 02/23/24 pulmonol ogy OV [id number] g BIDStart with once daily for x 2 weeks, then increase to BID for GI toleranc e Not Available Not Available Not Available OxyContin 20 mg tablet,cr ush resistant ,extended release TAKE ONE TABLET BY MOUTH EVERY DAY active Not Available Not Available No t Available Narcan 4 mg/actuat ion nasal spray Take by nasal route for suspecte d opioid overdose . Gilmer 1 mL in each nostril. Repeat after 3 minutes if no or minimal response 2022 active Not Available Not Available Not Avai lable Afluria 2021-2604 (PF) 45 mcg(15 mcg x 3)/0.5 mL [...] Updated DateTime 4 177.17 cm 29.9 kg/m2 33368.6 2 g 68 /min 118 mm[Hg] 80 mm[Hg] Joanne Witt [facility] 4 13:41:42 Date Recorded Body height Body mass index (BMI) Body weight Heart rate Systolic blood pressure Diastolic blood pressure Provider Name and Address Organization Details Last Updated DateTime 4 177.17 cm 28.7 kg/m2 05807.0 9 g 72 /min 110 mm[Hg] 74 mm[Hg] Amber shay [facility] 4 14:58:54 Date Recorded Body height Body mass index (BMI) Body weight Heart rate Systolic blood pressure Diastolic blood pressure Provider Name and Address Organization Details Last Updated DateTime 4 177.17 cm 29.6 kg/m2 32301.4 4 g 72 /min 128 mm[Hg] 82 mm[Hg] Lisa Joseph [facility] 4 11:45:22 Date Recorded Body height Body mass index (BMI) Body weight Heart rate Systolic blood pressure Diastolic blood pressure Provider Name and Address Organization Details Last Updated DateTime 4 177.17 cm 29.6 kg/m2 75360.4 4 g 84 /min 116 mm[Hg] 60 mm[Hg] Amber shay [facility] 4 15:24:31 Date Recorded Body height Body mass index (BMI) Body weight Heart rate Systolic blood pressure Diastolic blood pressure Provider Name and Address Organization Details Last Updated DateTime 5 177.17 cm 31.2 kg/m2 58932.3 5 g 100 /min 96 mm[Hg] 62 mm[Hg] Amber shay [facility] 11:28:48 Date Recorded Systolic blood pressure Diastolic blood pressure Provider Name and Address Organization Details Last Updated DateTime 07/22/2024 112 mm[Hg] 74 mm[Hg] Skyla Dick LPN [facility] 07/22/2024 15:47:07 Social History Question Answer Notes LastModified by Organizat ion Details LastModified Time Tobacco Smoking Status Current Every Day Smoker Antionette Patel CMA null, [facility] 08/09/2011 10:00:33 What Is Your Level Of Alcohol Consumption? Occasional 5 Per Month [email or web address] Information not available 06/03/2019 Do You Wear A Helmet When Biking? Yes [email or web address] Information not available 09/17/2014 What Is Your Level Of Caffeine Consumption? Moderate 2 Cups Of Coffee Per Day [email or web address] Information not available 09/17/2014 How Much Tobacco Do You Chew? None [email or web address] Information not available 09/17/2014 What Type Of Diet Are You Following? REGULAR [email or web address] Information not available 09/17/2014 Which Illicit Or Recreational Drugs Have You Used? None Information not available 07/22/2015 Do You Or Have You Ever Used E-cigarettes Or Vape? 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 Yes [email or web address] Information not available 09/17/2014 Live Alone Or With Others? With Others [email or web address] Information not available 09/17/2014 CSRP - Narcotics [...] 02/25/2021 Information not available 03/01/2021 Marital Status [email or web address] Informati on not available 09/17/2014 Mosquito Repellent Used Routinely Yes [email or web address] Information not available 09/17/2014 What Was The Date Of Your Most Recent Tobacco Screening? 05/28/2024 [email or web address] Information not available 05/28/2024 How Many Children Do You Have? 2 [email or web address] Information not available 09/17/2014 What Is Your Current Pack Years? [email or web address] [email or web address] Information not available 10/21/2015 Seat Belts Used Routinely Yes [email or web address] Information not available 09/17/2014 Are You Sexually Active? Yes [email or web address] Information not available 01/29/2015 Smoke Alarm In Home Yes [email or web address] Information not available 09/17/2014 Do You Have Smoke And Carbon Monoxide Detectors In Your Home? Yes [email or web address] Information not available 01/31/2023 At What Age Did You Start Smoking Tobacco? 12 [email or web address] Information not available 09/17/2014 Do You Or [...] 07/22/2015 Do You Use Sunscreen Routinely? Yes [email or web address] Information not available 09/17/2014 How Many Years Have You Smoked Tobacco? 50 [email or web address] Information not available 11/08/2019 Do You Or [...] available 2014 12:10:47 Medical History Condition Response COPD Y MUSCULOSKELETAL Y Interstitial Lung Disease Y Rheumatoid Arthritis Y Lyme Disease Y Chronic Neck Pain Y Colon Polyps Y Chronic Back Pain Y Hypertension Y Immunizations Vaccine Type Date Status Note Provider Nam e and Address Organization Details Recorded Time influenza, seasonal, intradermal, preservative free 2 completed Not Available [facility] 08/31/2019 02:18:54 Tdap 5 completed Not Available [facility] 08/31/2019 02:19:23 Influenza, split virus, quadrivalent, PF 5 completed Not Available [facility] 08/31/2019 02:28:18 zoster live 6 completed Not Available [facility] 08/31/2019 02:20:37 Influenza, split virus, quadrivalent, PF 7 completed Not Available [facility] 08/31/2019 02:34:16 Influenza, split virus, quadrivalent, PF 8 completed Not Available [facility] 08/31/2019 02:22:58 influenza, unspecified formulation 6 completed Lisa Joseph CMA [facility] 07/27/2016 13:40:50 Influenza, split virus, quadrivalent, PF 9 completed Not Available [facility] 08/31/2019 02:24:32 pneumococcal polysaccharide PPV23 1 completed Stephenie Sharif MA [facility] 12/04/2020 14:14:01 Influenza, split virus, quadrivalent, preservative 0 completed Stephenie Sharif MA [facility] 05/18/2020 16:52:44 Pneumococcal conjugate PCV 13 2 completed Tawny Edmonds LPN [facility] 09/17/2021 10:09:29 Influenza, high-dose, quadrivalent, PF 2 completed Dennise Esparza PA-C [address] [place] [address], [address], [facility] 04/27/2022 10:20:13 COVID-19, mRNA, LNP-S, PF, 100 mcg/0.5mL dose or 50 mcg/0.25mL dose 1 [facility] 09:05:03 COVID-19, mRNA, LNP-S, PF, 100 mcg/0.5mL dose or 50 mcg/0.25mL dose 1 completed [facility] 10/29/2020 09:05:13 COVID-19, mRNA, LNP-S, bivalent, PF, 50 mcg/0.5 mL or 25mcg/0.25 mL dose 2 completed Skyla Dick LPN [facility] 05/26/2022 14:47:57 Influenza, high-dose, quadrivalent, PF 3 completed Dennise Esparza PA-C [address] [place] [address], [address], [facility] 05/03/2023 11:41:58 COVID-19, mRNA, LNP-S, PF, 30 mcg/0.3 mL dose 1 completed [facility] 05/18/2021 16:14:49 Influenza, split virus, quadrivalent, preservative 1 completed [facility] 05/18/2021 16:15:18 zoster recombinant 1 completed [facility] 07/20/2022 16:03:55 influenza, unspecified formulation 1 completed [facility] 08/28/2024 11:19:20 Td(adult) unspecified formulation 4 completed [facility] 08/28/2024 11:19:20 Past Encounters Encounter ID Performer Location Encounter Start Date Encounter Closed Date Diagnosis/Indication Diagnosis SNOMED-CT Code Diagnosis ICD10 Code Diagnosis Note [id number] DIANE GONCALVES, OFFICE [address] [place] [address] 08/09/2011 09:42:13 08/09/2011 11:11:11 [id number] IVANNA Jayne, OFF[address] [place] [address] 09/08/2011 07:51:17 09/08/2011 08:42:52 [id number] , [facility], OFFICE [address] [place] [address] [place] [address] 10/04/2011 07:52:35 10/04/2011 08:43:23 [id number] , [facility], OFFICE [address] [place] [address] 11/09/2011 15:13:40 11/09/2011 17:34:42 [id number] Keily Melchor, [facility], [facility], OFFICE [address] [place] [address] 07/04/2012 11:42:04 07/04/2012 12:11:21 [id number] Isha Krause [facility], [facility], OFFICE [address] [place] [address] 07/18/2012 11:23:29 07/18/2012 12:13:11 [id number] ASHLEY Cody , [facility], OFFICE [address] [place] [address] 09/17/2014 11:41:10 09/17/2014 15:07:39 Disorder of rotator cuff [id number] call [facility]: [address] [place] [address], to make an appointmen t. Neck pain [id number] Recom royal ng chiropract ic or physical therapy Fracture of lower leg 858195618 Pain in ri ght lower limb 725831931 Chronic pain 84240498 Impotence of organic origin 190644018 Tobacco user 229825031 A fter discussion of the risks of [...] needed. Follow up as needed for support. [id number] Sara Duong , [facility], OFFICE [address] [facility] sada, RASHARD [address] 10/01/2014 11:27:46 10/01/2014 12:57:08 Screening for malignant neoplasm of colon [id number] Discussed the importance of screening for colon cancer. With chronic medical conditions , we will send a referral to GI. last one in 2009 Chronic pain 15733634 We ill enroll you in CSRP - script given today, with pickup calendar Tobacco user [id number] A fter discussion of the risks of [...] not filled Disorder o f rotator cuff 427237507 call [facility]: [address] [place] [address], to make an appointmen t. Appointmen t October 16 Neck pain 13226682 Recom royal ng chiropract ic or physical therapy Improving. continue with exercises Elevated blood-pressure reading without diagnosis of hypertension 582192428 Follow up 1 month for recheck Administra tion of diphtheria, pertussis, and tetanus vaccine 427743801 [id number] Sara GONCALVES, [facility], OFFICE [address] [place] [address] 10/29/2014 11:05:12 10/29/2014 12:02:08 Tobacco user 554782203 reducing cigarettes . using the patch. Disorder o f rotator cuff 564922137 shoulder pain is well improved by the injections . start physical therapy. Pain in ri ght lower limb 127532515 still pain in leg. pain medication manages this. [id number] Lolly See Ms, PT Physical Therapy, [address] [address] 11/19/2014 09:51:59 11/19/2014 11:38:11 Shoulder pain 25736212 [id number] Ashley Elder [facility], [facility], OFFICE [address] [place] [address] 01/29/2015 11:13:43 01/30/2015 14:08:22 Chronic pain 94123308 we will increase your dose of oxycodone to 5mg 1 tab 7 times a day (3 in am 2 in pm and 2 at night). DO not take more than 2400 mg of ibuprofen per day Tobacco user 113439112 a grees to nicotine replacemen t at next appointmen t. Shoulder pain 87065132 f up if we need to complete crossbow waiver. Pain in ri ght lower limb 714898351 still pain in leg. pain medication manages this. [id number] , [facility], OFFICE [address] [place] [address] 04/15/2015 09:55:42 04/15/2015 11:12:37 Chronic pain 69886060 your dose of oxycodone to 5mg 1 tab 7 times a day (3 in am 2 in pm and 2 at night). DO not take more than 2400 mg of ibuprofen per day Tobacco user 590635823 a grees to nicotine replacemen t at next appointmen t. Lifestyle 610803578 Influenza vaccine needed [id number] 106 Polyarthropathy 88134811 given the multiple joint pain and fatigue we will do these tests. discussed the meaning of the tests - these may not be conclusive but can help guide next steps [id number] ASHLEY Cody , [facility], OFFICE [address] [place] [address] 07/22/2015 11:39:45 07/22/2015 12:37:51 Adult health examination 683574609 Z00.00 see Risk Assessment and Lifestyle Change Counseling section above Counseling 494372043 Z71 .9 Chronic pain 95267998 R5 2 oxycodone - continue current dose. Tobacco user 885244532 Z 72.0 agrees to nicotine replacemen t at next appointmen t. Multiple joint pain 3567 8005 M25.50 Polyarthropathy 98778257 M13.0 Stable [id number] Skyla Menon LPN , [facility], OFFICE [address] [place] [address] 09/01/2015 14:30:55 09/01/2015 14:54:59 Tuberculosis screening 195232135 Z11.1 [id number] ASHLEY Cody , [facility], OFFICE [address] [place] [address] 10/21/2015 14:30:06 10/21/2015 15:09:41 Chronic pain 84257654 R52 oxycodone - continue current dose. Tobacco user 924925316 Z 72.0 agrees to nicotine replacemen t [...] Elevated blood-pressure reading without diagnosis of hypertension 826202979 R03.0 Follow up 1 month for recheck Fracture of lower leg 41 8594125 S82.54XD occasional Disorder o f rotator cuff 624955775 M75.80 shoulder pain continues, but is manageable Neck pain 15558385 M54.2 Recommendi ng chiropract ic or physical therapy Improving. continue with exercises Long-term drug therapy 135108621 Z79.899 Backache 270716473 M54.9 morning stiffness and pain. recommendi ng stretching , and adjusting timing of oxycodone to have some at night time to help relax muscles. [id number] ASHLEY Cody, [facility], [address] [place] [address] 10/28/2015 10:50:05 10/28/2015 12:01:00 Long-term drug therapy 435883681 Z79.899 We will call for 2 random [...] . We will follow up at your 4/6 appointmen t. Elevated blood-pressure reading without diagnosis of hypertension 415482968 R03.0 Follow up 1 month for recheck still above goal Backache 904240357 M54.9 morning stiffness and pain. recommendi ng stretching , and adjusting timing of oxycodone to have some at night time to help relax muscles. will address after 2 month trial period [id number] ASHLEY Cody, [facility], [address] [place] [address] 01/27/2016 14:21:14 01/27/2016 15:10:25 Chronic pain 72635498 R52 Doing well on current doseconsid er using 1 indomethac in at night instead of ibuprofen ot help reduce morning stiffness. Cigarette smoker 6528530 7 F17.210 Discussed restarting the patch, in addition to the wellbutrin . Currently at 1PPD Pain in ri ght lower limb 026752307 M79.604 follow up if it worsen Active or passive immunization 912871278 Z23 [id number] Zaheer Herr , [facility], [address] [place] [address] 04/27/2016 14:18:04 04/27/2016 14:49:24 Benign essential hypertension 3482775 I10 Blood pressure at goal Cigarette smoker 4137013 7 F17.210 Discussed restarting the patch, in addition to the wellbutrin . Currently at 1PPD Tobacco user 803480416 Z 72.0 Chronic pain 28838688 R5 2 will switch to oxycodone/ APAP 4 times a day. starting at May.Let me know how it goes a few weeks after. Follow up 3 months. Chronic sciatica 8363834 M54.31 Long-term drug therapy 801995023 Z79.370 [id number] ASHLEY Cody , [facility], [address] [place] [address] 07/27/2016 13:23:56 07/27/2016 14:15:52 Adult health examination 994888638 Z00.00 see Risk Assessment and Lifestyle Change Counseling section above Counseling 226445903 Z71 .9 Cigarette smoker 0278905 7 F17.210 Discussed restarting the patch, in addition to the wellbutrin . Currently at 1PPD declined to start nicotine replacemen t at this time. Tobacco user 445543481 Z 72.0 Elevated blood-pressure reading without diagnosis of hypertension 806759414 R03.0 at goal Disorder o f rotator cuff 511851985 M75.80 shoulder pain continues, but is manageable . some elbow pain, may be related to new activities Fracture of lower leg 41 4994226 S82.54XD occasional severe pain Neck pain 89411482 M54.2 Recommendi ng chiropract ic or physical therapy Improving. continue with exercises Chronic sciatica 3078025 01 M54.31 Screening for malignant neoplasm of lung 347309116 Z12.2 [id number] ASHLEY Cody , [facility], [address] [place] [address] 10/26/2016 14:13:14 10/26/2016 15:13:55 Chronic pain 98199916 R52 will switch to oxycodone/ APAP 10/325 4 times a day. starting at May.Let me know how it goes a few weeks after. Follow up 3 months. Opioid dependence 857826 00 F11.20 pt declines patch Cigarette smoker 3601754 7 F17.210 Discussed restarting the patch, in addition to the wellbutrin . Currently at 1PPD declined to start nicotine replacemen t at this time. Tobacco user 237243794 Z 72.0 Long-term drug therapy 685038934 Z79.899 Disorder o f rotator cuff 654598169 M75.80 shoulder pain continues, but is manageable . some elbow pain, may be related to new activities Follow up with orthopedic s. Chronic sciatica 3709123 01 M54.31 Lung mass 013161416 R91. 8 discussed follow up with repeat CT in 3 months, then continue follow up with [facility]. [id number] NARENDRA Cody-NARINDER FP, [facility], OFFICE [address] [place] [address] 01/25/2017 13:52:26 01/25/2017 14:34:20 Chronic pain 81309871 R52 Opioid dependence 653730 00 F11.20 Cigarette smoker 0758837 7 F17.210 Discussed restarting the patch, in addition to the wellbutrin . Currently at 1/2 PPD Tobacco user 917649354 Z 72.0 Long-term drug therapy 739183340 Z79.899 Chronic sciatica 8185593 01 M54.31 Starting at the next ,we will write for perc 10/325 1 every six hours, plus up to 1 additional day, max 10 per month for exacerbati ons Disorder o f rotator cuff 105104523 M75.80 shoulder pain continues, but is worsening. some elbow pain, may be related to new activities Follow up with orthopedic s. Lung mass 976134859 R91. [address], has 1 year follow up scheduled [id number] NARENDRA Morgan FP, [facility], OFFICE [address] [place] [address] 04/27/2017 13:42:12 04/27/2017 14:17:01 Chronic pain 35874112 R52 -continue current dose of percocet-f ollow up in 3 month Cigarette smoker 8774767 7 F17.210 -encourage d to quit-christina nues to decrease the number, he is using the patches Tobacco user 015529193 Z 72.0 Active or passive immunization 310714600 Z23 updated [id number] Chen Alex, NARENDRA , [facility], [address] [place] [address] 08/01/2017 14:13:53 08/01/2017 15:22:54 Adult health examination 547259270 Z00.00 see Risk Assessment and Lifestyle Change Counseling section above Counseling 891274823 Z71 .9 Healthy lifestyle changes may help [...] if having trouble w/ sleeping. 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 [id number] Dennise Esparza PA-C , [facility] [address] [place] [address] 10/30/2017 13:44:49 10/30/2017 17:51:30 Chronic pain 56340347 R52 - due to low back, shoulders- stable with current medication dosing Cigarette smoker 9498292 7 F17.210 - not ready to quit Tobacco user 242528151 Z 72.0 Impotence of organic origin 191004190 N52.9 - viagra working well Long-term drug therapy 382252594 Z79.288 [id number] Dennise Esparza PA-C , [facility] [address] [place] [address] 01/29/2018 13:12:15 01/29/2018 13:50:06 Cigarette smoker 88147785 F17.210 - not ready to quit Tobacco user 758905000 Z 72.0 Degenerati ve joint disease of shoulder region 77300983 M19.019 - will see ortho again to discuss another injection- will increase at next prescripti on to percocet three times per day- recommend taking the second oxycontin later at bedtime with ibuprofen to allow better sleep- follow up 3 months Chronic sciatica 0952372 01 M54.31 - worsening pain, will address shoulder first [id number] Stephenie Sharif MA , [facility] [address] [place] [address] 04/30/2018 13:12:03 04/30/2018 15:47:55 Cigarette smoker 63480559 F17.210 - not ready to quit Tobacco user 611976381 Z 72.0 - plans to restart patches Chronic pain 18226972 R5 2 - due to low back, shoulders- stable with current medication dosing Active or passive immunization 434748315 Z23 Degenerati ve joint disease of shoulder region 42330911 M19.019 - stable with current medication s- follow up 3 months- working through workmans [employer] Hand pain 74069704 M79.6 41 - more consistent with osteoarthr itis than hout- will check xray and uric acid level- can continue with indomethac in for now, do not take other NSAIDs such as ibuprofen or aleve- if gout, would consider a preventive medication Obesity 098611292 E66.9 - recommend regular exercise and weight loss Long-term drug therapy 439943398 Z79.714 [id number] Tiffanie Torres NP , [facility] [address] [place] [address] 05/21/2018 17:21:15 05/22/2018 09:20:24 Cigarette smoker 89471783 F17.210 Tobacco user 105134792 Z 72.0 Hand pain 46661486 M79.6 43 -recommend seeing rheumatolo gy-recent kidney function normal -continue w/ indomethac inand call if not improving. [id number] Dennise Esparza PA-C , [facility], [facility] [address] [place] [address] 08/13/2018 13:00:21 08/13/2018 14:20:29 Chronic pain 42000681 R52 - due to low back, shoulders- stable with current medication dosing Cigarette smoker 0841780 7 F17.210 - not ready to quit but using patches at times Tobacco user 773900058 Z 72.0 Degenerati ve joint disease of shoulder region 72639016 M19.019 - stable with current medication s- follow up 3 months- will make appt for sports medicine to consider injections as they were helpful a few years ago Depression screening 171 762582 Z13.31 - depression screening tool administer ed, entered into emr, scored and discussed, time greater than 7.5 minutes- negative screening [id number] Justice Ríos MD Sports Medicine, [address] [address] 08/29/2018 08:03:58 08/29/2018 08:33:14 Cigarette smoker 05314451 F17.210 I did discuss smoking cessation with [...] to work on smoking cessation. Tobacco user 104252146 Z 72.0 Shoulder pain 31650838 M 25.511 M25.512 Harrison is a 62-year-ol [...] work to obtain his MRI report from [facility] and he will work to obtain images on disc of his MRI as well. We did discuss a possible corticoste roid injection that I feel we will defer this until we have results of his imaging available. He will plan a follow-up with me in 4 weeks for reevaluati on. 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 Cigarette smoker 9354068 7 F17.210 - not ready to quit but using patches at times; wants to try chantix Tobacco user 270777877 Z 72.0 Long-term drug therapy 203131988 Z79.899 Multiple joint pain 3567 8005 M25.50 - will do further evaluation , please come in on a day when you are having pain- continue current medication s [id number] DORINDA Hercules, [facility] [address] [place] [address] 02/11/2019 14:06:32 02/11/2019 16:23:46 Adult health examination 870349426 Z00.00 Counseling 003888637 Z71 .9 Depression screening 171 035882 Z13.89 - depression screening tool administer ed, entered into emr, scored and discussed, time greater than 7.5 minutes- negative screening Mixed hyperlipidemia 267 538054 E78.2 - Cholestero l is not at goal- Continue to work on diet and exercise as discussed- will discuss starting a statin at next visit Cigarette smoker 7978177 7 F17.210 - using chantix and cutting back Tobacco user 450735725 Z 72.0 Chronic pain 87631798 R5 2 - due to low back, shoulders- 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 Opioid dependence 823235 00 F11.20 - stable with prescripti on medication s Hand pain 75030854 M79.6 41 - has appt with rheum for hand pain and positive dsDNA, RF Multiple n odules of lung 648169164 R91.8 - following with [facility] program Obesity 284984630 E66.9 - recommend regular exercise and weight loss [id number] Dennise Esparza PA-C , [facility] [place] [address] 05/24/2019 15:10:35 05/24/2019 15:53:05 Long-term drug therapy 964204445 Z79.899 Cigarette smoker 8542882 7 F17.210 - chantix not helpful, now using patch Tobacco user 536670119 Z 72.0 After discussion of the risks [...] needed for support. Active or passive immunization 415370914 Z23 Fibrosis of lung 0083380 1 J84.10 - schedule appt with pulm please, contact informatio n given- needs eval for UIP Multiple joint pain 7131 4929 M25.50 - has appt with rheum in two weeks, will complete prednisone course Degenerati ve joint disease of shoulder region 86395936 M19.019 - stable with current medication s- follow up 3 months- will make appt for sports medicine to consider injections as they were helpful a few years ago [id number] Aylin Calix MD [place] [facility] [place] [facility] [address] [facility] [place] [address] 06/03/2019 14:16:50 06/10/2019 06:24:52 Tobacco user 828818604 Z72.0 Discussed with patient advisabili ty of smoking cessation. He has significan t changes on Chest CT from smoking. Specifical ly emphasized that, in addition to other ills, smoking promotes inflammati on and that arthritis patients who smoke have less of a response to the anti-rheum atic drugs than non smokers. Offered encouragem ent to stop smoking. Cigarette smoker 3852510 7 F17.210 Undifferen tiated inflammatory arthritis 791532190 M13.80 Patient is on prednisone and there [...] oroquine (Plaquenil ). 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 Re-eval in 6 weeks. Adding LEF might be a good option. Chronic ob structive pulmonary disease 75092663 J44.[address] has demonstrat ed significan t changes from smoking. Interstiti al lung disease 352403125 J84.[address] showed progressiv e pulmonary fibrosis.T his could be from smoking, but may be related to his inflammato ry arthritis, + EVELYN, + RF. He has been referred to see pulmonary, but has not yet made appointmen t.I encouraged him to do so. [id number] Aylin Calix MD [place] [facility] [place] [facility] [address] [facility] [place] [address] 07/15/2019 10:29:00 07/16/2019 06:16:34 Cigarette smoker 70249107 F17.210 Tobacco user 674142448 Z 72.0 Discussed with patient advisabili ty of smoking cessation. He has significan t changes on Chest CT from smoking. Specifical ly emphasized that, in addition to other ills, smoking promotes inflammati on and that arthritis patients who smoke have less of a response to the anti-rheum atic drugs than non smokers. Offered encouragem ent to stop smoking. Inflammato ry polyarthropathy 128443656 M06.4 By hx, years of migratory inflammato [...] likely add LEF. Interstiti al lung disease 119094184 J84.[address] showed progressiv e pulmonary fibrosis.T his could be from smoking, but may be related to his inflammato ry arthritis, + EVELNY, + RF. He has been referred to see pulmonary, but still does not have appointmen t.Referral was sent in Mar, but I will fax this again. Pt should call office again. [id number] Noemy Rooney , [facility], OFFICE [address] [place] [address] 07/30/2019 11:38:00 07/30/2019 12:27:43 Neck pain 11281983 M54.2 Slightly worse on L. Likely sprain/str ain. Would monitor. Shoulder pain 35891834 M 25.519 L shoulder. Likely strain/spr ain/ecchym oses, would monitor. Rib pain 785925711 R07.8 1 No point tenderness , diffuse; would get x-ray if pain not improving but would hold off for now. Pain of left wrist 16497 88084 30293 M25.532 Very mild. Likely strain/spr ain/ecchym oses, would monitor. Ankle pain 717969796 M25 .579 Mild. Likely strain/spr ain/ecchym oses, would monitor. [id number] Mayra Goldsmith, PT Physical Therapy, [address] [address] 08/16/2019 13:11:49 08/19/2019 09:17:54 Neck pain 18890165 M54.2 Pain of le ft shoulder joint 1340712917 4216879 M25.775 [id number] DORINDA Hercules, [facility]ICE [address] [place] [address] 08/19/2019 15:25:33 08/20/2019 14:23:34 Opioid dependence 62006669 F11.20 - stable with prescripti on medication s Cigarette smoker 5327847 7 F17.210 pt interested in quitting smoking, discussed and given smoking cessation Tobacco user 205036641 Z 72.0 After discussion of the risks [...] needed for support. Primary er ectile dysfunction 866841188 N52.9 - stable with current medication s Multiple joint pain 3567 8005 M25.50 - plan below Essential hypertension 65567556 I10 Start Hydrochlor othiazide 12.5 mg once [...] Degenerati ve joint disease of shoulder region 19248274 M19.019 - stable with current medication s- follow up 3 months Fibrosis of lung 0090600 1 J84.10 - Schedule with pulmonolog y Inflammato ry polyarthropathy 950172294 M06.4 - improving with plaquenil and prednisone , continue to follow with rheumatolo gy [id number] Mayra Goldsmith, PT Physical Therapy, [address] [address] 08/23/2019 13:24:33 08/26/2019 07:11:11 Neck pain 46487133 M54.2 Pain of le ft shoulder joint 2593378294 7984419 M25.265 [id number] Mayra Goldsmith, PT Physical Therapy, [address] [address] 08/30/2019 13:29:58 08/30/2019 14:44:22 Neck pain 91614147 M54.2 Pain of le ft shoulder joint 7712142184 9295662 M25.203 [id number] Mayra Goldsmith, PT Physical Therapy, [address] [address] 09/13/2019 13:43:21 09/13/2019 14:24:06 Neck pain 95259757 M54.2 Pain of le ft shoulder joint 1101274956 6323957 M25.423 [id number] Mayra Goldsmith, PT Physical Therapy, [address] [place] [address] 09/20/2019 14:53:24 09/23/2019 10:21:17 Neck pain 17811351 M54.2 Pain of le ft shoulder joint 1249774186 9970234 M25.885 [id number] Aylin Calix MD [place] [facility] [place] [facility] [address] [place] [address] 10/04/2019 13:33:46 10/07/2019 11:55:59 Undifferentiated inflammatory polyarthritis 355642613 M13.0 By hx, years of migratory inflammato [...] next choice. Return 3 mo Tobacco user 658463922 Z 72.0 Discussed with patient advisabili ty of smoking cessation. He has significan t changes on Chest CT from smoking. Specifical ly emphasized that, in addition to other ills, smoking promotes inflammati on and that arthritis patients who smoke have less of a response to the anti-rheum atic drugs than non smokers. Offered encouragem ent to stop smoking. Cigarette smoker 6298800 7 F17.210 Interstiti al lung disease 034211148 J84.[address] showed progressiv e pulmonary fibrosis.T his could be from smoking, but may be related to his inflammato ry arthritis, + EVELYN, + RF. He has been referred to see pulmonary, but still does not have appointmen t.Referral was sent in Mar, and I tried again in Aug.Will send note to referrals. I think he needs to be seen. [id number] Mayra Goldsmith, PT Physical Therapy, [address] [address] 10/18/2019 14:26:56 10/21/2019 08:07:23 Neck pain 89041546 M54.2 Pain of le ft shoulder joint 2306489627 2859156 M25.862 [id number] Mayra Goldsmith, PT Physical Therapy, [address] [address] 10/23/2019 15:05:12 10/23/2019 16:13:40 Neck pain 76211137 M54.2 Pain of le ft shoulder joint 2425599777 7416449 M25.262 [id number] Mayra Goldsmith, PT Physical Therapy, [address] [address] 10/25/2019 15:51:43 10/28/2019 08:28:44 Neck pain 73969866 M54.2 Pain of le ft shoulder joint 5071674620 0759021 M25.201 [id number] Dennise Esparza PA-C , [facility], [facility] [address] [place] [address] 11/08/2019 08:06:32 11/12/2019 16:16:45 Chronic pain 20076802 R52 - due to low back, shoulders- 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 Essential hypertension 65998326 I10 - continue HCTZ once daily - [...] for the bottom number Fibrosis of lung 5523877 1 J84.10 - Scheduled with pulmonolog y for further evaluation - discussed importance of smoking cessation Degenerati ve joint disease of shoulder region 47750763 M19.019 - has appt with sports medicine planned Undifferen tiated inflammatory polyarthritis 389211810 M13.0 - stable with current medication s, improved [id number] Justice Ríos MD Sports Medicine, [facility] [address] [place] [address] 11/20/2019 14:45:54 11/20/2019 16:00:15 Shoulder pain 73235297 M25.512 Harrison is a 63 yo male [...] for re-evaluat ion and possible cortisone injection. [id number] Aylin Calix MD [place] [facility] [place] [facility] [address] [place] [address] 01/24/2020 10:45:30 01/27/2020 07:24:37 Seropositive rheumatoid arthritis 893103454 M05.9 Definite inflammato ry polyarthri tis with [...] me 6 weeks. Interstiti al lung disease 326824935 J84.[address] showed progressiv e [...] Dr Tipton thinks it should be boosted. 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 Fibrosis of lung 6629593 1 J84.10 - ILD from smoking or RA, following with rheumatolo gy and pulmonolog y and planning to quit smoking Rheumatoid arthritis 698 82019 M06.9 - stable on plaquenil and prednisone , does not want to taper off prednisone Chronic ob structive pulmonary disease 20050627 J44.9 - stable and following with pulm Depression screening 171 138895 Z13.89 - depression screening tool administer ed, entered into emr, scored and discussed, time greater than 7.5 minutes- negative screening [id number] Aylin Calix MD Rheumatol [facility], [address] [place] [address] 03/06/2020 07:56:01 03/09/2020 07:25:46 Rheumatoid arthritis 51035302 M06.9 Definite inflammato ry polyarthri tis with [...] week, then 20/d. Interstiti al lung disease 288094943 J84.[address] showed progressiv e [...] He has cut down some with Chantix. [id number] Aylin Calix MD Rheumatol [address] [place] [address] 04/24/2020 08:05:23 04/27/2020 07:08:31 Rheumatoid arthritis 21217924 M06.9 Definite inflammato ry polyarthri tis with [...] Check labs 1 mo, f/u 6 weeks. [id number] Aylin Calix MD [place] [facility] [place] [facility] [address] [place] [address] 05/26/2020 11:24:23 05/27/2020 12:59:54 Rheumatoid arthritis 94070091 M06.9 Definite inflammato ry polyarthri tis with [...] weeks. Localized swelling, mass and lump, neck 614449926 R22.1 Imp: fullness anterior neck. Could be from recent boost steroids. Thyroid seems sl enlarged. Patient worried that this was side effect of leflunomid e. I don't really see how that is possible. Resume LEF. Plan: Check neck u/s. Check TFT's. Rheumatoid lung disease 465257587 M05.10 interstiti al lung disease.Tr eatment for RA should help.Sees Dr Tipton. [id number] Dennise Esparza PA-C , [facility] [address] [place] [address] 05/29/2020 14:55:45 06/01/2020 11:25:20 Cigarette smoker 10332334 F17.210 - starting chantix again Tobacco user 565878163 Z 72.0 After discussion of the risks [...] as needed for support. Rheumatoid arthritis 698 82456 M06.9 - starting LEF with rheum, staying on prednisone for now and plaquenil Screening for malignant neoplasm of colon 193459827 Z12.11 Referral for a DIRECT booked colonoscop y. This patient is a healthy ASA Class 1 or 2 patient (only mild systemic disease), or a STABLE, well controlled insulin dependent diabetic. They do not have serious cardiac disease ie OK/angiopl asty within 1 year, symptomati c CHF; renal failure with CKD 4 or 5; take Coumadin, Plavix, Aggrenox, etc. 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 Definite [...] if needed. Thyroid fu nction tests abnormal 516450340 R94.6 Swelling in neck, but only minimally enlarged thyroid.TS H sl depressed. Will repeat at next lab draw. Localized swelling, mass and lump, neck 875170916 R22.1 Imp: fullness anterior neck. Could be from recent boost steroids. Thyroid minimally enlarged on recent scan. Patient worried that this was side effect of leflunomid e. I don't really see how that is possible. Prednisone more likely to be cause. Painless thyroiditi s possible, but only minimal thyroid enlargemen t. Will repeat abnormal TSH. Long-term drug therapy 750006478 Z79.899 On LEF. Recent labs normal. Repeat 2-3 mo. [id number] Sirena Sorensen , [facility] [address] [place] [address] 06/18/2020 10:05:53 06/19/2020 11:51:31 Rib pain 866789578 R07.81 Right rib pain, xray orderedAcu te pain after chiropract or visit 3-03/23 painIbupro fen with food as directed.H eat, restDiscus sed med risks, heart, cardiac and GI risks reviewedMo nitor BP, if stomach is upset discontinu e ibuprofenF /u pending results [id number] Dennise Esparza PA-C , [facility] [place] [address] 08/17/2020 11:24:38 08/18/2020 15:57:04 Adult health examination 177797103 Z00.00 Counseling 724037015 Z71 .9 Cardiovasc ular risk reduction was discussed including benefits and risks of aspirin, exercise goals, healthy eating and healthy weight . Discussion greater than 7.5 minutes. 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 Fibrosis of lung 8572309 1 J84.10 - ILD from smoking or RA, following with rheumatolo gy and pulmonolog y and planning to quit smoking - most recent CT is stable Chronic ob structive pulmonary disease 07510959 J44.9 - stable and following with pulm Essential hypertension 07634915 I10 - continue HCTZ once daily - [...] for the bottom number Rheumatoid arthritis 698 10180 M06.9 - starting LEF with rheum, staying on prednisone for now and plaquenil [id number] Aylin Calix MD Rheumatol [address] [place] [address] 09/11/2020 07:58:31 09/14/2020 07:21:36 Rheumatoid arthritis 80489395 M06.9 Sero-posit flex, CCP positive RA. Definite [...] mo., sooner if needed. Long-term drug therapy 718936716 Z79.899 On LEF. Recent labs normal. Repeat 3 mo. On Plaquenil: Had recent eye exam at [facility]. Rheumatoid lung disease 193222765 M05.10 interstiti al lung disease. Treatment for RA should help. Sees Dr Tipton, but cancelled follow up because of Covid fears. Will reschedule once he get vaccine. [id number] Aylin Calix MD Rheumatol [facility], [address] [address] 11/06/2020 11:09:35 11/08/2020 07:22:29 Rheumatoid arthritis 86352521 M06.9 Sero-posit flex, CCP positive RA. Definite [...] sooner if needed. Pain in right foot 70571 57098 76087 M79.671 Puzzling pain R foot, plantar aspect first metatarsal . I do not think this is RA related. The rest of his joints are doing well on current meds. I find no swelling or synovial thickening at the R foot today. 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 Opioid dependence 003731 00 F11.20 - stable with prescripti on medication s Cigarette smoker 7791247 7 F17.210 - wants to quit, will try chantix again but not ready yet Tobacco user 155791784 Z 72.0 Essential hypertension 37327876 I10 - shortness of breath with HCTZ [...] for the bottom number Screening for disorder 806150837 Z13.6 Active or passive immunization 388176727 Z23 [id number] Aylin Calix MD Rheumatol [facility], [facility] [address] [place] [address] 12/11/2020 07:54:11 12/14/2020 06:45:37 Rheumatoid arthritis 46034751 M06.9 Sero-posit flex, CCP positive RA. CCP [...] sooner if needed. Pain in right foot 49843 06371 02838 M79.671 Puzzling, ongoing pain R foot, plantar aspect first metatarsal . I do not think this is RA related. The rest of his joints are doing well on current meds. Has seen Dr Holt. He suggested MRI if patient wants to pursue further. Interstiti al lung disease 862047588 J84.[address] showed progressiv e pulmonary fibrosis. Has seen Dr Tipton. 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 Treating now with Leflunomid e (prefer to avoid MTX if possible). Sxs are stable, but he has not been back to see Dr Tipton. Discussed smoking cessation. [id number] [facility] [address] [place] [address] 12/18/2020 14:58:38 12/22/2020 18:39:07 Injury of upper extremity [id number] S49.90XA Suspect biceps tendon injury, will refer to ortho for evaluation . Pt instructed on conservati ve measures as below and to contact the office for any worsening symptoms. 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 Long-term current use of opiate analgesic drug 2485399076 07706 Z79.891 Cigarette smoker 3926581 7 F17.210 - wants to quit, will try chantix again but not ready yet Tobacco user 677080621 Z 72.0 Chronic ob structive pulmonary disease 08116554 J44.9 - stable and following with pulm Rheumatoid arthritis 698 16050 M06.9 - starting LEF with rheum, staying on prednisone for now and plaquenil- pain is not well controlled Depression screening 171 355808 Z13.89 - depression screening tool administer ed, entered into emr, scored and discussed, time greater than 7.5 minutes- negative screening Obesity 488445904 E66.9 - recommend regular exercise and weight loss Pain in right foot 26761 46545 22144 M79.671 - follow up with ortho for MRI [id number] Dennise Esparza PA-C , [facility], OFFICE [address] [place] [address] 05/24/2021 14:32:30 05/24/2021 15:11:00 Chronic pain 37446750 R52 - due to low back, shoulders, RA- will switch ER to IR and see if pain control improves- 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 Long-term current use of opiate analgesic drug 6871746385 45816 Z79.891 Cigarette smoker 0837768 7 F17.210 - wants to quit, will try chantix again but not ready yet Tobacco user 233951961 Z 72.0 Long-term drug therapy 688674953 Z79.899 Grissom's n euroma of right foot 7194353193 13062 G57.61 - carol ann g surgical removal with Dr Holt due to worsening pain Essential hypertension 37157033 I10 - BP high today after recent [...] for the bottom number Thoracic back pain 40435 8004 M54.6 - unclear origin but higher than CVA, and improving- will monitor for now and call if not continuing to improve Rheumatoid arthritis 698 76070 M06.9 - starting LEF with rheum, staying on prednisone for now and plaquenil- pain is not well controlled but does seem improved [id number] Aylin Calix MD [place] [facility] [place] [facility] [address] [facility] [place] [address] 08/20/2021 09:03:18 08/22/2021 07:00:49 Rheumatoid arthritis 58814722 M06.9 Sero-posit flex, CCP positive RA. CCP [...] November. Long-term current use of systemic steroid 3990922575 94760 Z79.52 Low dose prednisone past year+.Chec k Vit D. Pain in right foot 65640 17922 71954 M79.671 Puzzling, ongoing pain R foot, plantar aspect first metatarsal .Pain severe. 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 The rest of his joints are doing well on current meds. Has seen Dr Holt. 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 I wonder if this could be avascular necrosis. Will try to discuss with Dr Holt. Long-term drug therapy 591381810 Z79.899 On LEF. Recent labs normal. Repeat 3 mo. On Plaquenil: Will need repeat eye exam, but wait until after Covid spike. Interstiti al lung disease 454243521 J84.[address] showed progressiv e pulmonary fibrosis. Has seen Dr Tipton. 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 Treating now with Leflunomid e (prefer to avoid MTX if possible). Sxs are stable, but he has not been back to see Dr Tipton. Discussed smoking cessation again. [id number] Aylin Calix MD [place] [facility] [place] [facility] [address] [facility] [place], [place] [address] 09/17/2021 09:00:38 09/20/2021 06:11:12 Rheumatoid arthritis 87681054 M06.9 Sero-posit flex, CCP positive RA. CCP [...] November. Call sooner if problems. Tobacco user 967736596 Z 72.0 Discussed with patient, again, advisabili ty of smoking cessation. He has significan t changes on Chest CT from smoking. Specifical ly emphasized that, in addition to other ills, smoking promotes inflammati on and that arthritis patients who smoke have less of a response to the anti-rheum atic drugs than non smokers. Offered encouragem ent to stop smoking. Active or passive immunization 521611698 Z23 starting Humira Paresthesi a of upper limb 38769898 R20.2 Nighttime pain and numbness both hands R > L.Discusse d. May be CTS. Try loose splinting at night.LEF might also be contributi ng to a neuropathy . Stopping LEF. Interstiti al lung disease 419305068 J84.[address] showed progressiv e pulmonary fibrosis. Has seen Dr Tipton in past. 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 (Prefer to avoid MTX if possible). Now starting Humira. Sxs are stable, but he has not been back to see Dr Tipton. Discussed smoking cessation again. Secondary peripheral neuropathy 642415 G63 Numbness, dysesthesi a both feet.Suspe ct may be side effect of Leflunomid e.Will check B12 next labs. Pain in right foot 13468 04067 93924 M79.671 Puzzling, ongoing pain R footPain severe. 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 Discussion greater than 7.5 minutes. Depression screening 171 366879 Z13.31 - depression screening tool administer ed, entered into emr, scored and discussed, time greater than 7.5 minutes- negative screening Screening for alcohol abuse 293292704 Z13.39 - alcohol screening tool administer ed, entered into emr, scored and discussed, time greater than 7.5 minutes- negative screening Advance di rective discussed with patient 487859608 Z71.89 - MOLST form discussed, filled, and signed- patient's is HCP Essential hypertension 89472450 I10 - BP not at goal of [...] 90 for the bottom number Opioid dependence 997775 00 F11.20 - taking more oxycodone and percocet than prescribed - discussed high risk of overdose, urged to take only as directed Rheumatoid arthritis 698 42143 M06.9 - sees rheumatolo gy, started humira and reports helping with hand pain- patient taking more than prescribed dose of opioid pain medication - discussed high risk of overdose, urged to take only as directed- will not increase opioid medication per patient request Chronic ob structive pulmonary disease 80185786 J44.9 - stable and following with pulm, encouraged smoking cessation Obesity 710115175 E66.9 - recommend regular exercise and weight loss Pain in ri ght lower limb 562223121 M79.604 - Surgery recommende d for Grissom's Neuroma per Dr. Holt- patient requests second opinion, referral placed Impacted c erumen in right ear 1575535472 682638 H61.21 - 90% obstructed on physical exam, patient denies any issues hearing, can use debrox over the counter [id number] Jessa Landin MD [place] [facility] [place] [address] [address] 11/15/2021 11:48:07 11/15/2021 12:40:50 Rheumatoid arthritis 39142387 M06.9 Sero-posit flex erosive rheumatoid arthritis. CCP [...] visit. RTC in 4 months. Tobacco user 960314527 Z 72.0 Counselled on smoking cessation and effect of smoking on rheumatoid arthritis, its prognosis, the effect of therapy and the complicati ons of therapy.Marisa wu verbalizes understadi ng and he states that he will work on it. Paresthesi a of upper limb 08629787 R20.2 Resolved after stopping leflunomid e. Interstiti al lung disease 606667109 J84.[address] showed progressiv e [...] developed in the interim. Secondary peripheral neuropathy 046253 G63 Numbness, dysesthesi a both feet.Impro jesus manuel with stopping leflunomid e but not completely gone. Pain in right foot 42872 18996 96269 M79.671 Puzzling, ongoing pain R footPain severe. 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 Holt and is going to see Dr. Cruz for a second opinion. [id number] Alin Kent MD , [facility], OFF[address] [place] [address] 11/01/2021 13:52:23 11/09/2021 08:58:24 Backache 635969469 M54.9 Tobacco user 117594034 Z 72.0 thinking about chantix Smoker 83824664 F17.210 thinking about the chantix [id number] Dennise Roland Esparza PA-C , [facility], [address] [place] [address] 01/28/2022 13:05:43 01/28/2022 13:57:58 Chronic obstructive pulmonary disease 83304195 J44.9 - stable with current medication s- discussed importance of quitting smoking, and current abnormal O2 sat Essential hypertension 84219694 I10 - BP at goal of <130/80- [...] for the bottom number Mixed hyperlipidemia 267 685791 E78.2 Cholestero l is at goal under 130Continu e to work on diet and exercise as discussed Chronic pain 94629679 R5 2 - due to low back, shoulders, 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, oxycodone, percocet, humira, prednisone Long-term current use of opiate analgesic drug 4834749199 86537 Z79.891 - followed by [facility] Tobacco user 865584544 Z 72.0 - 1 pack/day, has chantix at home and not ready to take it Long-term current use of drug therapy 823262464 Z79.899 Acute ladan l impairment 772837211 N28.9 - on recent labs, will re-check in two weeks- had been taking a lot of NSAIDs due to RA, has cut back now that Humira is working- increase water intake [id number] Jessa Landin MD Rheumatol [facility], [facility] [address] [place] [address] 03/17/2022 10:23:37 03/17/2022 13:09:02 Rheumatoid arthritis 84783732 M06.9 Sero-posit flex erosive rheumatoid arthritis. CCP [...] visit. RTC in 6 months. Tobacco user 801612148 Z 72.0 Counselled on smoking cessation and effect of smoking on rheumatoid arthritis, its prognosis, the effect of therapy and the complicati ons of therapy. Paresthesi a of upper limb 06441850 R20.2 Resolved after stopping leflunomid e. Interstiti al lung disease 011423733 J84.[address] showed progressiv e [...] developed in the interim. Secondary peripheral neuropathy 355957 G63 Numbness, dysesthesi a both feet.Impro jesus manuel with stopping leflunomid e but not completely gone. Pain in right foot 19266 72803 27103 M79.671 Ongoing pain R footPain severe. He [...] NSAIDs and try to avoid taking them. 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 Mixed hyperlipidemia 267 360297 E78.2 Cholestero l is at goal under 130Continu e to work on diet and exercise as discussed Tobacco user 206014226 Z 72.0 - 1 pack/day, has chantix at home and not ready to take it Active or passive immunization 459158377 Z23 Shingles: reminded at pharmacy should he decide to have Opioid dependence 982068 00 F11.20 - stable with current dosing [id number] Skyla Dick LPN , [facility], OFFICE [address] [place] [address] 05/26/2022 14:45:13 06/23/2022 11:03:36 Active immunization 93645482 Z23 [id number] Dennise Esparza PA-C , [facility], OFFICE [address] [place] [address] 07/20/2022 13:50:25 07/22/2022 09:55:45 Tobacco user 614113229 Z72.0 - 1 pack/day, has chantix at home and not ready to take it Dysuria 31004950 R30.0 - UA reassuring and symptoms have resolved- pt scheduled for labs today, will check PSA- return to office if symptoms return [id number] Dennise Esparza PA-C , [facility], OFFICE [address] [place] [address] 07/27/2022 13:19:37 07/28/2022 14:52:43 Chronic pain 64858705 R52 - due to low back, shoulders, 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 [id number] MARISA Johnson , [facility], OFFICE [address] [place] [address] 08/02/2022 11:37:56 08/02/2022 12:13:45 Active or passive immunization 478019602 Z23 singles - got first dose, second in Aug 2022 Strain of muscle of anterior chest wall 935767706 S29.011A L axillary anterior chest wall strain, discussed supportive care- rest, ice/heat, tylenolWil l continue salonpas as wellWork note done todayPt to contact the office if no improvemen t or any worsening symptoms develop Rheumatoid arthritis 698 86133 M06.9 On chronic Prednisone for RA, cannot take Ibuprofen due to this Chronic pain 77593166 G8 9.29 Due to RA, shoulders, low back painChroni c narcotics use, on [facility] with PCP Essential hypertension 09297114 I10 BP at goal today, continue HCTZ [id number] Dennise Esparza PA-C , [facility], OFFICE [address] [place] [address] 11/09/2022 10:29:51 11/10/2022 11:42:12 Chronic pain 60519382 R52 - due to low back, shoulders, 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 Cigarette use is the leading cause of preventabl e disease, disability , and in the [place]. We talked about tools and medication s available to help you in smoking cessation. We discussed utilizing our smoking cessation head track coach and online resources. Your personal goal: to quit but is not ready, will trial nicotrol Essential hypertension 14688066 I10 - BP at goal of <130/80- [...] smoking, alcohol and caffeine. Mixed hyperlipidemia 267 169329 E78.2 Cholestero l is not at goal, discussed high ASCVD and will start a statin once daily- repeat lipids in 3 monthsCont inue to work on diet and exercise as discussed Active or passive immunization 924761618 Z23 Shingles: had first, awaiting 6m damion for 2nd Rheumatoid arthritis 698 85974 M06.9 - sees rheumatolo gy, started humira and reports helping with hand pain but cannot taper off prednisone - he will discuss increasing humira to weekly at his appt next month with rheum- continue prednisone 5mg - pt aware he is immunocomp romised Chronic ob structive pulmonary disease 89266101 J44.9 - stable with current medication s- discussed importance of quitting smoking, and current abnormal O2 sat- please schedule follow up with pulm Opioid dependence 053700 00 F11.20 - stable with current dosing 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 Cigarette use is the leading cause of preventabl e disease, disability , and in the [place]. We talked about tools and medication s available to help you in smoking cessation. We discussed utilizing our smoking cessation head track coach and online resources. 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 Cigarette use is the leading cause of preventabl e disease, disability , and in the [place]. We talked about tools and medication s available to help you in smoking cessation. We discussed utilizing our smoking cessation head track coach and online resources. 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 Cigarette use is the leading cause of preventabl e disease, disability , and in the [place]. We talked about tools and medication s available to help you in smoking cessation. We discussed utilizing our smoking cessation head track coach and online resources. 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 Cigarette/ pod use is the leading cause of preventabl e disease, disability , and in the [place]. We talked about tools and medication s available to help you in smoking/va ping cessation. We discussed utilizing our smoking cessation head track coach and online resources. Your personal goal: to cut back, not ready to quit. Continue to use nicotine patches Essential hypertension 19519638 I10 - BP at goal of <130/80- [...] such as smoking, alcohol and caffeine. 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 We discussed utilizing our smoking cessation head track coach and online resources. Your personal goal: starting patches, cannot tolerate chantix Active or passive immunization 107978360 Z23 Shingles: had first, reminded to check in with pharm for 2nd dose Long-term current use of drug therapy 518518136 Z79.899 Rheumatoid arthritis 698 08237 M06.9 - sees rheumatolo gy, on actemra and has stopped prednisone [id number] MARISA Johnson , [facility], [address] [place] [address] 05/07/2024 11:34:49 05/07/2024 14:38:12 Nicotine dependence 94498563 F17.200 We discussed your smoking/va ping today [...] the nicotine patch Active or passive immunization 808555103 Z23 Patient states that is up to date with FLU vaccine Cramp in lower limb 4499 09524 R25.2 Intermitte nt R lower leg cramping at nighttime which has been worsening over the past monthWill check labworkDis cussed regular stretching may helpWill f/u with PCP, will contact the office for any worsening symptoms sooner Essential hypertension 51865487 I10 BP at goal today, continue HCTZ [id number] Dennise Esparza PA-C , [facility], [address] [place] [address] 05/28/2024 15:14:19 05/29/2024 12:59:23 Chronic pain 42702883 R52 - due to low back, shoulders, 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 We discussed utilizing our smoking cessation head track coach and online resources. Your personal goal: using nicotine patch to cut back, not ready to quit Active or passive immunization 314710996 Z23 Shingles: had first, reminded to check in with pharm for 2nd doseflu: had at pharm Fibrosis of lung 7638538 1 J84.9 - ILD from smoking or RA, following with rheumatolo gy and pulmonolog y - most recent CT is stable- not ready to quit smoking- side effects to Ofev Opioid dependence 350531 00 F11.20 - stable with current dosing Rheumatoid arthritis 698 54970 M06.9 - sees rheumatolo gy, on actemra and daily prednisone , symptoms not well controlled and has a follow up soon [id number] Dennise Esparza PA-C , [facility], [address] [place] [address] 08/28/2024 11:20:36 08/28/2024 11:39:02 Chronic pain [id number] R52 - due to low back, shoulders, 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 We discussed utilizing our smoking cessation head track coach and online resources. Your personal goal: has been cutting back and smoking 1/2 cig, goal of quitting Rheumatoid arthritis [id number] M06.9 Improved symptoms with Actemra. Noted muscle [...] Name 10/30/2023 2 [place] [id number] Harrison Arriaga Petta [id number] Harrison Petta 10/30/2023 1 [place] NATIONAL GOVERNMENT SERVICES Harrison Arriaga Petta [id number] Harrison Petta 01/30/2024 2 [place] [id number] Harrison Arriaga Petta [id number] 32 Harrison Petta 01/30/2024 1 MED[place]: NATIONAL [employer]OVERNMENT SERVICES Harrison Arriaga Petta [id number] 28 Harrison Petta 05/07/2024 2 [place] [id number] Harrison Arriaga Petta [id number] 32 Harrison Petta 05/07/2024 1 MEDICARE B-[place]: NATIONAL GOVERNMENT SERVICES Harrison Arriaga Petta [id number] 28 Harrison Petta 05/28/2024 2 [place] [id number] Harrison Mckeon [id number] 32 Harrison Petta 05/28/2024 1 MEDICARE B-[place]: [facility] Harrison Mckeon [id number] 28 Harrison Petta 08/28/2024 2 [place] [id number] Harrison Mckeon [id number] Harrison Petta 08/28/2024 1 MEDICARE B-[place]: [facility] Harrison Mckeon [id number] 28 Harrison Mckeon Notes Date Note Type Note [...] confident in ability to self manage conditiona/vmg-smoking [id number] bypatient.ImportanceOn a scale of 1-10 with 1 [...] ER BIDPercocet 10 mg 5 times per [id number] MME Patient presents today for CSRP follow up. 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 of pain [...] rarely using inhalers- better with increasing exercise MARISA Hercules-[address], [address], [facility] 10/30/2023 14:10:57 4 text/html Controlled SubstanceReported bypatient.CSRP [...] confident in ability to self manage conditiona/vmg-smoking hznoocirf6Iutehmmk bypatient.ImportanceOn a scale of 1-10 with 1 [...] ER BIDPercocet 10 mg 5 times per [id number] MME 01/30/24- Patient presents today for CSRP [...] 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 Pulmonary fibrosis/COPD:- following with Dr Tipton, diagnosed ILD which had progressed- had Chest CT was lung RADS 4a and had negative bronchoscopy- may be related to smoking or RA- rarely using inhalers- better with increasing exercise Dennise Esparza PA-C [address] [place] [address], [phone], [facility] 01/31/2024 09:44:34 4 text/html 89yo presents for leg crampingPt c/o intense julio [...] redness/swelling of the calf MARISA Johnson [address] [place], [address], [facility] 05/07/2024 13:34:27 4 text/html Patient presents today for [facility] follow up. 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 Pulmonary fibrosis/COPD:- following with Dr Tipton, diagnosed ILD which had progressed- side effects to Ofev, worsened RA symptoms- had Chest CT was lung RADS 4a and had negative bronchoscopy- may be related to smoking or RA- rarely using inhalers- better with increasing exercise Dennise Esparza PA-C [address] [place], [phone], [facility] 05/28/2024 15:46:19 4 text/html Controlled SubstanceReported bypatient.[facility] Contractcontract signed Pain Management Evaluationyes MassPAT assessedyes [...] manage conditionNotes:No side effects to the medicationsa/vmg-smoking cisystyxb6Mtiblcbk bypatient.ImportanceOn a scale of 1-10 with 1 [...] ER BIDPercocet 10 mg 5 times per [id number] MME Dennise Esparza PA-C [address] [place] [address], [phone], [facility] 05/28/2024 15:46:19 5 text/html Controlled SubstanceReported bypatient.CSRP [...] manage conditionNotes:No side effects to the medicationsa/vmg-smoking rgsncpfvc7Jrnawpcd bypatient.ImportanceOn a scale of 1-10 with 1 [...] ER BIDPercocet 10 mg 5 times per [id number] MME Patient presents today for CSRP follow up. The patient, with a history of arthritis, presents for a routine follow-up. He reports significant improvement with the new medication, Actemra, compared to previous treatments. However, he has been experiencing nocturnal muscle spasms, particularly in the toes, ankle, and fingers, which have been managed with a muscle relaxer prescribed by his nursing officer. 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
--- OUTSIDE RECORDS SUMMARY | 2024-10-30 10:14 | XMS_ITS ---
Author Name [facility] [place] [facility] [place] [facility] [place] Address [address] [place] [address] Care Team Providers Care Nursing Unit Coordinator Name Role Phone VIRAJ LOPEZ Primary Care [...] CATHY COH RETIR EMENT Feb 10, 2021 [id number] [phone] ALLYSON BULL PATIENT BCBS OF [facility] PREFERRED PROVIDER ORGANIZAT ION (PPO) [facility] January 07, 2011 [id number] ALLYSON BULL PATIENT MEDICARE (WNR) MEDICARE (M) PART A Nov 12, 2020 PART A [id number] PETALLYSON BIRD PATIENT MEDICARE (WNR) MEDICARE (M) PART B Nov 12, 2020 PART B [id number] ALLYSON BULL PATIENT Selected Encounter This section includes the information on record at [place] for the Encounter. Date/Time Encounter Type Encounter Description Reason Provider Source May 28, 2024 01:30 PM COMPRE OPH EXAM EST PT 1/> OPTOMETRY ICD-10-CM H25.13 Age-related nuclear cataract, bilateral FAITH MUSE IHE Encounter Template Text not used by VA Assessments - Encounter Diagnoses This section includes the primary and secondary diagnoses documented for the Encounter. Date/Time Primary/Secondary Diagnosis Diagnosis Name Provider Source Jun 10, 2024 12:43 PM PRIMARY Age-related nuclear cataract, bilateral MICHAFAITH RAWLS [facility] [place] [facility] Jun 10, 2024 12:43 PM SECONDARY Drusen (degenerative) of macula, bilateral FAITH [facility]USE [facility] [place] [facility] Jun 10, 2024 12:43 PM SECONDARY Posterior subcapsular polar age-related cataract, bilateral FAITH [facility]USE [facility] [place] [facility] Encounter Notes: All associated encounter notes [...] any ocular medications. Suicide Screen: C-SSRS Screening [place]-Suicide Severity Rating Scale (C-SSRS Screener) 1. Over [...] Remote Allergy/ADR Data available for this patient [place] [facility] [place] [facility] No Known Allergies Med Recon NoGlossary (Tool [...] the patient into personal health records (i.e. [employer]) are NOT included in this list. Non-VA medications documented outside this VA, remote inpatient orders (regardless of status) and [...] Signed: 05/29/2024 12:05 [facility]
--- OUTSIDE RECORDS SUMMARY | 2024-10-30 10:14 | XMS_ITS | Clinical Summary ---
Author Organization [facility] Address [address] [place] [address] Care Team Providers Care Sales Order Administrator Name Role Phone Unavailable Primary Care Provider [...] Personal/Family Self 1955 [address] [place] [address]
== END 2024-10-30 09:48 | disposition home or self-care (01) ==
LOC: HO.RHE 09:16
PROVIDERS: PCP Physician Assistant Medical; Visit Provider Student in an Organized Health Care Education/Training Program
DX: M05.79 Rheumatoid arthritis with rheumatoid factor of multiple sites without organ or systems involvement (principal); Z79.52 Long term (current) use of systemic steroids; Z51.81 Encounter for therapeutic drug level monitoring; Z79.620 Long term (current) use of immunosuppressive biologic
CPT/HCPCS: 99213; G2211

== ENCOUNTER → 2024-10-30 09:16 | Outpatient (BNVA) | payer MEDICARE, SELFPAY | PROVIDERS: PCP Physician Assistant Medical; Visit Provider Student in an Organized Health Care Education/Training Program | DX: M05.79 Rheumatoid arthritis with rheumatoid factor of multiple sites without organ or systems involvement (principal); Z79.52 Long term (current) use of systemic steroids; Z51.81 Encounter for therapeutic drug level monitoring; Z79.620 Long term (current) use of immunosuppressive biologic | CPT/HCPCS: 99212 ==

== ENCOUNTER 2025-03-05 14:38 | Outpatient (AMB) | payer MEDICARE, SELFPAY ==
--- OUTSIDE RECORDS SUMMARY | 2025-02-17 06:01 | XMS_ITS | Continuity of Care Document ---
Author Name [facility] Organization [facility] Care Team Providers Care Chilling Hood Operator Name Role Phone [facility] Unavailable Unavailable Problems Combined list of problems [...] WEEK SUBCUT ANEOUS ACTIVE [facility]USE 2022 [facility] HYDROCHLORO THIAZIDE TAB TAKE BY MOUTH ORAL ACTIVE Mate[facility]USE 2022 [facility] MULTIVITAMI N (WITHOUT MINERALS) CAP/TAB TAKE BY MOUTH ORAL ACTIVE Mateus [facility]USE 2022 [facility] OXYCODONE 5MG/APAP 325MG TAB TAKE BY MOUTH ORAL ACTIVE Matues [facility]USE 2022 [facility] PREDNISONE 5MG TAB TAKE ONE TABLET BY MOUTH ONCE DAILY ORAL ACTIVE Mateus MUSE 2022 [facility] Immunizations Combined list of available immunizations from the Department of Defense and Veterans Affairs facilities. Immunization Series Date Given Administered By Site Reaction Lot Number CVX Code Drug Geomatics Professor Status Comments Source INFLUENZA VACCINE, QUADRIVALENT, ADJUVANTED 2020 205 complet ed [facility] TD(ADULT) UNSPECIFIED FORMULATION 2014 139 complet ed [facility] TDAP 2014 115 complet ed [facility] Encounters Combined list of: 1) Encounters from Department of Veterans Affairs facilities going backup to the last 18 months, not all [place] inpatient encounters are included; 2) Encounters from the Department of [facility] facilities going backup to 280 months. Location Location Details Encounter Type Encounter Number Reason For Visit Attending Provider ADM Date DC Date Status Disposition Source [facility] COMPRE OPH EXAM EST PT 1/> [id number] 1. Diagnos is: ICD-10- CM H25.13 Age-rel ated nuclear catarac t, bilater al BEBA MUSE JORGE 05/28 [facility] MULTIFOCAL [id number] Diagnos is: ICD-10- CM Z46.0 Encount er for fit/adj st of spectac les and contact lenses BEBA MUSE JORGE 05/28 [facility] Social History Combined list of available smoking, tobacco, and other social history from Department of Defense and Veterans Affairs facilities. 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 Additional future care activities may be listed in the Assessment and Plan section. Date/Time Care Activity Care Activity Detail Facili ty 06/03/2025 AMBULATORY - MEDICINE AMBULATORY - MEDICI [facility]
[2025-03-05 14:43] VITALS: BP 118/72; PULSE 75; O2SAT 93; BMI 31.4
--- NOTE | 2025-03-05 14:43 | A.OFFVIS_ITS ---
Vital Signs 03/05/25 14:43 Height 5 ft 10.5 in Weight 221 lb 12.56 oz BMI 31.4 BP 118/72 Blood Pressure Location Lt brachial Position Sitting Pulse 75 Pulse Source Pulse Oximeter Pulse Oximetry (%) 93 Oxygen Delivery Method Room Air Intake Visit Reasons: Ra Intake Note: Patient presents for follow up on RA and lab review today. Patient requesting refill of cyclobenzaprine today. Allergies No Known Allergies Allergy (Verified 03/05/25 14:45) Medication List - Last Reconciled 03/05/25 by Jayne Bills MD cyclobenzaprine 5 - 10 mg (1 - 2 x 5 mg) PO BEDTIME PRN etanercept (Enbrel SureClick) 50 mg subcut QWEEK hydrochlorothiazide 25 mg PO DAILY multivitamin 1 tab PO DAILY prednisone 5 mg PO DAILY PRN sildenafil 100 mg PO DAILY PRN HPI Comments Details: Patient is a 68-year-old male with hypertension, nondiabetic Charcot joint of the foot, and seropositive rheumatoid arthritis here today for follow up Interval History: Patient last seen 10/30/24 with me - Doing well overall - Moved down to the 5mg prednisone daily but does note that on days when he does more activity his joints would hurt and he would increase to 10mg for that night and the pain would improve the next day - Complained of wrist pain Today - Doing well overall - Numbness in bilateral hands and feet - With respect to the feet, in the AM he feels like he is walking on hot coals - Still with intermittent right wrist pain Rheumatologic History: Seropositive rheumatoid arthritis ++RF, +++CCP diagnosed around 2017 Hydroxychloroquine ineffective, leflunomide partially effective discontinued due to neuropathy Humira started summer 2021, effective advanced to weekly 03/2023 DC 12/2023 due to losing effectiveness Actemra 12/2023 DC 06/2024 ineffective Enbrel started 06/2024 effective Prednisone all through Current Rheumatology Medication(s): Enbrel 50 mg sc weekly Prednisone 5 mg daily Flexeril 5-10 mg nightly p.r.n. 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 Fractures, compound Opioid dependence Disorder of rotator cuff Gout Chronic sciatica Tobacco abuse Multiple lung nodules Hyperlipidemia COPD (chronic obstructive pulmonary disease) Fibrosis of lung Rheumatoid arthritis Essential hypertension Surgical History History of surgery on right wrist Family History Father Diabetes Mother Heart disease Social History Household Members: Spouse Alcohol intake: current Alcohol intake frequency: holidays/special occasions only Patient Tobacco Use Status: Current everyday Tobacco user Cigarettes Per Day: 18 Current occupational status: retired Review of Systems Const Details: Review of Systems Constitutional: Denies fever, chills, weight loss ENT: Denies vision changes, eye pain or eye redness, dental caries, dry mouth GI: Denies nausea, vomiting, diarrhea, abdominal pain, change in BM Pulm: Denies SOB, SANTANA, hemoptysis, wheezing Cards: Denies chest pain, palpitations Skin: Denies Raynaud's, rash, nail changes, photosensitivity, [employer] FO[employer] SERVER: Denies headaches, weakness, paresthesias, recurrent falls MSK: as per HPI All other systems reviewed and are unremarkable except noted above Physical Exam Exam Exam: Vital signs reviewed Physical Examination CONSTITUITIONAL Patient alert and cooperative. Well appearing and in no apparent painful distress MSK Hands * Right Hand: Able to make a fist. No swelling or tenderness to palpation of these joints. No deformities noted. * Left Hand: Able to make a fist. No swelling or tenderness to palpation of these joints. No deformities noted. Wrists * Right Wrist: Full ROM. 70 degrees of wrist flexion, 80 degrees of wrist extension. No swelling or TTP * Left Wrist: Full ROM. 70 degrees of wrist flexion, 80 degrees of wrist extension. No swelling or TTP Elbows * Right Elbow: Full ROM. No swelling or TTP. No TTP of the medial and lateral epicondyles * Left Elbow: Full ROM. No swelling or TTP. No TTP of the medial and lateral epicondyles Shoulders * Right shoulder: Full ROM. No swelling noted. No TTP of the AC joint, subacromial bursa or posterior shoulder * Left shoulder: Full ROM. No swelling noted. No TTP of the AC joint, subacromial bursa or posterior shoulder Knees * Right knee: Full ROM. No swelling noted. No TTP of the knee joint lie or pes anserine bursa * Left knee: Full ROM. No swelling noted. No TTP of the knee joint lie or pes a nserine bursa. * Crepitations felt bilaterally Ankles * Right ankle: Good ankle dorsiflexion and plantar flexion. No swelling. No TTP of the ankle joint * Left ankle: Good ankle dorsiflexion and plantar flexion. No swelling. No TTP of the ankle joint Feet * Feet with deformities bilaterally involving with MTPs Tender points? * No tenderness to palpation of the bilateral trapezius, supraspinatus, anterior costochondral junctions, bilateral suboccipital muscle insertions SKIN No rashes Vital Signs: Last Vital Signs Pulse 75 03/05/25 14:43 BP 118/72 03/05/25 14:43 Pulse Ox 93 03/05/25 14:43 Oxygen Delivery Method Room Air 03/05/25 14:43 BMI result Body Mass Index 31.4 Results Reviewed Results Reviewed: 10/08/24 02/18/25 [facility] WBC Hb Plt BUN 3 Cr 1.1 eGFR >60 AST 18 ALT 29 ESR CRP Assessment & Plan Assessment & Plan (1) Rheumatoid arthritis: Comment: ++RF, +++CCP diagnosed around 2017 Hydroxychloroquine ineffective, leflunomide partially effective discontinued due to neuropathy Humira started summer 2021, effective advanced to weekly 03/2023 DC 12/2023 due to losing effectiveness Actemra 12/2023 DC 06/2024 ineffective Enbrel started 06/2024 effective Prednisone all through Code(s): M06.9 - Rheumatoid arthritis, unspecified Category: Medical Qualifiers: Rheumatoid arthritis location: multiple sites Rheumatoid factor presence: with rheumatoid factor Qualified Code(s): M05.79 - Rheumatoid arthritis with rheumatoid factor of multiple sites without organ or systems involvement Plan: #Seropositive RA Patient is a 68-year-old male with seropositive rheumatoid arthritis here today for follow up. Patient is currently in a remission of his disease. 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 Category: Medical Plan: #Long-term Use of Steroids Discussed with patient the risks and benefits of steroid for managing the rheumatic condition Benefits include: - Reduced pain, improved mobility, increased participation in activities, and decreased progression of disease Risks include: - GI upset, potential ultrasound worsening or formation (especially in patients > 65 years old), elevated blood pressure/worsening hypertension, elevated blood sugar/worsening diabetes control, worsening of bone density, elevated lipids/worsening triglycerides, cataract formation, weight gain Recommended using proton pump inhibitors (PPIs) for the duration of steroid use to reduce the risk of gastric ulcers and vitamin-D daily to reduce the risk of osteoporosis Labs checked: ?A1c, T spot, hepatitis-B and C serologies Pneumocystis jiroveci prophylaxis: ?Patient with risk factors including steroids greater than 50 mg for more than 30 days, age greater than 60 years, and lung involvement from underlying rheumatic disease requires prophylaxis and will be given so (3) Encounter for monitoring of etanercept therapy: Code(s): Z51.81 - Encounter for therapeutic drug level monitoring; Z79.620 - snf (current) use of immunosuppressive biologic Plan: #Long-term Use of TNF Inhibitors: Etanercept Discussed with the patient the benefits and risks of TNF inhibitors for the management of the rheumatic condition Benefits include reduce pain, maintenance of remission and reduction of flares as well as ?progression of the disease Risks include injection sites/infusion reactions, serious infections (such as bacterial infections, opportunistic infections), malignancy, delaminating syndromes, autoimmune phenomena, CHF exacerbations, palmar plantar psoriasis and cytopenias Recommended rotating injection sites, and holding medication during and for up to 1 week after resolution of a febrile illness or open skin wound Plan I spent 26 minutes reviewing the record and labs, taking a history, examining the patient, discussing the treatment plan, ordering diagnostic work up and documenting in the medical record Orders: Orders Erythrocyte Sedimentation Rate 4 Months - Rheumatoid arthritis with rheumatoid factor of multiple sites without organ or systems involvement T Spot TB 4 Months - Rheumatoid arthritis with rheumatoid factor of multiple sites without organ or systems involvement Complete Blood Count Auto Diff 4 Months - Rheumatoid arthritis with rheumatoid factor of multiple sites without organ or systems involvement Comprehensive Met. Panel 4 Months - Rheumatoid arthritis with rheumatoid factor of multiple sites without organ or systems involvement C Reactive Protein 4 Months - Rheumatoid arthritis with rheumatoid factor of multiple sites without organ or systems involvement Hepatitis A,B,C Profile 4 Months M05.79 - Rheumatoid arthritis with rheumatoid factor of multiple sites without organ or systems involvement Medications: Changed From cyclobenzaprine Can cause dizziness/lightheadedness/grogginess. Do not drive or operate heavy machinery if feeling as such 5 - 10 mg (1 - 2 x 5 mg) PO BEDTIME PRN 90 tabs 1RF muscle spasm M05.79 - Rheumatoid arthritis with rheumatoid factor of multiple sites without organ or systems involvement To cyclobenzaprine Can cause dizziness/lightheadedness/grogginess. Do not drive or operate heavy machinery if feeling as such 10 - 15 mg (2 - 3 x 5 mg) PO BEDTIME PRN 270 tabs 1RF muscle spasm M05.79 - Rheumatoid arthritis with rheumatoid factor of multiple sites without organ or systems involvement Refilled cyclobenzaprine Can cause dizziness/lightheadedness/grogginess. 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
--- OUTSIDE RECORDS SUMMARY | 2025-03-05 15:10 | XMS_ITS | Encounter Summary ---
Author Organization [facility] Address [address] [place] [address] Care Team Providers Care Cell Repairer Name Role Phone Unavailable Primary Care Provider Unavailabl e Encounter Details Date Type Department Care Team (Late st Contact Info) Description 09/02/2022 Scanned Document [facility] [place] at [address] [address] Provider, Generic Social History Tobacco Use Types Packs/Day Years Used Date Smoking Tobacco: Never Assessed Sex and Gender Information Value Date Recorded Sex Assigned at Not on file Legal Sex Male 11:47 AM EST Gender Identity Not on file Sexual Orientation Not on file documented as of this encounter Plan of Treatment Not on file documented as of this encounter Procedures Procedure Name Priority Date/Time Associated Diagnosis Comments BOOKING SHEETS-SCAN 09/02/2022 documented in this encounter Results * BOOKING SHEETS-SCAN (09/02/2022) Narrative 09/02/2022 Ordered by an unspecified provider. us Generic Provider HX AMB PROCEDURES Final Result documented in this encounter Visit Diagnoses Not on filedocumented in this encounter
--- OUTSIDE RECORDS SUMMARY | 2025-03-05 15:10 | XMS_ITS ---
Author Name [facility] Care Team Organization Name Specialty Phone Email Start Date End [facility]
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
== END 2025-03-05 15:22 | disposition home or self-care (01) ==
LOC: HO.RHE 14:39
PROVIDERS: PCP Physician Assistant Medical; Visit Provider Student in an Organized Health Care Education/Training Program
DX: M05.79 Rheumatoid arthritis with rheumatoid factor of multiple sites without organ or systems involvement (principal); Z79.52 Long term (current) use of systemic steroids; Z51.81 Encounter for therapeutic drug level monitoring; Z79.620 Long term (current) use of immunosuppressive biologic
CPT/HCPCS: 99213; G2211

== ENCOUNTER → 2025-03-05 14:38 | Outpatient (BNVA) | payer MEDICARE, SELFPAY | PROVIDERS: PCP Physician Assistant Medical; Visit Provider Student in an Organized Health Care Education/Training Program | DX: M05.79 Rheumatoid arthritis with rheumatoid factor of multiple sites without organ or systems involvement (principal); Z79.52 Long term (current) use of systemic steroids; Z79.899 Other long term (current) drug therapy; Z51.81 Encounter for therapeutic drug level monitoring; Z79.620 Long term (current) use of immunosuppressive biologic | CPT/HCPCS: 99212 ==

== ENCOUNTER 2025-07-08 14:25 | Outpatient (AMB) | payer MEDICARE, SELFPAY ==
--- NOTE | 2025-07-08 14:44 | MHC.OFFVIS ---
Vital Signs 07/08/25 14:50 Height 5 ft 10.5 in Weight 227 lb 11.8 oz BMI 32.2 BP 134/90 H Blood Pressure Location Lt brachial Position Sitting Pulse 79 Pulse Source Pulse Oximeter Pulse Oximetry (%) 98 Oxygen Delivery Method Room Air Intake Visit Reasons: Ra Intake Note: Patient presents for RA follow up. Allergies No Known Allergies Allergy (Verified 07/08/25 14:49) Medication List - Last Reconciled 07/08/25 by Jayne Bills MD cyclobenzaprine 10 - 15 mg (2 - 3 x 5 mg) PO BEDTIME PRN etanercept (Enbrel SureClick) 50 mg subcut QWEEK hydrochlorothiazide 25 mg PO DAILY multivitamin 1 tab PO DAILY prednisone 5 mg PO DAILY PRN sildenafil 100 mg PO DAILY PRN HPI Comments Details: Patient is a 69-year-old male with hypertension, nondiabetic Charcot joint of the foot, and seropositive rheumatoid arthritis here today for follow up Interval History: Patient last seen 03/05/25 with me - On Enbrel 50mg SC weekly, Prednisone 5mg daily and Cyclobenzaprine 5-10mg nightly prn - Doing well overall - Numbness in bilateral hands and feet - With respect to the feet, in the AM he feels like he is walking on hot coals - Still with intermittent right wrist pain Today - On Enbrel 50mg SC weekly, Prednisone 5mg daily and Cyclobenzaprine 5-10mg nightly prn - Rheumatoid arthritis management involves Enbrel, which is effective. - Clubbing of the digits with a nodule noted on the right forearm. - Present wrist sensitivity. - Increased stress related to the spouse's health struggles (currently on hospice) - Nicotine dependence with efforts to decrease smoking, yet ongoing respiratory distress. - Back pain addressed with physical therapy since February. Rheumatologic History: Seropositive rheumatoid arthritis ++RF, +++CCP diagnosed around 2017 Hydroxychloroquine ineffective, leflunomide partially effective discontinued due to neuropathy Humira started summer 2021, effective advanced to weekly 03/2023 DC 12/2023 due to losing effectiveness Actemra 12/2023 DC 06/2024 ineffective Enbrel started 06/2024 effective Prednisone all through Current Rheumatology Medication(s): Enbrel 50 mg sc weekly Prednisone 5 mg daily Flexeril 5-10 mg nightly p.r.n. 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 Fractures, compound Opioid dependence Disorder of rotator cuff Gout Chronic sciatica Tobacco abuse Multiple lung nodules Hyperlipidemia COPD (chronic obstructive pulmonary disease) Fibrosis of lung Rheumatoid arthritis Essential hypertension Surgical History History of surgery on right wrist Family History Father Diabetes Mother Heart disease Social History Household Members: Spouse Alcohol intake: current Alcohol intake frequency: holidays/special occasions only Patient Tobacco Use Status: Current everyday Tobacco user Cigarettes Per Day: 18 Current occupational status: retired Review of Systems Narrative Review of Systems Constitutional: Denies fever, chills, weight loss ENT: Denies vision changes, eye pain or eye redness, dental caries, dry mouth GI: Denies nausea, vomiting, diarrhea, abdominal pain, change in BM Pulm: Denies SOB, SANTANA, hemoptysis, wheezing Cards: Denies chest pain, palpitations Skin: Denies Raynaud's, rash, nail changes, photosensitivity, SOLAR SALES ESTIMATOR: Denies headaches, weakness, paresthesias, recurrent falls MSK: as per HPI All other systems reviewed and are unremarkable except noted above Physical Exam Exam Exam: Vital signs reviewed Physical Examination CONSTITUITIONAL Patient alert and cooperative. Well appearing and in no apparent painful distress MSK Hands Right Hand: Able to make a fist. No swelling or tenderness to palpation of these joints. Left Hand: Able to make a fist. No swelling or tenderness to palpation of these joints. Clubbing noted throughout Wrists Right Wrist: Full ROM. 70 degrees of wrist flexion, 80 degrees of wrist extension. No swelling or TTP Left Wrist: Full ROM. 70 degrees of wrist flexion, 80 degrees of wrist extension. No swelling or TTP Elbows Right Elbow: Full ROM. No swelling or TTP. No TTP of the medial and lateral epicondyles. Nodule observed on the flexor surface of the right forearm near the elbow. Left Elbow: Full ROM. No swelling or TTP. No TTP of the medial and lateral epicondyles Shoulders Right shoulder: No swelling noted. No TTP of the AC joint, subacromial bursa or posterior shoulder Left shoulder: No swelling noted. No TTP of the AC joint, subacromial bursa or posterior shoulder Knees Right knee: Full ROM. No swelling noted. No TTP of the knee joint lie or pes anserine bursa Left knee: Full ROM. No swelling noted. No TTP of the knee joint lie or pes anserine bursa. Crepitations felt bilaterally Ankles Right ankle: Good ankle dorsiflexion and plantar flexion. No swelling. No TTP of the ankle joint Left ankle: Good ankle dorsiflexion and plantar flexion. No swelling. No TTP of the ankle joint Feet Feet with deformities bilaterally involving with MTPs Tender points? No tenderness to palpation of the bilateral trapezius, supraspinatus, anterior costochondral junctions, bilateral suboccipital muscle insertions SKIN No rashes Vital Signs: Last Vital Signs Pulse 79 07/08/25 14:50 BP 134/90 H 07/08/25 14:50 Pulse Ox 98 07/08/25 14:50 Oxygen Delivery Method Room Air 07/08/25 14:50 BMI result Body Mass Index 32.2 Results Reviewed Results Reviewed: 10/08/24 02/18/25 VMG WBC Hb Plt BUN 3 Cr 1.1 eGFR >60 AST 18 ALT 29 ESR CRP Assessment & Plan Assessment & Plan (1) Rheumatoid arthritis: Comment: ++RF, +++CCP diagnosed around 2017 Hydroxychloroquine ineffective, leflunomide partially effective discontinued due to neuropathy Humira started summer 2021, effective advanced to weekly 03/2023 DC 12/2023 due to losing effectiveness Actemra 12/2023 DC 06/2024 ineffective Enbrel started 06/2024 effective Prednisone all through Code(s): M06.9 - Rheumatoid arthritis, unspecified Category: Medical Qualifiers: Rheumatoid arthritis location: multiple sites Rheumatoid factor presence: with rheumatoid factor Qualified Code(s): M05.79 - Rheumatoid arthritis with rheumatoid factor of multiple sites without organ or systems involvement Plan: #Seropositive RA Patient is a 68-year-old male with seropositive rheumatoid arthritis here today for follow up. Patient is currently in a remission of his disease. 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: Code(s): Z79.52 - senior living (current) use of systemic steroids Category: Medical Plan: #Long-term Use of Steroids Discussed with patient the risks and benefits of steroid for managing the rheumatic condition Benefits include: - Reduced pain, improved mobility, increased participation in activities, and decreased progression of disease Risks include: - GI upset, potential ultrasound worsening or formation (especially in patients > 65 years old), elevated blood pressure/worsening hypertension, elevated blood sugar/worsening diabetes control, worsening of bone density, elevated lipids/worsening triglycerides, cataract formation, weight gain Recommended using proton pump inhibitors (PPIs) for the duration of steroid use to reduce the risk of gastric ulcers and vitamin-D daily to reduce the risk of osteoporosis Labs checked: ?A1c, T spot, hepatitis-B and C serologies Pneumocystis jiroveci prophylaxis: ?Patient with risk factors including steroids greater than 50 mg for more than 30 days, age greater than 60 years, and lung involvement from underlying rheumatic disease requires prophylaxis and will be given so (3) Encounter for monitoring of etanercept therapy: Code(s): Z51.81 - Encounter for therapeutic drug level monitoring; Z79.620 - senior living (current) use of immunosuppressive biologic Plan: #Long-term Use of TNF Inhibitors: Etanercept Discussed with the patient the benefits and risks of TNF inhibitors for the management of the rheumatic condition Benefits include reduce pain, maintenance of remission and reduction of flares as well as ?progression of the disease Risks include injection sites/infusion reactions, serious infections (such as bacterial infections, opportunistic infections), malignancy, delaminating syndromes, autoimmune phenomena, CHF exacerbations, palmar plantar psoriasis and cytopenias Recommended rotating injection sites, and holding medication during and for up to 1 week after resolution of a febrile illness or open skin wound Plan During the visit, I discussed the current status of the patient's rheumatoid arthritis, which is being effectively managed with Enbrel. Given its success, continuation of this therapy was agreed upon. We reviewed the challenges faced by the patient regarding nicotine dependence. Smoking cessation strategies were extensively discussed to improve respiratory symptoms, emphasizing the benefits of quitting and the risks associated with continued use. The patient expressed understanding and willingness to continue working towards cessation. Concerning the back pain, we reviewed the ongoing physical therapy plan, which began in February, assessing expected outcomes and patient adherence. Monitoring and potentially adjusting the regimen was agreed upon based on therapeutic efficacy. The observed clubbing of the digits and the nodule was also discussed, and I emphasized the importance of monitoring these developments in relation to any progression of the patient?s overall health condition. 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
[2025-07-08 14:50] VITALS: BP 134/90; PULSE 79; O2SAT 98; BMI 32.2
--- OUTSIDE RECORDS SUMMARY | 2025-07-08 18:18 | XMS_ITS | Encounter Summary ---
Author Organization [facility] Address [address] [place] [address] Care Team Providers Care General Car Yard Supervisor Name Role Phone Unavailable Primary Care Provider Unavailabl e Encounter Details Date Type Department Care Team (Late st Contact Info) Description 09/02/2022 Scanned Document [facility] [place] at [address] [address] Provider, Generic Social History Tobacco [...]
--- OUTSIDE RECORDS SUMMARY | 2025-07-08 18:18 | XMS_ITS | Encounter Summary ---
Author Organization [facility] Address [address] [facility] [address] [place] [address] Phone Care Team Providers Care Manager Of School Name Role Phone Dennise Ingram Primary Care Provider +1- [phone] Encounter Details Date Type Department Care Team (Latest Contact Info) Description 03/04/2020 Transcribe Orders [facility] PFT Lab [address] [place] [address] Alin Tipton MD [address] [place] [phone] [email or web address] ILD (interstitial lung disease) (Primary Dx) Social History Tobacco Use Types Packs/Day Years Used Date Smoking Tobacco: Every Day Cigarettes 1 53.9 Started: 1971 Smokeless Tobacco: Never Sex and Gender Information Value Date Recorded Sex Assigned at Not on file Legal Sex Male 4:17 PM EDT Gender Identity Not on file Sexual Orientation Not on file documented as of this encounter Plan of Treatment Upcoming Encounters Date Type Department Care Team (Late st Contact Info) Description 07/15/2025 2:00 PM EST Office Visit [facility] Pulmonary, Allergy and Critical Care Medicine [address] [place], [place] [id number] Alin Tipton MD [address] [place] [address] [phone] [email or web address] documented as of this encounter Results * Pulmonary Function Test Reason for Exam: Interstitial Lung Disease; Performing Location: [facility] (03/17/2020 4:42 PM EDT) FEV1 FVC FEV1/FVC TLC DLCO Distance walked (patient) 509 meters Anatomical Region Laterality Modality Other Impressions 03/17/2020 4:42 PM EDT 6-MINUTE DISTANCE WALK A standard 6-minute distance walk was performed according to ATS criteria on this 64 y.o. year-old male for evaluation of ILD with the patient breathing room air. At rest, the oxygen saturation was 97 % with a heart rate of 69 bpm and a respiratory dyspnea index of 0 on a scale from 0 to 10. Resting blood pressure 140/90. During ambulation, the oxygen saturation reached a siri of 92 %, the heart rate increased physiologically to a maximum of 104 bpm and the respiratory dyspnea index reached a maximum of 4. After one minute of recovery, the oxygen saturation was 96 %, the hear rate was 77 bpm and the respiratory dyspnea index was 5. The patient ambulated 1670 feet or 509 meters, which is normal. There was no report chest pain, light-headedness or leg pain during the study. IMPRESSION: Abnormal 6-minute distance walk study as evidenced by a normal walk distance, decrease in ambulatory saturations from 97% to 92%, a physiologic increase in heart rate with exercise and a significant increase in the respiratory dyspnea index with exercise despite preserved exercise tolerance. No priors available for comparison. Alin Tipton MD PFT ORDERABLES Final Result documented in this encounter Visit Diagnoses Diagnosis ILD (interstitial lung disease)- Primary Postinflammatory pulmonary fibrosis ILD (interstitial lung disease) Postinflammatory pulmonary fibrosis documented in this encounter Care Teams Manager Of School Relationship Specialty Start Date End Date Dennise Ingram PA [address] [place] [address] PCP - General Sales Support Advisor 06/03/19 documented as of this encounter Additional Source Comments The information contained in this document represents components of the legal health record. It is not the complete legal health record.[facility]
--- OUTSIDE RECORDS SUMMARY | 2025-07-08 18:18 | XMS_ITS | Encounter Summary ---
Author Organization [facility] Address [address] [facility] [address] [place] [address] Phone Care Team Providers Care Poultry Eviscerator Name Role Phone Dennise Ingram Primary Care Provider +1- [phone] Encounter Details Date Type Department Care Team ([facility] Contact Info) Description 11/06/2023 Procedure Pass [facility], Ct Scan - [address] [address] Social History Tobacco Use Types Packs/Day Years Used Date Smoking Tobacco: Every Day Cigarettes 1 53.9 Started: 1971 Smokeless Tobacco: Never Comments:3/4 PPD [...] with a working camera? Not on file Sex and Gender Information Value Date Recorded Sex Assigned at Not on file Legal Sex Male 4:17 PM EDT Gender Identity Not on file Sexual Orientation Not on file documented as of this encounter Plan of Treatment Upcoming Encounters Date Type Department Care Team ([facility] Contact Info) Description 07/15/2025 2:00 PM EST Office Visit [facility] Pulmonary, Allergy and Critical Care Medicine [address] [facility] [place] [address] [place] [address] Alin Tipton MD [address] [place] [phone] [email or web address] documented as of this encounter Visit Diagnoses Not on filedocumented in this encounter Care Teams Poultry Eviscerator Relationship Specialty Start Date End Date Dennise Ingram PA [address] [place] [address] PCP - General Cigarette Roller 06/03/19 documented as of this encounter Additional Source Comments The information contained in this document represents components of the legal health record. It is not the complete legal health record.[facility]
--- OUTSIDE RECORDS SUMMARY | 2025-07-08 18:18 | XMS_ITS | Encounter Summary ---
Author Organization [facility] Address [address] [facility] [address] [place] [phone] Phone Care Team Providers Care Developer Architect Name Role Phone Dennise Ingram Primary Care Provider +1- [phone] Encounter Details Date Type Department Care Team (Late st Contact Info) Description 02/23/2024 Procedure Pass [facility] Echo Lab [address] [place] [address] Social History Tobacco Use Types Packs/Day Years [...] Upcoming Encounters Date Type Department Care Team ([facility] st Contact Info) Description 07/15/2025 2:00 PM EST Office Visit [facility], Allergy and Critical Care Medicine [address] [place] [address] Alin Tipton MD [address] [place] [phone] documented as of this encounter Visit Diagnoses Not on filedocumented in this encounter Care Teams Developer Architect Relationship Specialty Start Date End Date Dennise Ingram PA [address] [place] [phone] PCP - General Housekeeping Attendant 06/03/19 documented as of this encounter Additional Source Comments The information contained in this document represents components of the legal health record. It is not the complete legal health record.[facility]
--- OUTSIDE RECORDS SUMMARY | 2025-07-08 18:18 | XMS_ITS | Encounter Summary ---
Author Organization [facility] Address [address] [facility] [address] [place] [address] Phone Care Team Providers Care Desktop Analyst Name Role Phone Dennise Ingram Primary Care Provider +1- [phone] Encounter Details Date Type Department Care Team ([facility] Contact Info) Description 12/02/2019 Ancillary Orders [facility],Outside Imaging [address] [place] [address] System, Provider Not In, [facility] [address] [address] Social History Tobacco Use Types Packs/Day Years [...] Upcoming Encounters Date Type Department Care Team ([facility] Contact Info) Description 07/15/2025 2:00 PM EST Office Visit [facility] Pul[facility], Allergy and Critical Care Medicine [address] [place] [address] Alin Tipton MD [address] [facility] [address] [place] [address] documented as of this encounter Results * CT Chest Outside (No Interpretation) (03/25/2019 12:00 AM EDT) Narrative SYSTEMGENERATED, DOCUMENTATION - 12/02/2019 3:25 PM EDT This study is for PACS storage only and not for interpretation. us Provider Not In System PhD IMG OUTSIDE IMAGING W /OUT INTERPRETATION Final Result * CT Chest Outside (No Interpretation) (02/20/2018 12:00 AM EDT) Narrative SYSTEMGENERATED, DOCUMENTATION - 12/02/2019 3:25 PM EDT This study is for PACS storage only and not for interpretation. us Provider Not In System PhD IMG OUTSIDE IMAGING W /OUT INTERPRETATION Final Result * CT Chest Outside (No Interpretation) (12/19/2016 12:00 AM EDT) Narrative SYSTEMGENERATED, DOCUMENTATION - 12/02/2019 3:26 PM EDT This study is for PACS storage only and not for interpretation. us Provider Not In System PhD IMG OUTSIDE IMAGING W /OUT INTERPRETATION Final Result * CT Chest Outside (No Interpretation) (09/14/2016 12:00 AM EST) Narrative SYSTEMGENERATED, DOCUMENTATION - 12/02/2019 3:26 PM EDT This study is for PACS storage only and not for interpretation. us Provider Not In System PhD IMG OUTSIDE IMAGING W /OUT INTERPRETATION Final Result documented in this encounter Visit Diagnoses Not on filedocumented in this encounter Care Teams Desktop Analyst Relationship Specialty Start Date End Date Dennise Ingram PA [address] [place] [phone] PCP - General Cardiac Cath Technician 06/03/19 documented as of this encounter Additional Source Comments The information contained in this document represents components of the legal health record. It is not the complete legal health record.[facility]
--- OUTSIDE RECORDS SUMMARY | 2025-07-08 18:18 | XMS_ITS | Clinical Summary ---
Author Organization [facility] Address [address] [facility] [address] [place] [phone] Phone Care Team Providers Care Cutter Barrel Drum Name Role Phone Dennise Ingram Primary Care Provider [phone] Allergies Active Allergy Reactions Criticality Noted Date Comments Varenicline Nausea and/or Vomiting 11/06/2023 Nintedanib Joint Pain Low 06/05/2024 Medications OXYCONTIN 20 mg 12 hr tablet Take 20 mg by mouth 2 (two) times a day as needed. 09/24/2019 Active oxyCODONE-aceta minophen (PERCOCET) 10-325 mg per tablet Take 10-325 tablets by mouth 3 (three) times a day as needed. 09/24/2019 Active predniSONE (DELTASONE) 5 MG tablet Take 10 mg by mouth daily. 10/08/2019 Active sildenafiL (VIAGRA) 100 mg tablet Take 100 mg by mouth as needed. 10/12/2019 Active polyethylene glycol (MIRALAX) 17 gram packet Take 17 g by mouth every other day. Active hydroCHLOROthia zide (MICROZIDE) 12.5 mg capsule Take 12.5 mg by mouth daily. Active ibuprofen (ADVIL,MOTRIN) 200 MG tablet Take 400 mg by mouth every 6 (six) hours as needed for pain (specific location in comments). Active fluticasone propion-salmete roL (WIXELA INHUB) 250-50 mcg/dose DISKUS Inhale 1 puff into the lungs 2 (two) times a day. 60 each 5 12/15/2023 Active buPROPion (WELLBUTRIN SR) 150 MG SR 12 hr tablet Take 1 tablet (150 mg total) by mouth 2 (two) times a day. 180 tablet 3 06/05/2024 Active albuterol (VENTOLIN HFA) 90 mcg/actuation inhaler Inhale 2 puffs into the lungs every 6 (six) hours as needed for wheezing. 8.5 g 11 07/17/2024 Active etanercept (ENBREL) 50 mg/mL (1 mL) PnIj Inject 50 mg under the skin once a week. Active Active Problems Problem Noted Date Diagnosed Date Pulmonary hypertension, unspecified 12/16/2024 Assessment & Plan (12/16/2024 5:01 PM EDT): Last echo from March with mild pulmonary hypertension. Worsening diffusion capacity on PFTs suggest either progressive pulmonary hypertension and/or worsening interstitial disease or fibrosis. Will plan to repeat echo in 3 months. 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 Bills following repeat testing to help coordinate if recommend changing regimen such as a trial of rituximab. Pulmonary emphysema 06/05/2024 Assessment & Plan (12/16/2024 5:02 PM EDT): Continue Wixela and as needed albuterol. Assessment & Plan (06/05/2024 4:03 PM EDT): No significant airflow obstruction on therapy. Continue Wixela given clinical response. Will repeat PFTs in 6 months as above. Shortness of breath 02/23/2024 Assessment & Plan (02/23/2024 3:43 PM EDT): Progressive shortness of breath likely secondary to worsening interstitial lung disease. Will check echo to rule out secondary pulmonary hypertension. Abnormal diffusion capacity determined by pulmonary function test 02/23/2024 Assessment & Plan (02/23/2024 3:43 PM EDT): Echo as above. Medication monitoring encounter 12/15/2023 Assessment & Plan (02/23/2024 3:42 PM EDT): Monitor LFTs monthly x 3 followed by every 3 months x 4. Assessment & Plan (12/15/2023 2:00 PM EDT): Check LFTs every month after starting OFEV x 3, followed by every 3 months for the first year. Abnormal chest CT 11/06/2023 Assessment & Plan (11/06/2023 1:54 PM EDT): Recent low-dose chest CT at [facility] with nodularity noted within the bronchus intermedius concerning for secretions versus bronchial abnormality. Given need for bronchoscopy for ILD, will pursue direct airway evaluation fiberoptically. Repeat CT therefore can be scheduled in a 6-month interval to rule out progression. Tobacco use disorder 10/15/2019 Assessment & Plan (12/16/2024 5:02 PM EDT): Counseled to quit given potential for smoking-related interstitial disease. He declined hypnosis, will continue Wellbutrin, and see if he is committed to quitting. Assessment & Plan (06/05/2024 4:04 PM EDT): Chronic fibrotic lung disease possibly related to chronic tobacco use. Patient interested in quitting but difficulty managing. Continue Wellbutrin, intolerant of Chantix. Does not like nicotine replacement. Would check with PCP to determine if role for psychopharmacology as patient admits to using cigarettes as a crutch for his anxiety. Assessment & Plan (12/15/2023 2:01 PM EDT): Ongoing tobacco use, reviewed importance of complete cessation given unknown contribution of tobacco to his worsening fibrotic lung disease. He is intent on quitting and has a plan in place. Continue nicotine replacement therapy, chewing gum, and bupropion. Assessment & Plan (11/06/2023 1:51 PM EDT): Longstanding tobacco use with severe interstitial and emphysematous lung disease concerning for RB-ILD versus combined emphysema and interstitial lung disease. Reviewed importance of complete cessation. Patient committed to quitting. Has tried nicotine replacement therapy but intolerant of Chantix. Will start bupropion 150 mg twice daily, start with nightly dose nightly for 1 week, then add a morning dose. If difficulty tolerating, will start with 75 mg and titrate up as tolerates. Assessment & Plan (02/05/2020 12:21 PM EDT): Approximately 7 minutes of visit dedicated tobacco cessation counseling. Given concern for RB-ILD, emphasize importance of complete tobacco cessation. Given prior experience with Chantix, recommend resume therapy for at least 3 months, even extend to 6 months. Should take maximum tolerated dose up to 1 mg twice daily, but at least 0.5 mg twice daily if needed to improve tolerance. Continues to participate in smoking-related counseling through his PCP office. Assessment & Plan (11/27/2019 2:00 PM EDT): Will discuss tobacco use at follow-up visit. Assessment & Plan (10/21/2019 12:44 PM EDT): Ongoing tobacco use with reported emphysema on CT as well as concern for possible smoking-related ILD. Counseled patient at least 5 minutes dedicated tobacco cessation. Resume Chantix. Discuss further at follow-up once additional testing completed. ILD (interstitial lung disease) 10/15/2019 Assessment & Plan (12/16/2024 5:01 PM EDT): Combination of emphysema and interstitial lung disease with severe and progressive worsening. Last chest CT reportedly stable, but worsening symptoms and PFTs concern for worsening fibrosis. Intolerant of antifibrotic therapy (Ofev) and technically would not qualify for Esbriet even if willing to try. We discussed unclear underlying pathology, whether it smoking-related (RB-ILD) or related to his rheumatoid arthritis (RA-ILD). We discussed the fact that his current RA regimen is not addressing the interstitial disease and that either adding a separate agent may require or change it to drug with potentially more immunosuppressive side effects such as rituximab would be necessary. He confided that he is concerned about the care of his we depends on him and would not like to make any changes currently. 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 I can have him reinforced the importance of complete tobacco cessation to avoid continued progressive pulmonary fibrosis. 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 Fortunately, no radiographic progression. Interestingly also unclear if this is related to underlying rheumatologic disease. There were elevated eosinophils from his bronchoscopy as well. Will request recent labs though needs a CBC with differential to measure absolute eosinophil counts. If greater than 300, would strongly consider empiric trial of Dupixent. Repeat PFTs in 6 months. If there is been a decrement, will need a follow-up CT. Assessment & Plan (02/23/2024 3:42 PM EDT): Progressive interstitial lung disease with underlying emphysema, question combined pulmonary fibrosis and emphysema (CPFE) versus RA associated ILD with likely underlying UIP. Given both radiographic and physiologic progression, antifibrotic therapy certainly warranted. Start OFEV 150 mg twice daily. Suggested he start with once daily for 2 weeks and then increase to twice daily to improve GI tolerance. Will need repeat LFTs monthly for the first 3 months, then every 3 months for the first year. Will plan to repeat imaging and PFTs every 6 months. If there is evidence of progression, particularly that would suggest inflammatory component, will work with rheumatology has made be candidate for salvage therapy with rituximab. Assessment & Plan (12/15/2023 2:00 PM EDT): Mixed emphysema and pulmonary fibrosis with last PFTs 4 years ago normal spirometry. Radiographically there appears to be progression of the fibrotic component of his lung disease. Awaiting repeat PFTs next week. Given radiographic findings of progressive pulmonary fibrosis, strongly recommend starting antifibrotic therapy with OFEV. Reviewed possible side effects and risks, including need for LFT monitoring monthly x 3 followed by every 3 months. PLAN: Repeat PFTs for next week Check labs today including simple CBC and CMP. Request prior authorization to start OFEV 150 mg twice daily Plan for annual CT for lung cancer screening at [facility] with repeat PFTs here in 12 months. Assessment & Plan (11/06/2023 1:52 PM EDT): Radiographic progressive interstitial lung disease mixed with emphysema. Unclear if represents spectrum of tobacco related disease with combined emphysema and ILD, RB ILD, or rheumatoid related interstitial lung disease concurrent with known emphysema. Will recheck several serologies including inflammatory markers, rheumatoid factor and CCP antibody. Recent CRP 15 and sed rate 68 checked at [facility]. Will check IL-2 receptor level as well. Obtain repeat full PFTs and 6-minute walk test Schedule bronchoscopy for airway survey and BAL. No role for transbronchial biopsies in the setting given excess risk with unlikely benefit. Assessment & Plan (02/05/2020 12:23 PM EDT): Emphysema with ILD. Encouraged regarding radiographic stability on follow-up chest CT, demonstrating predominant emphysema changes with mild groundglass opacities. Given stability and PFTs, recommend close monitoring with aggressive tobacco cessation. If any worsening or lack of improvement, would proceed with bronchoscopy potentially followed by VATS lung biopsy. Request prior PFTs for comparison. Plan follow-up PFT and CT in 6 months unless new or progressive symptoms develop. Assessment & Plan (11/27/2019 2:03 PM EDT): New findings of interstitial lung disease on last CT from March. Request CT and PFT be rescheduled for early January. Request prior outside CT images for comparison. Plan follow-up with patient after testing to discuss next steps and/or likely need for bronchoscopy. Assessment & Plan (10/21/2019 12:46 PM EDT): New progressive interstitial changes on low-dose chest CT, completed last March. Differential includes idiopathic interstitial pneumonitis such as UIP or NSIP, smoking-related disease such as respiratory bronchiolitis interstitial lung disease or DIP, versus possible connective tissue disease related ILD. Underlying cause markedly affects treatment recommendations. RECOMMENDATION: Obtain serologies and inflammatory markers Full PFTs Repeat high-resolution chest CT Pending results, will discuss with rheumatology. Options include treatment based on above findings versus bronchoscopy versus surgical lung biopsy. Undifferentiated inflammatory polyarthritis Overview (10/15/2019): Gregorio Calix Assessment & Plan (02/05/2020 12:20 PM EDT): Elevated CCP antibody suggestive of rheumatoid arthritis. Await more recent notes from Dr. 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 Assessment & Plan (11/27/2019 2:00 PM EDT): Serologies with now markedly elevated CCP antibody. Rheumatoid factor unfortunately not checked. Findings now suggestive of possible rheumatoid arthritis. Should follow-up with Dr. Calix as RA diagnosis may impact ILD treatment recommendations. Assessment & Plan (10/21/2019 12:43 PM EDT): Inflammatory polyarthritis currently not meeting criteria for lupus nor rheumatoid per rheumatology. However, given reported ILD findings, differentiating tobacco related versus idiopathic versus connective tissue related ILD of utmost importance in considering therapy. We will repeat serologies here. Immunizations Immunization Administration Dates Next Due Influenza Quadrivalent Preservative Free IM 05/14 Influenza, Unspecified Formulation 06/14/2011 Td, unspecified formulation 08/14/2003 Family History Medical History Relation Comments No Known Problems Daughter No Known Problems Son Relation Status Comments Daughter Mother Son Social History Tobacco Use Types Packs/Day Years Used Date Smoking Tobacco: Every Day Cigarettes 1 53.9 Started: 1971 Smokeless Tobacco: Never Tobacco Cessation:Ready to Q uit: Not Asked; Counseling Given: Not Answered Comments:3/4 PPD Alcohol Use Standard Drinks/Week Comments [...] on file Sexual Orientation Not on file Last Filed Vital Signs Vital Sign Reading Time Taken Comments Blood Pressure 138/82 12/16/2024 1:44 PM EDT Pulse 89 12/16/2024 1:44 PM EDT Temperature 36.5 C (97.7 F) 12/16/2024 1:44 PM EDT Respiratory Rate 13 11/30/2023 10:1 5 AM EDT Oxygen Saturation 91% 12/16/2024 1:44 PM EDT Inhaled Oxygen Concentration - - Weight 100.3 kg (221 lb 3.2 oz) 12/16/2024 1:44 PM EDT Height 182.9 cm (6') 02/23/2024 1:02 PM EDT Body Mass Index 30 02/23/2024 1:02 PM EDT Plan of Treatment Upcoming Encounters Date Type Department Care Team (Late st Contact Info) Description 07/15/2025 2:00 PM EST Office Visit [facility] [address] [place] [id number] Alin Tipton MD [address] [place] [phone] Health Maintenance Due Date Last Done Comments LIPID PANEL 1955 DEPRESSION SCREENING 1967 HEPATITIS C SCREENING 11/21/1973 COLOGUARD 11/21/2000 FIT TEST 11/21/2000 FOBT 11/21/2000 SIGMOIDOSCOPY 11/21/2000 VIRTUAL COLONOSCOPY 11/21/2000 ABDOMINAL AORTIC ANEURYSM (AAA) SCREENING 11/21/2020 ZOSTER VACCINES (2 of 2) 05/04/2021 03/09/2021, 01/12 Adult Td,Tdap Booster 10/01/2024 10/01/2014, 004 POTASSIUM LEVEL 12/14/2024 12/15/2023 INFLUENZA VACCINE (#1) 2025 , 05/03/2023, 04/26/2022, Additional history exists COVID-19 VACCINE ( season) 2025 05/01/2024, 05/06/2023, 05/26/2022, Additional history exists COLONOSCOPY 11/09/2025 11/09/2020 COLORECTAL CANCER SCREENING 11/09/2025 SMOKING Hx and SMOKELESS TOBACCO SCREENING 12/16/2025 12/16/2024 LUNG CANCER SCREENING (LDCT Only) 02/17/2026 02/17/2025, 05/13/2024, 08/03/2020, Additional history exists SCREENING FOR DIABETES 12/14/2026 12/15/2023 PNEUMOCOCCAL VACCINES (50+ years) Completed 09/17/2021, 12/04/2020 RSV VACCINE Completed 08/01/2023 HEPATITIS A VACCINES Aged Out No long er eligible based on patient's age to complete this topic HIB VACCINES Aged Out No longer eligi ble based on patient's age to complete this topic MENINGOCOCCAL VACCINES (ACWY) Aged Out No longer eligible based on patient's age to complete this topic MENINGOCOCCAL VACCINES (B) Aged Out N o longer eligible based on patient's age to complete this topic Medical Devices Implanted Type Area Public Health Sanitarian Technician Device Identifier Shelf Expiration Date Model / Serial / Lot Rods In Right Leg Procedures Procedure Name Priority Date/Time Associated Diagnosis Comments CT CHEST (HIGH RESOLUTION) WITHOUT CONTRAST Routine 02/17/2025 1:35 PM EDT ILD (interstitial lung disease) Rheumatoid lung disease with rheumatoid arthritis COMPREHENSIVE METABOLIC PANEL (CMP) Routine 12/15/2023 2:02 PM EDT Medication monitoring encounter ENDOSCOPY, COLON 11/09/2020 9:07 AM EDT from Last 3 Months or Most Recently Relevant to Health Maintenance Results * CT CHEST (HIGH RESOLUTION) WITHOUT CONTRAST (02/17/2025 1:35 PM EDT) Anatomical Region Laterality Modality Chest Computed Tomogra phy 02/19/2025 11:3 5 AM EDT Impressions 02/19/2025 11:53 AM EDT 1. Interval decrease in previously demonstrated diffuse groundglass opacities most likely representing a resolving flare of interstitial lung disease. 2. Unchanged reticular opacity and traction bronchiectasis and bronchiolectasis most likely representing connective tissue disease associated interstitial lung disease. 3. Emphysema. Narrative 02/19/2025 11:[address] CHEST (HIGH RESOLUTION) WITHOUT CONTRAST Referring clinician's provided indication for this examination in [facility]: * Interstitial lung disease Inflammatory polyarthritis. TECHNIQUE: Multidetector CT of the chest was performed without intravenous contrast using tailored dose modulation techniques. Thin inspiratory, expiratory and inspiratory prone images were obtained as part of a high-resolution chest CT protocol. COMPARISON: CT CHEST (HIGH RESOLUTION) WITHOUT CONTRAST FINDINGS: Devices/Tubes/Lines: None. Lungs: The central airways are patent. There is a small amount of retained mucous in the trachea and proximal mainstem bronchi. There are changes of centrilobular emphysema throughout the upper lungs. In addition, there are reticular opacities and faint groundglass opacities associated with traction bronchiectasis and bronchiolectasis in a perihilar distribution. When compared with 05/13/2024 there has been a significant decrease in underlying diffuse groundglass opacities. No change in reticular opacities or traction bronchiectasis. No new groundglass opacities or airspace opacities. No suspicious pulmonary nodules. Scattered areas of air trapping. No change on prone imaging. Pleura: Decrease in trace left pleural fluid. Mediastinum: Normal. No thyroid nodules. Heart and pericardium are normal. Mild amount of coronary calcifications. Lymph Nodes: Normal. No enlarged supraclavicular, axillary, mediastinal, or hilar lymph nodes. Upper Abdomen: Normal. No abnormality detected in the visualized upper abdomen. Absence of intravenous contrast limits sensitivity for detecting solid organ findings. Chest Wall: Normal. No chest wall mass. Bones: No suspicious lytic or blastic lesions. Anterior compression of the L2 vertebral body. Procedure Note Dion Trevino MD - 02/19/2025 CT CHEST (HIGH RESOLUTION) WITHOUT CONTRAST Referring clinician's provided indication for this examination in [facility]: *Interstitial lung disease Inflammatory polyarthritis. TECHNIQUE: Multidetector CT of the chest was performed without intravenouscontrast using tailored dose modulation techniques. Thin inspiratory,expiratory and inspiratory prone images were obtained as part of [facility]-resolution chest CT protocol. COMPARISON: CT CHEST (HIGH RESOLUTION) WITHOUT CONTRAST FINDINGS: Devices/Tubes/Lines: None. Lungs: The central airways are patent. There is a small amount of retainedmucous in the trachea and proximal mainstem bronchi. There are changes ofcentrilobular emphysema throughout the upper lungs. In addition, there arereticular opacities and faint groundglass opacities associated withtraction bronchiectasis and bronchiolectasis in a perihilar distribution.When compared with 05/13/2024 there has been a significant decrease inunderlying diffuse groundglass opacities. No change in reticular opacitiesor traction bronchiectasis. No new groundglass opacities or airspaceopacities. No suspicious pulmonary nodules. Scattered areas of airtrapping. No change on prone imaging. Pleura: Decrease in trace left pleural fluid. Mediastinum: Normal. No thyroid nodules. Heart and pericardium are normal.Mild amount of coronary calcifications. Lymph Nodes: Normal. No enlarged supraclavicular, axillary, mediastinal,or hilar lymph nodes. Upper Abdomen: Normal. No abnormality detected in the visualized upperabdomen. Absence of intravenous contrast limits sensitivity for detectingsolid organ findings. Chest Wall: Normal. No chest wall mass. Bones: No suspicious lytic or blastic lesions. Anterior compression of theL2 vertebral body. IMPRESSION: 1. Interval decrease in previously demonstrated diffuse groundglassopacities most likely representing a resolving flare of interstitial lungdisease. 2. Unchanged reticular opacity and traction bronchiectasis andbronchiolectasis most likely representing connective tissue diseaseassociated interstitial lung disease. 3. Emphysema. Alin Tipton MD [facility] [place] CHEST Final Result * (ABNORMAL) Comprehensive metabolic panel (12/15/2023 2:02 PM EDT) SODIUM 136 133 - 146 mmol/L [facility] POTASSIUM 4.1 3.3 - 5.1 mmol/L [facility] CHLORIDE 101 96 - 108 mmol/L [facility] CO2 24 21 - 35 mmol/L [facility] BUN 26(H) 6 - 19 mg/dL [facility] CREATININE 1.00 0.5 - 1.5 mg/dL [facility] GLUCOSE 116(H) 70 - 99 mg/dL [facility] ALBUMIN 4.1 3.9 - 4.8 g/dL [facility] TOTAL PROTEIN 7.8 6.5 - 8.0 g/dL [facility] CALCIUM 9.2 8.4 - 10.3 mg/dL [facility] ALKALINE PHOSPHATASE 101 39 - 117 U/L [facility] TOTAL BILIRUBIN 0.3 0.0 - 1.2 mg/dL [facility] AST 24 0 - 37 U/L [facility] ALT 12 0 - 40 U/L [facility] GLOBULIN 3.7 1 - 4.8 g/dL [facility] EGFR 82 >59 mL/min/1.7 3m2 [facility] Comment:Estimated glomerular filtration rate calculated using the CKD-EPI refit equation. ANION GAP 15 10 - 20 mmol/L [facility] Blood 12/15/2023 2:02 PM EDT 12/15/2023 2:05 PM EDT us Alin Tipton MD LAB BLOOD BKR ORDERABLES Final Result Performing Organization Address City/State/[facility] Co de Phone Number [facility] [address] [place] [address] * ENDOSCOPY, COLON (11/09/2020 9:07 AM EDT) Narrative Transcriptions Alex Villafana MD - 11/09/2020 9:07 AM EDT Patient Name: Harrison Mckeon Attending MD:: ALEX VILLAFANA MD Procedure Date: 11/09/2020 9:07 AM Date of : 1955 Age: 64 Admit Type: Outpatient Gender: Male Room: [place] [address] Referring MD: Dennise Ingram Exam Type: Colonoscopy Indications: High risk colon cancer surveillance: Personalhistory of colonic polyps, Last colonoscopy 5 years ago Medications: Monitored Anesthesia Care Procedure: Informed consent was obtained from the patient after discussion of the indications, limitations, alternatives, benefits, and risks of the procedure. Risks specifically discussed include but are not limited to medication reactions, missed lesions, bleeding, perforation, or the need for emergentsurgery. Throughout the procedure, the patient's bloodpressure, pulse, end-tidal CO2, and oxygen saturations were monitored continuously. The Olympus adult variable colonoscope [id number] #1was introduced through the anus and advanced to the terminal ileum, with identification of theappendiceal orifice and IC valve. The colonoscopy was performed without difficulty. The patient tolerated theprocedure well. The quality of the bowel preparation wasadequate after copious irrigation. Complications: No immediate complications. Estimated blood loss:None. Findings: The terminal ileum appeared normal. Examination of the right colon was repeated in retroflexion. Prep cleanliness was not sufficient to permit a useful NBI exam. Retroflexion was also performed in the rectum. A 4 mm polyp was found in the transverse colon. The polyp was sessile and found to be Kudo Pit PatternType II (as viewed with Narrow Band Imaging). The polypwas removed with a cold snare. Resection and retrievalwere complete. The exam was otherwise without abnormality. Impression: - The examined portion of the ileum was normal. - One 4 mm polyp in the transverse colon, removedwith a cold snare. Resected and retrieved. - The examination was otherwise normal. Recommendation: - Patient has a contact number available for emergencies. The signs and symptoms of potential delayed complications were discussed with thepatient. Return to normal activities tomorrow. Writtendischarge instructions were provided to the patient. - Repeat colonoscopy in 5 years for surveillance. - Await pathology results. Alex Villafana ALEX VILLAFANA MD 11/09/2020 10:05:51 AM This report has been signed electronically. Number of Addenda: 0 Note Initiated On: 11/09/2020 9:07 AM Procedure Code(s): --- Professional --- 58941, Colonoscopy, flexible; with removal of tumor(s), polyp(s), or other lesion(s) by snare technique --- Technical --- 29268, Colonoscopy, flexible; with removal of tumor(s), polyp(s), or other lesion(s) by snare technique CPT copyright 2018 [employer]. All rights reserved. The codes documented in this report are preliminary and upon braille coder reviewmay be revised to meet current compliance requirements. Procedure Date: 11/09/2020 9:07:[address] [place] [address] Dennise [facility] PROCEDURE ORDERABLES Fi nal Result from Last 3 Months or Most Recently Relevant to Health Maintenance Insurance [employer] SUPPLEMENT MEDICARE PART A & B [employer] SUPPLEMENT MEDICARE PART A & B [employer] SUPPLEMENT MEDICARE PART A & B [employer] SUPPLEMENT MEDICARE PART A & B [employer] SUPPLEMENT MEDICARE PART A & B [employer] [place] MED[place] SUPPLEMENT MEDICARE PART A & B [employer] MEDEX SUPPLEMENT MEDICARE PART A & B [employer]EX SUPPLEMENT MEDICARE PART A & B [employer] MEDEX SUPPLEMENT MEDICARE PART A & B Care Teams Cutter Barrel Drum Relationship Specialty Start Date End Date Dennise Ingram PA [address] [place] [address] PCP - General Graduating Machine Operator 06/03/19 Additional Source Comments The information contained in this document represents components of the legal health record. It is not the complete legal health record.[facility]
--- OUTSIDE RECORDS SUMMARY | 2025-07-08 18:18 | XMS_ITS | Encounter Summary ---
Author Organization [facility] Address [address] [facility] [address] [place] [address] Phone Care Team Providers Care Crater And Packer Name Role Phone Dennise Ingram Primary Care Provider +1- [phone] Encounter Details Date Type Department Care Team (Late st Contact Info) Description 12/16/2024 Procedure Pass [facility] Echo Lab [address] [place] [address] Social History Tobacco Use Types Packs/Day Years [...] Upcoming Encounters Date Type Department Care Team ([facility] st Contact Info) Description 07/15/2025 2:00 PM EST Office Visit [facility] Pulmonary, Allergy and Critical Care Medicine [address] [place] [address] Alin Tipton MD [address] [place] [address] documented as of this encounter Visit Diagnoses Not on filedocumented in this encounter Care Teams Crater And Packer Relationship Specialty Start Date End Date Dennise Ingram PA [address] [place] [phone] PCP - General Velvet Steamer 06/03/19 documented as of this encounter Additional Source Comments The information contained in this document represents components of the legal health record. It is not the complete legal health record.[facility]
--- OUTSIDE RECORDS SUMMARY | 2025-07-08 18:18 | XMS_ITS | Encounter Summary ---
Author Organization [facility] Address [address] [place] [address] Phone Care Team Providers Care Affirmative Action Specialist Name Role Phone Dennise Ingram Primary Care Provider +1- [phone] Encounter Details Date Type Department Care Team (Late st Contact Info) Description 12/16/2024 Procedure Pass [facility], Ct Scan - [address] [address] Social History Tobacco Use Types Packs/Day Years [...] Upcoming Encounters Date Type Department Care Team ([facility] st Contact Info) Description 07/15/2025 2:00 PM EST Office Visit [facility] Pulmonary, Allergy and Critical Care Medicine [address] [place] [address] Alin Tipton MD [address] [place] [address] documented as of this encounter Visit Diagnoses Not on filedocumented in this encounter Care Teams Affirmative Action Specialist Relationship Specialty Start Date End Date Dennise Ingram PA [address] [place] [address] PCP - General Legislators 06/03/19 documented as of this encounter Additional Source Comments The information contained in this document represents components of the legal health record. It is not the complete legal health record.[facility]
--- OUTSIDE RECORDS SUMMARY | 2025-07-08 18:18 | XMS_ITS | Clinical Summary ---
Author Organization [facility] Address [address] [place] [address] Care Team Providers Care Associate Trainer Name Role Phone Unavailable Primary Care Provider Unavailabl e Social History Tobacco Use Types Packs/Day Years Used Date Smoking Tobacco: Never Assessed Sex and Gender Information Value Date Recorded Sex Assigned at Not on file Legal Sex Male 11:47 AM EST Gender Identity Not on file Sexual Orientation Not on file Plan of Treatment Health Maintenance Due Date Last Done Comments Advance Care Planning 1955 Hepatitis C Virus Screening 1955 DTaP/Tdap/Td Vaccines (1 - Tdap) 11/21/1974 Colonoscopy 11/21/2000 Pneumococcal Vaccines 50+ (1 of 1 - PCV) 11/21/2005 Zoster (Shingles) Vaccine (1 of 2) 11/21/2005 Influenza Vaccine 03/14/2025 COVID-19 Vaccine (1 - 2023-2 5 season) 2025 RSV Vaccine 50 years and old er and Patients (1 - 1-dose 75+ series) 11/21/2030 Hepatitis B Vaccines Aged Out No long er eligible based on patient's age to complete this topic Insurance MEDICARE PART A & B [facility] OUT OF STATE - PPO
--- OUTSIDE RECORDS SUMMARY | 2025-07-08 18:18 | XMS_ITS | Encounter Summary ---
Author Organization [facility] Address [address] [facility] [address] [place] [address] Phone Care Team Providers Care Sheep Clipper Name Role Phone Dennise Ingram Primary Care Provider +1- [phone] Encounter Details Date Type Department Care Team (Late Contact Info) Description 01/15/2020 Procedure Pass [facility], Ct Scan - [address] [address] Social History Tobacco Use Types Packs/Day Years [...] Encounters Date Type Department Care Team (Late Contact Info) Description 07/15/2025 2:00 PM EST Office Visit [facility], Allergy and Critical Care Medicine [address] [facility] [place] [address] Alin Tipton MD 10 [facility] 2nd [place] [address] documented as of this encounter Visit Diagnoses Not on filedocumented in this encounter Care Teams Sheep Clipper Relationship Specialty Start Date End Date Dennise Ingram PA [address] [place] [address] PCP - General Social Work Case Manager 06/03/19 documented as of this encounter Additional Source Comments The information contained in this document represents components of the legal health record. It is not the complete legal health record.[facility]
--- OUTSIDE RECORDS SUMMARY | 2025-07-08 18:18 | XMS_ITS | Encounter Summary ---
Author Organization [facility] Address [address] [facility] [address] [place] [address] Phone Care Team Providers Care Manager Global Name Role Phone Dennise Ingram Primary Care Provider +1- [phone] Encounter Details Date Type Department Care Team (Late Contact Info) Description 02/05/2020 Procedure Pass [facility], Ct Scan - [address] [address] Social History Tobacco Use Types Packs/Day Years [...] Pulmonary, Allergy and Critical Care Medicine 10 [facility] [place] [address] Alin Tipton MD 10 [facility] [address] [place] [address] documented as of this encounter Visit Diagnoses Not on filedocumented in this encounter Care Teams Manager Global Relationship Specialty Start Date End Date Dennise Ingram PA [address] [place] [address] PCP - General Hospitality Internship 06/03/19 documented as of this encounter Additional Source Comments The information contained in this document represents components of the legal health record. It is not the complete legal health record.[facility]
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
--- OUTSIDE RECORDS SUMMARY | 2025-07-08 18:18 | XMS_ITS | Encounter Summary ---
Author Organization [facility] Address [address] [facility] [address] [place] [address] Phone Care Team Providers Care Last Repairer Name Role Phone Dennise Ingram Primary Care Provider +1- [phone] Encounter Details Date Type Department Care Team (Late Contact Info) Description 02/26/2021 Procedure Pass [address] [address] Social History Tobacco Use Types Packs/Day Years Used Date Smoking Tobacco: Every Day Cigarettes 1 53.9 Started: 1971 Smokeless Tobacco: Never Alcohol Use Standard Drinks/Week Comments Not Currently 0 (1 standard drink = 0.6 oz pur e alcohol) Sex and Gender Information Value Date Recorded Sex Assigned at Not on file Legal Sex Male 4:17 PM EDT Gender Identity Not on file Sexual Orientation Not on file documented as of this encounter Plan of Treatment Upcoming Encounters Date Type Department Care Team (Late Contact Info) Description 07/15/2025 2:00 PM EST Office Visit [facility] Pul[facility], Allergy and Critical Care Medicine [address] [place] [address] [place] [address] Alin Tipton MD [address] [place] [address] documented as of this encounter Visit Diagnoses Not on filedocumented in this encounter Care Teams Last Repairer Relationship Specialty Start Date End Date Dennise Ingram PA [address] [place] [address] PCP - General Satellite Tv Technician Installer 06/03/19 documented as of this encounter Additional Source Comments The information contained in this document represents components of the legal health record. It is not the complete legal health record.[facility]
--- OUTSIDE RECORDS SUMMARY | 2025-07-08 18:18 | XMS_ITS | Encounter Summary ---
Author Organization [facility] Address [address] [facility] [address] [place] [address] Phone Care Team Providers Care Automotive Sales Executive Name Role Phone Dennise Ingram Primary Care Provider +1- [phone] Encounter Details Date Type Department Care Team ([facility] Contact Info) Description 01/28/2020 Transcribe Orders [facility] PFT Lab [address] [place] [address] Alin Tipton MD [address] [place] [address] [email or web address] Social History Tobacco Use Types Packs/Day Years [...] Upcoming Encounters Date Type Department Care Team ([facility] Contact Info) Description 07/15/2025 2:00 PM EST Office Visit [facility] Pul[facility], Allergy and Critical Care Medicine 10 [place] [address] Alin Tipton MD [address] [place] [address] [email or web address] documented as of this encounter Visit Diagnoses Not on filedocumented in this encounter Care Teams Automotive Sales Executive Relationship Specialty Start Date End Date Dennise Ingram PA [address] [place] [address] PCP - General Glass Artist 06/03/19 documented as of this encounter Additional Source Comments The information contained in this document represents components of the legal health record. It is not the complete legal health record.[facility]
--- OUTSIDE RECORDS SUMMARY | 2025-07-08 18:18 | XMS_ITS | Encounter Summary ---
Author Organization [facility] Address [address] [facility] [address] [place] [address] Phone Care Team Providers Care Tufting Machine Operator Single Needle Name Role Phone Dennise Ingram Primary Care Provider +1- [phone] Encounter Details Date Type Department Care Team (Late st Contact Info) Description 11/30/2023 Procedure Pass [facility] Endoscopy Admitting Dept Virtual Department 30 [place] [address] Social History Tobacco Use Types Packs/Day Years [...] Upcoming Encounters Date Type Department Care Team ([facility] st Contact Info) Description 07/15/2025 2:00 PM EST Office Visit [facility] Pulmonary, Allergy and Critical Care Medicine [address] [place] [address] Alin Tipton MD [address] [place] [address] documented as of this encounter Visit Diagnoses Not on filedocumented in this encounter Care Teams Tufting Machine Operator Single Needle Relationship Specialty Start Date End Date Dennise Ingram PA [address] [place] [address] PCP - General Sr. Manager 06/03/19 documented as of this encounter Additional Source Comments The information contained in this document represents components of the legal health record. It is not the complete legal health record.[facility]
--- OUTSIDE RECORDS SUMMARY | 2025-07-08 18:18 | XMS_ITS | Encounter Summary ---
Author Organization [facility] Address [address] [facility] [address] [place] [address] Phone Care Team Providers Care Gettering Filament Machine Operator Name Role Phone Dennise Ingram Primary Care Provider +1- [phone] Encounter Details Date Type Department Care Team ([facility] Contact Info) Description 11/09/2020 Procedure Pass [facility] Endoscopy Admitting Dept Virtual Department [address] [place] [address] Social History Tobacco Use Types Packs/Day Years [...] Upcoming Encounters Date Type Department Care Team ([facility] Contact Info) Description 07/15/2025 2:00 PM EST Office Visit [facility] Pulmonary, Allergy and Critical Care Medicine [address] [place] [address] Alin Tipton MD [address] [address] documented as of this encounter Visit Diagnoses Not on filedocumented in this encounter Care Teams Gettering Filament Machine Operator Relationship Specialty Start Date End Date Dennise Ingram PA [address] [place] [address] PCP - General Process Area Supervisor 06/03/19 documented as of this encounter Additional Source Comments The information contained in this document represents components of the legal health record. It is not the complete legal health record.[facility]
== END 2025-07-08 15:24 | disposition home or self-care (01) ==
LOC: HO.RHES 14:26
PROVIDERS: PCP Physician Assistant Medical; Visit Provider Student in an Organized Health Care Education/Training Program
DX: M05.79 Rheumatoid arthritis with rheumatoid factor of multiple sites without organ or systems involvement (principal); Z79.52 Long term (current) use of systemic steroids; Z51.81 Encounter for therapeutic drug level monitoring; Z79.620 Long term (current) use of immunosuppressive biologic
CPT/HCPCS: 99213; G2211

== ENCOUNTER → 2025-07-08 14:25 | Outpatient (BNVA) | payer MEDICARE, SELFPAY | PROVIDERS: PCP Physician Assistant Medical; Visit Provider Student in an Organized Health Care Education/Training Program | DX: M05.79 Rheumatoid arthritis with rheumatoid factor of multiple sites without organ or systems involvement (principal); Z79.52 Long term (current) use of systemic steroids; Z79.899 Other long term (current) drug therapy; Z51.81 Encounter for therapeutic drug level monitoring; Z79.620 Long term (current) use of immunosuppressive biologic | CPT/HCPCS: 99212 ==